=== PATIENT | male | born 1980 | race Caucasian/White ===

== ENCOUNTER 2020-01-07 16:23 | Outpatient (RCR) | payer OTHER, SELFPAY | END 2020-02-03 23:59 | disposition home or self-care (01) | LOC: SPT 16:23 | PROVIDERS: PCP Family Medicine; Referring Provider Family Medicine; Visit Provider Family Medicine | DX: S49.91XD Unspecified injury of right shoulder and upper arm, subsequent encounter (principal); X58.XXXD Exposure to other specified factors, subsequent encounter | CPT/HCPCS: 97110; 97161 ==

== ENCOUNTER 2020-03-03 15:21 | Outpatient (RCR) | payer SELFPAY | END 2020-03-04 23:59 | disposition home or self-care (01) | LOC: SPT 15:21 | PROVIDERS: Absent Provider Orthopaedic Surgery; PCP Family Medicine; Referring Provider Orthopaedic Surgery; Visit Provider Orthopaedic Surgery | DX: M25.511 Pain in right shoulder (principal) | CPT/HCPCS: 97110; 97161 ==

== ENCOUNTER 2020-03-08 | Outpatient (RCR) | payer OTHER, SELFPAY | END 2020-03-25 | disposition home or self-care (01) | LOC: SPT | PROVIDERS: Absent Provider Orthopaedic Surgery; PCP Family Medicine; Referring Provider Orthopaedic Surgery; Visit Provider Orthopaedic Surgery | DX: M25.511 Pain in right shoulder (principal) | CPT/HCPCS: 97110 ==

== ENCOUNTER 2020-08-10 09:51 | Emergency (ER) | payer OTHER, SELFPAY ==
[2020-08-10 09:55] VITALS: BP 132/88; PULSE 100; RESP 18; TEMP 36.6; O2SAT 98
[2020-08-10 09:59] VITALS: BMI 22.1
[2020-08-10 10:04] LABS: Glucose Point of Care 211 mg/dL (70-110)
[2020-08-10 10:05] VITALS: BP 132/88; PULSE 102; RESP 18; O2SAT 99
[2020-08-10 10:11] VITALS: BP 100/79; BP 112/83; BP 120/87; PULSE 103; PULSE 105; PULSE 97
--- NOTE | 2020-08-10 10:11 | CT_ITS ---
WS: [id number] CT HEAD TECHNIQUE: Noncontrast CT of the head obtained from the skullbase to the vertex. CLINICAL INFORMATION: vision changes COMPARISON: None. DLP: 732.[address] scans at [facility] use at least one of these dose optimization techniques: automat ed exposure control; mA and/or kV adjustment per patient size (includes targeted exams where dose is matched to clinical indication); or iterative reconstruction. FINDINGS: No evidence of intracranial hemorrhage or mass effect. Ventricular system and basal cisterns are jewell nt.No extra-axial fluid collections. No evidence of mass or mass effect. Normal saldana-white differenti ation. Paranasal sinuses and mastoid air cells are well aerated. .Normal visualized soft tissues. CT/CT head wo con* [id number] IMPRESSION: 1. No evidence of intracranial hemorrhage or mass effect. 2. Normal saldana-white differentiation. 3. No acute intracranial findings. Notified Jorge Tariq DO at 08/10/2020 10:43 AM.
--- NOTE | 2020-08-10 10:11 | ECG_ITS ---
[facility] Test Date: 2020-08-10 Pat Name: Kristian Balbuena Department: Room: Gender: Male Health Care Attorney: : 1980 Requested By: Jorge Nunez Order Number: [id number] Angel MD: Jessi Ryder M.D. Measurements Intervals [place] Rate: 102 P: 77 LA: 126 QRS: 79 QRSD: 85 T: 76 QT: 328 QTc: 428 Interpretive Statements SINUS TACHYCARDIA POSSIBLE LEFT ATRIAL ENLARGEMENT [-0.1mV P WAVE IN V1/V2] ABNORMAL RHYTHM ECG No previous ECG available for comparison Electronically Signed On 08-10-2020 20:53:44 CDT by Jessi Ryder M.D. [email or web address] county memorial [email or web address] Systemsadena [email or web address] systemSwagapalooza/store/[id number] f
--- NOTE | 2020-08-10 10:11 | PC.NURSE ---
marked redness Nurse marked patients right arm to track redness coming up the arm. slight drainage coming from wound. wound left open to air. patient rating pain 5/10 after pain medication. informed patient of no drinks of water or food at this time. will continue to monitor.
[2020-08-10] MEDS: sodium chloride 0.9% 1,000 ML 999 ML IV (10:28)
[2020-08-10 10:32] LABS: Basophils % 0.5 %; Eosinophils # 0.2 10^3/uL (0.0-0.8); Eosinophils % 2.2 %; Hematocrit 46.1 % (42.0-52.0); Hemoglobin 15.3 g/dL (11.7-16.6); Lymphocytes # 2.6 10^3/uL (0.8-4.8); Lymphocytes % 30.9 %; Mean Corpuscular HGB Conc 33.2 g/dL (30.0-36.0); Mean Corpuscular Hemoglobin 30.5 pg (28.0-34.0); Monocytes # 0.6 10^3/uL (0.2-0.9); Monocytes % 7.3 %; Neutrophils % 58.9 %; Nucleated Red Blood Cells % 0 %; Platelet Count 267 10^3/cmm (130-400); Red Blood Count 5.01 10^6/uL (4.1-5.3); Red Cell Distribution Width 12.3 % (12.1-15.1); White Blood Count 8.3 10^3/uL (4.0-10.0)
[2020-08-10 10:50] LABS: Alanine Aminotransferase 12 U/L (0-41); Albumin Level 4.4 g/dL (3.5-5.2); Alkaline Phosphatase 76 IU/L (40-130); Anion Gap 17.4 (5-19); Aspartate Amino Transferase 12 U/L (0-40); Blood Urea Nitrogen 21 mg/dL (6-20); Carbon Dioxide 25 mmol/L (22-29); Chloride 99 mmol/L (98-107); Globulin 2.9 g/dL (1.3-4.6); Glomerular Filtration Rate 83.2 mL/min (90-130); Glucose 209 mg/dL (65-115); Lipase 16 U/L (13-60); Osmolality Calculated 293 mOsm/kg (285-295); Potassium 4.4 mmol/L (3.5-5.1); Sodium 137 mmol/L (136-145); Total Bilirubin 0.7 mg/dL (0.15-1.2); Total Protein 7.3 g/dL (6.6-8.7)
[2020-08-10 10:58] LABS: ABG PCO2 43.2 mmHg (35-45); ABG PH Result 7.41 (7.35-7.45); Alveolar-Arterial Oxygen Gradi 1.9 mmHg (5-10); Arterial Blood Gas Hematocrit 46.5 % (42-52); Base Excess ABG 1.9 mmol/L (-2.0-2.0); Blood Gas Allen Test Pos; Blood Gas Sample Site Brachial, right; Blood Gas Sample Type Arterial; Carboxyhemoglobin 3.1 %THgb (0.4-20.1); HGB O2 Sat 93.6 % (95-100); Ionized Calcium Level - ABG 1.2 mmol/L (1.1-1.4); Methemoglobin 0.8 % (0.4-1.5); Oxygen Device ROOM AIR; Oxygen Saturation ABG 97.4; PO2 ABG 82.3 mmHg (80.0-100.0); Potassium Level - ABG 4.1 mmol/L (3.5-5.0); Total Hemoglobin 15.2 g/dL (14-18)
[2020-08-10 11:00] VITALS: BP 131/92; PULSE 105; RESP 18; O2SAT 99
--- NOTE | 2020-08-10 11:37 | ED_ITS ---
HPI - General Adult General: Chief complaint: General Medical Stated complaint: DIABETIC/VISION CHANGES Time Seen by Provider: 08/10/20 09:57 History of Present Illness: HPI narrative: 39-year-old male presents emergency room with complaint of difficulty with vision in his right eye. He has a history of diabetic retinopathy and has had surgery on the right eye before as well as injections he has very blurry vision in his left eye as result of this. This morning while driving to work it suddenly began having wavy lines it was not associated exertion or trauma or injury to the eye. Onset (ago): minute(s) Location: eyes Severity: mild Relieving factors: none Exacerbating factors: none Associated symptoms: Deny chest pain, confusion, dyspnea, malaise, nausea, rash, vomiting or weakness Treatments prior to arrival: none Review of Systems Const: Denies: malaise ENMT: Denies: throat pain, ear or mastoid pain, nasal discharge or nasal congestion Card: Denies: chest pain, edema, dyspnea on exertion or orthopnea Resp: Denies: dyspnea, productive cough or non-productive cough GI: Denies: nausea or vomiting : Denies: flank pain, dysuria, urinary frequency or urinary urgency Skin/Breast: Denies: rash or pruritus Neuro: Denies: confusion Physical Exam Const: COMMON NORMALS: no acute distress GENERAL APPEARANCE: cooperative and comfortable ORIENTATION/CONSCIOUSNESS: Yes awake, Yes oriented to person, Yes oriented to place and Yes oriented to time HENMT: COMMON NORMALS: normocephalic, atraumatic, hearing grossly normal bilaterally, external ears normal, EAC's normal, TM's normal bilaterally, Normal nasal mucous membranes and turbinates present, moist oral mucous membranes and oropharynx normal HEAD & SCALP: normocephalic and atraumatic NOSE: Normal nasal mucous membranes and turbinates present EXTERNAL EAR: Yes external ears normal EXTERNAL AUDITORY CANAL: EAC's normal TYMPANIC MEMBRANE: TM's normal bilaterally Eye: COMMON NORMALS: Equal, round and reactive pupils present, EOMs intact bilaterally, conjunctivae normal and no scleral icterus CONJUNCTIVA: Yes conjunctivae normal PUPIL: Yes Equal, round and reactive pupils present Neck/C-Spine: COMMON NORMALS: full ROM, no lymphadenopathy, supple and no JVD Lymph: LYMPHATIC: no lymphadenopathy noted and no lymphedema noted Resp: COMMON NORMALS: normal respiratory effort, No retractions, No use of a ccessory muscles and clear to auscultation bilaterally AUSCULTATION: clear to auscultation bilaterally Cardio: COMMON NORMALS: no JVD, regular rate, regular rhythm and No murmurs present (Cardio) RATE: regular rate RHYTHM: regular rhythm GI: COMMON NORMALS: Soft to palpation and No hepatosplenomegaly present AUSCULTATION: Yes normoactive bowel sounds PALPATION: Yes Soft to palpation, No Tenderness to palpation present (GI), No Guarding due to palpation present (GI) and Yes No hepatosplenomegaly present Extremity: COMMON NORMALS: normal to inspection, capillary refill normal, no clubbing, cyanosis or edema, no calf tenderness and no pedal edema Neuro: SENSORIUM/ORIENTATION: Yes oriented to person, Yes oriented to place and Yes oriented to time Skin: COMMON NORMALS: no rashes or lesions noted NARRATIVE SKIN EXAM: Superficial abrasion on the right flank no bruising GENERAL SKIN EXAM: no rashes or lesions noted Course Vital Signs: Vital signs: Vital Signs Temperature 97.8 F 08/10/20 09:55 Pulse Rate 96 08/10/20 11:55 Respiratory Rate 18 08/10/20 11:55 Blood Pressure 135/92 08/10/20 11:55 Pulse Oximetry 100 08/10/20 11:55 MDM - General Adult MDM Narrative: Medical decision making narrative: Patient still has good visual odom at this point. Working to go ahead and discharge him I think he does need a dilated eye exam with a slit lamp. We will make arrangements for him to be seen with Dr. Turpin. He was given the time and address. Follow-up with Dr. Turpin if she had he has any sudden worsening changes return to the emergency room Lab Data: Labs: Lab Results 08/10/20 08/10/20 08/10/20 Range/Units 10:01 10:26 10:26 WBC 8.3 (4.0-10.0) 10^3/ uL RBC 5.01 (4.1-5.3) 10^6/u L Hgb 15.3 (11.7-16.6) g/dL Hct 46.1 (42.0-52.0) % MCV 92.0 (80-94) fL MCH 30.5 (28.0-34.0) pg MCHC 33.2 (30.0-36.0) g/dL RDW 12.3 (12.1-15.1) % Plt Count 267 (130-400) 10^3/c mm MPV 10.0 (7.4-10.4) fL Neut % (Auto) 58.9 % Lymph % (Auto) 30.9 % [place] % (Auto) 7.3 % Eos % (Auto) 2.2 % Baso % (Auto) 0.5 % Neut # (Auto) 4.90 (1.8-7.7) 10^3/u L Lymph # (Auto) 2.6 (0.8-4.8) 10^3/u L [place] # (Auto) 0.6 (0.2-0.9) 10^3/u L Eos # (Auto) 0.2 (0.0-0.8) 10^3/u L Baso # (Auto) 0.0 (0.0-0.1) 10^3/u L Nucleated RBC % (a uto) 0 % Nucleated RBCs # 0.0 /100WBC Specimen Type Sample Site ABG pH (7.35-7.45) ABG pCO2 (35-45) mmHg ABG pO2 (80.0-100.0) mmH g ABG HCO3 (22-26) mmol/L ABG O2 Saturation ABG Base Excess (-2.0-2.0) mmol/ L Adriel Test A-a O2 Gradient (5-10) mmHg Hematocrit (42-52) % Hgb O2 Saturation (95-100) % Carboxyhemoglobin (0.4-20.1) %THgb Methemoglobin (0.4-1.5) % Total Hemoglobin (14-18) g/dL Ionized Calcium (1.1-1.4) mmol/L O2 Delivery Device FiO2 % Chief Of Internal Medicine ID Sodium 137 (136-145) mmol/L Potassium 4.4 (3.5-5.1) mmol/L Chloride 99 (98-107) mmol/L Carbon Dioxide 25 (22-29) mmol/L Anion Gap 17.4 (5-19) BUN 21 H (6-20) mg/dL Creatinine 1.0 (0.7-1.2) mg/dL GFR Calculation 83.2 L (90-130) mL/min Glucose 209 H (65-115) mg/dL POC Glucose 211 (70-110) mg/dL Calculated Osmolal ity 293 (285-295) mOsm/k g Calcium 10.0 (8.5-10.5) mg/dL Total Bilirubin 0.7 (0.15-1.2) mg/dL AST 12 (0-40) U/L ALT 12 (0-41) U/L Alkaline Phosphata se 76 (40-130) IU/L Total Protein 7.3 (6.6-8.7) g/dL Albumin 4.4 (3.5-5.2) g/dL Globulin 2.9 (1.3-4.6) g/dL Lipase 16 (13-60) U/L 08/10/20 Range/Units 10:49 WBC (4.0-10.0) 10^3/ uL RBC (4.1-5.3) 10^6/u L Hgb (11.7-16.6) g/dL Hct (42.0-52.0) % MCV (80-94) fL MCH (28.0-34.0) pg MCHC (30.0-36.0) g/dL RDW (12.1-15.1) % Plt Count (130-400) 10^3/c mm MPV (7.4-10.4) fL Neut % (Auto) % Lymph % (Auto) % [place] % (Auto) % Eos % (Auto) % Baso % (Auto) % Neut # (Auto) (1.8-7.7) 10^3/u L Lymph # (Auto) (0.8-4.8) 10^3/u L [place] # (Auto) (0.2-0.9) 10^3/u L Eos # (Auto) (0.0-0.8) 10^3/u L Baso # (Auto) (0.0-0.1) 10^3/u L Nucleated RBC % (a uto) % Nucleated RBCs # /100WBC Specimen Type Arterial Sample Site Brachial, right ABG pH 7.41 (7.35-7.45) ABG pCO2 43.2 (35-45) mmHg ABG pO2 82.3 (80.0-100.0) mmH g ABG HCO3 27.0 H (22-26) mmol/L ABG O2 Saturation 97.4 ABG Base Excess 1.9 (-2.0-2.0) mmol/ L Adriel Test Pos A-a O2 Gradient 1.9 L (5-10) mmHg Hematocrit 46.5 (42-52) % Hgb O2 Saturation 93.6 L (95-100) % Carboxyhemoglobin 3.1 (0.4-20.1) %THgb Methemoglobin 0.8 (0.4-1.5) % Total Hemoglobin 15.2 (14-18) g/dL Ionized Calcium 1.2 (1.1-1.4) mmol/L O2 Delivery Device Room air FiO2 21.0 % Chief Of Internal Medicine ID yorna Sodium 138.0 (136-145) mmol/L Potassium 4.1 (3.5-5.1) mmol/L Chloride (98-107) mmol/L Carbon Dioxide (22-29) mmol/L Anion Gap (5-19) BUN (6-20) mg/dL Creatinine (0.7-1.2) mg/dL GFR Calculation (90-130) mL/min Glucose 179.0 H (65-115) mg/dL POC Glucose (70-110) mg/dL Calculated Osmolal ity (285-295) mOsm/k g Calcium (8.5-10.5) mg/dL Total Bilirubin (0.15-1.2) mg/dL AST (0-40) U/L ALT (0-41) U/L Alkaline Phosphata se (40-130) IU/L Total Protein (6.6-8.7) g/dL Albumin (3.5-5.2) g/dL Globulin (1.3-4.6) g/dL Lipase (13-60) U/L Discharge Plan Discharge Patient Disposition: Home Clinical Impression: Diabetic retinopathy Condition: Stable Prescriptions: No Action tramadol 50 mg Tablet 50 mg PO PRN RF: 0 Synjardy XR 5-1,000 mg tablet, IR - ER, biphasic 24hr 1 tab PO BID RF: 0 Discharge Orders: Discharge Order (Routine); Ordered 08/10/20 Ordered By: Jorge Tariq Referrals: Carlos Gao MD [Primary Care Provider] - Activity Restrictions/Additional Instructions: You have an appointment to see Dr. Turpin today at 1:00. Discharge Date/Time: 08/10/20 11:56 Coding Level of Care Code ED Gas Plant Operator for Maurizio Laird
[2020-08-10 11:55] VITALS: BP 135/92; PULSE 96; RESP 18; O2SAT 100
== END 2020-08-10 11:56 | disposition home or self-care (01) ==
PROVIDERS: Emergency Provider Family Medicine; PCP Family Medicine
DX: E11.319 Type 2 diabetes mellitus with unspecified diabetic 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 (principal)
CPT/HCPCS: 12345; 36416; 36600; 70450; 80051; 80053; 82810; 82962; 83690; 83986; 85025; 93005; 96360; 99282; 99284; J7030

== ENCOUNTER 2021-03-26 17:06 | Emergency (ER) | payer OTHER, SELFPAY ==
[2021-03-26 17:11] VITALS: BP 127/86; PULSE 106; RESP 18; TEMP 36.8; O2SAT 98; BMI 22.5
--- NOTE | 2021-03-26 17:22 | W.ED.EXTPRO ---
HPI - Extremity Problem General: Chief complaint: Extremity Problem,Nontraumatic Stated complaint: TOE INFECTION (DIABETIC) Time Seen by Provider: 03/26/21 17:22 History of Present Illness: HPI Narrative: Patient is a 40-year-old male comes to the ED with right toenail problem. Patient has onychodystrophy and was scheduled to have his toenails removed at Dr. Montemayor's office a couple months ago when he had a scheduling issue and missed his appointment. Comes to the ED because today he is having some erythema around his right great toenail. Associated symptoms: Deny chest pain, fever(s) or rash Review of Systems Const: Denies: fever(s), chills or fatigue Eyes: Denies: change in vision or eye discomfort ENMT: Denies: throat pain, odynophagia, nasal discharge or nasal congestion Card: Denies: chest pain, palpitations, edema, swelling of feet/ankles, dyspnea on exertion or orthopnea Resp: Denies: dyspnea, productive cough or non-productive cough GI: Denies: abdominal pain, nausea, vomiting, diarrhea, constipation or hematochezia : Denies: flank pain, difficulty urinating, dysuria or hematuria Musc: Denies: neck pain, back pain or extremity swelling Skin/Breast: Reports: erythema (Erythema around right great toenail.) and nail changes (Right great toenail deformity); Denies: rash or new lesions Neuro: Denies: headache(s), numbness in extremities or weakness in extremities PFS ED PFSH: Social History Smoking and tobacco status: current every day smoker Physical Exam Const: COMMON NORMALS: no acute distress, patient oriented x3 and alert GENERAL APPEARANCE: cooperative and comfortable HENMT: COMMON NORMALS: normocephalic HEAD & SCALP: normocephalic MOUTH: Normal oral and palatal mucosa present THROAT: posterior oropharynx normal and uvula midline Neck/C-Spine: COMMON NORMALS: supple GENERAL: Yes normal visual inspection Resp: COMMON NORMALS: normal respiratory effort, No retractions, No use of accessory muscles and clear to auscultation bilaterally AUSCULTATION: clear to auscultation bilaterally Cardio: COMMON NORMALS: regular rate, regular rhythm, S1 normal heart sound present, S2 normal heart sound present, No gallops present (Cardio), No clicks present (Cardio), No murmurs present (Cardio) and Peripheral pulses 2+ throughout RATE: regular rate RHYTHM: regular rhythm HEART SOUNDS: S1 normal heart sound present and S2 normal heart sound present PERIPHERAL PULSES: Peripheral pulses 2+ throughout GI: COMMON NORMALS: Normal to inspection, nondistended, normoactive bowel sounds present, Soft to palpation, non-tender and no masses PALPATION: Yes Soft to palpation : COMMON NORMALS: Yes no CVA tenderness BLADDER/KIDNEY EXAM: Yes no CVA tenderness Back/Pelvis: COMMON NORMALS: no CVA tenderness Extremity: NARRATIVE EXTREMITY EXAM: Right foot?right great toenail deformity. There is some surrounding erythema and mild warmth surrounding right great toenail. No other significant exam findings. GENERAL: Yes normal exam except as noted Neuro: COMMON NORMALS: patient oriented x3 and moves all extremities SENSORIUM/ORIENTATION: Yes alert Skin: GENERAL SKIN EXAM: dry skin Course Vital Signs: Vital signs: Vital Signs Temperature 98.3 F 03/26/21 17:11 Pulse Rate 106 H 03/26/21 17:11 Respiratory Rate 18 03/26/21 17:11 Blood Pressure 127/86 03/26/21 17:11 Pulse Oximetry 98 03/26/21 17:11 MDM - Extremity (Nontraumatic) MDM Narrative: Medical decision making narrative: Patient is a 40-year-old male comes to the ED with right great toe nail deformity. Patient had an appointment with Dr. Montemayor the supervisor photoengraving to address toenail issues several months ago but was unable to get into see them due to scheduling conflict. He also has some surrounding erythema and warmth of right great toenail. Findings suggestive of some possible infection setting in. I placed an order with case management for patient to be referred to Dr. Montemayor the supervisor photoengraving. Patient was diagnosed with onychodystrophy of right great toe and he was sent home with the prescription of amoxicillin. Told patient that case packer will contact him in the next several days to set up an appoint with Dr. Montemayor the supervisor photoengraving. Return to ED precautions given. Patient understood and agreed with plan. Discharge Plan Discharge Patient Disposition: Home Clinical Impression: Onychodystrophy Condition: Stable Prescriptions: New amoxicillin 500 mg tablet 500 mg PO BID 7 Days Qty: 14 RF: 0 No Action oxycodone-acetaminophen 5-325 mg tablet 1 tab PO Q8H PRNRF: 0 naproxen 250 mg tablet 250 mg PO BID PRNRF: 0 tramadol 50 mg Tablet 50 mg PO PRN RF: 0 Synjardy XR 5-1,000 mg tablet, IR - ER, biphasic 24hr 1 tab PO BID RF: 0 Discharge Orders: Discharge ED (Routine); Ordered 03/26/21 Ordered By: Guillermo Villanueva Referrals: Carlos Gao MD [Primary Care Provider] - Discharge Diet: Regular Discharge Activity: Resume usual activity Activity Restrictions/Additional Instructions: Follow-up with medical provider as directed. Case management will be contacting you in the next several days to set up an appointment with Dr. Montemayor the supervisor photoengraving. Take medications as prescribed. Return to the ER or your medical provider if condition worsens. Please read and understand discharge instructions. Thank you for choosing [facility] for your healthcare needs today. Please realize this is an emergency room and that we are providing you with a medical screening exam and this may not be complete and all inclusive of all the testing and or work up that you may need to determine your ailment or severity of your illness. It is very important that you follow up as instructed or that you return to the Emergency Department should you have concerns or if your condition changes or worsens in any way. Coding Level of Care Code ED Metal Milling Machine Operator for Maurizio Laird Exam Comprehensive
--- NOTE | 2021-03-28 09:14 | DCPLANNER ---
is project manager had message to schedule a follow up appointment for patient with ortho. is project manager called the ortho clinic, spoke with Heidi, gave clinic patients information. is project manager was told that patients information would be printed and reviewed. Clinic will call patient with appointment information.
--- NOTE | 2021-03-31 08:04 | DCPLANNER ---
Patient had a follow up appointment scheduled for 03.28.[address] Montemayor at [facility] - patient did attend appointment.
== END 2021-03-26 17:34 | disposition home or self-care (01) ==
PROVIDERS: Emergency Provider Physician Assistant; PCP Family Medicine
DX: L60.3 Nail dystrophy (principal); F17.210 Nicotine dependence, cigarettes, uncomplicated
CPT/HCPCS: 99281

== ENCOUNTER 2021-05-27 17:22 | Emergency (ER) | payer OTHER, SELFPAY ==
[2021-05-27 18:32] VITALS: BP 141/90; PULSE 88; RESP 16; TEMP 36.5; O2SAT 100; BMI 23.1
--- NOTE | 2021-05-27 18:38 | W.ED.WOUNDLC ---
HPI - Wound/Laceration General: Chief Complaint: Wound/Laceration Stated Complaint: bilateral feet wounds Time Seen by Provider: 05/27/21 18:38 History of Present Illness: HPI narrative: Patient is a 40-year-old male comes to the ED wound on bottom of right foot. Patient says he has diabetic neuropathy and the wound occurred from his poor fitting steel toed boots he wears for work. He has had the wound now for approximately 2 weeks. That has not gotten any better. Denies any other symptoms. Associated symptoms: Denies chills, fever(s), nausea or vomiting Review of Systems Const: Denies: fever(s), chills or fatigue Eyes: Denies: change in vision or eye discomfort ENMT: Denies: throat pain, odynophagia, nasal discharge or nasal congestion Card: Denies: chest pain, palpitations, edema, swelling of feet/ankles, dyspnea on exertion or orthopnea Resp: Denies: dyspnea, productive cough or non-productive cough GI: Denies: abdominal pain, nausea, vomiting, diarrhea, constipation or hematochezia : Denies: flank pain, difficulty urinating, dysuria or hematuria Musc: Denies: neck pain, back pain or extremity swelling Skin/Breast: Reports: new lesions (right diabetic foot ulcer); Denies: rash Neuro: Denies: headache(s), numbness in extremities or weakness in extremities PFSH ED PFSH: Medical History Type 2 diabetes mellitus with diabetic polyneuropathy Social History Smoking and tobacco status: current every day smoker Physical Exam Const: COMMON NORMALS: no acute distress, patient oriented x3 and alert GENERAL APPEARANCE: cooperative and comfortable HENMT: COMMON NORMALS: normocephalic HEAD & SCALP: normocephalic MOUTH: Normal oral and palatal mucosa present THROAT: posterior oropharynx normal and uvula midline Neck/C-Spine: COMMON NORMALS: supple GENERAL: Yes normal visual inspection Resp: COMMON NORMALS: normal respiratory effort, No retractions, No use of accessory muscles and clear to auscultation bilaterally AUSCULTATION: clear to auscultation bilaterally Cardio: COMMON NORMALS: regular rate, regular rhythm, S1 normal heart sound present, S2 normal heart sound present, No gallops present (Cardio), No clicks present (Cardio), No murmurs present (Cardio) and Peripheral pulses 2+ throughout RATE: regular rate RHYTHM: regular rhythm HEART SOUNDS: S1 normal heart sound present and S2 normal heart sound present PERIPHERAL PULSES: Peripheral pulses 2+ throughout GI: COMMON NORMALS: Normal to inspection, nondistended, normoactive bowel sounds present, Soft to palpation, non-tender and no masses PALPATION: Yes Soft to palpation : COMMON NORMALS: Yes no CVA tenderness BLADDER/KIDNEY EXAM: Yes no CVA tenderness Back/Pelvis: COMMON NORMALS: no CVA tenderness Neuro: COMMON NORMALS: patient oriented x3 and moves all extremities SENSORIUM/ORIENTATION: Yes alert Skin: NARRATIVE SKIN EXAM: Right foot?plantar side of foot near the ball of foot at base of big toe. Patient has an ulcer present with minimal skin tissue breakdown. There are some surrounding erythema and warmth which is suggestive for some possible cellulitis setting in. No visible purulent drainage noted. GENERAL SKIN EXAM: dry skin Course Vital Signs: Vital signs: Vital Signs Temperature 97.7 F 05/27/21 18:32 Pulse Rate 88 05/27/21 19:44 Respiratory Rate 18 05/27/21 19:44 Blood Pressure 141/90 05/27/21 18:32 Pulse Oximetry 98 05/27/21 19:44 MDM - Wound/Laceration MDM Narrative: Medical decision making narrative: Patient is a 40-year-old male comes to the ED with right foot wound. That has type 2 diabetes and diabetic neuropathy. Exam shows a diabetic foot ulcer with minimal skin tissue breakdown. There was some surrounding erythema and warmth present. Patient was put on a prescription of Bactrim. I placed order with case management for patient be referred to wound care clinic. Discharge Plan Discharge Patient Disposition: Home Clinical Impression: Diabetic foot ulcer Qualifiers: Diabetic foot ulcer location: unspecified part of foot Diabetes mellitus type: type 2 Laterality: right Non-pressure ulcer stage: limited to breakdown of skin Qualified Code(s): E11.621 - Type 2 diabetes mellitus with foot ulcer Condition: Stable Prescriptions: New Bactrim DS 800-160 mg tablet 1 tab PO BID 7 Days Qty: 14 RF: 0 No Action mupirocin 2 % ointment 1 applic topical BID Qty: 15 RF: 0 Discharge Orders: Discharge ED (Routine); Ordered 05/27/21 Ordered By: Guillermo Villanueva Referrals: David Macario NP [Primary Care Provider] - Discharge Diet: Regular Discharge Activity: Increase activity as tolerated Patient Instructions: Diabetic Foot Ulcers (ED) Activity Restrictions/Additional Instructions: Follow-up with medical provider as directed. Case management will contact you in the next several days to set up an appointment with wound care clinic. Take medications as prescribed. Elevate right foot and you can wear compression stockings as well to help with swelling. Return to the ER or your medical provider if condition worsens. Please read and understand discharge instructions. Thank you for choosing [facility] for your healthcare needs today. Please realize this is an emergency room and that we are providing you with a medical screening exam and this may not be complete and all inclusive of all the testing and or work up that you may need to determine your ailment or severity of your illness. It is very important that you follow up as instructed or that you return to the Emergency Department should you have concerns or if your condition changes or worsens in any way. Coding Level of Care Code ED Hemming And Tacking Machine Operator for Maurizio Fwd Exam Comprehensive
[2021-05-27] MEDS: sulfamethoxazole-trimeth DS 160-800 mg Tablet 1 TAB PO (19:41)
[2021-05-27 19:42] VITALS: PULSE 88; O2SAT 97
[2021-05-27 19:44] VITALS: PULSE 88; RESP 18; O2SAT 98
--- NOTE | 2021-05-30 14:48 | DCPLANNER ---
residential property manager had message to schedule a follow up appointment for patient with Wound Care for diabetic foot ulcer. residential property manager called Wound Care, spoke with Kylah, gave clinic patients information. A follow up appointment was scheduled for Monday, May 31, 2021 at 10:00 with Rupa. residential property manager called and spoke with patients , gave her the appointment information, she stated that she would give patient the appointment information.
--- NOTE | 2021-06-09 11:49 | DCPLANNER ---
Patient had a follow up appointment scheduled with Wound Care - patient did attend appointment.
== END 2021-05-27 19:44 | disposition home or self-care (01) ==
PROVIDERS: Emergency Provider Physician Assistant; PCP Nurse Practitioner Family
DX: E11.621 Type 2 diabetes mellitus with foot ulcer (principal); E11.42 Type 2 diabetes mellitus with diabetic polyneuropathy; F17.200 Nicotine dependence, unspecified, uncomplicated
CPT/HCPCS: 99282

== ENCOUNTER 2021-06-03 13:58 | Outpatient (CLI) | payer OTHER, SELFPAY ==
--- NOTE | 2021-06-03 15:59 | XR_ITS ---
WS: [id number] XR foot RT min 3V* [id number] REASON FOR EXAM: ULCERS ON RIGHT FOOT FINDINGS: In the right forefoot there are mild changes of osteoarthritis in the DIP and PIP joints of the toes characterized by mild narrowing of the joint spaces with subchondral sclerosis and marginal osteophyt es. There are no bony abnormalities suggesting osteomyelitis. No periosteal reaction or bony destruct ion. The joint spaces in the mid foot in the hindfoot are intact and well maintained. No bony or soft tiss ue abnormality is identified. XR/XR foot RT min 3V* [id number] IMPRESSION: There are no findings is just the presence of osteomyelitis.
== END 2021-06-03 13:59 | disposition home or self-care (01) ==
PROVIDERS: PCP Nurse Practitioner Family; Visit Provider Surgery
DX: E11.621 Type 2 diabetes mellitus with foot ulcer (principal); L97.511 Non-pressure chronic ulcer of other part of right foot limited to breakdown of skin; F17.210 Nicotine dependence, cigarettes, uncomplicated
CPT/HCPCS: 73630; 87070; 87077; 87186; 97597; G0463

== ENCOUNTER 2021-06-06 12:49 | Outpatient (CLI) | payer OTHER, SELFPAY ==
--- NOTE | 2021-06-06 12:55 | USCV_ITS ---
Kristian Balbuena Age: 40 Gender: M : 1980 Exam Date: 06/06/2021 13:26 Ordering Phys: Arcadio Mejia MD Technologist: Exam Location: [facility] – [place] Indication: RT LEG PAIN AND SWELLING HISTORY: Lower extremity swelling. Lower extremity pain. PROCEDURES: Venous duplex imaging was performed in only the right lower extremity. The following venous structures were evaluated: common femoral vein, profunda vein, proximal portion of the greater saphenous vein, superficial femoral vein, and the popliteal vein. In addition, the posterior tibial and peroneal trunk were evaluated. On the right side, the common femoral, superficial femoral, profunda femoral, popliteal, posterior tibial, greater saphenous veins and the peroneal trunk were identified and interrogated in the standard fashion. These veins were found to be easily compressible with spontaneous blood flow. No evidence of insufficiency or thrombus noted. FINDINGS: Normal 2-D Doppler and augmentation and compressibility throughout the lower extremity venous structures. Additional imaging through the proximal calf veins also reveals no thrombus. Limited evaluation of the greater saphenous vein is patent with no thrombus.. CONCLUSIONS No evidence of right lower extremity DVT. Darius Lawrence MD (Electronically Signed) Final Date: 06 June 2021 17:30 S
[2021-06-06 13:46] LABS: Basophils # 0.1 10^3/uL (0.0-0.1); Basophils % 0.9 %; Eosinophils # 0.2 10^3/uL (0.0-0.8); Eosinophils % 3.4 %; Hematocrit 46.2 % (42.0-52.0); Lymphocytes # 2.2 10^3/uL (0.8-4.8); Mean Corpuscular HGB Conc 32.5 g/dL (30.0-36.0); Mean Corpuscular Hemoglobin 30.2 pg (28.0-34.0); Mean Corpuscular Volume 93.1 fL (80-94); Mean Platelet Volume 10.1 fL (7.4-10.4); Monocytes # 0.3 10^3/uL (0.2-0.9); Monocytes % 5.3 %; Neutrophils # 3.07 10^3/uL (1.8-7.7); Neutrophils % 52.9 %; Nucleated Red Blood Cells % 0 %; Platelet Count 291 10^3/cmm (130-400); Red Blood Count 4.96 10^6/uL (4.1-5.3); Red Cell Distribution Width 12.3 % (12.1-15.1); White Blood Count 5.8 10^3/uL (4.0-10.0)
[2021-06-06 14:06] LABS: Alanine Aminotransferase 28 U/L (0-41); Alkaline Phosphatase 296 IU/L (40-130); Anion Gap 14.4 (5-19); Aspartate Amino Transferase 17 U/L (0-40); Blood Urea Nitrogen 20 mg/dL (6-20); Calcium 8.9 mg/dL (8.5-10.5); Carbon Dioxide 26 mmol/L (22-29); Chloride 99 mmol/L (98-107); Chol HDL Ratio 3.17 mg/dL (1.0-5.00); Cholesterol 165 mg/dL (0-200); Globulin 3.2 g/dL (1.3-4.6); Glomerular Filtration Rate 74.1 mL/min (90-130); Glucose 370 mg/dL (65-115); HDL Cholesterol 52 mg/dL (60-100); LDL Cholesterol Calculated 85 mg/dL (50-129); LDL HDL Ratio 1.63 RATIO (0.00-3.22); Osmolality Calculated 298 mOsm/kg (285-295); Potassium 4.4 mmol/L (3.5-5.1); Sodium 135 mmol/L (136-145); Total Bilirubin 0.4 mg/dL (0.15-1.2); Total Protein 7.2 g/dL (6.6-8.7); Triglycerides 142 mg/dL (0-150)
[2021-06-06 14:29] LABS: Prealbumin 25.5 mg/dL (20-40)
[2021-06-06 14:55] LABS: Estmated Average Glucose 295; Hemoglobin A1C 11.9 % (4.0-6.0)
== END 2021-06-06 12:50 | disposition home or self-care (01) ==
LOC: RAD 12:53
PROVIDERS: PCP Nurse Practitioner Family; Visit Provider Surgery
DX: M79.89 Other specified soft tissue disorders (principal); E11.621 Type 2 diabetes mellitus with foot ulcer; M79.604 Pain in right leg
CPT/HCPCS: 36415; 80053; 80061; 83036; 84134; 85025; 93971

== ENCOUNTER 2021-06-10 14:31 | Outpatient (CLI) | payer OTHER, SELFPAY | END 2021-06-10 14:32 | disposition home or self-care (01) | LOC: WOUND 14:31 | PROVIDERS: PCP Nurse Practitioner Family; Visit Provider Surgery | DX: E11.621 Type 2 diabetes mellitus with foot ulcer (principal); L97.511 Non-pressure chronic ulcer of other part of right foot limited to breakdown of skin; F17.210 Nicotine dependence, cigarettes, uncomplicated | CPT/HCPCS: 97597 ==

== ENCOUNTER 2021-06-17 14:45 | Outpatient (CLI) | payer OTHER, SELFPAY | END 2021-06-17 14:46 | disposition home or self-care (01) | LOC: WOUND 14:45 | PROVIDERS: PCP Nurse Practitioner Family; Visit Provider Surgery | DX: E11.621 Type 2 diabetes mellitus with foot ulcer (principal); L97.511 Non-pressure chronic ulcer of other part of right foot limited to breakdown of skin; F17.210 Nicotine dependence, cigarettes, uncomplicated | CPT/HCPCS: 97597 ==

== ENCOUNTER 2021-06-24 12:58 | Outpatient (CLI) | payer OTHER, SELFPAY | END 2021-06-24 12:59 | disposition home or self-care (01) | LOC: WOUND 12:59 | PROVIDERS: PCP Nurse Practitioner Family; Visit Provider Surgery | DX: I96 Gangrene, not elsewhere classified (principal); E11.621 Type 2 diabetes mellitus with foot ulcer; L97.512 Non-pressure chronic ulcer of other part of right foot with fat layer exposed; F17.210 Nicotine dependence, cigarettes, uncomplicated | CPT/HCPCS: 11042 ==

== ENCOUNTER 2021-07-01 13:05 | Outpatient (CLI) | payer OTHER, SELFPAY | END 2021-07-01 13:06 | disposition home or self-care (01) | LOC: WOUND 13:06 | PROVIDERS: PCP Nurse Practitioner Family; Visit Provider Surgery | DX: I96 Gangrene, not elsewhere classified (principal); E11.621 Type 2 diabetes mellitus with foot ulcer; L97.512 Non-pressure chronic ulcer of other part of right foot with fat layer exposed; F17.210 Nicotine dependence, cigarettes, uncomplicated | CPT/HCPCS: 11042 ==

== ENCOUNTER 2021-07-08 13:01 | Outpatient (CLI) | payer OTHER, SELFPAY | END 2021-07-08 13:02 | disposition home or self-care (01) | LOC: WOUND 13:02 | PROVIDERS: PCP Nurse Practitioner Family; Visit Provider Surgery | DX: E11.621 Type 2 diabetes mellitus with foot ulcer (principal); L97.512 Non-pressure chronic ulcer of other part of right foot with fat layer exposed; F17.210 Nicotine dependence, cigarettes, uncomplicated | CPT/HCPCS: 11042 ==

== ENCOUNTER 2021-07-15 13:41 | Outpatient (CLI) | payer OTHER, SELFPAY | END 2021-07-15 13:42 | disposition home or self-care (01) | LOC: WOUND 13:42 | PROVIDERS: PCP Nurse Practitioner Family; Visit Provider Surgery | DX: E11.621 Type 2 diabetes mellitus with foot ulcer (principal); L97.512 Non-pressure chronic ulcer of other part of right foot with fat layer exposed; F17.210 Nicotine dependence, cigarettes, uncomplicated | CPT/HCPCS: 11042 ==

== ENCOUNTER 2021-07-22 13:11 | Outpatient (CLI) | payer OTHER, SELFPAY | END 2021-07-22 13:12 | disposition home or self-care (01) | LOC: WOUND 13:11 | PROVIDERS: PCP Nurse Practitioner Family; Visit Provider Surgery | DX: E11.621 Type 2 diabetes mellitus with foot ulcer (principal); L97.512 Non-pressure chronic ulcer of other part of right foot with fat layer exposed; F17.210 Nicotine dependence, cigarettes, uncomplicated | CPT/HCPCS: 11042 ==

== ENCOUNTER 2021-07-29 10:49 | Outpatient (CLI) | payer OTHER, SELFPAY | END 2021-07-29 10:50 | disposition home or self-care (01) | LOC: WOUND 10:49 | PROVIDERS: PCP Nurse Practitioner Family; Visit Provider Surgery | DX: E11.621 Type 2 diabetes mellitus with foot ulcer (principal); L97.512 Non-pressure chronic ulcer of other part of right foot with fat layer exposed; F17.210 Nicotine dependence, cigarettes, uncomplicated | CPT/HCPCS: 11042; A6021 ==

== ENCOUNTER 2021-08-05 08:18 | Outpatient (CLI) | payer OTHER, SELFPAY | END 2021-08-05 08:19 | disposition home or self-care (01) | LOC: WOUND 08:19 | PROVIDERS: PCP Nurse Practitioner Family; Visit Provider Nurse Practitioner Family | DX: E11.621 Type 2 diabetes mellitus with foot ulcer (principal); L97.512 Non-pressure chronic ulcer of other part of right foot with fat layer exposed; F17.210 Nicotine dependence, cigarettes, uncomplicated | CPT/HCPCS: 11042 ==

== ENCOUNTER 2021-08-12 08:22 | Outpatient (CLI) | payer OTHER, SELFPAY | END 2021-08-12 08:23 | disposition home or self-care (01) | LOC: WOUND 08:27 | PROVIDERS: PCP Nurse Practitioner Family; Visit Provider Surgery | DX: E11.621 Type 2 diabetes mellitus with foot ulcer (principal); L97.512 Non-pressure chronic ulcer of other part of right foot with fat layer exposed; F17.210 Nicotine dependence, cigarettes, uncomplicated | CPT/HCPCS: 11042 ==

== ENCOUNTER 2021-08-19 08:27 | Outpatient (CLI) | payer OTHER, SELFPAY | END 2021-08-19 08:28 | disposition home or self-care (01) | LOC: WOUND 08:27 | PROVIDERS: PCP Nurse Practitioner Family; Visit Provider Nurse Practitioner Family | DX: Z09 Encounter for follow-up examination after completed treatment for conditions other than malignant neoplasm (principal); F17.210 Nicotine dependence, cigarettes, uncomplicated | CPT/HCPCS: 99212 ==

== ENCOUNTER 2024-07-08 07:47 | Emergency (ER) | payer OTHER, SELFPAY ==
[2024-07-08] VITALS (7 sets, daily range): BP systolic 126–147; BP diastolic 79–98; PULSE 97–125; RESP 17; TEMP 36.7; O2SAT 95–99; BMI 22.3
[2024-07-08 08:13] LABS: Basophils # 0.1 10^3/uL (0.0-0.1); Basophils % 0.4 %; Hematocrit 39.6 % (37-53); Lymphocytes # 0.7 10^3/uL (0.8-4.8); Lymphocytes % 5.9 %; Mean Corpuscular HGB Conc 34.8 g/dL (30-55); Mean Platelet Volume 10.4 fL (7.4-10.4); Monocytes # 1.3 10^3/uL (0.2-0.9); Monocytes % 10.5 %; Neutrophils # 9.79 10^3/uL (1.8-7.7); Neutrophils % 82.4 %; Nucleated Red Blood Cells % 0 %; Platelet Count 164 10^3/cmm (157-399); Red Blood Count 4.45 10^6/uL (3.85-5.65); Red Cell Distribution Width 12.5 % (12.1-15.1); White Blood Count 11.89 10^3/uL (3.29-11.43)
--- NOTE | 2024-07-08 08:21 | W.ED.BACK ---
HPI - Back Pain/Injury General: Chief Complaint: Back Pain/Injury Stated Complaint: back pain Time Seen by Provider: 07/08/24 07:50 History of Present Illness: 43-year-old male presents emergency including a back pain fever generalized body ache. Complaining of some mid back pain and some low-grade fever. Does have pain radiating to her hips. No dysuria urgency or frequency no chest pain or shortness of breath Associated symptoms: Reports fever(s) (Subjective); Deny abdominal pain, chills, dysuria or urinary urgency Related Data Previous Rx's Medication Instructions Recorded mupirocin 2 % topical ointment 1 applic topical BID #15 grams 03/28/21 amoxicillin 875 mg-potassium 1 tab PO BID 7 days #14 tabs 06/15/23 clavulanate 125 mg tablet amoxicillin 875 mg-potassium 1 tab PO BID #20 tabs 07/08/24 clavulanate 125 mg tablet tizanidine 4 mg tablet 4 mg PO Q6H PRN muscle spasticity 07/08/24 #20 tabs tramadol 50 mg tablet 50 mg PO Q6H PRN pain #15 tabs 07/08/24 Allergies Allergy/AdvReac Type Severity Reaction Status Date / Time No Known Allergies Allergy Verified 06/15/23 11:40 Review of Systems Const: Reports: fever(s) (Subjective); Denies: chills Card: Denies: chest pain Resp: Denies: dyspnea GI: Denies: abdominal pain : Denies: dysuria, urinary frequency or urinary urgency Musc: Denies: neck pain or back pain Skin/Breast: Denies: rash PFSH ED PFSH: Medical History Type 2 diabetes mellitus with diabetic polyneuropathy Social History Smoking and tobacco/nicotine status: current every day tobacco/nicotine user Physical Exam Const: COMMON NORMALS: no acute distress GENERAL APPEARANCE: cooperative and comfortable ORIENTATION/CONSCIOUSNESS: Yes awake, Yes oriented to person, Yes oriented to place and Yes oriented to time HENMT: COMMON NORMALS: normocephalic, atraumatic and hearing grossly normal bilaterally HEAD & SCALP: normocephalic and atraumatic Resp: COMMON NORMALS: normal respiratory effort, No retractions, No use of accessory muscles and clear to auscultation bilaterally AUSCULTATION: clear to auscultation bilaterally Cardio: COMMON NORMALS: regular rate, regular rhythm and No murmurs present (Cardio) RATE: regular rate RHYTHM: regular rhythm GI: COMMON NORMALS: Soft to palpation and No hepatosplenomegaly present AUSCULTATION: Yes normoactive bowel sounds PALPATION: Yes Soft to palpation, No Tenderness to palpation present (GI), No Guarding due to palpation present (GI) and Yes No hepatosplenomegaly present Extremity: COMMON NORMALS: normal to inspection, capillary refill normal, no clubbing, cyanosis or edema, no calf tenderness and no pedal edema Neuro: SENSORIUM/ORIENTATION: Yes oriented to person, Yes oriented to place and Yes oriented to time Skin: COMMON NORMALS: no rashes or lesions noted GENERAL SKIN EXAM: no rashes or lesions noted Course Vital Signs: Vital signs: Vital Signs Temperature 98.0 F 07/08/24 08:14 Pulse Rate 97 07/08/24 13:46 Respiratory Rate 17 07/08/24 08:14 Blood Pressure 136/81 07/08/24 13:46 Pulse Oximetry 97 07/08/24 13:46 Oxygen Delivery Me thod Room Air 07/08/24 13:00 MDM - Back Pain/Injury Medical Decision Making Extensive evaluation white count is very slightly elevated noting a fever at this time. Labs and imaging all reviewed. Did not he was given IV fluids glucose well-controlled. His T. bili and his AST and ALT are elevated. He does not appear to have acute cholecystitis at this time. Gallbladder sludge filled with there is no thickening of the wall there is no hydrops. He should have follow-up on this. There are some intrahepatic biliary ductal dilatation. Tabular the patient he has not previously been diagnosed with hepatitis he should have this evaluated I hepatitis profile was ordered. He should have his liver functions and T. bili rechecked with his primary care doctor within the next couple of weeks. If there is any worsening or change symptoms or develops any abdominal pain return to emergency room. Medical Records Extensive workup. White count is slightly elevated does not appear to be a acute infection at this time. I suspect his symptoms are due to musculoskeletal he may have a viral viral syndrome. He does not appear to be septic. Will discharge home with medications. Return to the emergency room. No fever at this time. Return to the emergency room if patient has worsening symptoms or fever develops. Labs 07/08/24 08:05 07/08/24 08:05 Radiology Impressions Abdomen/Pelvis CT 07/08/24 10:00 Impression: There is cholelithiasis. A right upper quadrant ultrasound is recommended for further evaluation. The liver is mildly inhomogenous. The urinary bladder is thick walled. The prostate appears mildly prominent. Vas deferens calcification is identified. Scattered lymph nodes are identified particularly in the pelvic and inguinal region. In light of the patient's symptoms genital urinary tract and infectious/inflammatory process could have this appearance. Neoplasm is thought to be less likely. Gallbladder Ultrasound 07/08/24 11:11 IMPRESSION: Sludge and small stones are seen within the thin-walled gallbladder. There is intrahepatic biliary duct dilatation. The liver is heterogeneous in appearance. When the patient can tolerate I recommend MR of the liver for further evaluation. Laboratory Results WBC 11.89 10^3/uL (3.29-11.43) H 07/08/24 08:05 RBC 4.45 10^6/uL (3.85-5.65) 07/08/24 08:05 Hgb 13.80 g/dL (11.27-16.99) 07/08/24 08:05 Hct 39.6 % (37-53) 07/08/24 08:05 MCV 89.0 fl (82-101) 07/08/24 08:05 MCH 31.0 pg (27-33) 07/08/24 08:05 MCHC 34.8 g/dL (30-55) 07/08/24 08:05 RDW 12.5 % (12.1-15.1) 07/08/24 08:05 Plt Count 164 10^3/cmm (157-399) 07/08/24 08:05 MPV 10.4 fL (7.4-10.4) 07/08/24 08:05 Neut % (Auto) 82.4 % 07/08/24 08:05 Lymph % (Auto) 5.9 % 07/08/24 08:05 [place] % (Auto) 10.5 % 07/08/24 08:05 Eos % (Auto) 0.0 % 07/08/24 08:05 Baso % (Auto) 0.4 % 07/08/24 08:05 Neut # (Auto) 9.79 10^3/uL (1.8-7.7) H 07/08/24 08:05 Lymph # (Auto) 0.7 10^3/uL (0.8-4.8) L 07/08/24 08:05 [place] # (Auto) 1.3 10^3/uL (0.2-0.9) H 07/08/24 08:05 Eos # (Auto) 0.0 10^3/uL (0.0-0.8) 07/08/24 08:05 Baso # (Auto) 0.1 10^3/uL (0.0-0.1) 07/08/24 08:05 Nucleated RBC % (auto) 0 % 07/08/24 08:05 Nucleated RBCs # 0.0 /100WBC 07/08/24 08:05 Sodium 138 mmol/L (136-145) 07/08/24 08:05 Potassium 3.6 mmol/L (3.5-5.1) 07/08/24 08:05 Chloride 98 mmol/L (98-107) 07/08/24 08:05 Carbon Dioxide 23 mmol/L (22-29) 07/08/24 08:05 Anion Gap 20.6 (5-19) H 07/08/24 08:05 BUN 23 mg/dL (6-20) H 07/08/24 08:05 Creatinine 1.2 mg/dL (0.7-1.2) 07/08/24 08:05 GFR Calculation 66.1 mL/min (90-130) L 07/08/24 08:05 Glucose 150 mg/dL (65-115) H 07/08/24 08:05 Calculated Osmolality 293 mOsm/kg (285-295) 07/08/24 08:05 Lactic Acid 2.1 mmol/L (0.5-2.2) 07/08/24 08:22 Lactic Acid (Sepsis) 1.3 mmol/L (0.5-2.2) 07/08/24 11:16 Calcium 8.7 mg/dL (8.5-10.5) 07/08/24 08:05 Total Bilirubin 3.9 mg/dL (0.15-1.2) H 07/08/24 08:05 AST 80 U/L (0-40) H 07/08/24 08:05 ALT 66 U/L (0-41) H 07/08/24 08:05 Alkaline Phosphatase 515 U/L (40-130) H 07/08/24 08:05 Total Protein 6.7 g/dL (6.6-8.7) 07/08/24 08:05 Albumin 3.3 g/dL (3.5-5.2) L 07/08/24 08:05 Globulin 3.4 g/dL (1.3-4.6) 07/08/24 08:05 Urine Color Dark yellow (Yellow) A 07/08/24 12:13 Urine Appearance Cloudy (CLEAR) A 07/08/24 12:13 Urine pH 5.0 (5-7) 07/08/24 12:13 Ur Specific [place] 1.037 (1.005-1.030) H 07/08/24 12:13 Urine Protein 2+ (Negative) A 07/08/24 12:13 Urine Glucose (UA) 1+ (Normal) H 07/08/24 12:13 Urine Ketones Negative (Negative) 07/08/24 12:13 Urine Blood 2+ (Negative) A 07/08/24 12:13 Urine Nitrate Negative (Negative) 07/08/24 12:13 Urine Bilirubin 3+ (Negative) H 07/08/24 12:13 Urine Urobilinogen 1.0 mg/dL (Negative) 07/08/24 12:13 Ur Leukocyte Esterase Negative (Negative) 07/08/24 12:13 Urine RBC 5-10 /hpf (0-2) H 07/08/24 12:13 Urine WBC 0-4 /hpf (0-5) H 07/08/24 12:13 Ur Squamous Epith Cells None /hpf (0-5) 07/08/24 12:13 Amorphous Sediment Trace /hpf 07/08/24 12:13 Urine Bacteria Trace /hpf (NONE) 07/08/24 12:13 Other Casts Broad granular 0-4 /lpf 07/08/24 12:13 Urine Mucus Trace /hpf 07/08/24 12:13 Coronavirus 229E (PCR) Not detected (NOT DETECT) 07/08/24 08:33 Hepatitis A IgM Ab Non-reactive (Nonreactive) 07/08/24 08:05 Hep Bs Antigen Non-reactive (Nonreactive) 07/08/24 08:05 Hep B Core IgM Ab Non-reactive (Nonreactive) 07/08/24 08:05 Hepatitis C Antibody Non-reactive (Nonreactive) 07/08/24 08:05 SARS-CoV-2 (PCR) Not detected (NOT DETECT) 07/08/24 08:33 All radiology interpretation(s) finalized by discharge Discharge Plan Discharge Patient Disposition: Home Clinical Impression: Strain of lumbar region Type 2 diabetes mellitus with diabetic polyneuropathy Qualifiers: 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 Qualified Code(s): E11.42 - Type 2 diabetes mellitus with diabetic polyneuropathy Condition: Stable Prescriptions: New tramadol 50 mg tablet 50 mg PO Q6H PRN (Reason: pain) Qty: 15 0RF tizanidine 4 mg tablet 4 mg PO Q6H PRN (Reason: muscle spasticity) Qty: 20 0RF Rx Instructions: do not exceed 3 doses per 24 hrs amoxicillin-pot clavulanate 875-125 mg tablet 1 tab PO BID Qty: 20 0RF No Action mupirocin 2 % ointment 1 applic topical BID Qty: 15 0RF amoxicillin-pot clavulanate 875-125 mg tablet 1 tab PO BID 7 Days Qty: 14 0RF Discharge Orders: Discharge ED (Routine); Ordered 07/08/24 Ordered By: Jorge Tariq Referrals: David Macario NP [Primary Care Provider] - Discharge Diet: Usual diet Discharge Activity: Resume usual activity Patient Instructions: Opioid Safety, Pain Management Activity Restrictions/Additional Instructions: Thank you for choosing [facility] for your healthcare needs today. It is very important that you follow up as instructed or that you return to the Emergency Department should you have concerns or if your condition changes or worsens in any way. You were seen in the emergency room with complaints of back pain. Reports your workup there is a slight elevation of your white count you are also noted to be mildly dehydrated you are given IV fluids. Your liver functions are also elevated this was evaluated further by a gallbladder ultrasound the CT. There is some sludge in the gallbladder and some dilation of the ducts within the liver but no external duct dilation. Will discharge you home on oral antibiotics Augmentin 1 twice a day for 10 days will have you see the general surgeon for follow-up regarding your gallbladder. We have also done a hepatitis panel if your symptoms worsen or change return. Recommend that you stop taking metformin. Coding Level of Care Code ED Prestressed Concrete Laborer for Maurizio Laird
[2024-07-08] MEDS: orphenadrine 30 mg/mL Inj 2 mL 60 MG IM (08:26)
[2024-07-08] MEDS: dexamethasone 10 mg/mL INJ IM (08:27)
[2024-07-08] MEDS: ondansetron 2 mg/ML SDV 2 mL 4 MG IVP (08:27)
[2024-07-08] MEDS: ketorolac 30 mg/mL INJ IVP ×2 (08:27→09:48)
[2024-07-08 08:28] LABS: Alanine Aminotransferase 66 U/L (0-41); Albumin Level 3.3 g/dL (3.5-5.2); Alkaline Phosphatase 515 U/L (40-130); Anion Gap 20.6 (5-19); Aspartate Amino Transferase 80 U/L (0-40); Blood Urea Nitrogen 23 mg/dL (6-20); Calcium 8.7 mg/dL (8.5-10.5); Carbon Dioxide 23 mmol/L (22-29); Chloride 98 mmol/L (98-107); Globulin 3.4 g/dL (1.3-4.6); Glomerular Filtration Rate 66.1 mL/min (90-130); Glucose 150 mg/dL (65-115); Osmolality Calculated 293 mOsm/kg (285-295); Potassium 3.6 mmol/L (3.5-5.1); Sodium 138 mmol/L (136-145); Total Bilirubin 3.9 mg/dL (0.15-1.2); Total Protein 6.7 g/dL (6.6-8.7)
[2024-07-08 08:48] LABS: Lactic Sepsis W/Reflex 2.1 mmol/L (0.5-2.2)
[2024-07-08] MEDS: sodium chloride 0.9% 1,000 ML 999 ML IV ×2 (09:14→10:10)
--- NOTE | 2024-07-08 10:00 | CT_ITS ---
WS: [id number] Examination: CT abdomen pelvis w con* [id number] Reason for Exam: abd pain Date: 07/08/2024 Comparison: None. DLP: 467.[address] scans at [facility] use at least one of these dose optimization techniques: automated e xposure control; mA and/or kV adjustment per patient size (includes targeted exams where dose is matc hed to clinical indication); or iterative reconstruction. Findings: The heart is normal in size. There is no pleural effusion. There is mild thickening of the lower esop hagus. The liver is normal in size and mildly inhomogenous. The portal vein is patent mild periportal edema is present. I see no biliary duct dilatation. There is cholelithiasis. The spleen mildly prominent in size. The right adrenal gland is unremarkable. There is left adrenal calcification. The kidneys are well-perfused. There is no kidney stone or hydronephrosis. No renal mass is identifie d. The pancreas is unremarkable. The aorta is normal in size. Scattered mesenteric and retroperitoneal lymph nodes are present. Prominent pelvic and inguinal lymph nodes are identified particularly on the right. There is no small bowel obstructive change.. The appendix is unremarkable. There is no free air. I see no free fluid. Urinary bladder appears thick walled. The prostate is prominent. There is vas deferens calcification. Multilevel mid and lower lumbar degenerative changes are present. CT/CT abdomen pelvis w con* [id number] Impression: There is cholelithiasis. A right upper quadrant ultrasound is recommended for f urther evaluation. The liver is mildly inhomogenous. The urinary bladder is thick walled. The prostate appears mildly prominent. Vas deferens calcification is identified. Scattered lymph nodes are identified par ticularly in the pelvic and inguinal region. In light of the patient's symptoms genital urinary tract and infectious/inflammatory process could have this appe arance. Neoplasm is thought to be less likely.
[2024-07-08 10:15] LABS: Reflex Lactate Order REFLEX LACTIC ORDERD
[2024-07-08] MEDS: iohexol 350 mg/mL 500 mL Btl (per mL) IV (10:25)
[2024-07-08 10:40] LABS: Adenovirus Not Detected (NOT DETECT); Chlamydia Pneumoniae Not Detected (NOT DETECT); Coronavirus 229E,HKU1,NL63,OC4 Not Detected (NOT DETECT); Human Metapneumovirus Not Detected (NOT DETECT); Human Rhinovirus/Enterovirus Not Detected (NOT DETECT); Influenza A Not Detected (NOT DETECT); Influenza A H1 Not Detected (NOT DETECT); Influenza A H1-2009 Not Detected (NOT DETECT); Influenza A H3 Not Detected (NOT DETECT); Influenza B Not Detected (NOT DETECT); Mycoplasma Pneumoniae Not Detected (NOT DETECT); Parainfluenza Virus Type 1 Not Detected (NOT DETECT); Parainfluenza Virus Type 2 Not Detected (NOT DETECT); Parainfluenza Virus Type 3 Not Detected (NOT DETECT); Parainfluenza Virus Type 4 Not Detected (NOT DETECT); Respiratory Syncytial Virus A Not Detected (NOT DETECT); Respiratory Syncytial Virus B Not Detected (NOT DETECT); SARS-COV-2 Not Detected (NOT DETECT)
--- NOTE | 2024-07-08 11:11 | US_ITS ---
WS: [id number] EXAM: US gall bladder [id number] REASON FOR EXAM: Elevated liver enzymes DATE: 07/08/2024 COMPARISON: None. FINDINGS: The maximum liver measurement is 18.6 cm. The liver is heterogeneous. There our dilated intrahepatic biliary ducts. There is sludge within the gallbladder. There is cholelithiasis the gallbladder wall measures 3 mm. The common bile duct measures 3 mm. The IVC is patent in the liver. The aorta is not enlarged Right kidney measures 11.1 cm in length without hydronephrosis. US/US gall bladder [id number] IMPRESSION: Sludge and small stones are seen within the thin-walled gallbladder. There is i ntrahepatic biliary duct dilatation. The liver is heterogeneous in appearance. When the patient can tolerate I recommend MR of the liver for further evaluatio n.
[2024-07-08 11:36] LABS: Lactic Acid level (Lactate) 1.3 mmol/L (0.5-2.2)
[2024-07-08 12:55] LABS: Charge for UA Resulting for Rev
[2024-07-08 12:58] LABS: Bilirubin Urine 3+ (Negative); Blood Urine 2+ (Negative); Glucose Urine UA 1+ (Normal); Ketones Urine Negative (Negative); Leukocyte Esterase Urine Negative (Negative); Nitrate Urine Negative (Negative); Protein Urine 2+ (Negative); Urine Appearance Cloudy (CLEAR); Urine Color Dark Yellow (Yellow)
[2024-07-08 13:10] LABS: Specific Gravity, Urine 1.037 (1.005-1.030); UA Manual Slide Review YES; UA Slide Review UA Slide Review Perf
[2024-07-08 13:12] LABS: Bacteria Urine TRACE /hpf; Mucus Urine TRACE /hpf; WBC Urine 0-4 /hpf (0-5)
[2024-07-08 13:13] LABS: Amorphous Sediment Urine TRACE /hpf; Other Casts Urine BROAD GRANULAR 0-4 /lpf
[2024-07-08 13:14] LABS: Add Urine Culture? No
[2024-07-08 14:42] LABS: Hepatitis A Antibody IgM Non-Reactive (Nonreactive); Hepatitis B Core IgM Non-Reactive (Nonreactive); Hepatitis B Surface Antigen Non-Reactive (Nonreactive); Hepatitis C Virus Antibody Non-Reactive (Nonreactive)
== END 2024-07-08 13:48 | disposition home or self-care (01) ==
PROVIDERS: Emergency Provider Family Medicine; PCP Nurse Practitioner Family
DX: S39.012A Strain of muscle, fascia and tendon of lower back, initial encounter (principal); E11.42 Type 2 diabetes mellitus with diabetic polyneuropathy; Z11.52 Encounter for screening for COVID-19; Z72.0 Tobacco use; X58.XXXA Exposure to other specified factors, initial encounter
CPT/HCPCS: 36415; 74177; 76705; 80053; 80074; 81003; 81015; 83605; 85025; 87040; 87635; 96361; 96372; 96374; 96375; 96376; 99285; J1100; J1885; J2360; J2405; J7030

== ENCOUNTER 2024-07-09 15:49 | Emergency (ER) | payer OTHER, SELFPAY ==
[2024-07-09 16:17] VITALS: BP 154/93; PULSE 120; RESP 15; TEMP 37.8; O2SAT 97; BMI 22.3
--- NOTE | 2024-07-09 17:37 | USR_ITS ---
PROCEDURE INFORMATION: Exam: US Abdomen, Limited; Right Upper Quadrant Exam date and time: 07/09/2024 6:09 PM Age: 43 years old Clinical indication: Abdominal pain; Generalized; Additional info: Ruq pain TECHNIQUE: Imaging protocol: Real time ultrasound of the abdomen with image documentation. Limited exam focused on the right upper quadrant. COMPARISON: US gall bladder [id number] 07/08/2024 11:32 AM FINDINGS: Liver: Heterogeneous hepatic parenchyma likely representing steatosis. Gallbladder: There are few mobile stones within the gallbladder, largest measuring up to 7 mm. There is sludge layering within the gallbladder. Gallbladder wall measures up to 2 mm. Biliary ducts: The common bile duct measures up to 4 mm. Pancreas: The pancreas is unremarkable. Right kidney: No mass. No hydronephrosis. Intraperitoneal space: Small amount of ascites superior to the left hepatic lobe. US/US gall bladder [id number] IMPRESSION: Cholelithiasis with sludge without wall thickening or pericholecystic fluid. Negative Rojas sign per energy technician. Findings concerning for cholecystitis in the appropriate clinical setting.
[2024-07-09 17:45] LABS: Basophils % 0.2 %; Hematocrit 40.6 % (37-53); Lymphocytes # 0.8 10^3/uL (0.8-4.8); Lymphocytes % 7.5 %; Mean Corpuscular HGB Conc 35.5 g/dL (30-55); Mean Corpuscular Hemoglobin 30.9 pg (27-33); Mean Corpuscular Volume 87.1 fl (82-101); Monocytes # 0.5 10^3/uL (0.2-0.9); Monocytes % 4.8 %; Neutrophils # 8.42 10^3/uL (1.8-7.7); Neutrophils % 81.6 %; Nucleated Red Blood Cells % 0 %; Platelet Count 198 10^3/cmm (157-399); Red Blood Count 4.66 10^6/uL (3.85-5.65); Red Cell Distribution Width 13.1 % (12.1-15.1); White Blood Count 10.31 10^3/uL (3.29-11.43)
[2024-07-09] MEDS: sodium chloride 0.9% 1,000 ML 999 ML IV ×2 (17:49→18:41)
[2024-07-09] MEDS: ondansetron 2 mg/ML SDV 2 mL 4 MG IVP (17:49)
[2024-07-09] MEDS: acetaminophen 325 mg Tablet 650 MG PO (17:49)
[2024-07-09 17:52] VITALS: RESP 18
[2024-07-09] MEDS: morphine 4 mg/mL SDV 1 mL IVP (17:52)
[2024-07-09 17:59] LABS: Slide Review Slide Review Perform
[2024-07-09 18:04] LABS: Lactic Sepsis W/Reflex 1.3 mmol/L (0.5-2.2)
[2024-07-09 18:12] LABS: Alanine Aminotransferase 121 U/L (0-41); Albumin Level 3.6 g/dL (3.5-5.2); Alkaline Phosphatase 719 U/L (40-130); Anion Gap 20.1 (5-19); Aspartate Amino Transferase 183 U/L (0-40); Blood Urea Nitrogen 29 mg/dL (6-20); Calcium 9.1 mg/dL (8.5-10.5); Carbon Dioxide 23 mmol/L (22-29); Chloride 90 mmol/L (98-107); Globulin 3.6 g/dL (1.3-4.6); Glomerular Filtration Rate 66.1 mL/min (90-130); Glucose 107 mg/dL (65-115); Lipase 36 U/L (13-60); Osmolality Calculated 274 mOsm/kg (285-295); Potassium 4.1 mmol/L (3.5-5.1); Sodium 129 mmol/L (136-145); Total Protein 7.2 g/dL (6.6-8.7)
[2024-07-09 18:23] VITALS: BP 153/100; PULSE 123; RESP 16; TEMP 37.3; O2SAT 96
--- NOTE | 2024-07-09 18:36 | W.ED.BACK ---
HPI - Back Pain/Injury General: Chief Complaint: Back Pain/Injury Stated Complaint: Back Pain Time Seen by Provider: 07/09/24 17:33 Source: patient Mode of arrival: ambulatory Limitations: no limitations History of Present Illness: 43-year-old male but seen in the ER yesterday has been running fever since Sunday having some upper back pain along with some abdominal pain patient is discharged she states that since being discharged he has been running fevers and having increasing pain. He had some nausea denies any vomiting or diarrhea. Denies any worse improved factors Associated symptoms: Reports abdominal pain, chills, fever(s) and nausea; Deny vomiting Related Data Previous Rx's Medication Instructions Recorded mupirocin 2 % topical ointment 1 applic topical BID #15 grams 03/28/21 amoxicillin 875 mg-potassium 1 tab PO BID 7 days #14 tabs 06/15/23 clavulanate 125 mg tablet amoxicillin 875 mg-potassium 1 tab PO BID #20 tabs 07/08/24 clavulanate 125 mg tablet tizanidine 4 mg tablet 4 mg PO Q6H PRN muscle spasticity 07/08/24 #20 tabs tramadol 50 mg tablet 50 mg PO Q6H PRN pain #15 tabs 07/08/24 Allergies Allergy/AdvReac Type Severity Reaction Status Date / Time No Known Allergies Allergy Verified 06/15/23 11:40 Review of Systems Const: Reports: fever(s) and chills; Denies: body aches or change in appetite ENMT: Denies: throat pain or dental pain Card: Denies: chest pain Resp: Denies: dyspnea GI: Reports: abdominal pain and nausea; Denies: vomiting or diarrhea Musc: Reports: back pain; Denies: neck pain Skin/Breast: Denies: rash Neuro: Denies: headache(s) PFSH ED PFSH: Medical History Type 2 diabetes mellitus with diabetic polyneuropathy Social History Smoking and tobacco/nicotine status: current every day tobacco/nicotine user Physical Exam Const: COMMON NORMALS: patient oriented x3 HENMT: COMMON NORMALS: normocephalic and atraumatic HEAD & SCALP: normocephalic and atraumatic Eye: COMMON NORMALS: Equal, round and reactive pupils present and EOMs intact bilaterally PUPIL: Yes Equal, round and reactive pupils present Neck/C-Spine: COMMON NORMALS: full ROM and supple Chest: COMMONS NORMALS: normal inspection of the chest Resp: COMMON NORMALS: normal respiratory effort, No retractions, No use of accessory muscles and clear to auscultation bilaterally AUSCULTATION: clear to auscultation bilaterally Cardio: COMMON NORMALS: regular rhythm and No murmurs present (Cardio) RATE: tachycardic RHYTHM: regular rhythm GI: COMMON NORMALS: Normal to inspection, nondistended, normoactive bowel sounds present, Soft to palpation and no masses PALPATION: Yes Soft to palpation and Yes Tenderness to palpation present (GI) Details: RUQ Extremity: COMMON NORMALS: normal to inspection and full ROM Neuro: COMMON NORMALS: patient oriented x3, moves all extremities and no focal motor deficits Psych: COMMON NORMALS: mental status grossly normal, Normal thought process present and cooperative THOUGHT PROCESS: Normal thought process present Skin: COMMON NORMALS: no rashes or lesions noted and no wounds GENERAL SKIN EXAM: no rashes or lesions noted Course Vital Signs: Vital signs: Vital Signs Temperature 99.2 F 07/09/24 18:23 Pulse Rate 122 H 07/09/24 19:50 Respiratory Rate 19 H 07/09/24 19:50 Blood Pressure 123/68 07/09/24 19:50 Pulse Oximetry 95 07/09/24 19:50 Oxygen Delivery Me thod Room Air 07/09/24 19:50 MDM - Back Pain/Injury Medical Decision Making Patient presents with abdominal pain along with back pain he also has a fever he has bilirubin along with alk phos and liver enzymes that are trending up I spoke to surgeon on-call Dr. Enciso along with hospitalist Dr. Manzanares who recommended patient to be transferred to likely have an ERCP and GI capabilities for concern of a ascending cholangitis patient was given IV antibiotics here I did speak to [facility] spoke to GI along with hospitalist and will transfer there for higher level of care Medical Records I reviewed the patient's medical records. Labs I reviewed the patient's lab results. 07/09/24 17:36 07/09/24 17:36 Radiology Impressions Gallbladder Ultrasound 07/09/24 17:37 IMPRESSION: Cholelithiasis with sludge without wall thickening or pericholecystic fluid. Negative Rojas sign per splicing technician. Findings concerning for cholecystitis in the appropriate clinical setting. ADDENDUM: 07/09/241947 No intrahepatic biliary ductal dilation. Laboratory Results WBC 10.31 10^3/uL (3.29-11.43) 07/09/24 17:36 RBC 4.66 10^6/uL (3.85-5.65) 07/09/24 17:36 Hgb 14.40 g/dL (11.27-16.99) 07/09/24 17:36 Hct 40.6 % (37-53) 07/09/24 17:36 MCV 87.1 fl (82-101) 07/09/24 17:36 MCH 30.9 pg (27-33) 07/09/24 17:36 MCHC 35.5 g/dL (30-55) 07/09/24 17:36 RDW 13.1 % (12.1-15.1) 07/09/24 17:36 Plt Count 198 10^3/cmm (157-399) 07/09/24 17:36 MPV 10.0 fL (7.4-10.4) 07/09/24 17:36 Neut % (Auto) 81.6 % 07/09/24 17:36 Lymph % (Auto) 7.5 % 07/09/24 17:36 Fleming % (Auto) 4.8 % 07/09/24 17:36 Eos % (Auto) 0.0 % 07/09/24 17:36 Baso % (Auto) 0.2 % 07/09/24 17:36 Neut # (Auto) 8.42 10^3/uL (1.8-7.7) H 07/09/24 17:36 Lymph # (Auto) 0.8 10^3/uL (0.8-4.8) 07/09/24 17:36 Fleming # (Auto) 0.5 10^3/uL (0.2-0.9) 07/09/24 17:36 Eos # (Auto) 0.0 10^3/uL (0.0-0.8) 07/09/24 17:36 Baso # (Auto) 0.0 10^3/uL (0.0-0.1) 07/09/24 17:36 Nucleated RBC % (auto) 0 % 07/09/24 17:36 Nucleated RBCs # 0.0 /100WBC 07/09/24 17:36 ESR 69 mm/hr (0-10) H 07/09/24 17:36 Sodium 129 mmol/L (136-145) L 07/09/24 17:36 Potassium 4.1 mmol/L (3.5-5.1) 07/09/24 17:36 Chloride 90 mmol/L (98-107) L 07/09/24 17:36 Carbon Dioxide 23 mmol/L (22-29) 07/09/24 17:36 Anion Gap 20.1 (5-19) H 07/09/24 17:36 BUN 29 mg/dL (6-20) H 07/09/24 17:36 Creatinine 1.2 mg/dL (0.7-1.2) 07/09/24 17:36 GFR Calculation 66.1 mL/min (90-130) L 07/09/24 17:36 Glucose 107 mg/dL (65-115) 07/09/24 17:36 Calculated Osmolality 274 mOsm/kg (285-295) L 07/09/24 17:36 Lactic Acid 1.3 mmol/L (0.5-2.2) 07/09/24 17:36 Calcium 9.1 mg/dL (8.5-10.5) 07/09/24 17:36 Total Bilirubin 4.0 mg/dL (0.15-1.2) H 07/09/24 17:36 Total Bilirubin 4.0 mg/dL (0.15-1.2) H 07/09/24 17:36 Direct Bilirubin 3.40 mg/dL (0.00-0.30) H 07/09/24 17:36 Indirect Bilirubin 0.60 07/09/24 17:36 GGT 189 U/L (8-61) H 07/09/24 17:36 AST 183 U/L (0-40) H 07/09/24 17:36 ALT 121 U/L (0-41) H 07/09/24 17:36 Alkaline Phosphatase 719 U/L (40-130) H 07/09/24 17:36 C-Reactive Protein 144.8 mg/L (0.0-4.9) H 07/09/24 17:36 Total Protein 7.2 g/dL (6.6-8.7) 07/09/24 17:36 Albumin 3.6 g/dL (3.5-5.2) 07/09/24 17:36 Globulin 3.6 g/dL (1.3-4.6) 07/09/24 17:36 Lipase 36 U/L (13-60) 07/09/24 17:36 Procalcitonin 0.81 ng/mL (0-0.5) H 07/09/24 17:36 Urine Color Dark yellow (Yellow) A 07/09/24 18:05 Urine Appearance Cloudy (CLEAR) A 07/09/24 18:05 Urine pH 5.0 (5-7) 07/09/24 18:05 Ur Specific [place] 1.026 (1.005-1.030) 07/09/24 18:05 Urine Protein 3+ (Negative) A 07/09/24 18:05 Urine Glucose (UA) 2+ (Normal) H 07/09/24 18:05 Urine Ketones Negative (Negative) 07/09/24 18:05 Urine Blood 2+ (Negative) A 07/09/24 18:05 Urine Nitrate Negative (Negative) 07/09/24 18:05 Urine Bilirubin 3+ (Negative) H 07/09/24 18:05 Urine Urobilinogen 1.0 mg/dL (Negative) 07/09/24 18:05 Ur Leukocyte Esterase Trace (Negative) A 07/09/24 18:05 Urine RBC 0-4 /hpf (0-2) H 07/09/24 18:05 Urine WBC 0-4 /hpf (0-5) H 07/09/24 18:05 Ur Squamous Epith Cells None /hpf (0-5) 07/09/24 18:05 Amorphous Sediment 1+ /hpf 07/09/24 18:05 Urine Bacteria 1+ /hpf (NONE) H 07/09/24 18:05 Urine Mucus Trace /hpf 07/09/24 18:05 Urine Opiates Screen Negative ng/mL (Negative) 07/09/24 18:05 Ur Barbiturates Screen Negative ng/mL (Negative) 07/09/24 18:05 Ur Phencyclidine Scrn Negative ng/mL (Negative) 07/09/24 18:05 Ur Amphetamines Screen Negative ng/mL (Negative) 07/09/24 18:05 U Benzodiazepines Scrn Negative ng/mL (Negative) 07/09/24 18:05 Urine Cocaine Screen Negative ng/mL (Negative) 07/09/24 18:05 U Marijuana (THC) Screen Negative ng/mL (Negative) 07/09/24 18:05 Ethyl Alcohol < 10 mg/dL (0-10) 07/09/24 17:36 HIV 1&2 Ab & HIV 1 Ag Non-reactive (Non-Reactiv) 07/09/24 17:36 HIV 1&2 Antibody Non-reactive (Non-Reactiv) 07/09/24 17:36 All radiology interpretation(s) finalized by discharge Discharge Plan Discharge Patient Disposition: Xfer Short-Term Hosp Clinical Impression: Elevated bilirubin, Fever, Abdominal pain Condition: Stable Prescriptions: No Action mupirocin 2 % ointment 1 applic topical BID Qty: 15 0RF amoxicillin-pot clavulanate 875-125 mg tablet 1 tab PO BID 7 Days Qty: 14 0RF tramadol 50 mg tablet 50 mg PO Q6H PRN (Reason: pain) Qty: 15 0RF tizanidine 4 mg tablet 4 mg PO Q6H PRN (Reason: muscle spasticity) Qty: 20 0RF Rx Instructions: do not exceed 3 doses per 24 hrs amoxicillin-pot clavulanate 875-125 mg tablet 1 tab PO BID Qty: 20 0RF Referrals: David Macario NP [Primary Care Provider] - Patient Instructions: Abdominal Pain (ED) Coding Level of Care Code ED Chemical Engineering Professor for Maurizio Laird
[2024-07-09 18:42] LABS: Charge for UA Resulting for Rev
[2024-07-09 18:46] LABS: Bilirubin Urine 3+ (Negative); Blood Urine 2+ (Negative); Glucose Urine UA 2+ (Normal); Ketones Urine Negative (Negative); Leukocyte Esterase Urine Trace (Negative); Nitrate Urine Negative (Negative); Protein Urine 3+ (Negative); Specific Gravity, Urine 1.026 (1.005-1.030); Urine Appearance Cloudy (CLEAR); Urine Color Dark Yellow (Yellow)
[2024-07-09 18:55] LABS: UA Manual Slide Review YES; UA Slide Review UA Slide Review Perf
[2024-07-09 18:58] LABS: Add Urine Culture? No; Amorphous Sediment Urine 1+ /hpf; Bacteria Urine 1+ /hpf; Mucus Urine TRACE /hpf; RBC Urine 0-4 /hpf (0-2); WBC Urine 0-4 /hpf (0-5)
[2024-07-09] MEDS: piperacillin-tazobactam 3.375 GM in sodium chloride 0.9% (plus) 50 ML IV (19:33)
[2024-07-09 19:50] VITALS: BP 123/68; PULSE 122; RESP 19; O2SAT 95
[2024-07-09 20:10] LABS: Amphetamines Screen Urine Negative (Negative); Barbiturates Screen Urine Negative (Negative); Benzodiazepines Screen Urine Negative (Negative); Cocaine Screen Urine Negative (Negative); Opiate Screen Urine Negative (Negative); PCP Screen Urine Negative (Negative); THC Screen Urine Negative (Negative)
--- NOTE | 2024-07-09 20:17 | PM.CONSULT ---
Providers/Reason For Consult Consulting Physician/Specialty*: Emergency room Reason for Consult*: Fever, altered mental status, transaminitis, hyperbilirubinemia Primary Care Provider: David Macario NP History of Present Illness History of Present Illness Kristian Balbuena is a 43 year old male with a past medical history of type 2 diabetes mellitus, who presents to [facility] due to fevers since Sunday, fatigue, malaise, episodes of hallucination, right flank pain, right upper abdominal pain, right sided back pain. Patient tells me that on Sunday, he had high-grade fevers, with fatigue, malaise, chills, with episodes of hallucination, the last of the whole day he tells me that he had a poor appetite on Sunday no diarrhea no nausea no vomiting no abdominal pain no back pain, but he slept the whole day. He tells me that on Sunday he could not apple picker his children from his ex-, so she dropped the kids off at his home, he continued to feel unwell have having fevers and chills but he did take them into town for breakfast and did not feel well the whole day. On Sunday, he felt sick in the morning with fevers and chills feeling unwell but by the afternoon he started to feel well. He tells me on Sunday he continued to feel unwell, intermittent fever symptoms, he watched his brother build hot rods, but was just too tired to participate, on Sunday he went to work at [employer], he tells me work till noon or so but he felt sick by the noon time so much so that he was unable to get up, and walk, he felt weak all over having fevers, chills, fatigue, malaise and then he started developing right flank pain right upper quadrant abdominal pain, right-sided back pain. He left work and went to the emergency room, diagnosed with a viral syndrome, and sent home but was noted to have elevated white count, transaminitis with elevated bili, cholelithiasis. Denies any dysuria, hematuria, no penile discharge. Sunday again he went to work in the morning, but by the afternoon time, he felt sick, fatigue, malaise, fevers, chills, body aches, with continued pain so he came to the emergency room for evaluation. Currently is tachycardic heart rates in the 120s, sinus, currently febrile, having diffuse diaphoresis, normotensive on room air. He tells me that received morphine, but his pain is primarily in the right flank, right side of his back, some in the right upper quadrant. No nausea, no vomiting, no lightheadedness, dizziness. No more hallucinations. Patient adamantly denies any history of alcoholism, adamantly denies a history of HIV, or STD, denies a history of acute hepatitis, denies any IV drug use, denies any recent travel does report tick bites a few weeks ago Review of Systems Const: Reports: fever(s), chills, fatigue and malaise Card: Denies: chest pain Resp: Denies: dyspnea GI: Reports: abdominal pain Medications/Allergies Home Medications Medication Instructions Recorded Confirmed Last Taken Type mupirocin 2 % topical ointment 1 applic topical BID #15 grams 03/28/21 06/15/23 Unknown Rx amoxicillin 875 mg-potassium 1 tab PO BID 7 days #14 tabs 06/15/23 06/15/23 Unknown Rx clavulanate 125 mg tablet amoxicillin 875 mg-potassium 1 tab PO BID #20 tabs 07/08/24 Unknown Rx clavulanate 125 mg tablet tizanidine 4 mg tablet 4 mg PO Q6H PRN muscle spasticity 07/08/24 Unknown Rx #20 tabs tramadol 50 mg tablet 50 mg PO Q6H PRN pain #15 tabs 07/08/24 Unknown Rx Allergies Allergy/AdvReac Type Severity Reaction Status Date / Time No Known Allergies Allergy Verified 06/15/23 11:40 PFSH Acute PFSH: Medical History Type 2 diabetes mellitus with diabetic polyneuropathy Social History Smoking and tobacco/nicotine status: current every day tobacco/nicotine user Vitals/I&O/Wt Last Vital Signs Temp 99.2 F 07/09/24 18:23 Pulse 122 H 07/09/24 19:50 Resp 19 H 07/09/24 19:50 BP 123/68 07/09/24 19:50 Pulse Ox 95 07/09/24 19:50 O2 Del Method Room Air 07/09/24 19:50 07/09/24 07/09/24 07/09/24 06:59 14:59 22:59 Intake Total 1999 Balance 1999 Weight last 48 hrs Weight 78.925 kg Physical Exam Const: COMMON NORMALS: no acute distress and patient oriented x3 OTHER: Appears ill, diaphoretic, tachycardic HENMT: COMMON NORMALS: normocephalic HEAD & SCALP: normocephalic Resp: COMMON NORMALS: normal respiratory effort, No retractions, No use of accessory muscles and clear to auscultation bilaterally AUSCULTATION: clear to auscultation bilaterally Cardio: COMMON NORMALS: regular rhythm, S1 normal heart sound present and S2 normal heart sound present RATE: tachycardic RHYTHM: regular rhythm HEART SOUNDS: S1 normal heart sound present and S2 normal heart sound present GI: COMMON NORMALS: Normal to inspection, nondistended, normoactive bowel sounds present and non-tender : OTHER: Right flank pain, right paraspinal point tenderness, around T10, does have right upper quadrant pain to palpation Extremity: COMMON NORMALS: no calf tenderness and no pedal edema Neuro: COMMON NORMALS: patient oriented x3 Psych: COMMON NORMALS: mental status grossly normal Data 07/09/24 17:36 07/09/24 17:36 A&P Assessment and plan (1) Ascending cholangitis: Plan CT scan abdomen pelvis Impression: There is cholelithiasis. A right upper quadrant ultrasound is recommended for further evaluation. The liver is mildly inhomogenous. The urinary bladder is thick walled. The prostate appears mildly prominent. Vas deferens calcification is identified. Scattered lymph nodes are identified particularly in the pelvic and inguinal region. In light of the patient's symptoms genital urinary tract and infectious/inflammatory process could have this appearance. Neoplasm is thought to be less likely. -Gallbladder ultrasound CCESSION #: [id number] US/US gall bladder [id number] IMPRESSION: Sludge and small stones are seen within the thin-walled gallbladder. There is intrahepatic biliary duct dilatation. The liver is heterogeneous in appearance. When the patient can tolerate I recommend MR of the liver for further evaluation. -GGT 189, AST 183, ALT 121, alk phos 719, CRP 144.8, Pro-Herman 0.81, total bili 3.4, indirect bili 0.6, direct bili 3.4, lipase 36 # Acute hepatitis panel negative yesterday # EBV panel ordered, HIV ordered, negative ? Patient did have leukocytosis yesterday, 11.89, but did use Augmentin ? I spoke to virtual radiology, spoke to the radiologist, Elimite concerns for acute ascending cholangitis, he reviewed CAT scans with me, and ultrasounds, did tell me that patient has cholelithiasis no radiographic evidence of cholecystitis, the CBD is mildly prominent, also there is periportal edema, does have intrahepatic biliary dilatation, recommended MRCP -Spoke to Dr. Enciso general surgery, there is concern for viral hepatitis, acute hep panel negative, there is no known exposures to viral syndromes, patient did see his children over the weekend, but his symptoms started before that, none of his children are sick, certainly Yasmin-Wing virus could be an etiology, however given patient's fevers, episodes of altered mental status, right flank and right upper abdominal pain, right-sided back pain with his LFT abnormalities elevated alk phos, elevated bili, CT scan findings, we discussed transferring to tertiary level center for ERCP, and MRCP cannot be done acutely here at [facility], ? Spoke to ER provider, concerns for acute ascending colon jaundice, patient's need for GI, need for ERCP and/or MRCP evaluation, recommend transfer ? Patient is receiving IV fluids in the emergency room has received Zosyn Is also his a does have mild evidence of UTI, Zosyn as above should suffice ? Spoke to patient, about my concerns for acute ascending colon drugs, the need for tertiary level care, GI evaluation, need for ERCP, and/or MRCP, here at [facility] we can do an MRCP acutely, and we do not have a capability to do ERCP and we do not have GI, discussed transfer to tertiary level center, discussed risk and benefits, shared decision making, he voiced understanding, all questions answered, agreed to proceed Consult Attestations Medical Necessity Statement: Patient requires transfer to tertiary level hospital as there is concerns for acute descending colon gyrus Diagnoses Ascending cholangitis K83.09
[2024-07-09 20:20] LABS: C Reactive Protein 144.8 mg/L (0.0-4.9); Gamma Glutamyl Transferase 189 U/L (8-61)
[2024-07-09 20:21] LABS: Alcohol Level < 10 mg/dL (0-10)
[2024-07-09 20:27] LABS: Procalcitonin 0.81 ng/mL (0-0.5)
[2024-07-09 20:28] LABS: HIV 1 & 2 Antibody Non-Reactive (Non-Reactiv); HIV 1 & 2 Antigen Non-Reactive (Non-Reactiv)
[2024-07-09 20:30] VITALS: BP 139/86; PULSE 106; RESP 18; O2SAT 99
[2024-07-09 20:40] LABS: Erythrocyte Sedimentation Rate 69 mm/hr (0-10)
--- NOTE | 2024-07-09 21:02 | PC.NURSE ---
pt states that his pain is great right now. He is just ready to take a nap. Lights turned off per pt request.
[2024-07-09 22:07] LABS: Estmated Average Glucose 232; Hemoglobin A1C 9.7 % (4.0-6.0)
[2024-07-09 22:19] VITALS: BP 142/96; PULSE 107; RESP 16; TEMP 36.8; O2SAT 93
--- NOTE | 2024-07-09 22:25 | PC.NURSE ---
Pt requesting up date on delay for transfer. Educated patient on the process of transfer to another facility. Pt verbalized understanding and was fine with answer. Provided another blanket at his request. Pt denies any other needs at this time.
[2024-07-10 00:06] VITALS: BP 149/88; PULSE 118; RESP 16; TEMP 37.4; O2SAT 95
[2024-07-11 12:49] LABS: EBV IGM TEST <36.00 U/mL
== END 2024-07-10 00:09 | disposition short-term general hospital (02) ==
PROVIDERS: Family Medicine; Emergency Provider Emergency Medicine; PCP Nurse Practitioner Family
DX: R50.9 Fever, unspecified (principal); R17 Unspecified jaundice; R10.9 Unspecified abdominal pain; E11.42 Type 2 diabetes mellitus with diabetic polyneuropathy; Z72.0 Tobacco use
CPT/HCPCS: 76705; 80053; 80306; 80307; 81003; 81015; 82247; 82248; 82977; 83036; 83605; 83690; 84145; 85025; 85651; 86140; 86664; 86665; 87806; 96365; 96366; 96375; 99285; J2270; J2405; J2543; J7030

== ENCOUNTER 2024-07-23 13:31 | Emergency (ER) | payer OTHER, SELFPAY ==
[2024-07-23 13:35] VITALS: BP 125/80; PULSE 99; RESP 16; TEMP 36.5; O2SAT 97; BMI 21.7
--- NOTE | 2024-07-23 14:01 | ED_ITS ---
HPI - Back Pain/Injury General: Chief Complaint: Back Pain/Injury Stated Complaint: Back pain/spasm Time Seen by Provider: 07/23/24 13:51 History of Present Illness: 43-year-old male with recent history of gallbladder issues and saddle drain placed and has jaundice and some swelling related to this. He says I am plugged up . He was just released from hospital for this. He is not here with concerns of this today. He says his jaundice is baseline. No abdominal pain his baseline. He says the main issue is having his low back pain he says the muscles down his low back have been spasming. He has been taking oxycodone and a muscle relaxer which have not been helping. We discussed trying some prednisone and I will give him some acute pain relief here with some shots. No saddle numbness, no urinary retention or incontinence, no focal motor deficit, no sensory deficit. no recent fever. no cough. no shortness of breath. no chest pain. no abdominal pain. no nausea or vomiting. no dysuria. no altered mental status. no edema. Related Data Previous Rx's Medication Instructions Recorded mupirocin 2 % topical ointment 1 applic topical BID #15 grams 03/28/21 amoxicillin 875 mg-potassium 1 tab PO BID 7 days #14 tabs 06/15/23 clavulanate 125 mg tablet amoxicillin 875 mg-potassium 1 tab PO BID #20 tabs 07/08/24 clavulanate 125 mg tablet tizanidine 4 mg tablet 4 mg PO Q6H PRN muscle spasticity 07/08/24 #20 tabs tramadol 50 mg tablet 50 mg PO Q6H PRN pain #15 tabs 07/08/24 prednisone 20 mg tablet 60 mg (3 x 20 mg) PO DAILY #20 tabs 07/23/24 Allergies Allergy/AdvReac Type Severity Reaction Status Date / Time No Known Allergies Allergy Verified 06/15/23 11:40 Review of Systems Narrative: Constitutional symptoms: Negative except as documented in HPI. Skin symptoms: Negative except as documented in HPI. Eye symptoms: Negative except as documented in HPI. ENMT symptoms: Negative except as documented in HPI. Respiratory symptoms: Negative except as documented in HPI. Cardiovascular symptoms: Negative except as documented in HPI. Gastrointestinal symptoms: Negative except as documented in HPI. Genitourinary symptoms: Negative except as documented in HPI. Musculoskeletal symptoms: Negative except as documented in HPI. Neurologic symptoms: Negative except as documented in HPI. Psychiatric symptoms: Negative except as documented in HPI. Endocrine symptoms: Negative except as documented in HPI. PFSH ED PFSH: Medical History Type 2 diabetes mellitus with diabetic polyneuropathy Social History Smoking and tobacco/nicotine status: current every day tobacco/nicotine user Physical Exam Narrative: EXAM NARRATIVE: General: Alert, no acute distress. Head: Normocephalic Neck: Trachea midline Eye: Extraocular movements are intact. Ears, nose, mouth and throat: Oral mucosa moist Respiratory: Respirations are non-labored Musculoskeletal: Normal ROM Back: no step off, no focal tenderness, some paraspinal muscle tenderness Neurological: Alert and oriented to person, place, time, and situation, No focal neurological deficit observed. Psychiatric: Cooperative, appropriate mood & affect. Course Vital Signs: Vital signs: Vital Signs Temperature 97.7 F 07/23/24 13:35 Pulse Rate 99 07/23/24 13:35 Respiratory Rate 16 07/23/24 13:35 Blood Pressure 125/80 07/23/24 13:35 Pulse Oximetry 97 07/23/24 13:35 Oxygen Delivery Me thod Room Air 07/23/24 13:35 MDM - Back Pain/Injury Medical Decision Making Assessment and plan: Low back pain ?IM Dilaudid, Norflex and Decadron. - Discharged home - Discussed plan with patient. Answered any questions. - Evaluation and treatment of this problem were appropriate in the emergency setting. No radiology studies performed this visit Discharge Plan Discharge Patient Disposition: Home Clinical Impression: Strain of lumbar region Condition: Stable Prescriptions: New prednisone 20 mg tablet 60 mg PO DAILY Qty: 20 0RF Rx Instructions: 3 tabs (60 mg) x 3 days. 2 tabs (40 mg) x 3 days. 1 tab (20 mg) x 3 days. 1/2 tab (10 mg) x 4 days No Action mupirocin 2 % ointment 1 applic topical BID Qty: 15 0RF amoxicillin-pot clavulanate 875-125 mg tablet 1 tab PO BID 7 Days Qty: 14 0RF tramadol 50 mg tablet 50 mg PO Q6H PRN (Reason: pain) Qty: 15 0RF tizanidine 4 mg tablet 4 mg PO Q6H PRN (Reason: muscle spasticity) Qty: 20 0RF Rx Instructions: do not exceed 3 doses per 24 hrs amoxicillin-pot clavulanate 875-125 mg tablet 1 tab PO BID Qty: 20 0RF Discharge Orders: Discharge ED (Routine); Ordered 07/23/24 Ordered By: Adrianne French Referrals: David Macario NP [Primary Care Provider] - Discharge Diet: Usual diet Discharge Activity: Increase activity as tolerated Patient Instructions: Opioid Safety, Pain Management Activity Restrictions/Additional Instructions: Thank you for choosing [facility] for your healthcare needs today. Please realize this is an emergency room and that we are providing you with a medical screening exam and this may not be complete and all inclusive of all the testing and or work up that you may need to determine your ailment or severity of your illness. You have been screened and evaluated and felt safe for discharge. Health conditions do change or evolve sometimes and as such it is important that you follow up with your Primary Doctor to be re checked, 3-5 days is a general good time frame for follow up. You are always welcome to return to the ED for re assessment if your symptoms are worsening or you have new concerns Coding Level of Care Code ED Enrobing Machine Feeder for Maurizio Laird
[2024-07-23] MEDS: dexamethasone 10 mg/mL INJ IM (14:11)
[2024-07-23 14:12] VITALS: RESP 18
[2024-07-23] MEDS: HYDROmorphone 1 mg/mL INJ 1 mL IM (14:12)
[2024-07-23] MEDS: orphenadrine 30 mg/mL Inj 2 mL 60 MG IM (14:12)
[2024-07-23 14:38] VITALS: BP 104/61; PULSE 90; O2SAT 97
== END 2024-07-23 14:39 | disposition home or self-care (01) ==
PROVIDERS: Emergency Provider Emergency Medicine; PCP Nurse Practitioner Family
DX: S39.012A Strain of muscle, fascia and tendon of lower back, initial encounter (principal); E11.42 Type 2 diabetes mellitus with diabetic polyneuropathy; Z72.0 Tobacco use; X58.XXXA Exposure to other specified factors, initial encounter
CPT/HCPCS: 96372; 99284; J1100; J1170; J2360

== ENCOUNTER 2024-08-27 14:03 | Emergency (ER) | payer OTHER, SELFPAY ==
[2024-08-27 14:12] VITALS: BP 119/70; PULSE 88; RESP 14; TEMP 36.4; O2SAT 100
--- NOTE | 2024-08-27 14:13 | XR_ITS ---
WS: [id number] Exam: XR chest 1V portable [id number] Date/Time of Exam: 08/27/2024 2:16 PM Reason For Exam: dyspnea/cough Comparison 03/20/2006. The lungs are clear and fully inflated. Normal cardiomediastinal silhouette and regional bony element s. XR/XR chest 1V portable [id number] IMPRESSION: 1. Negative chest.
--- NOTE | 2024-08-27 14:14 | ECG_ITS ---
[facility] Test Date: 2024-08-27 Pat Name: Kristian Balbuena Department: Room: Gender: Male Chamber Walker: : 1980 Requested By: Jorge Nunez Order Number: [id number] Angel MD: Jessi Ryder M.D. Measurements Intervals [place] Rate: 87 P: 70 [place]: 137 QRS: 55 QRSD: 98 T: 88 QT: 361 QTc: 436 Interpretive Statements SINUS RHYTHM POSSIBLE LEFT ATRIAL ENLARGEMENT [-0.1mV P-WAVE IN V1/V2] LOW QRS VOLTAGE IN EXTREMITY LEADS [QRS DEFLECTION < 0.5 mV IN LIMB LEADS] SEPTAL MYOCARDIAL INFARCTION , OF INDETERMINATE AGE [40+ ms Q WAVE IN V1/V2] Compared to ECG 08/10/2020 10:17:38 Low QRS voltage now present Myocardial infarct finding now present Sinus tachycardia no longer present Electronically Signed On 08-27-2024 22:39:55 CDT by Jessi Ryder M.D. [email or web address]
--- NOTE | 2024-08-27 14:27 | W.ED.WEAKNES ---
HPI - Weakness General: Chief complaint: Weakness Stated complaint: HTN, Abn labs, Weakness Time Seen by Provider: 08/27/24 14:12 History of Present Illness: 43-year-old male presents to the emergency room from a local group home after a near syncopal episode. Patient has a history of a difficulty with the common bile duct stent that resulted in worsening liver injury and a cholecystectomy. This is done in [place]. Was a question of a send cholangitis he is now recovering from this at a group home. He had an episode of hypotension today he has recovered and is feeling much better he states he otherwise feels fine he has been moderately anemic at times. Associated symptoms: Denies chest pain, chills, dysuria or fever(s) Review of Systems Const: Denies: fever(s) or chills Card: Denies: chest pain Resp: Denies: dyspnea GI: Denies: abdominal pain : Denies: dysuria, urinary frequency or urinary urgency Musc: Denies: neck pain or back pain Skin/Breast: Denies: rash PFSH ED PFSH: Medical History Type 2 diabetes mellitus with diabetic polyneuropathy Social History Smoking and tobacco/nicotine status: current every day tobacco/nicotine user Physical Exam Const: GENERAL APPEARANCE: cooperative ORIENTATION/CONSCIOUSNESS: Yes awake, Yes oriented to person, Yes oriented to place and Yes oriented to time HENMT: COMMON NORMALS: normocephalic, atraumatic and hearing grossly normal bilaterally HEAD & SCALP: normocephalic and atraumatic Resp: COMMON NORMALS: normal respiratory effort, No retractions, No use of accessory muscles and clear to auscultation bilaterally AUSCULTATION: clear to auscultation bilaterally Cardio: COMMON NORMALS: regular rate, regular rhythm and No murmurs present (Cardio) RATE: regular rate RHYTHM: regular rhythm GI: COMMON NORMALS: Soft to palpation and No hepatosplenomegaly present AUSCULTATION: Yes normoactive bowel sounds PALPATION: Yes Soft to palpation, No Tenderness to palpation present (GI), No Guarding due to palpation present (GI) and Yes No hepatosplenomegaly present Extremity: COMMON NORMALS: normal to inspection, capillary refill normal, no clubbing, cyanosis or edema, no calf tenderness and no pedal edema Neuro: SENSORIUM/ORIENTATION: Yes oriented to person, Yes oriented to place and Yes oriented to time Skin: NARRATIVE SKIN EXAM: Severe jaundice Course Vital Signs: Vital signs: Vital Signs Temperature 97.6 F 08/27/24 14:12 Pulse Rate 91 08/27/24 17:28 Respiratory Rate 18 08/27/24 16:09 Blood Pressure 155/96 08/27/24 17:28 Pulse Oximetry 100 08/27/24 17:28 Oxygen Delivery Me thod Room Air 08/27/24 16:30 MDM - Weakness Medical Decision Making To track down his laboratory tests from the group home. He has some hyponatremia but that is stable. The rest of his labs were reviewed while they are abnormal they are actually trending better even his total bilirubin. Patient does inferior markedly icteric. He otherwise states he feels fine I think he had a transient hypotensive episode which causes a near syncopal episode. Patient is anxious to go back to the group home will discharge home and have him follow-up with GI that and primary care that are currently following him. Lab Data 08/27/24 14:40 08/27/24 14:40 Radiology Impressions Chest X-Ray 08/27/24 14:13 IMPRESSION: 1. Negative chest. Laboratory Results WBC 7.53 10^3/uL (3.29-11.43) 08/27/24 14:40 RBC 2.75 10^6/uL (3.85-5.65) L 08/27/24 14:40 Hgb 9.10 g/dL (11.27-16.99) L 08/27/24 14:40 Hct 27.5 % (37-53) L 08/27/24 14:40 MCV 100.0 fl (82-101) 08/27/24 14:40 MCH 33.1 pg (27-33) H 08/27/24 14:40 MCHC 33.1 g/dL (30-55) 08/27/24 14:40 RDW 13.4 % (12.1-15.1) 08/27/24 14:40 Plt Count 333 10^3/cmm (157-399) 08/27/24 14:40 MPV 10.1 fL (7.4-10.4) 08/27/24 14:40 Neut % (Auto) 57.3 % 08/27/24 14:40 Lymph % (Auto) 32.7 % 08/27/24 14:40 [place] % (Auto) 7.3 % 08/27/24 14:40 Eos % (Auto) 1.3 % 08/27/24 14:40 Baso % (Auto) 1.1 % 08/27/24 14:40 Neut # (Auto) 4.32 10^3/uL (1.8-7.7) 08/27/24 14:40 Lymph # (Auto) 2.5 10^3/uL (0.8-4.8) 08/27/24 14:40 [place] # (Auto) 0.6 10^3/uL (0.2-0.9) 08/27/24 14:40 Eos # (Auto) 0.1 10^3/uL (0.0-0.8) 08/27/24 14:40 Baso # (Auto) 0.1 10^3/uL (0.0-0.1) 08/27/24 14:40 Nucleated RBC % (auto) 0 % 08/27/24 14:40 Nucleated RBCs # 0.0 /100WBC 08/27/24 14:40 Sodium 123 mmol/L (136-145) L 08/27/24 14:40 Potassium 3.8 mmol/L (3.5-5.1) 08/27/24 14:40 Chloride 91 mmol/L (98-107) L 08/27/24 14:40 Carbon Dioxide 22 mmol/L (22-29) 08/27/24 14:40 Anion Gap 13.8 (5-19) 08/27/24 14:40 BUN 23 mg/dL (6-20) H 08/27/24 14:40 Creatinine 0.6 mg/dL (0.7-1.2) L 08/27/24 14:40 GFR Calculation 147.0 mL/min (90-130) H 08/27/24 14:40 Glucose 225 mg/dL (65-115) H 08/27/24 14:40 Calculated Osmolality 267 mOsm/kg (285-295) L 08/27/24 14:40 Calcium 8.4 mg/dL (8.5-10.5) L 08/27/24 14:40 Total Bilirubin 16.9 mg/dL (0.15-1.2) H* 08/27/24 14:40 AST 146 U/L (0-40) H 08/27/24 14:40 ALT 151 U/L (0-41) H 08/27/24 14:40 Alkaline Phosphatase 3085 U/L (40-130) H* 08/27/24 14:40 Total Protein 5.3 g/dL (6.6-8.7) L 08/27/24 14:40 Albumin 2.5 g/dL (3.5-5.2) L 08/27/24 14:40 Globulin 2.8 g/dL (1.3-4.6) 08/27/24 14:40 Lipase 9 U/L (13-60) L 08/27/24 14:40 All radiology interpretation(s) finalized by discharge Discharge Plan Discharge Patient Disposition: Home Clinical Impression: Injury of common bile duct during operative procedure, Near syncope, Jaundice Condition: Stable Prescriptions: No Action gabapentin 100 mg Capsule 100 mg PO DAILY hydrocodone-acetaminophen 10-325 mg Tablet 1 tab PO Q4H PRN (Reason: Pain) tamsulosin 0.4 mg Capsule 0.4 mg PO DAILY metformin 1,000 mg tablet 1,000 mg PO DAILY magnesium L-lactate 84 mg Tablet Extended Release 84 mg PO TID insulin glargine [Lantus Solostar U-100 Insulin] 100 unit/mL (3 mL) insulin pen 20 unit SUBCUT QPM Tradjenta 5 mg tablet 5 mg PO DAILY insulin glargine-yfgn [Semglee(insulin glarg-yfgn)Pen] 100 unit/mL (3 mL) insulin pen 20 unit SUBCUT QPM methocarbamol 1,000 mg Tablet 1,000 mg PO TID Discharge Orders: Discharge ED (Routine); Ordered 08/27/24 Ordered By: Jorge Tariq Referrals: David Macario NP [Primary Care Provider] - Patient Instructions: Opioid Safety, Pain Management Coding Level of Care Code ED [employer]er for Chg Fwd Related Data Home Medications Medication Instructions Recorded Confirmed gabapentin 100 mg capsule 100 mg PO DAILY 08/27/24 08/27/24 hydrocodone 10 mg-acetaminophen 1 tab PO Q4H PRN Pain 08/27/24 08/27/24 325 mg tablet insulin glargine 100 unit/mL (3 20 unit SUBCUT QPM 08/27/24 08/27/24 mL) subcutaneous pen (Lantus Solostar U-100 Insulin) insulin glargine-yfgn 100 unit/mL 20 unit SUBCUT QPM 08/27/24 08/27/24 (3 mL) subcutaneous pen (Semglee (insulin glargine-yfgn) Pen) linagliptin 5 mg tablet (Tradjenta) 5 mg PO DAILY 08/27/24 08/27/24 magnesium L-lactate 84 mg 84 mg PO TID 08/27/24 08/27/24 tablet,extended release metformin 1,000 mg tablet 1,000 mg PO DAILY 08/27/24 08/27/24 methocarbamol 1,000 mg tablet 1,000 mg PO TID 08/27/24 08/27/24 tamsulosin 0.4 mg capsule 0.4 mg PO DAILY 08/27/24 08/27/24 Allergies Allergy/AdvReac Type Severity Reaction Status Date / Time No Known Allergies Allergy Verified 06/15/23 11:40
[2024-08-27 14:49] LABS: Basophils # 0.1 10^3/uL (0.0-0.1); Basophils % 1.1 %; Eosinophils # 0.1 10^3/uL (0.0-0.8); Eosinophils % 1.3 %; Hematocrit 27.5 % (37-53); Lymphocytes # 2.5 10^3/uL (0.8-4.8); Lymphocytes % 32.7 %; Mean Corpuscular HGB Conc 33.1 g/dL (30-55); Mean Corpuscular Hemoglobin 33.1 pg (27-33); Mean Platelet Volume 10.1 fL (7.4-10.4); Monocytes # 0.6 10^3/uL (0.2-0.9); Monocytes % 7.3 %; Neutrophils # 4.32 10^3/uL (1.8-7.7); Neutrophils % 57.3 %; Nucleated Red Blood Cells % 0 %; Platelet Count 333 10^3/cmm (157-399); Red Blood Count 2.75 10^6/uL (3.85-5.65); Red Cell Distribution Width 13.4 % (12.1-15.1); White Blood Count 7.53 10^3/uL (3.29-11.43)
[2024-08-27 15:06] LABS: Alanine Aminotransferase 151 U/L (0-41); Albumin Level 2.5 g/dL (3.5-5.2); Anion Gap 13.8 (5-19); Aspartate Amino Transferase 146 U/L (0-40); Blood Urea Nitrogen 23 mg/dL (6-20); Calcium 8.4 mg/dL (8.5-10.5); Carbon Dioxide 22 mmol/L (22-29); Chloride 91 mmol/L (98-107); Creatinine Clr Calc Pharmacy 173.0731; Globulin 2.8 g/dL (1.3-4.6); Glucose 225 mg/dL (65-115); Lipase 9 U/L (13-60); Osmolality Calculated 267 mOsm/kg (285-295); Potassium 3.8 mmol/L (3.5-5.1); Sodium 123 mmol/L (136-145); Total Protein 5.3 g/dL (6.6-8.7)
[2024-08-27 15:07] VITALS: BP 141/86; PULSE 88; O2SAT 100
[2024-08-27 15:07] LABS: Total Bilirubin 16.9 mg/dL (0.15-1.2)
[2024-08-27 15:23] LABS: Alkaline Phosphatase 3085 U/L (40-130)
--- NOTE | 2024-08-27 15:45 | PC.PHAR ---
patient is from [facility], med list brought with him via ems
[2024-08-27 16:09] VITALS: RESP 18; O2SAT 100
[2024-08-27] MEDS: morphine 4 mg/mL SDV 1 mL IVP (16:09)
[2024-08-27 16:30] VITALS: BP 154/92; PULSE 88; O2SAT 100
[2024-08-27 17:28] VITALS: BP 155/96; PULSE 91; O2SAT 100
== END 2024-08-27 17:45 | disposition home or self-care (01) ==
PROVIDERS: Emergency Provider Family Medicine; PCP Nurse Practitioner Family
DX: R55 Syncope and collapse (principal); I95.9 Hypotension, unspecified; R17 Unspecified jaundice; S36.13XD Injury of bile duct, subsequent encounter
CPT/HCPCS: 36415; 71045; 80053; 83690; 85025; 93005; 96374; 99285; J2270

== ENCOUNTER 2024-09-16 19:28 | Inpatient (IN) | payer OTHER, SELFPAY ==
[2024-09-16 19:30] VITALS: BP 98/64; PULSE 101; RESP 18; TEMP 36.7; O2SAT 98; BMI 19.9
[2024-09-16 20:04] VITALS: BP 155/101; PULSE 107; RESP 16; O2SAT 100
[2024-09-16 20:04] LABS: INR 0.84 (0.8-1.2)
--- NOTE | 2024-09-16 20:04 | W.ED.WEAKNES ---
HPI - Weakness General: Chief complaint: Weakness Stated complaint: WEAKNESS Time Seen by Provider: 09/16/24 19:29 History of Present Illness: 43-year-old man with history of diabetes and bile duct injury during a cholecystectomy with resultant stent placement and now with cirrhosis/hepatic injury who presents to the emergency room from intermediate with worsening confusion and weakness. He also has had worsening swelling in his legs. He says he does not have any pain in his abdomen currently. He does complain of back pain which is chronic. He does seem slightly confused and EMS reports he asks the same questions repeatedly. EMS also reports that the intermediate was concerned that he is becoming increasingly jaundiced Further discussion with the patient, he says that his liver injury was secondary to a medication they thought and they had him in the intermediate recovering and that they expect his liver to recover now that he is not on those medications. He no longer has a stent in his liver. He did have his gallbladder removed. Still an unclear etiology for his liver disease. Review of Systems Narrative: Constitutional symptoms: Negative except as documented in HPI. Skin symptoms: Negative except as documented in HPI. Eye symptoms: Negative except as documented in HPI. ENMT symptoms: Negative except as documented in HPI. Respiratory symptoms: Negative except as documented in HPI. Cardiovascular symptoms: Negative except as documented in HPI. Gastrointestinal symptoms: Negative except as documented in HPI. Genitourinary symptoms: Negative except as documented in HPI. Musculoskeletal symptoms: Negative except as documented in HPI. Neurologic symptoms: Negative except as documented in HPI. Psychiatric symptoms: Negative except as documented in HPI. Endocrine symptoms: Negative except as documented in HPI. FOR[facility]LY [facility], [facility] ED PFSH: Medical History (Updated 09/16/24 @ 23:17 by Adrianne French MD) Back pain Ascending cholangitis Biliary stent removal in July at [facility] Onychodystrophy Onychodystrophy Type 2 diabetes mellitus with diabetic polyneuropathy Surgical History (Updated 09/16/24 @ 22:28 by Keshawn Tamez MD) S/P cholecystectomy July in [facility] Social History Smoking and tobacco/nicotine status: current every day tobacco/nicotine user Physical Exam Narrative: EXAM NARRATIVE: General: Alert, no acute distress. Skin: Warm, dry. Jaundice Head: Normocephalic, atraumatic. Neck: Supple, trachea midline. Eye: Extraocular movements are intact. Ears, nose, mouth and throat: mucosa moist. Cardiovascular: Regular, Normal peripheral perfusion. 2-3+ tibial edema Respiratory: Lungs are clear to auscultation, respirations are non-labored, breath sounds are equal, Symmetrical chest wall expansion. Gastrointestinal: Soft, Nontender, Non distended Musculoskeletal: Normal ROM, no deformity. Neurological: Alert and oriented, No focal neurological deficit observed. Psychiatric: Cooperative, appropriate mood & affect. Course Vital Signs: Vital signs: Vital Signs Temperature 98.0 F 09/16/24 19:30 Pulse Rate 101 H 09/16/24 19:30 Respiratory Rate 18 09/16/24 19:30 Blood Pressure 98/64 09/16/24 19:30 Pulse Oximetry 98 09/16/24 19:30 Oxygen Delivery Me thod Room Air 09/16/24 19:30 MDM - Weakness Medical Decision Making Medical decision making: Differential diagnosis for patient presenting with generalized weakness including but not limited to and based on the above HPI, review of systems and physical exam: Sepsis. Dehydration. Renal failure. Electrolyte abnormalities. Anemia. Congestive heart failure. Hypotension. Coronary syndrome. Hepatitis. Cirrhosis. Infections such as pneumonia, urinary tract infection, [place]ne illness, Cellulitis, Viral infections including influenza and Covid-19. Workup: labwork and lab/exam driven imaging ordered to evaluate, rule in and rule out above pathologies. Lab Review: Laboratory results were reviewed and interpreted by myself the emergency room physician. No leukocytosis. Hemoglobin stable 11. Platelets are normal at 359. Liver enzymes are slightly elevated in the 150/120 range. Coags are normal. He really does not have the lab stigmata of cirrhosis. Other than his bilirubin is very elevated at 14.5 and his ammonia is 100. Bilirubin is down from a few days back from 16. Also his alk phos is quite elevated. Ultrasound of the abdomen shows hepatic steatosis. A right hepatic lobe 3.7 cm somewhat complex cyst. Gallbladder is absent. Bile duct is normal. This was reviewed and interpreted by myself the emergency room physician. I also reviewed the radiology report. CT of the abdomen pelvis: The shows a 21 mm cystic lesion in the right hepatic lobe. See full read below. This was reviewed and interpreted by myself the emergency room physician. I also reviewed the radiology report. I reviewed the patient's medical record. Reexamination: Patient remained stable. No increased work of breathing. Still with some slight confusion but he is able to discuss some of his history with me. No focal motor deficits. Further discussion with the patient, he says that his liver injury was secondary to a medication they thought and they had him in the intermediate recovering and that they expect his liver to recover now that he is not on those medications. He no longer has a stent in his liver. He did have his gallbladder removed. Still an unclear etiology for his liver disease. Consultation: I spoke with Dr. Tamez who is on-call for the hospitalist service who agrees to admission. I have requested records from [facility] in [place] but have not yet received them Assessment and plan: Jaundice Hepatic encephalopathy -I discussed the patient with the hospitalist on-call who is admitting the patient. - Discussed findings and plan with patient. Answered any questions. - All laboratory values were reviewed and interpreted personally by myself, the ER physician - All imaging was reviewed and interpreted personally by myself, the ER physician. - Evaluation and treatment of this problem were appropriate in the emergency setting Lab Data 09/16/24 19:42 09/16/24 19:42 Radiology Impressions Abdomen Ultrasound 09/16/24 20:33 IMPRESSION: 1. Hepatic steatosis. 2. Right hepatic lobe 3.7 cm somewhat complex cyst, consider correlation with nonemergent ultrasound. 3. Gallbladder is absent. 4. Common bile duct is normal in caliber measuring 3 mm. 5. Right kidney appears within normal limits. Abdomen/Pelvis CT 09/16/24 22:16 IMPRESSION: 1. 21 mm cystic lesion along the medial aspect of the right hepatic lobe and appears to correspond to the cystic area seen on same-day ultrasound. Finding is new compared to prior exam. Finding may potentially reflect an abscess. Additional considerations may also include a bile collection if there is concern for a biliary leak. Nuclear medicine HIDA scan could further evaluate this. Finding is best seen series 3, image 35. Please correlate clinically. 2. Left lower lobe atelectasis. 3. Cholecystectomy. 4. Fluid in the stomach and small bowel with wall thickening, please correlate for gastroenteritis. Laboratory Results WBC 7.93 10^3/uL (3.29-11.43) 09/16/24 19:42 RBC 3.48 10^6/uL (3.85-5.65) L 11/12/24 19:42 Hgb 11.00 g/dL (11.27-16.99) L 09/16/24 19:42 Hct 33.6 % (37-53) L 09/16/24 19:42 MCV 96.6 fl (82-101) 09/16/24 19:42 MCH 31.6 pg (27-33) 09/16/24 19:42 MCHC 32.7 g/dL (30-55) 09/16/24 19:42 RDW 14.9 % (12.1-15.1) 09/16/24 19:42 Plt Count 359 10^3/cmm (157-399) 09/16/24 19:42 MPV 10.1 fL (7.4-10.4) 09/16/24 19:42 Neut % (Auto) 62.6 % 09/16/24 19:42 Lymph % (Auto) 25.1 % 09/16/24 19:42 [place] % (Auto) 9.8 % 09/16/24 19:42 Eos % (Auto) 1.3 % 09/16/24 19:42 Baso % (Auto) 0.9 % 09/16/24 19:42 Neut # (Auto) 4.97 10^3/uL (1.8-7.7) 09/16/24 19:42 Lymph # (Auto) 2.0 10^3/uL (0.8-4.8) 09/16/24 19:42 [place] # (Auto) 0.8 10^3/uL (0.2-0.9) 09/16/24 19:42 Eos # (Auto) 0.1 10^3/uL (0.0-0.8) 09/16/24 19:42 Baso # (Auto) 0.1 10^3/uL (0.0-0.1) 09/16/24 19:42 Nucleated RBC % (auto) 0 % 09/16/24 19:42 Nucleated RBCs # 0.0 /100WBC 09/16/24 19:42 PT 11.80 SECONDS (12.1-14.9) L 09/16/24 19:42 INR 0.84 (0.8-1.2) 09/16/24 19:42 APTT 31.9 SECONDS (23.9-36.7) 09/16/24 19:42 Sodium 124 mmol/L (136-145) L 09/16/24 19:42 Potassium 4.4 mmol/L (3.5-5.1) 09/16/24 19:42 Chloride 88 mmol/L (98-107) L 09/16/24 19:42 Carbon Dioxide 26 mmol/L (22-29) 09/16/24 19:42 Anion Gap 14.4 (5-19) 09/16/24 19:42 BUN 27 mg/dL (6-20) H 09/16/24 19:42 Creatinine 0.8 mg/dL (0.7-1.2) 09/16/24 19:42 GFR Calculation 105.5 mL/min (90-130) 09/16/24 19:42 Glucose 142 mg/dL (65-115) H 09/16/24 19:42 Calculated Osmolality 266 mOsm/kg (285-295) L 09/16/24 19:42 Lactic Acid 1.0 mmol/L (0.5-2.2) 09/16/24 19:55 Calcium 8.4 mg/dL (8.5-10.5) L 09/16/24 19:42 Total Bilirubin 14.9 mg/dL (0.15-1.2) H* 09/16/24 19:42 AST 152 U/L (0-40) H 09/16/24 19:42 ALT 120 U/L (0-41) H 09/16/24 19:42 Alkaline Phosphatase 4227 U/L (40-130) H* 09/16/24 19:42 Ammonia 110 umol/L (16-60) H 09/16/24 19:42 Total Protein 5.1 g/dL (6.6-8.7) L 09/16/24 19:42 Albumin 2.4 g/dL (3.5-5.2) L 09/16/24 19:42 Globulin 2.7 g/dL (1.3-4.6) 09/16/24 19:42 Tumor Marker AFP 1.8 ng/mL (0-8.3) 09/16/24 19:42 All radiology interpretation(s) finalized by discharge Discharge Plan Discharge Patient Disposition: Admitted As Inpatient Clinical Impression: Hepatic encephalopathy Condition: Stable Coding Level of Care Code ED Estimator Binding for Chg Fwd Related Data Home Medications Medication Instructions Recorded Confirmed gabapentin 100 mg capsule 100 mg PO DAILY 08/27/24 08/27/24 hydrocodone 10 mg-acetaminophen 1 tab PO Q4H PRN Pain 08/27/24 08/27/24 325 mg tablet insulin glargine 100 unit/mL (3 20 unit SUBCUT QPM 08/27/24 08/27/24 mL) subcutaneous pen (Lantus Solostar U-100 Insulin) insulin glargine-yfgn 100 unit/mL 20 unit SUBCUT QPM 08/27/24 08/27/24 (3 mL) subcutaneous pen (Semglee (insulin glargine-yfgn) Pen) linagliptin 5 mg tablet (Tradjenta) 5 mg PO DAILY 08/27/24 08/27/24 magnesium L-lactate 84 mg 84 mg PO TID 08/27/24 08/27/24 tablet,extended release metformin 1,000 mg tablet 1,000 mg PO DAILY 08/27/24 08/27/24 methocarbamol 1,000 mg tablet 1,000 mg PO TID 08/27/24 08/27/24 tamsulosin 0.4 mg capsule 0.4 mg PO DAILY 08/27/24 08/27/24 Allergies Allergy/AdvReac Type Severity Reaction Status Date / Time No Known Allergies Allergy Verified 09/16/24 19:35
[2024-09-16 20:05] LABS: Partial Thromboplastin Time 31.9 SECONDS (23.9-36.7)
[2024-09-16 20:14] LABS: Alanine Aminotransferase 120 U/L (0-41); Albumin Level 2.4 g/dL (3.5-5.2); Anion Gap 14.4 (5-19); Aspartate Amino Transferase 152 U/L (0-40); Blood Urea Nitrogen 27 mg/dL (6-20); Calcium 8.4 mg/dL (8.5-10.5); Carbon Dioxide 26 mmol/L (22-29); Chloride 88 mmol/L (98-107); Creatinine Clr Calc Pharmacy 130.4158; Globulin 2.7 g/dL (1.3-4.6); Glomerular Filtration Rate 105.5 mL/min (90-130); Glucose 142 mg/dL (65-115); Osmolality Calculated 266 mOsm/kg (285-295); Potassium 4.4 mmol/L (3.5-5.1); Sodium 124 mmol/L (136-145); Total Protein 5.1 g/dL (6.6-8.7)
[2024-09-16 20:16] LABS: Total Bilirubin 14.9 mg/dL (0.15-1.2)
[2024-09-16 20:19] LABS: Basophils # 0.1 10^3/uL (0.0-0.1); Basophils % 0.9 %; Eosinophils # 0.1 10^3/uL (0.0-0.8); Eosinophils % 1.3 %; Hematocrit 33.6 % (37-53); Lymphocytes % 25.1 %; Mean Corpuscular HGB Conc 32.7 g/dL (30-55); Mean Corpuscular Hemoglobin 31.6 pg (27-33); Mean Corpuscular Volume 96.6 fl (82-101); Mean Platelet Volume 10.1 fL (7.4-10.4); Monocytes # 0.8 10^3/uL (0.2-0.9); Monocytes % 9.8 %; Neutrophils # 4.97 10^3/uL (1.8-7.7); Neutrophils % 62.6 %; Nucleated Red Blood Cells % 0 %; Platelet Count 359 10^3/cmm (157-399); Red Blood Count 3.48 10^6/uL (3.85-5.65); Red Cell Distribution Width 14.9 % (12.1-15.1); White Blood Count 7.93 10^3/uL (3.29-11.43)
--- NOTE | 2024-09-16 20:33 | USR_ITS ---
PROCEDURE INFORMATION: Exam: US Abdomen; Limited Exam date and time: 09/16/2024 8:27 PM Age: 43 years old Clinical indication: Other: Elevated lfts; Prior surgery; Surgery date: 1-6 months; Surgery type: Laparoscopic cholecystectomy was performed at [facility] in [place] on approximately 07/10/2024. There was a bile duct injury with resultant stent placement for healing. Stent was removed at end of July. ; Additional info: Liver. Increased bilirubin. History of bile duct stent TECHNIQUE: Imaging protocol: Real time ultrasound of the abdomen with image documentation. Limited exam focused on the region of clinical interest. COMPARISON: US gall bladder [id number] 07/09/2024 6:09 PM FINDINGS: Liver: Hepatic steatosis. Right hepatic lobe 3.7 cm somewhat complex cyst, consider correlation with nonemergent ultrasound. Gallbladder: Gallbladder is absent. Biliary ducts: Common bile duct is normal in caliber measuring 3 mm. Right kidney: Right kidney appears within normal limits. US/US abdomen limited [id number] IMPRESSION: 1. Hepatic steatosis. 2. Right hepatic lobe 3.7 cm somewhat complex cyst, consider correlation with nonemergent ultrasound. 3. Gallbladder is absent. 4. Common bile duct is normal in caliber measuring 3 mm. 5. Right kidney appears within normal limits.
[2024-09-16 20:34] LABS: Alkaline Phosphatase 4227 U/L (40-130)
[2024-09-16 20:48] LABS: Ammonia 110 umol/L (16-60)
[2024-09-16 21:04] VITALS: BP 153/98; PULSE 108; RESP 18; O2SAT 99
[2024-09-16 21:53] LABS: Tumor Marker Alpha Fetoprotein 1.8 ng/mL (0-8.3)
--- NOTE | 2024-09-16 22:12 | PM.HP ---
Providers/Chief Complaint Primary Care Provider: David Macario NP Chief Complaint: WEAKNESS History of Present Illness Kristian Balbuena is a 43 year old male who presented from [facility] with chief complaint of altered mental status. Patient was diagnosed with high ammonia level with abnormal transaminases with hyponatremia. Patient was awake and alert patient is stating that next week he was about to be discharged from the [place] [facility]. He was sent [place] the [place] [facility] secondary to his back pain from [facility]. Patient is stating that at [facility] biliary stent was removed at the time of gallbladder surgery. He was told that he has drug-induced liver injury. Patient is denying recent alcohol use, patient does not want to go to [facility] Ultrasound in the ER did not show any biliary dilation, he has high bilirubin clinically looks jaundiced, no active confusion at the time of my evaluation, patient is stating that he has been experiencing constipation for quite some days, patient is not endorsing use of any diuretics or lactulose CT abdomen/pelvis scan did pick up man lymphadenopathy in the past, patient is stating that he was told that it is likely not related to cancer He has given consent to get records from [facility], patient is stating that he has 7 kids and he is looking forward to live a normal healthy life, stating that in case he is not able to make decision and his father should be contacted, And his family he has stepmother, father, older sibling/brother Patient is stating that he is not sure why he was sent to the hospital today, he is not able to recall events from the morning Review of Systems Const: Denies: fever(s) Eyes: Denies: change in vision ENMT: Denies: throat pain Card: Denies: chest pain Resp: Denies: dyspnea GI: Reports: nausea : Denies: flank pain Musc: Reports: back pain and extremity pain Medications/Allergies Home Medications Medication Instructions Recorded Confirmed Last Taken Type gabapentin 100 mg capsule 100 mg PO DAILY 08/27/24 08/27/24 08/26/24 History hydrocodone 10 mg-acetaminophen 1 tab PO Q4H PRN Pain 08/27/24 08/27/24 08/27/24 History 325 mg tablet insulin glargine 100 unit/mL (3 20 unit SUBCUT QPM 08/27/24 08/27/24 Unknown History mL) subcutaneous pen (Lantus Solostar U-100 Insulin) insulin glargine-yfgn 100 unit/mL 20 unit SUBCUT QPM 08/27/24 08/27/24 Unknown History (3 mL) subcutaneous pen (Semglee (insulin glargine-yfgn) Pen) linagliptin 5 mg tablet (Tradjenta) 5 mg PO DAILY 08/27/24 08/27/24 Unknown History magnesium L-lactate 84 mg 84 mg PO TID 08/27/24 08/27/24 Unknown History tablet,extended release metformin 1,000 mg tablet 1,000 mg PO DAILY 08/27/24 08/27/24 Unknown History methocarbamol 1,000 mg tablet 1,000 mg PO TID 08/27/24 08/27/24 08/27/24 History tamsulosin 0.4 mg capsule 0.4 mg PO DAILY 08/27/24 08/27/24 08/27/24 History Allergies Allergy/AdvReac Type Severity Reaction Status Date / Time No Known Allergies Allergy Verified 09/16/24 19:35 PFSH Acute PFSH: Medical History (Updated 09/16/24 @ 22:28 by Keshawn Tamez MD) Back pain Ascending cholangitis Biliary stent removal in July at [facility] Onychodystrophy Onychodystrophy Type 2 diabetes mellitus with diabetic polyneuropathy Surgical History (Updated 09/16/24 @ 22:28 by Keshawn Tamez MD) S/P cholecystectomy July in [facility] Social History Smoking and tobacco/nicotine status: current every day tobacco/nicotine user Vitals/I&O/Wt Last Vital Signs Temp 98.0 F 09/16/24 19:30 Pulse 101 H 09/16/24 19:30 Resp 18 09/16/24 19:30 BP 98/64 09/16/24 19:30 Pulse Ox 98 09/16/24 19:30 O2 Del Method Room Air 09/16/24 19:30 Weight last 48 hrs Weight 70.307 kg Physical Exam Narrative: Patient is awake and alert No abdominal tenderness GCS 15 Scleral icterus Skin with yellow complexion Awake and alert nonfocal neuroexam S1, S2 Hemodynamic stable Lower extremity edema Pitting edema 3+ Lethargic and fatigued Unkept appearance No audible stridor or wheezing Data 09/16/24 19:42 09/16/24 19:42 Micro: Microbiology 09/16/24 19:55 Blood Culture - Preliminary Blood SPECIMEN COLLECTED 09/16/24 19:42 Blood Culture - Preliminary Blood SPECIMEN COLLECTED A&P Assessment and plan (1) Type 2 diabetes mellitus with diabetic polyneuropathy: Qualifiers: 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: unspecified 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 status Qualified Code(s): E11.42 - Type 2 diabetes mellitus with diabetic polyneuropathy (2) Hepatomegaly: (3) Liver injury: (4) Hyponatremia: (5) Hepatic encephalopathy: (6) Back pain: (7) Constipation: Plan Hepatic encephalopathy related to constipation Will add lactulose 30 mg 3 times daily Patient endorsing constipation Add rifaximin No sign of ascites at this point Hepatomegaly, patient is denying history of GI cancer AFP marker requested, records from [facility] requested as well patient is stating that he was told that he had drug-induced liver injury(he thinks his metformin and ibuprofen) Patient had a ascending cholangitis biliary stent was removed with gallbladder surgery in July Liver ultrasound requested which did not show biliary dilation MELD score is 26 19.6% estimated 3-month mortality Hyponatremia secondary to high bilirubin Abnormal transaminases: Trend CMP Patient has type 2 diabetes: Sliding scale with consistent carb diet Patient not endorsing any history of esophageal varices or upper GI bleed AFP marker 1.8 not extremely high Patient is from [facility] patient was discharged from [facility] [place] [facility] because of [facility] pain, Stating he was being considered for discharge in next few days In case of confusion he wants his father to make decision for him Full code Cardiac diet DVT prophylaxis added hemoglobin is stable Attestations Medical Necessity Statement*: Anticipating discharge within 48 hours Diagnoses Type 2 diabetes mellitus with diabetic polyneuropathy, unspecified whether 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
--- NOTE | 2024-09-16 22:16 | CTR_ITS ---
PROCEDURE INFORMATION: Exam: CT Abdomen And Pelvis With Contrast Exam date and time: 09/16/2024 10:37 PM Age: 43 years old Clinical indication: Abdominal pain; Generalized; Prior surgery; Surgery date: 1-6 months; Surgery type: Choley; Additional info: Possible liver mass TECHNIQUE: Imaging protocol: Computed tomography of the abdomen and pelvis with contrast. Radiation optimization: All CT scans at this facility use at least one of these dose optimization techniques: automated exposure control; mA and/or kV adjustment per patient size (includes targeted exams where dose is matched to clinical indication); or iterative reconstruction. Contrast material: OMNI 350; Contrast volume: 100 ml; Contrast route: INTRAVENOUS (IV); COMPARISON: CT abdomen pelvis w con* [id number] 07/08/2024 10:12 AM RADIATION DOSE METRICS: Total DLP (mGy-cm): 441.42 FINDINGS: Lungs: Left lower lobe atelectasis. Liver: 21 mm cystic lesion along the medial aspect of the right hepatic lobe and appears to correspond to the cystic area seen on same-day ultrasound. Finding is new compared to prior exam. Finding may potentially reflect an abscess. Additional considerations may also include a bile collection if there is concern for a biliary leak. Nuclear medicine HIDA scan could further evaluate this. Finding is best seen series 3, image 35. Please correlate clinically. Gallbladder and biliary ducts: Cholecystectomy. Pancreas: Normal. No ductal dilation. Spleen: Normal. No splenomegaly. Adrenal glands: Normal. No mass. Kidneys and ureters: Normal. No hydronephrosis. Stomach and bowel: Fluid in the stomach and small bowel with wall thickening, please correlate for gastroenteritis. Appendix: No evidence of appendicitis. Intraperitoneal space: Unremarkable. No free air. No significant fluid collection. Vasculature: Unremarkable. No abdominal aortic aneurysm. Lymph nodes: Unremarkable. No enlarged lymph nodes. Urinary bladder: Unremarkable as visualized. Reproductive: Unremarkable as visualized. Bones/joints: Unremarkable. No acute fracture. Soft tissues: Unremarkable. CT/CT abdomen pelvis w con* [id number] IMPRESSION: 1. 21 mm cystic lesion along the medial aspect of the right hepatic lobe and appears to correspond to the cystic area seen on same-day ultrasound. Finding is new compared to prior exam. Finding may potentially reflect an abscess. Additional considerations may also include a bile collection if there is concern for a biliary leak. Nuclear medicine HIDA scan could further evaluate this. Finding is best seen series 3, image 35. Please correlate clinically. 2. Left lower lobe atelectasis. 3. Cholecystectomy. 4. Fluid in the stomach and small bowel with wall thickening, please correlate for gastroenteritis.
[2024-09-16 22:34] VITALS: BP 161/97; PULSE 105; RESP 15; O2SAT 99
[2024-09-16] MEDS: iohexol 350 mg/mL 500 mL Btl (per mL) IV (22:39)
[2024-09-16] MEDS: lactulose oral liq 20 gm/30 mL UDC 30 GM PO (22:41)
[2024-09-16 23:22] LABS: Hepatitis A Antibody IgM Non-Reactive (Nonreactive); Hepatitis B Core AB, Total Non-Reactive (Nonreactive); Hepatitis B Surface AB 3.6 (11.5-1000); Hepatitis B Surface Antigen Non-Reactive (Nonreactive); Hepatitis C Virus Antibody Non-Reactive (Nonreactive)
[2024-09-17] VITALS (11 sets, daily range): BP systolic 136–158; BP diastolic 59–97; PULSE 96–107; RESP 14–18; TEMP 36.4–36.9; O2SAT 95–100
[2024-09-17 01:42] LABS: Bilirubin Urine 3+ (Negative); Blood Urine 2+ (Negative); Glucose Urine UA Negative (Normal); Ketones Urine Negative (Negative); Leukocyte Esterase Urine 1+ (Negative); Protein Urine 3+ (Negative); Urine Appearance Cloudy (CLEAR); Urine Color Dark Yellow (Yellow); pH Urine 5.5 (5-7)
[2024-09-17 01:46] LABS: Bacteria Urine None Seen /hpf; Hyaline Casts Urine 16.53 /lpf; RBC Urine 21-50 /hpf (0-2); Squamous Epithelial Cell Urine 0-5 /hpf (0-5); WBC Urine 51-100 /hpf (0-5)
[2024-09-17 02:13] LABS: Nitrate Urine Negative (Negative); Specific Gravity, Urine 1.049 (1.005-1.030)
[2024-09-17 02:14] LABS: Add Urine Culture? Yes; Coarse Granular Casts Urine 0-4 /lpf; Mucus Urine 3+ /hpf; Sperm Urine 1+ /hpf
[2024-09-17] MEDS: morphine IR 15 mg Tablet PO ×2 (02:37→09:05)
[2024-09-17] MEDS: enoxaparin 40 mg/0.4 mL Syringe SUBCUT (02:40)
[2024-09-17] MEDS: albumin 12.5 GM/250 ML VIAL IV (02:56)
[2024-09-17] MEDS: cefTRIAXone 2,000 MG in sodium chloride 0.9% (plus) 50 ML 100 MG IV (03:00)
[2024-09-17 05:45] LABS: Basophils # 0.1 10^3/uL (0.0-0.1); Basophils % 0.7 %; Eosinophils # 0.1 10^3/uL (0.0-0.8); Eosinophils % 0.7 %; Hematocrit 29.5 % (37-53); Lymphocytes # 2.3 10^3/uL (0.8-4.8); Mean Corpuscular HGB Conc 32.9 g/dL (30-55); Mean Corpuscular Hemoglobin 31.4 pg (27-33); Mean Corpuscular Volume 95.5 fl (82-101); Mean Platelet Volume 10.1 fL (7.4-10.4); Monocytes # 0.6 10^3/uL (0.2-0.9); Monocytes % 8.4 %; Neutrophils # 3.91 10^3/uL (1.8-7.7); Neutrophils % 56.9 %; Nucleated Red Blood Cells % 0 %; Platelet Count 317 10^3/cmm (157-399); Red Blood Count 3.09 10^6/uL (3.85-5.65); Red Cell Distribution Width 14.6 % (12.1-15.1); White Blood Count 6.88 10^3/uL (3.29-11.43)
[2024-09-17 06:06] LABS: Albumin Level 2.2 g/dL (3.5-5.2); Anion Gap 14.2 (5-19); Aspartate Amino Transferase 117 U/L (0-40); Blood Urea Nitrogen 23 mg/dL (6-20); Calcium 7.9 mg/dL (8.5-10.5); Carbon Dioxide 23 mmol/L (22-29); Chloride 93 mmol/L (98-107); Globulin 2.3 g/dL (1.3-4.6); Glucose 168 mg/dL (65-115); Magnesium 1.9 mg/dL (1.7-2.3); Osmolality Calculated 270 mOsm/kg (285-295); Potassium 4.2 mmol/L (3.5-5.1); Sodium 126 mmol/L (136-145); Total Protein 4.5 g/dL (6.6-8.7)
[2024-09-17 06:19] LABS: Alanine Aminotransferase 95 U/L (0-41)
[2024-09-17 06:20] LABS: Vitamin B12 988 pg/mL (232-1245)
[2024-09-17 06:29] LABS: Glucose Point of Care 165 mg/dL (70-110)
[2024-09-17 06:34] LABS: Alkaline Phosphatase 3544 U/L (40-130); Total Bilirubin 12.9 mg/dL (0.15-1.2)
[2024-09-17 08:47] LABS: C Reactive Protein 13.2 mg/L (0.0-4.9)
[2024-09-17 08:53] LABS: Procalcitonin 0.48 ng/mL (0-0.5)
[2024-09-17] MEDS: lactulose oral liq 20 gm/30 mL UDC 30 GM PO ×2 (09:05→14:10)
[2024-09-17] MEDS: rifaximin 200 mg Tablet 600 MG PO ×2 (09:07→18:22)
[2024-09-17 09:36] LABS: Total Bilirubin 12.3 mg/dL (0.15-1.2)
--- NOTE | 2024-09-17 10:33 | PC.CHAP ---
Pastoral Care Encounter/Spiritual Assessment Type of Contact [] Declined welder/fabricator visit [] Patient/Family/Request visit [] Outpatient visit [] Follow-up visit [] Physician referral [] Code/Alert [] Routine visit [] Staff referral [] Actively dying [x] Patient sleeping [] Family support [] [] Out of room [] Palliative care [] [] Receiving care in room [] Pre-surgical visit [] Trauma [] Long length of stay [] ICU visit [] Other: Relational/Emotional Strength [] Patient feels connected with others/family/visitors/staff [] Distress [] Loneliness/isolation [] Abandonment Spirituality of Patient [] Person of Lori [] Attends Sikhism of their Lori [] Believes in Prayer [] Reads Bible or Tenriism materials [] There are Spiritual issues to be addressed Sales Representative [employer] Interventions [] Prayer [] Active listening [] Non-anxious presence [] Spiritual/emotional support [] Crisis/trauma care [] Spiritual counseling [] Bereavement support [] Provided bereavement packet [] Provided Bible/devotional materials [] Provided toy/stuffed animal, coloring book to patient or family member [] Provided Communion [] Anointing/Tyrone [] Salvation [] Completed spiritual assessment [] Other: Impact on Illness or Injury [] Angry [] Fearful [] Anxious [] Often cries [] Exhaustion [] Unable to work [] Unable to attend buddhist [] Unable to walk/stand [] Unable to read [] Unable to drive [] Unable to eat/drink [] Unable to sleep [] Unable to be with family [] Patient intubated [] Other: Summary Time spent with patient
[2024-09-17 10:41] LABS: Glucose Point of Care 206 mg/dL (70-110)
[2024-09-17] MEDS: insulin lispro 100 unit/1 mL SUBCUT ×2 (14:09→18:22)
--- NOTE | 2024-09-17 16:30 | PM.PN ---
Subjective Subjective: Patient tells me that when he was up at [facility], he had a biliary stent, and then cholecystectomy,, he had a cholecystectomy, then persistent hypoalbuminemia thought to be secondary to tizanidine, metformin, NSAID had a liver biopsy, I had a detailed discussion with him about his persistent hyperbilirubinemia, CT scan findings, discussed about pursuing a HIDA scan to ensure that there is no biliary leak, patient is adamant that he is not can to go to [facility], and he does not want to be transferred to tertiary level center, he tells me that his goal is to eventually go back to work at [employer], that is what he wants to do, discussed his UTI, high persistent hyperbilirubinemia, his hyperammonemia Vitals/I&O/Wt Last Vital Signs Temp 98.4 F 09/17/24 15:16 Pulse 96 09/17/24 15:16 Resp 15 09/17/24 15:16 BP 140/75 09/17/24 15:16 Pulse Ox 97 09/17/24 15:16 O2 Del Method Room Air 09/17/24 15:16 09/17/24 09/17/24 09/17/24 06:59 14:59 22:59 Intake Total 300 / 300 240 / 240 Output Total 1600 / 1600 Balance -1300 / -1300 240 / 240 Weight last 48 hrs Weight 71.866 kg Weight 73 kg Weight 70.307 kg Physical Exam Const: COMMON NORMALS: no acute distress and patient oriented x3 OTHER: Patient appears jaundiced Resp: COMMON NORMALS: normal respiratory effort, No retractions, No use of accessory muscles and clear to auscultation bilaterally AUSCULTATION: clear to auscultation bilaterally Cardio: COMMON NORMALS: regular rate, regular rhythm, S1 normal heart sound present and S2 normal heart sound present RATE: regular rate RHYTHM: regular rhythm HEART SOUNDS: S1 normal heart sound present and S2 normal heart sound present GI: OTHER: Abdomen is soft, slightly distended, good bowel sounds, no guarding, no rebound, no rigidity, does have mild diffuse tenderness Extremity: COMMON NORMALS: no pedal edema Neuro: COMMON NORMALS: patient oriented x3, CN's II-XII intact bilaterally, moves all extremities and no focal motor deficits Psych: COMMON NORMALS: mental status grossly normal Urinary Catheter Management: Sethi: Cath Placed During This Visit: yes Reason for Continuing Indwelling Catheter: Acute Urinary Retention or Obstruction Urinary Catheter Date of Insertion: 09/17/24 Urinary Catheter Time of Insertion: 03:15 Data 09/17/24 05:38 09/17/24 05:38 Micro: Microbiology 09/16/24 19:55 Blood Culture - Preliminary Blood SPECIMEN COLLECTED 09/16/24 19:42 Blood Culture - Preliminary Blood SPECIMEN COLLECTED A&P Assessment and plan (1) Type 2 diabetes mellitus with diabetic polyneuropathy: Qualifiers: Diabetes mellitus halfway insulin use: unspecified supervisor intermediates insulin use status Qualified Code(s): E11.42 - Type 2 diabetes mellitus with diabetic polyneuropathy (2) Hyponatremia: (3) Hepatomegaly: (4) Hepatic encephalopathy: (5) Direct hyperbilirubinemia: (6) Liver injury: (7) Back pain: (8) Constipation: (9) Transaminitis: (10) Elevated alkaline phosphatase level: (11) Urinary tract infection: Plan Direct hyperbilirubinemia, elevated alk phos, transaminitis -Reviewed the records from [facility] -Recently in July he was transferred to [facility] underwent ERCP and removal of impacted CBD stone and placement of the CBD stent 07/08/2024 -Repeat ERCP and stent removal completed on 07/15 -He had a cholecystectomy 07/18 -He was discharged home -08/04 was readmitted due to hyperbilirubinemia, worsening hepatitis ? MRCP showed some periportal fluid, no obstruction ? For biopsy 08/07, biopsy pending -Etiology hepatitis was thought to be acute drug-induced hepatitis from metformin, tizanidine and/or NSAID -He subsequently had a ERCP 1015 which was negative for any biliary obstruction -CT scan 1016 showed ongoing fluid collection near the liver was reviewed by surgery thought to be consistent with postop changes -On discharge from [facility] 08/19 his direct bilirubin 16.4, total bili 21.5, alk phos over 2300, albumin 1.8, AST 171, ALT 173, INR 0.99 -CT scan abdomen pelvis here shows CT/CT abdomen pelvis w con* [id number] IMPRESSION: 1. 21 mm cystic lesion along the medial aspect of the right hepatic lobe and appears to correspond to the cystic area seen on same-day ultrasound. Finding is new compared to prior exam. Finding may potentially reflect an abscess. Additional considerations may also include a bile collection if there is concern for a biliary leak. Nuclear medicine HIDA scan could further evaluate this. Finding is best seen series 3, image 35. Please correlate clinically. 2. Left lower lobe atelectasis. 3. Cholecystectomy. 4. Fluid in the stomach and small bowel with wall thickening, please correlate for gastroenteritis. -Plan -Monitor LFTs, bilirubin -Will perform HIDA scan Urinary tract infection, continue meropenem Hepatic encephalopathy related to constipation Will add lactulose 30 mg 3 times daily Patient endorsing constipation Add rifaximin No sign of ascites at this point Liver ultrasound requested which did not show biliary dilation MELD score is 26 19.6% estimated 3-month mortality Hyponatremia secondary to high bilirubin, monitor Abnormal transaminases: Trend CMP Patient has type 2 diabetes: Sliding scale with consistent carb diet Patient not endorsing any history of esophageal varices or upper GI bleed AFP marker 1.8 not extremely high Patient is from [facility] patient was [facility] from [facility] because of [facility], Stating he was being considered for discharge in next few days In case of confusion he wants his father to make decision for him Full code Cardiac diet DVT prophylaxis Lovenox, added hemoglobin is stable Attestations Medical Necessity Statement*: Patient requires hospitalization for hyperbilirubinemia, hepatic encephalopathy, hyponatremia, UTI Diagnoses Type 2 diabetes mellitus with diabetic polyneuropathy, unspecified whether halfway insulin use E11.42 Diabetes mellitus halfway insulin use: unspecified supervisor intermediates insulin use status Hyponatremia E87.1 Hepatomegaly R16.0 Hepatic encephalopathy K76.82 Direct hyperbilirubinemia E80.6 Liver injury S36.119A Back pain M54.9 Constipation K59.00 Transaminitis R74.01 Elevated alkaline phosphatase level R74.8 Urinary tract infection N39.0
[2024-09-17 17:00] LABS: Glucose Point of Care 175 mg/dL (70-110)
[2024-09-17] MEDS: insulin glargine 100 units/1 mL 10 UNIT SUBCUT (18:22)
[2024-09-17] MEDS: morphine 4 mg/mL SDV 1 mL 2 MG IVP (19:53)
[2024-09-17 20:43] LABS: Glucose Point of Care 127 mg/dL (70-110)
[2024-09-17] MEDS: gabapentin 100 mg Capsule PO (21:24)
[2024-09-17] MEDS: meropenem 1,000 mg SDV 1000 MG IVP (21:24)
[2024-09-18] VITALS (14 sets, daily range): BP systolic 148–169; BP diastolic 82–94; PULSE 90–99; RESP 15–18; TEMP 36.6–37.2; O2SAT 95–100
[2024-09-18] MEDS: morphine 4 mg/mL SDV 1 mL 2 MG IVP ×8 (00:11→23:12)
[2024-09-18] MEDS: enoxaparin 40 mg/0.4 mL Syringe SUBCUT (00:11)
[2024-09-18] MEDS: meropenem 1,000 mg SDV 1000 MG IVP ×3 (04:49→20:50)
[2024-09-18 06:43] LABS: Glucose Point of Care 174 mg/dL (70-110)
[2024-09-18 06:52] LABS: Basophils # 0.1 10^3/uL (0.0-0.1); Eosinophils # 0.1 10^3/uL (0.0-0.8); Eosinophils % 1.3 %; Hematocrit 31.8 % (37-53); Lymphocytes # 1.7 10^3/uL (0.8-4.8); Lymphocytes % 24.7 %; Mean Corpuscular Hemoglobin 31.4 pg (27-33); Mean Corpuscular Volume 95.2 fl (82-101); Mean Platelet Volume 10.4 fL (7.4-10.4); Monocytes # 0.4 10^3/uL (0.2-0.9); Monocytes % 6.6 %; Neutrophils # 4.41 10^3/uL (1.8-7.7); Neutrophils % 66.1 %; Nucleated Red Blood Cells % 0 %; Platelet Count 309 10^3/cmm (157-399); Red Blood Count 3.34 10^6/uL (3.85-5.65); Red Cell Distribution Width 14.6 % (12.1-15.1); White Blood Count 6.68 10^3/uL (3.29-11.43)
[2024-09-18 07:04] LABS: Erythrocyte Sedimentation Rate 75 mm/hr (0-10)
[2024-09-18 07:07] LABS: Alanine Aminotransferase 102 U/L (0-41); Albumin Level 2.1 g/dL (3.5-5.2); Anion Gap 12.7 (5-19); Aspartate Amino Transferase 137 U/L (0-40); Blood Urea Nitrogen 15 mg/dL (6-20); Calcium 7.7 mg/dL (8.5-10.5); Carbon Dioxide 23 mmol/L (22-29); Chloride 90 mmol/L (98-107); Creatinine Clr Calc Pharmacy 263.4291; Globulin 2.8 g/dL (1.3-4.6); Glomerular Filtration Rate 234.8 mL/min (90-130); Glucose 162 mg/dL (65-115); Osmolality Calculated 258 mOsm/kg (285-295); Potassium 3.7 mmol/L (3.5-5.1); Sodium 122 mmol/L (136-145); Total Protein 4.9 g/dL (6.6-8.7)
[2024-09-18 07:11] LABS: C Reactive Protein 13.1 mg/L (0.0-4.9); Iron 32 ug/dL (59-158)
[2024-09-18 07:17] LABS: Procalcitonin 0.44 ng/mL (0-0.5)
[2024-09-18 07:26] LABS: Ferritin 1228 ng/mL (30-400)
[2024-09-18 07:27] LABS: Total Bilirubin 13.1 mg/dL (0.15-1.2)
[2024-09-18 07:28] LABS: Alkaline Phosphatase 4000 U/L (40-130)
[2024-09-18 07:32] LABS: Ammonia 149 umol/L (16-60)
[2024-09-18] MEDS: insulin lispro 100 unit/1 mL SUBCUT (08:36)
[2024-09-18] MEDS: gabapentin 100 mg Capsule PO ×3 (08:37→20:50)
[2024-09-18] MEDS: rifaximin 200 mg Tablet 600 MG PO ×2 (08:37→18:22)
[2024-09-18] MEDS: tamsulosin 0.4 mg Capsule PO (08:37)
--- NOTE | 2024-09-18 10:11 | PC.NURSE ---
newswriter called [facility] and requested a copy of the liver biopsy pathology report per Dr Buck request.
[2024-09-18 11:22] LABS: Glucose Point of Care 119 mg/dL (70-110)
--- NOTE | 2024-09-18 11:50 | CT_ITS ---
WS: [id number] CT LUMBAR SPINE, noncontrast. HISTORY: low back pain TECHNIQUE: Contiguous 2.0 mm axial imaging are performed. Sagittal and coronal reformats are submitte d and reviewed. All CT scans at [facility] use at least one of these dose optimization techni ques: automated exposure control; mA and/or kV adjustment per patient size (includes targeted exams w here dose is matched to clinical indication); or iterative reconstruction. IV contrast: None DLP: 478.63 mGy.cm COMPARISON: 04/03/2013 Normal lumbar alignment with no loss of disc space height or vertebral body height. L1-2: Normal. L2-3: Mild disc bulging with a very shallow RIGHT subarticular disc protrusion. Mild narrowing of the central canal. L3-4: Mild annular disc bulging. Mild subarticular recess encroachment. L4-5: Diffuse annular disc bulging with a central disc protrusion. Ligamentum flavum and mild facet a rthritis. Moderate to severe central with bilateral subarticular recess stenosis and mild foraminal s tenosis. The central disc protrusion is contacting the traversing L5 nerve roots. L5-S1: Mild annular disc bulging. Asymmetric disc bulging to the RIGHT. RIGHT subarticular recess dis c protrusion. Severe central with bilateral subarticular recess and mild RIGHT foraminal stenosis. Mo st significant disc contact on the traversing S1 nerve roots, RIGHT greater than LEFT. Prior cholecystectomy. CT/CT lumbar spine wo con* [id number] IMPRESSION: 1. No acute lumbar spine fracture. 2. L4-5: Moderate to severe central with bilateral subarticular recess and mil d foraminal stenosis. Central disc protrusion contacts the traversing L5 nerve roots. 3. L5-S1: Severe central with bilateral subarticular recess and mild RIGHT for aminal stenosis. Most significant disc contact on the S1 nerve roots, RIGHT gre ater than LEFT. 4. L2-3: Shallow RIGHT subarticular recess disc protrusion. Mild central steno sis.
--- NOTE | 2024-09-18 13:30 | NM_ITS ---
WS: [id number] NUCLEAR MEDICINE HIDA SCAN HISTORY: hyperbilirubinemia, possible bile leak. COMPARISON: CT 09/16/2024 TECHNIQUE: The patient was intravenously injected with 8.1 mCi of TC99m Mebrofenin. Immediate imaging over the right upper quadrant was followed by 5 minute image and additional images for a total of 60 minutes. Liver uptake is noted at 5 minutes of the liver. The liver uptake does not change at 60 minutes. Ther e is no excretion. No biloma is identified. Gallbladder has been surgically removed. NM/NM hepatobiliary wo phar [id number] IMPRESSION: 1. Abnormal HIDA scan. There is persistent radionuclide retained within the li sunita. This is most consistent with acute hepatitis. 2. No excretion of radionuclide from the liver. No biloma identified.
--- NOTE | 2024-09-18 14:52 | PM.PN ---
Subjective Subjective: Patient was seen this morning, son is at bedside he does feel better this morning, continues to have severe low back pain, denies any fevers, no chills, still appears jaundiced, does report generalized weakness, he tells me that he has plans on going home he does not want to go back to [facility] he tells he that he has 7 kids to take care of he needs to work, Vitals/I&O/Wt Last Vital Signs Temp 99.0 F 09/18/24 12:17 Pulse 96 09/18/24 12:17 Resp 15 09/18/24 12:17 BP 151/88 09/18/24 12:17 Pulse Ox 98 09/18/24 12:17 O2 Del Method Room Air 09/18/24 12:17 09/17/24 09/18/24 09/18/24 22:59 06:59 14:59 Intake Total 118 / 118 Output Total 950 / 950 300 / 1250 Balance -950 / -710 -300 / -1010 118 / 118 Weight last 48 hrs Weight 72.235 kg Weight 71.866 kg Weight 73 kg Weight 70.307 kg Physical Exam Const: COMMON NORMALS: no acute distress and patient oriented x3 OTHER: Jaundiced appearing, scleral icterus Resp: COMMON NORMALS: normal respiratory effort, No retractions, No use of accessory muscles and clear to auscultation bilaterally AUSCULTATION: clear to auscultation bilaterally Cardio: COMMON NORMALS: regular rate, regular rhythm, S1 normal heart sound present and S2 normal heart sound present RATE: regular rate RHYTHM: regular rhythm HEART SOUNDS: S1 normal heart sound present and S2 normal heart sound present GI: COMMON NORMALS: Normal to inspection, nondistended, normoactive bowel sounds present and non-tender Extremity: COMMON NORMALS: no pedal edema Neuro: COMMON NORMALS: patient oriented x3, CN's II-XII intact bilaterally and moves all extremities Psych: COMMON NORMALS: mental status grossly normal Urinary Catheter Management: Sethi: Cath Placed During This Visit: yes Reason for Continuing Indwelling Catheter: Acute Urinary Retention or Obstruction Urinary Catheter Date of Insertion: 09/17/24 Urinary Catheter Time of Insertion: 03:15 Data 09/18/24 06:44 09/18/24 06:44 Micro: Microbiology 09/17/24 01:28 Urine Culture - Preliminary Urine,Clean Catch Coag negative Staphylococcus 09/16/24 19:55 Blood Culture - Preliminary Blood NEGATIVE TO DATE 09/16/24 19:42 Blood Culture - Preliminary Blood NEGATIVE TO DATE A&P Assessment and plan (1) Type 2 diabetes mellitus with diabetic polyneuropathy: Qualifiers: 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 status Qualified Code(s): E11.42 - Type 2 diabetes mellitus with diabetic polyneuropathy (2) Hyponatremia: (3) Hepatomegaly: (4) Hepatic encephalopathy: (5) Direct hyperbilirubinemia: (6) Liver injury: (7) Back pain: (8) Constipation: (9) Transaminitis: (10) Elevated alkaline phosphatase level: (11) Urinary tract infection: Plan Direct hyperbilirubinemia, elevated alk phos, transaminitis -Reviewed the records from [facility] -Recently in July he was transferred to [facility] underwent ERCP and removal of impacted CBD stone and placement of the CBD stent 07/08/2024 -Repeat ERCP and stent removal completed on 07/15 -He had a cholecystectomy 07/18 -He was discharged home -08/04 was readmitted due to hyperbilirubinemia, worsening hepatitis ? MRCP showed some periportal fluid, no obstruction ? For biopsy 08/07, shows cholestasis with ductular reaction and acute inflammation, periportal fibrosis, no significant steatosis, mild reticuloendothelial and minimal hepatocellular stainable, iron, no evidence to support alpha-1 antitrypsin disease, -Etiology hepatitis was thought to be acute drug-induced hepatitis from metformin, tizanidine and/or NSAID -He subsequently had a ERCP 1015 which was negative for any biliary obstruction -CT scan 1016 showed ongoing fluid collection near the liver was reviewed by surgery thought to be consistent with postop changes -On discharge from [facility] 08/19 his direct bilirubin 16.4, total bili 21.5, alk phos over 2300, albumin 1.8, AST 171, ALT 173, INR 0.99 -CT scan abdomen pelvis here shows CT/CT abdomen pelvis w con* [id number] IMPRESSION: 1. 21 mm cystic lesion along the medial aspect of the right hepatic lobe and appears to correspond to the cystic area seen on same-day ultrasound. Finding is new compared to prior exam. Finding may potentially reflect an abscess. Additional considerations may also include a bile collection if there is concern for a biliary leak. Nuclear medicine HIDA scan could further evaluate this. Finding is best seen series 3, image 35. Please correlate clinically. 2. Left lower lobe atelectasis. 3. Cholecystectomy. 4. Fluid in the stomach and small bowel with wall thickening, please correlate for gastroenteritis. hepatobiliary scan NM/NM hepatobiliary wo phar [id number] IMPRESSION: 1. Abnormal HIDA scan. There is persistent radionuclide retained within the liver. This is most consistent with acute hepatitis. 2. No excretion of radionuclide from the liver. No biloma identified. -Plan -Monitor LFTs, bilirubin -Will await callback from [place] Urinary tract infection, continue meropenem, Zyvox Hepatic encephalopathy related to constipation Will add lactulose 30 mg 3 times daily Patient endorsing constipation Add rifaximin No sign of ascites at this point Liver ultrasound requested which did not show biliary dilation MELD score is 26 19.6% estimated 3-month mortality Hyponatremia secondary to high bilirubin, monitor Abnormal transaminases: Trend CMP Patient has type 2 diabetes: Sliding scale with consistent carb diet Patient not endorsing any history of esophageal varices or upper GI bleed AFP marker 1.8 not extremely high Patient is from [facility] patient was discharged from [facility] to [facility] because of back pain, Stating he was being considered for discharge in next few days In case of confusion he wants his father to make decision for him Full code Cardiac diet DVT prophylaxis Lovenox, added hemoglobin is stable Plan for today speak to [facility], hepatology, about pathology results, patient has persistent hyperbilirubinemia, follow HIDA scan, reviewed records, continue IV antibiotics, monitor LFTs, continue back pain, CT's lumbar spine Attestations Medical Necessity Statement*: Patient requires hospitalization for hyperbilirubinemia, transaminitis, UTI, encephalopathy Diagnoses Type 2 diabetes mellitus with diabetic polyneuropathy, unspecified whether detention insulin use E11.42 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
[2024-09-18] MEDS: lactulose oral liq 20 gm/30 mL UDC 30 GM PO (15:49)
[2024-09-18] MEDS: linezolid 600 mg Tablet PO (15:52)
--- NOTE | 2024-09-18 16:51 | MRR_ITS ---
PROCEDURE INFORMATION: Exam: MR Abdomen Without Contrast, Biliary System Exam date and time: 09/18/2024 5:14 PM Age: 43 years old Clinical indication: Condition or disease; Bile duct condition; Other: Extrahepatic biliary blockage; Prior surgery; Surgery date: 1-6 months; Patient HX: Cholecystectomy in July; Additional info: Look for extrahepatic biliary blockage TECHNIQUE: Imaging protocol: MR of the abdomen without contrast. Exam focused on the biliary system and pancreatic ducts. Routine 3D-MRCP images were acquired and processed without radiologist supervision. COMPARISON: CT abdomen pelvis w con* [id number] 09/16/2024 10:37 PM FINDINGS: Liver: There is a well-circumscribed rounded lesion at the medial aspect of the right hepatic lobe measuring 1.4 x 1.6 x 1.5 cm in the craniocaudad/transverse/AP dimensions. This lesion is high in signal on the T2 and T1 images and is stable in size when compared to the prior CT scan without signal dropout on the out of phase images. There is no intrahepatic or extrahepatic ductal dilatation. No biliary ductal defects are seen. Gallbladder and biliary ducts: The gallbladder has been removed. Pancreas: Unremarkable. No ductal dilation. Intraperitoneal space: No fluid collection. MR/MR MRCP [id number] IMPRESSION: 1.6 cm rounded lesion along the medial aspect of the right hepatic lobe is high in signal on the T1 and T2 images indicating proteinaceous or hemorrhagic products. Differential includes abscess, postoperative seroma, biloma.
[2024-09-18 16:53] LABS: Glucose Point of Care 131 mg/dL (70-110)
[2024-09-18 20:32] LABS: Glucose Point of Care 139 mg/dL (70-110)
[2024-09-19] VITALS (15 sets, daily range): BP systolic 138–170; BP diastolic 80–90; PULSE 85–100; RESP 15–18; TEMP 36.3–37; O2SAT 97–100
[2024-09-19] MEDS: morphine 4 mg/mL SDV 1 mL 2 MG IVP ×8 (01:35→20:58)
[2024-09-19] MEDS: enoxaparin 40 mg/0.4 mL Syringe SUBCUT (01:36)
[2024-09-19] MEDS: linezolid 600 mg Tablet PO ×2 (02:02→14:43)
[2024-09-19 05:45] LABS: Basophils # 0.1 10^3/uL (0.0-0.1); Basophils % 1.1 %; Eosinophils # 0.1 10^3/uL (0.0-0.8); Hematocrit 31.7 % (37-53); Lymphocytes # 2.4 10^3/uL (0.8-4.8); Lymphocytes % 34.2 %; Mean Corpuscular HGB Conc 33.8 g/dL (30-55); Mean Corpuscular Hemoglobin 31.4 pg (27-33); Mean Platelet Volume 10.2 fL (7.4-10.4); Monocytes # 0.7 10^3/uL (0.2-0.9); Monocytes % 9.8 %; Neutrophils # 3.77 10^3/uL (1.8-7.7); Neutrophils % 53.6 %; Nucleated Red Blood Cells % 0 %; Platelet Count 309 10^3/cmm (157-399); Red Blood Count 3.41 10^6/uL (3.85-5.65); Red Cell Distribution Width 14.3 % (12.1-15.1); White Blood Count 7.04 10^3/uL (3.29-11.43)
[2024-09-19 06:03] LABS: C Reactive Protein 11.3 mg/L (0.0-4.9)
[2024-09-19 06:11] LABS: Procalcitonin 0.41 ng/mL (0-0.5)
[2024-09-19] MEDS: meropenem 1,000 mg SDV 1000 MG IVP (06:11)
[2024-09-19 06:14] LABS: Ammonia 120 umol/L (16-60)
[2024-09-19 06:27] LABS: Alanine Aminotransferase 96 U/L (0-41); Albumin Level 2.1 g/dL (3.5-5.2); Anion Gap 14.8 (5-19); Aspartate Amino Transferase 125 U/L (0-40); Blood Urea Nitrogen 12 mg/dL (6-20); Calcium 7.5 mg/dL (8.5-10.5); Carbon Dioxide 22 mmol/L (22-29); Chloride 87 mmol/L (98-107); Creatinine Clr Calc Pharmacy 292.3472; Globulin 2.2 g/dL (1.3-4.6); Glomerular Filtration Rate 327.2 mL/min (90-130); Glucose 156 mg/dL (65-115); Osmolality Calculated 253 mOsm/kg (285-295); Potassium 3.8 mmol/L (3.5-5.1); Sodium 120 mmol/L (136-145); Total Protein 4.3 g/dL (6.6-8.7)
[2024-09-19 06:31] LABS: Total Bilirubin 13.2 mg/dL (0.15-1.2)
[2024-09-19 06:36] LABS: Glucose Point of Care 157 mg/dL (70-110)
[2024-09-19] MEDS: rifaximin 200 mg Tablet 600 MG PO ×2 (07:54→17:23)
[2024-09-19] MEDS: gabapentin 100 mg Capsule PO ×3 (07:55→20:41)
[2024-09-19] MEDS: tamsulosin 0.4 mg Capsule 0.8 MG PO (07:55)
[2024-09-19] MEDS: insulin lispro 100 unit/1 mL SUBCUT ×4 (07:57→21:48)
[2024-09-19 08:12] LABS: Alkaline Phosphatase 4165 U/L (40-130)
[2024-09-19] MEDS: amlodipine 10 mg Tablet PO (09:17)
[2024-09-19] MEDS: sodium chloride 0.9% 1,000 ML 75 ML IV (09:17)
[2024-09-19 11:03] LABS: Sodium 119 mmol/L (136-145)
--- NOTE | 2024-09-19 11:04 | PM.DCS ---
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 Qualified Code(s): E11.42 - Type 2 diabetes mellitus with diabetic polyneuropathy (2) Hyponatremia: Status: Acute (3) Hepatomegaly: Status: Acute (4) Hepatic encephalopathy: Status: Acute (5) Direct hyperbilirubinemia: Status: Acute (6) Liver injury: Status: Acute (7) Back pain: Status: Acute (8) Constipation: Status: Acute (9) Transaminitis: Status: Acute (10) Elevated alkaline phosphatase level: Status: Acute (11) Urinary tract infection: Status: Acute Reason for Visit Reason for Visit: WEAKNESS Physical Exam Urinary Catheter Management: Sethi: Cath Placed During This Visit: yes Reason for Continuing Indwelling Catheter: Acute Urinary Retention or Obstruction Urinary Catheter Date of Insertion: 09/17/24 Urinary Catheter Time of Insertion: 03:15 Discharge Data Studies Completed and Pending Completed Studies During Hospitalization Category Date Time Status CT abdomen pelvis w con* [id number] Stat Cat Scan 09/16/24 22:[address] lumbar spine wo con* [id number] Stat Cat Scan 09/18/24 11:50 Completed MR MRCP [id number] Routine MRI 09/18/24 16:51 Completed NM hepatobiliary wo phar [id number] Routine Nuc Med 09/18/24 13:30 Completed US abdomen limited 12021 Stat Ultrasound 09/16/24 20:33 Completed Pending at discharge Category Date Time Status AMA [Mitochondrial AB Screen] Stat Lab 09/18/24 09:32 Received HENRI Profile Rheumatology Stat Lab 09/18/24 09:32 Received Ammonia AM LABS Lab 09/20/24 04:00 Ordered Blood Culture Stat Lab 09/16/24 19:55 Results C Reactive Protein AM LABS Lab 09/20/24 04:00 Ordered Ceruloplasmin Stat Lab 09/18/24 15:40 Received Complete Blood Count w/Auto AM LABS Lab 09/20/24 04:00 Ordered Heavy Metals Panel (Venous) Routine Lab 09/18/24 15:40 Received Osmolality Urine Routine Lab 09/19/24 09:09 Uncollected Procalcitonin AM LABS Lab 09/20/24 04:00 Ordered Sodium Q4H Lab 09/19/24 14:00 Ordered Sodium Q4H Lab 09/19/24 18:00 Ordered Sodium Q4H Lab 09/19/24 22:00 Ordered Sodium Q4H Lab 09/20/24 02:00 Ordered Sodium Q4H Lab 09/20/24 06:00 Ordered Sodium Q4H Lab 09/20/24 10:00 Ordered Urine Culture Stat Lab 09/17/24 01:28 Results Urine Random Sodium Routine Lab 09/19/24 09:09 Uncollected Radiology Impressions Abdomen Ultrasound 09/16/24 20:33 IMPRESSION: 1. Hepatic steatosis. 2. Right hepatic lobe 3.7 cm somewhat complex cyst, consider correlation with nonemergent ultrasound. 3. Gallbladder is absent. 4. Common bile duct is normal in caliber measuring 3 mm. 5. Right kidney appears within normal limits. Abdomen/Pelvis CT 09/16/24 22:16 IMPRESSION: 1. 21 mm cystic lesion along the medial aspect of the right hepatic lobe and appears to correspond to the cystic area seen on same-day ultrasound. Finding is new compared to prior exam. Finding may potentially reflect an abscess. Additional considerations may also include a bile collection if there is concern for a biliary leak. Nuclear medicine HIDA scan could further evaluate this. Finding is best seen series 3, image 35. Please correlate clinically. 2. Left lower lobe atelectasis. 3. Cholecystectomy. 4. Fluid in the stomach and small bowel with wall thickening, please correlate for gastroenteritis. Lumbar Spine CT 09/18/24 11:50 IMPRESSION: 1. No acute lumbar spine fracture. 2. L4-5: Moderate to severe central with bilateral subarticular recess and mild foraminal stenosis. Central disc protrusion contacts the traversing L5 nerve roots. 3. L5-S1: Severe central with bilateral subarticular recess and mild RIGHT foraminal stenosis. Most significant disc contact on the S1 nerve roots, RIGHT greater than LEFT. 4. L2-3: Shallow RIGHT subarticular recess disc protrusion. Mild central stenosis. Hepatobiliary Scan Nuclear Medicine 09/18/24 13:30 IMPRESSION: 1. Abnormal HIDA scan. There is persistent radionuclide retained within the liver. This is most consistent with acute hepatitis. 2. No excretion of radionuclide from the liver. No biloma identified. Cholangiopancreatography MRI 09/18/24 16:51 IMPRESSION: 1.6 cm rounded lesion along the medial aspect of the right hepatic lobe is high in signal on the T1 and T2 images indicating proteinaceous or hemorrhagic products. Differential includes abscess, postoperative seroma, biloma. Laboratory Results WBC 7.04 10^3/uL (3.29-11.43) 09/19/24 05:33 RBC 3.41 10^6/uL (3.85-5.65) L 09/19/24 05:33 Hgb 10.70 g/dL (11.27-16.99) L 09/19/24 05:33 Hct 31.7 % (37-53) L 09/19/24 05:33 MCV 93.0 fl (82-101) 09/19/24 05:33 MCH 31.4 pg (27-33) 09/19/24 05:33 MCHC 33.8 g/dL (30-55) 09/19/24 05:33 RDW 14.3 % (12.1-15.1) 09/19/24 05:33 Plt Count 309 10^3/cmm (157-399) 09/19/24 05:33 MPV 10.2 fL (7.4-10.4) 09/19/24 05:33 Neut % (Auto) 53.6 % 09/19/24 05:33 Lymph % (Auto) 34.2 % 09/19/24 05:33 [place] % (Auto) 9.8 % 09/19/24 05:33 Eos % (Auto) 1.0 % 09/19/24 05:33 Baso % (Auto) 1.1 % 09/19/24 05:33 Neut # (Auto) 3.77 10^3/uL (1.8-7.7) 09/19/24 05:33 Lymph # (Auto) 2.4 10^3/uL (0.8-4.8) 09/19/24 05:33 [place] # (Auto) 0.7 10^3/uL (0.2-0.9) 09/19/24 05:33 Eos # (Auto) 0.1 10^3/uL (0.0-0.8) 09/19/24 05:33 Baso # (Auto) 0.1 10^3/uL (0.0-0.1) 09/19/24 05:33 Nucleated RBC % (auto) 0 % 09/19/24 05:33 Nucleated RBCs # 0.0 /100WBC 09/19/24 05:33 ESR 75 mm/hr (0-10) H 09/18/24 06:44 PT 11.80 SECONDS (12.1-14.9) L 09/16/24 19:42 INR 0.84 (0.8-1.2) 09/16/24 19:42 APTT 31.9 SECONDS (23.9-36.7) 09/16/24 19:42 Sodium 119 mmol/L (136-145) L* 09/19/24 10:24 Potassium 3.8 mmol/L (3.5-5.1) 09/19/24 05:33 Chloride 87 mmol/L (98-107) L 09/19/24 05:33 Carbon Dioxide 22 mmol/L (22-29) 09/19/24 05:33 Anion Gap 14.8 (5-19) 09/19/24 05:33 BUN 12 mg/dL (6-20) 09/19/24 05:33 Creatinine 0.3 mg/dL (0.7-1.2) L 09/19/24 05:33 GFR Calculation 327.2 mL/min (90-130) H 09/19/24 05:33 Glucose 156 mg/dL (65-115) H 09/19/24 05:33 POC Glucose 157 mg/dL (70-110) H 09/19/24 06:28 Calculated Osmolality 253 mOsm/kg (285-295) L 09/19/24 05:33 Lactic Acid 1.0 mmol/L (0.5-2.2) 09/16/24 19:55 Calcium 7.5 mg/dL (8.5-10.5) L 09/19/24 05:33 Magnesium 1.9 mg/dL (1.7-2.3) 09/17/24 05:38 Iron 32 ug/dL (59-158) L 09/18/24 06:44 Ferritin 1228 ng/mL (30-400) H 09/18/24 06:44 Direct Bilirubin 10.00 mg/dL (0.00-0.30) H 09/17/24 08:55 Total Bilirubin 13.2 mg/dL (0.15-1.2) H* 09/19/24 05:33 Indirect Bilirubin 2.30 09/17/24 08:55 AST 125 U/L (0-40) H 09/19/24 05:33 ALT 96 U/L (0-41) H 09/19/24 05:33 Alkaline Phosphatase 4165 U/L (40-130) H* 09/19/24 05:33 Ammonia 120 umol/L (16-60) H 09/19/24 05:33 C-Reactive Protein 11.3 mg/L (0.0-4.9) H 09/19/24 05:33 Total Protein 4.3 g/dL (6.6-8.7) L 09/19/24 05:33 Albumin 2.1 g/dL (3.5-5.2) L 09/19/24 05:33 Globulin 2.2 g/dL (1.3-4.6) 09/19/24 05:33 Tumor Marker AFP 1.8 ng/mL (0-8.3) 09/16/24 19:42 Vitamin B12 988 pg/mL (232-1245) 09/17/24 05:38 Procalcitonin 0.41 ng/mL (0-0.5) 09/19/24 05:33 Urine Color Dark yellow (Yellow) A 09/17/24 01:28 Urine Appearance Cloudy (CLEAR) A 09/17/24 01:28 Urine pH 5.5 (5-7) 09/17/24 01:28 Ur Specific [place] 1.049 (1.005-1.030) H 09/17/24 01:28 Urine Protein 3+ (Negative) A 09/17/24 01:28 Urine Glucose (UA) Negative (Normal) 09/17/24 01:28 Urine Ketones Negative (Negative) 09/17/24 01:28 Urine Blood 2+ (Negative) A 09/17/24 01:28 Urine Nitrate Negative (Negative) 09/17/24 01:28 Urine Bilirubin 3+ (Negative) H 09/17/24 01:28 Urine Urobilinogen 1.0 mg/dL (Negative) 09/17/24 01:28 Ur Leukocyte Esterase 1+ (Negative) A 09/17/24 01:28 Urine RBC 21-50 /hpf (0-2) H 09/17/24 01:28 Urine WBC 51-100 /hpf (0-5) H 09/17/24 01:28 Ur Squamous Epith Cells 0-5 /hpf (0-5) 09/17/24 01:28 Amorphous Sediment Not Reportable 09/17/24 01:28 Urine Bacteria None seen /hpf (NONE) 09/17/24 01:28 Hyaline Casts 16.53 /lpf 09/17/24 01:28 Coarse Granular Casts 0-4 /lpf H 09/17/24 01:28 Urine Mucus 3+ /hpf 09/17/24 01:28 Urine Yeast 3+ /hpf H 09/17/24 01:28 Urine Sperm 1+ /hpf 09/17/24 01:28 Hepatitis A IgM Ab Non-reactive (Nonreactive) 09/16/24 19:42 Hep Bs Antigen Non-reactive (Nonreactive) 09/16/24 19:42 Hep Bs Antibody 3.6 (11.5-1000) L 09/16/24 19:42 Hep B Core Total Ab Non-reactive (Nonreactive) 09/16/24 19:42 Hepatitis C Antibody Non-reactive (Nonreactive) 09/16/24 19:42 Vitals Last Vital Signs Temp 97.7 F 09/19/24 07:50 Pulse 85 09/19/24 08:06 Resp 18 09/19/24 10:33 BP 170/90 09/19/24 07:50 Pulse Ox 98 09/19/24 10:33 O2 Del Method Room Air 09/19/24 08:06 Discharge Plan Discharge Patient Disposition: Home Condition: Stable Prescriptions: New linezolid 600 mg Tablet 600 mg PO Q12H 5 Days Qty: 10 0RF amlodipine 10 mg Tablet 10 mg PO DAILY 30 Days Qty: 30 0RF Xifaxan 200 mg Tablet 400 mg PO TID 30 Days Qty: 180 0RF lactulose 20 gram/30 mL Solution 20 g PO BID 30 Days Qty: 1800 0RF oxycodone 10 mg tablet 10 mg PO BID PRN (Reason: pain) 7 Days Qty: 14 0RF Rx Instructions: donot take while driving or drinking alcohol or operate heavy machinery or working insulin aspart U-100 [Novolog FlexPen U-100 Insulin] 100 unit/mL (3 mL) insulin pen See Rx Instructions .ROUTE .COMPLEX Qty: 15 0RF Rx Instructions: Inject, subcut, 3 times daily, after meals, based on sliding scale provided (DME) glucometer testing kit See Rx Instructions .Route .MEDSUPPLY Qty: 1 0RF Rx Instructions: Lancets#100 Strips# 100 Continued silver sulfadiazine [Silvadene] 1 % Cream 1 applic TOPICAL BID gabapentin 100 mg Capsule 100 mg PO TID 30 Days Qty: 90 0RF Changed tamsulosin 0.4 mg Capsule 0.8 mg PO DAILY 30 Days Qty: 30 0RF magnesium L-lactate 84 mg Tablet Extended Release 84 mg PO DAILY 30 Days Qty: 30 0RF insulin glargine [Lantus Solostar U-100 Insulin] 100 unit/mL (3 mL) insulin pen 10 unit SUBCUT QPM Qty: 15 0RF Discontinued methocarbamol 1,000 mg Tablet 1,000 mg PO TID PRN (Reason: Pain) insulin lispro 100 unit/mL Insulin Pen 4 unit SUBCUT TID oxycodone 10 mg Tablet, Oral Only 10 mg PO Q4H PRN (Reason: Pain, Severe) Discharge Orders: Discharge Order (Routine); Ordered 09/19/24 Ordered By: Macho Buck Referrals: Evens Raymond DO [Physician] - 1-3 days David Macario NP [Primary Care Provider] - 09/26/24 9:00 am (Appointment will be with Abbie Stafford due to David Macario has retired. 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 ) Discharge Diet: Cardiac Discharge Activity: Resume usual activity Patient Instructions: Acute Liver Failure (DC), Opioid Safety Activity Restrictions/Additional Instructions: -DONOT DRINK ALCOHOL -AVOID TYLENOL -SEE PRIMARY CARE NEXT WEEK TO RECHECK SERUM SODIUM LEVEL -Please monitor your blood sugars closely -Monitor your blood sugars 3 times daily as after meals -Please record your blood sugars, and a blood sugar log -For your NovoLog -Please inject blood sugar after meals based on sliding scale provided -Do not inject insulin if you do not eat as hypoglycemia kills -This is a NovoLog sliding scale -Insulin sliding ?fingerstick? Insulin ?141-180?0 units/sq 181-220?2 units/sq ?221-260?4 units/sq ?261-300 6 units/sq ?301-350?8 units/sq ?351-400 10 units/sq ?401-450?12 units/sq >450? 14units/sq -If your blood sugar is greater than 500 go to the emergency room -If your blood sugar is less than 60 or at anytime you feel lightheaded or dizzy or diaphoretic or have chest palpitations check your blood sugar, and eat a hard candy or drink orange juice and go immediately to the emergency room -Remember hypoglycemia kills, so if his blood sugar is less than 60 we have to increase it by taking in a sugary meal such as a hard candy or orange juice and go to the emergency room -If you have any questions please call us where here to help -Please hydrate well -Please have your primary care provider monitor your bilirubin, your liver function -For your oxycodone, please do not drive or operate heavy machinery or work or drink alcohol while taking medication -For your back pain please follow-up with Dr. 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
[2024-09-19 11:05] LABS: Glucose Point of Care 156 mg/dL (70-110)
[2024-09-19 11:06] LABS: Ceruloplasmin 23 mg/dL (14-30)
[2024-09-19 13:29] LABS: COMPLEMENT, TOTAL (CH50) 58 U/mL (31-60)
[2024-09-19 13:44] LABS: Urine Random Sodium 204 mmol/L
[2024-09-19 14:10] LABS: COMPLEMENT COMPONENT C3C 124 mg/dL (82-185); COMPLEMENT COMPONENT C4C 17 mg/dL (15-53)
[2024-09-19 14:45] LABS: Sodium 118 mmol/L (136-145)
--- NOTE | 2024-09-19 14:53 | P.PN_ITS ---
Subjective 2 Subjective: - Events of yesterday -Yesterday I had spoken to hepatobiliary team at [facility] about patient's clinical case, his persistent hyperbilirubinemia, elevated alk phos, compared to his hospitalization at [facility] his alk phos is almost doubled now, his hyperbilirubinemia persists, his hepatic encephalopathy persists, we discussed his case in detail, discussed his imaging from [facility], discussed his clinical case information that I received from [facility], his pathology results, reviewed HIDA scan, CT imaging ? Hepatobiliary team Faheem recommended MRCP to evaluate for biliary obstruction and extrahepatic biliary tree -MRCP done this morning, shows no signif icant biliary obstruction -Spoke to [facility] again t his morning, spoke to their transfer team who relayed imaging results to hepatobiliary team at [facility], after reviewing imaging, they recommended for me to speak to the building construction supervisor -Seen patient this morning, I discussed that I am waiting for callback from have a building construction supervisor at [facility] -He is denying any headache, blurry visi on, no nausea, no vomiting, no chest pain, palpitations -He does feel tired this morning he did not get much sleep at night -Discussed the concerns of his developin g hyponatremia, have consulted nephrology, but it is likely secondary to his poor oral intake, and his negative fluid status I have started on IV fluid, will check his serum sodiums every 4 hours, -Initially patient wanted to go home, he tells me that he has [facility], he has 4 kids to take care of at home, adamant initially about going home ? Discussed with him morbid mortality associate with hyponatremia, including but not limited to the risk of seizures, cerebral edema, loss of life, he voiced understanding, all consents are, agreed to remain as inpatient -Nephrology consulted, spoke to nephrolo gist, will consult continue IV fluids, 75 cc an hour recheck sodium every 4 hours -Spoke to Dr. Brannon about patient 's case in detail, discussed his transfer from our hospital to [facility] for concern for acute ascending cholangitis, discussed his impacted CBD stone, requiring placement of CBD stent, ERCP then removal and cholecystectomy and a subsequent hospitalization for hyperbilirubinemia, transaminitis, discussed his repeat ERCP, MRCP his liver biopsy discussed his liver biopsy results discussed [facility] suspicion that it was cholestatic jaundice indirect hyperbilirubinemia from medications such as metformin or Norflex, discussed his current hospitalization, my concerns with his persistent hyperbilirubinemia, now with hyperammonemia without any radiographic evidence of liver cirrhosis, with his alk phos now doubling to 4000 when he was discharged from [facility] it was almost 1999, his direct bilirubin has improved, however he has hyperbilirubinemia which persist, his hyperammonemia persists, ? Dr. Brannon is still concerned for the possibility of obstructive jaundice, she recommends patient to be transferred to [facility] for consideration ERCP and further evaluation -I spoke to patient in detail about my d iscussion with [facility], discussed concerns, recommended transfer to tertiary level center, morbidity and mortality discussed about his persistent hyperbilirubinemia, elevated alk phos, transaminitis, hyperammonemia he voiced understanding, all question answered, agreed to proceed with transfer to [facility] however this could take some time to transfer him -Serum sodium 118, he is relatively asym ptomatic no headache, blurry vision, no nausea, no vomiting, spoke to nephrology will see patient continue IV fluids for now seizure precautions, neurochecks -Patient continues to have severe low ba ck pain, we discussed CT scan findings, will start extended release morphine 15 mg p.o. twice daily, continue IV morphine for breakthrough pain, Vitals/I&O/Wt Last Vital Signs Temp 98.2 F 09/19/24 11:21 Pulse 96 09/19/24 11:21 Resp 18 09/19/24 14:43 BP 155/88 09/19/24 11:21 Pulse Ox 97 09/19/24 14:43 O2 Del Method Room Air 09/19/24 11:21 09/18/24 09/19/24 09/19/24 22:59 06:59 14:59 Intake Total 480 / 598 500 / 1098 360 / 360 Output Total 900 / 900 500 / 1400 250 / 250 Balance -420 / -302 0 / -302 110 / 110 Weight last 48 hrs Weight 65.1 kg Weight 72.235 kg Physical Exam 2 Const: COMMON NORMALS: no acute distress ORIENTATION/CONSCIOUSNESS: Yes awake, Yes oriented to person and Yes oriented to place; not oriented to time Resp: COMMON NORMALS: normal respiratory effort, No retractions, No use of accessory muscles and clear to auscultation bilaterally AUSCULTATION: clear to auscultation bilaterally Cardio: COMMON NORMALS: regular rate, regular rhythm, S1 normal heart sound present and S2 normal heart sound present RATE: regular rate RHYTHM: r egular rhythm HEART SOUNDS: S1 normal heart sound present and S2 normal heart sound present GI: COMMON NORMALS: Normal to inspection, nondistended, normoactive bowel sounds present and non-tender Extremity: COMMON NORMALS: no pedal edema Neuro: SENSORIUM/ORIENTATION: Yes oriented to person, Yes oriented to place and No oriented to time Psych: COMMON NORMALS: mental status grossly normal Urinary Catheter Management: Sethi: Cath Placed During This Visit: yes Reason for Continuing Indwelling Catheter: Acute Urinary Retention or Obstruction Urinary Catheter Date of Insertion: 09/17/24 Urinary Catheter Time of Insertion: 03:15 Data 09/19/24 05:33 09/19/24 14:01 A&P Assessment and plan (1) Type 2 diabetes mellitus with diabetic polyneuropathy: Qualifiers: Diabetes mellitus extermination inspector insulin use: unspecified halfway insulin use status Qualified Code(s): E11.42 - Type 2 diabetes mellitus with diabetic polyneuropathy (2) Hyponatremia: (3) Hepatomegaly: (4) Hepatic encephalopathy: (5) Direct hyperbilirubinemia: (6) Liver injury: (7) Back pain: (8) Constipation: (9) Transaminitis: (10) Elevated alkaline phosphatase level: (11) Urinary tract infection: (12) Acute hyponatremia: (13) Acute low back pain: Plan Direct hyperbilirubinemia, elevated alk phos, transaminitis -Reviewed the records from [facility] -Recently in July he was transferred to [facility] underwent ERCP and removal of impacted CBD stone and placement of the CBD stent 07/08/2024 -Repeat ERCP and stent removal completed on 07/15 -He had a cholecystectomy 07/18 -He was discharged home -08/04 was readmitted due to hyperbilirubinemia, worsening hepatitis ? MRCP showed some periportal fluid, no obstruction ? For biopsy 08/07, shows cholestasis with ductular reaction and acute inflammation, periportal fibrosis, no significant steatosis, mild reticuloendothelial and minimal hepatocellular stainable, iron, no evidence to support alpha-1 antitrypsin disease, -Etiology hepatitis was thought to be acute drug-induced hepatitis from metformin, tizanidine and/or NSAID -He subsequently had a ERCP 1015 which was negative for any biliary obstruction -CT scan 1016 showed ongoing fluid collection near the liver was reviewed by surgery thought to be consistent with postop changes -On discharge from [facility] 08/19 his direct bilirubin 16.4, total bili 21.5, alk phos over 2300, albumin 1.8, AST 171, ALT 173, INR 0.99 -CT scan abdomen pelvis here shows CT/CT abdomen pelvis w con* [id number] IMPRESSION: 1. 21 mm cystic lesion along the medial aspect of the right hepatic lobe and appears to correspond to the cystic area seen on same-day ultrasound. Finding is new compared to prior exam. Finding may potentially reflect an abscess. Additional considerations may also include a bile collection if there is concern for a biliary leak. Nuclear medicine HIDA scan could further evaluate this. Finding is best seen series 3, image 35. Please correlate clinically. 2. Left lower lobe atelectasis. 3. Cholecystectomy. 4. Fluid in the stomach and small bowel with wall thickening, please correlate for gastroenteritis. hepatobiliary scan NM/NM hepatobiliary wo phar [id number] IMPRESSION: 1. Abnormal HIDA scan. There is persistent radionuclide retained within the liver. This is most consistent with acute hepatitis. 2. No excretion of radionuclide from the liver. No biloma identified. MRCP -FINDINGS: Liver: There is a well-circumscribed rounded lesion at the medial aspect of the right hepatic lobe measuring 1.4 x 1.6 x 1.5 cm in the craniocaudad/transverse/AP dimensions. This lesion is high in signal on the T2 and T1 images and is stable in size when compared to the prior CT scan without signal dropout on the out of phase images. There is no intrahepatic or extrahepatic ductal dilatation. No biliary ductal defects are seen. Gallbladder and biliary ducts: The gallbladder has been removed. Pancreas: Unremarkable. No ductal dilation. Intraperitoneal space: No fluid collection. MR/MR MRCP [id number] IMPRESSION: 1.6 cm rounded lesion along the medial aspect of the right hepatic lobe is high in signal on the T1 and T2 images indicating proteinaceous or hemorrhagic products. Differential includes abscess, postoperative seroma, biloma. -Alk phos has doubled to over 4000, with persistent hyperammonemia despite medical therapy, -Spoke to [facility] Dr. Brannon, recommended transfer for hepatology evaluation, consideration of ERCP -Differential is cholestasis from medications versus biliary obstruction -Plan -Monitor LFTs, bilirubin, alk phos -Will await transfer to [facility] after discussion with Faheem, acute hyponatremia, 118 - -2 L -He is on lactulose for hyperammonemia -Suspicious for hypovolemic hyponatremia -However pseudohyponatremia can occur in jaundice patients with biliary obstruction or cholestasis in patients who have elevations total serum cholesterol high levels of protein lipoprotein X Plan -Continue to monitor closely -Neurochecks -Aspiration precautions -Seizure precautions -Monitor serum sodium every 4 hours -IV fluids at 75 cc -Check serum lipid, serum osmolality, urine osmolality, -Nephrology consulted Urinary tract infection, showing coagulase-negative staphylococci, Sethi catheter in place, continue Zyvox Hepatic encephalopathy related to constipation, 120 Will add lactulose 30 mg 3 times daily currently on hold Patient endorsing constipation rifaximin No sign of ascites at this point MELD score is 26 19.6% estimated 3-month mortality Hyponatremia secondary to high bilirubin, monitor Abnormal transaminases: Trend CMP Patient has type 2 diabetes: Sliding scale with consistent carb diet Patient not endorsing any history of esophageal varices or upper GI bleed AFP marker 1.8 not extremely high Acute low back pain CT/CT lumbar spine wo con* [id number] IMPRESSION: 1. No acute lumbar spine fracture. 2. L4-5: Moderate to severe central with bilateral subarticular recess and mild foraminal stenosis. Central disc protrusion contacts the traversing L5 nerve roots. 3. L5-S1: Severe central with bilateral subarticular recess and mild RIGHT foraminal stenosis. Most significant disc contact on the S1 nerve roots, RIGHT greater than LEFT. 4. L2-3: Shallow RIGHT subarticular recess disc protrusion. Mild central stenosis. Plan ? Add morphine 15 mg p.o. twice daily extended release -Morphine 2 mg IV push every 4 hours as needed Full code Cardiac diet DVT prophylaxis Lovenox, added hemoglobin is stable - Events of yesterday -Yesterday I had spoken to hepatobiliary team at [facility] about patient's clinical case, his persistent hyperbilirubinemia, elevated alk phos, compared to his hospitalization at [facility] his alk phos is almost doubled now, his hyperbilirubinemia persists, his hepatic encephalopathy persists, we discussed his case in detail, discussed his imaging from [facility], discussed his clinical case information that I received from [facility], his pathology results, reviewed HIDA scan, CT imaging ? Hepatobiliary team [facility] recommended MRCP to evaluate for biliary obstruction and extrahepatic biliary tree -MRCP done this morning, shows no significant biliary obstruction -Spoke to [facility] again this morning, spoke to their transfer team who relayed imaging results to hepatobiliary team at [facility], after reviewing imaging, they recommended for me to speak to the building construction supervisor -Seen patient this morning, I discussed that I am waiting for callback from have a building construction supervisor at [facility] -He is denying any headache, blurry vision, no nausea, no vomiting, no chest pain, palpitations -He does feel tired this morning he did not get much sleep at night -Discussed the concerns of his developing hyponatremia, have consulted nephrology, but it is likely secondary to his poor oral intake, and his negative fluid status I have started on IV fluid, will check his serum sodiums every 4 hours, -Initially patient wanted to go home, he tells me that [facility], he has 4 kids to take care of at home, adamant initially about going home ? Discussed with him morbid mortality associate with hyponatremia, including but not limited to the risk of seizures, cerebral edema, loss of life, he voiced understanding, all consents are, agreed to remain as inpatient -Nephrology consulted, spoke to geriatric psychiatrist, will consult continue IV fluids, 75 cc an hour recheck sodium every 4 hours -Spoke to Dr. Brannon about patient's case in detail, discussed his transfer from our hospital to [facility] for concern for acute ascending cholangitis, discussed his impacted CBD stone, requiring placement of CBD stent, ERCP then removal and cholecystectomy and a subsequent hospitalization for hyperbilirubinemia, transaminitis, discussed his repeat ERCP, MRCP his liver biopsy discussed his liver biopsy results discussed [facility] suspicion that it was cholestatic jaundice indirect hyperbilirubinemia from medications such as metformin or Norflex, discussed his current hospitalization, my concerns with his persistent hyperbilirubinemia, now with hyperammonemia without any radiographic evidence of liver cirrhosis, with his alk phos now doubling to 4000 when he was discharged from [facility] it was almost 1999, his direct bilirubin has improved, however he has hyperbilirubinemia which persist, his hyperammonemia persists, ? Dr. Branonn is still concerned for the possibility of obstructive jaundice, she recommends patient to be transferred to [facility] for consideration ERCP and further evaluation -I spoke to patient in detail about my discussion with [facility], discussed concerns, recommended transfer to tertiary level center, morbidity and mortality discussed about his persistent hyperbilirubinemia, elevated alk phos, transaminitis, hyperammonemia he voiced understanding, all question answered, agreed to proceed with transfer to [facility] however this could take some time to transfer him -Serum sodium 118, he is relatively asymptomatic no headache, blurry vision, no nausea, no vomiting, spoke to nephrology will see patient continue IV fluids for now seizure precautions, neurochecks -Patient continues to have severe low back pain, we discussed CT scan findings, will start extended release morphine 15 mg p.o. twice daily, continue IV morphine for breakthrough pain, Attestations 2 Medical Necessity Statement*: Patient requires hospitalization for hyponatremia, direct hyperbilirubinemia, cholestatic versus obstructive jaundice, UTI, acute low back pain Coding Level of Care Code 94571 High Time for a total of 80 minutes, includes reviewing past or interval history, examining/interviewing patient, placing orders, counseling patient/family/other support, updating patient/family/other support, discussing plan of care with staff, communicating with other healthcare providers, documenting encounter and coordinating care Diagnoses Type 2 diabetes mellitus with diabetic polyneuropathy, unspecified whether extermination inspector insulin use E11.42 Diabetes mellitus extermination inspector insulin use: unspecified extermination inspector insulin use status Hyponatremia E87.1 Hepatomegaly R16.0 Hepatic encephalopathy K76.82 Direct hyperbilirubinemia E80.6 Liver injury S36.119A Back pain M54.9 Constipation K59.00 Transaminitis R74.01 Elevated alkaline phosphatase level R74.8 Urinary tract infection N39.0 Acute hyponatremia E87.1 Acute low back pain M54.50
[2024-09-19 15:47] LABS: HDL Cholesterol 9 mg/dL (60-100)
[2024-09-19 16:03] LABS: Triglycerides 225 mg/dL (0-150)
[2024-09-19 16:05] LABS: Chol HDL Ratio 212.78 mg/dL (1.0-5.00); Cholesterol 1915 mg/dL (0-200); LDL Cholesterol Calculated 1861 mg/dL (50-129); LDL HDL Ratio 206.78 RATIO (0.00-3.22)
[2024-09-19 16:58] LABS: Glucose Point of Care 177 mg/dL (70-110)
[2024-09-19] MEDS: insulin glargine 100 units/1 mL 10 UNIT SUBCUT (17:22)
[2024-09-19] MEDS: sodium chloride 1 gm Tablet PO (17:23)
[2024-09-19] MEDS: morphine ER (12 HR) 15 mg Tablet PO (17:23)
--- NOTE | 2024-09-19 17:49 | PM.CONSULT ---
Providers/Reason For Consult Consulting Physician/Specialty*: kommana/Nephrology Reason for Consult*: hyponatremia Attending Physician: Macho Buck MD Primary Care Provider: David Macario NP History of Present Illness History of Present Illness Kristian Balbuena is a 43 year old male Patient is a 43-year-old male with past medical history of diabetes, chronic back pain ascending cholangitis history sent from the assisted due to altered mental status. He was recently admitted to the [facility] and was sent to the assisted. Lab data in the ER was significant for hyponatremia with a sodium of 124 and has high ammonia levels and high LFTs. Ultrasound in the emergency department showed biliary dilatation. Patient continued to have persistent hyperbilirubinemia and elevated alk phos levels. His sodium levels have dropped from 1 24-1 18 today. MRCP did not show any biliary obstruction. Patient reports poor oral intake and poor appetite. Review of Systems Narrative: negative Medications/Allergies Home Medications Medication Instructions Recorded Confirmed Last Taken Type silver sulfadiazine 1 % topical 1 applic topical BID 09/17/24 09/17/24 09/16/24 History cream (Silvadene) amlodipine 10 mg tablet 10 mg PO DAILY 30 days #30 tabs 09/19/24 Unknown Rx gabapentin 100 mg capsule 100 mg PO TID 30 days #90 caps 09/19/24 Unknown Rx glucometer testing kit #1 ea 09/19/24 Unknown Rx insulin aspart U-100 100 unit/mL See Rx Instructions .Route 09/19/24 Unknown Rx (3 mL) subcutaneous pen (Novolog .COMPLEX #15 mL FlexPen U-100 Insulin aspart) insulin glargine 100 unit/mL (3 10 unit (0.1 mL) SUBCUT QPM #15 mL 09/19/24 Unknown Rx mL) subcutaneous pen (Lantus Solostar U-100 Insulin) lactulose 20 gram/30 mL oral 20 g (30 mL) PO BID 30 days #1,800 09/19/24 Unknown Rx solution mL linezolid 600 mg tablet 600 mg PO Q12H 5 days #10 tabs 09/19/24 Unknown Rx magnesium L-lactate 84 mg 84 mg PO DAILY 30 days #30 tabs 09/19/24 Unknown Rx tablet,extended release oxycodone 10 mg tablet 10 mg PO BID PRN pain 7 days #14 09/19/24 Unknown Rx tabs rifaximin 200 mg tablet (Xifaxan) 400 mg (2 x 200 mg) PO TID 30 days 09/19/24 Unknown Rx #180 tabs tamsulosin 0.4 mg capsule 0.8 mg (2 x 0.4 mg) PO DAILY 30 09/19/24 Unknown Rx days #30 caps Allergies Allergy/AdvReac Type Severity Reaction Status Date / Time No Known Allergies Allergy Verified 09/16/24 19:35 Current Medications Generic Name Dose Route Start Last Admin Trade Name Errol PRN Reason Stop Dose Admin Amlodipine Besylate 10 mg 09/19/24 09:00 09/19/24 09:17 Amlodipine 10 Mg Tablet PO 10 mg DAILY CHANCE Administration Enoxaparin Sodium 40 mg 09/17/24 01:09 09/19/24 01:36 Enoxaparin 40 Mg/0.4 Ml Syringe SUBCUT 40 mg Q24H CHANCE Administration Gabapentin 100 mg 09/17/24 21:00 09/19/24 14:43 Gabapentin 100 Mg Capsule PO 100 mg TID CHANCE Administration Insulin Glargine 10 unit 09/17/24 18:00 09/19/24 17:22 Insulin Glargine 100 Units/1 Ml SUBCUT 10 unit QPM CHANCE Administration Insulin Human Lispro 0 unit 09/17/24 08:00 09/19/24 17:22 Insulin Lispro 100 Unit/1 Ml SUBCUT 4 unit WM&BEDTIME CHANCE Administration Protocol Lactulose 30 gm 09/16/24 22:25 09/19/24 14:16 Lactulose Oral Liq 20 Gm/30 Ml Udc PO Not Given TID CHANCE Linezolid 600 mg 09/18/24 15:00 09/19/24 14:43 Linezolid 600 Mg Tablet PO 600 mg Q12H CHANCE Administration Protocol Morphine Sulfate 15 mg 09/19/24 18:00 09/19/24 17:23 Morphine Er (12 Hr) 15 Mg Tablet PO 15 mg BID CHANCE Administration Rifaximin 600 mg 09/17/24 09:00 09/19/24 17:23 Rifaximin 200 Mg Tablet PO 600 mg BID CHANCE Administration Sodium Chloride 1 gm 09/19/24 16:30 09/19/24 17:23 Sodium Chloride 1 Gm Tablet PO 1 gm ONCE CHANCE Administration Tamsulosin HCl 0.8 mg 09/19/24 09:00 09/19/24 07:55 Tamsulosin 0.4 Mg Capsule PO 0.8 mg DAILY CHANCE Administration PFSH Acute PFSH: Medical History (Updated 09/19/24 @ 15:19 by Macho Buck MD) Back pain Ascending cholangitis Biliary stent removal in July at [facility] Onychodystrophy Onychodystrophy Type 2 diabetes mellitus with diabetic polyneuropathy Surgical History (Updated 09/16/24 @ 22:28 by Keshawn Tamez MD) S/P cholecystectomy July in [facility] Social History Smoking and tobacco/nicotine status: current every day tobacco/nicotine user Vitals/I&O/Wt Last Vital Signs Temp 97.4 F L 09/19/24 15:32 Pulse 94 09/19/24 15:32 Resp 18 09/19/24 15:32 BP 138/82 09/19/24 15:32 Pulse Ox 99 09/19/24 15:32 O2 Del Method Room Air 09/19/24 15:32 09/19/24 09/19/24 09/19/24 06:59 14:59 22:59 Intake Total 500 / 1098 360 / 360 503.75 / 863.75 Output Total 500 / 1400 250 / 250 Balance 0 / -302 110 / 110 503.75 / 613.75 Weight last 48 hrs Weight 65.1 kg Weight 72.235 kg Physical Exam Narrative: Awake alert, no distress, jaundiced, HEENT Lungs clear per report S1-S2 regular rate and rhythm per report No pedal edema Urinary Catheter Management: Sethi: Cath Placed During This Visit: yes Reason for Continuing Indwelling Catheter: Acute Urinary Retention or Obstruction Urinary Catheter Date of Insertion: 09/17/24 Urinary Catheter Time of Insertion: 03:15 Data 09/19/24 05:33 09/19/24 14:01 Micro: Microbiology 09/17/24 01:28 Urine Culture - Final Urine,Clean Catch Staphylococcus haemolyticus A&P Assessment and plan (1) Hyponatremia: 1. Hyponatremia: Sodium was 124 on presentation dropped to 118 today, patient asymptomatic. Urine sodium and urine osmolality pending. He appears hypovolemic but his sodium worsening while on normal saline. Will DC normal saline, placed on 3 water restriction, add salt tablets. I am also concerned that this could be pseudohyponatremia in the setting of cholestasis. Will request lab to check direct assay to check sodium level. Also check a lipid electrophoresis if available For now we will continue to monitor every 4 hours sodium. 2. Obstructive jaundice, he recently underwent CBD stent placement at [place], management per primary team, plan to transfer to [place] for further management, MRCP with no obstruction 3. Urinary tract infection Patient evaluated using audiovisual cart. Time spent 40 minutes. Consult Attestations Medical Necessity Statement: Per medicine team Coding Level of Care Code Acute Code for Chg Fwd Diagnoses Hyponatremia E87.1
[2024-09-19] MEDS: albumin 25 G/100 ML BAG 60 G IV (18:12)
[2024-09-19 18:32] LABS: Sodium 122 mmol/L (136-145)
[2024-09-19 21:18] LABS: Glucose Point of Care 189 mg/dL (70-110)
[2024-09-19 22:03] LABS: Sodium 125 mmol/L (136-145)
[2024-09-20] MEDS: enoxaparin 40 mg/0.4 mL Syringe SUBCUT (02:18)
[2024-09-20] MEDS: albumin 25 G/100 ML BAG 60 G IV (02:18)
[2024-09-20] MEDS: linezolid 600 mg Tablet PO (02:18)
[2024-09-20 02:59] LABS: Procalcitonin 0.39 ng/mL (0-0.5)
[2024-09-20 03:10] LABS: Sodium 123 mmol/L (136-145)
[2024-09-20 04:00] VITALS: BP 154/83; PULSE 94; RESP 17; TEMP 37.1; O2SAT 97
[2024-09-20 04:20] LABS: CENTROMERE B ANTIBODY <1.0 NEG AI (<1.0 NEG); JO-1 ANTIBODY <1.0 NEG AI (<1.0 NEG); RNP ANTIBODY <1.0 NEG AI (<1.0 NEG); SCL-70 ANTIBODY <1.0 NEG AI (<1.0 NEG); SJOGREN'S ANTIBODY (SS-A) <1.0 NEG AI (<1.0 NEG); SM ANTIBODY <1.0 NEG AI (<1.0 NEG); SS-B <1.0 NEG AI (<1.0 NEG)
[2024-09-20] MEDS: morphine 4 mg/mL SDV 1 mL 2 MG IVP (05:24)
--- NOTE | 2024-09-20 05:35 | PC.NURSE ---
2009 Xena Triana RN called and said patient has a bed assigned at [facility], room 6225 bed 1. Report was called to Rashmi Lee RN at 2052.
[2024-09-20 05:39] LABS: Basophils # 0.1 10^3/uL (0.0-0.1); Eosinophils # 0.1 10^3/uL (0.0-0.8); Eosinophils % 1.4 %; Hematocrit 28.7 % (37-53); Lymphocytes # 2.6 10^3/uL (0.8-4.8); Lymphocytes % 35.7 %; Mean Corpuscular HGB Conc 34.1 g/dL (30-55); Mean Corpuscular Hemoglobin 32.3 pg (27-33); Mean Corpuscular Volume 94.7 fl (82-101); Mean Platelet Volume 10.4 fL (7.4-10.4); Monocytes # 0.6 10^3/uL (0.2-0.9); Monocytes % 8.8 %; Neutrophils # 3.83 10^3/uL (1.8-7.7); Neutrophils % 52.8 %; Nucleated Red Blood Cells % 0 %; Platelet Count 294 10^3/cmm (157-399); Red Blood Count 3.03 10^6/uL (3.85-5.65); Red Cell Distribution Width 14.2 % (12.1-15.1); White Blood Count 7.25 10^3/uL (3.29-11.43)
[2024-09-20 05:56] LABS: INR 0.91 (0.8-1.2)
[2024-09-20 06:00] LABS: C Reactive Protein 7.7 mg/L (0.0-4.9); Sodium 125 mmol/L (136-145)
[2024-09-20 06:15] LABS: Glucose Point of Care 169 mg/dL (70-110)
[2024-09-20 06:15] LABS: Ammonia 121 umol/L (16-60)
[2024-09-20 07:46] VITALS: BP 161/88; PULSE 91; RESP 17; O2SAT 97
[2024-09-20] MEDS: gabapentin 100 mg Capsule PO (07:59)
[2024-09-20] MEDS: morphine ER (12 HR) 15 mg Tablet PO (07:59)
[2024-09-20] MEDS: rifaximin 200 mg Tablet 600 MG PO (07:59)
[2024-09-20] MEDS: amlodipine 10 mg Tablet PO (07:59)
[2024-09-20] MEDS: tamsulosin 0.4 mg Capsule 0.8 MG PO (07:59)
[2024-09-20] MEDS: insulin lispro 100 unit/1 mL SUBCUT (07:59)
[2024-09-20 08:21] VITALS: BP 160/80; PULSE 87; O2SAT 98
--- NOTE | 2024-09-20 10:33 | P.TS_ITS ---
Transfer Summary Providers Date of Admission: 09/17/24 16:30 Date of Discharge/Transfer: 10/02/24 Attending Provider at Admission: Keshawn Tamez MD Attending Provider at Transfer: Macho Buck MD Primary Care Provider: David Macario NP Transfer Plans: Anticipated date of transfer: 10/02/24 . Diagnoses at Discharge Discharge Diagnosis (1) Hyponatremia: Status: Acute Reason for Visit Reason for Visit WEAKNESS Hospital Course Hospital Course This is a 43-year-old male currently at a senior living facility, who presents [facility] due to altered mental status Patient was admitted to [facility] for direct hyperbilirubinemia, alk phos elevation, transaminitis Direct hyperbilirubinemia, elevated alk phos, transaminitis -Reviewed the records from [facility] -Recently in July he was transferred to [facility] underwent ERCP and removal of impacted CBD stone and placement of the CBD stent 07/08/2024 -Repeat ERCP and stent removal completed on 07/15 -He had a cholecystectomy 07/18 -He was discharged home -08/04 was readmitted due to hyperbilirubinemia, worsening hepatitis ? MRCP showed some periportal fluid, no obstruction ? For biopsy 08/07, shows cholestasis with ductular reaction and acute inflammation, periportal fibrosis, no significant steatosis, mild reticuloendothelial and minimal hepatocellular stainable, iron, no evidence to support alpha-1 antitrypsin disease, -Etiology hepatitis was thought to be acute drug-induced hepatitis from metformin, tizanidine and/or NSAID -He subsequently had a ERCP 1015 which was negative for any biliary obstruction -CT scan 1016 showed ongoing fluid collection near the liver was reviewed by surgery thought to be consistent with postop changes -On discharge from [facility] 08/19 his direct bilirubin 16.4, total bili 21.5, alk phos over 2300, albumin 1.8, AST 171, ALT 173, INR 0.99 -CT scan abdomen pelvis here shows CT/CT abdomen pelvis w con* [id number] IMPRESSION: 1. 21 mm cystic lesion along the medial aspect of the right hepatic lobe and appears to correspond to the cystic area seen on same-day ultrasound. Finding is new compared to prior exam. Finding may potentially reflect an abscess. Additional considerations may also include a bile collection if there is concern for a biliary leak. Nuclear medicine HIDA scan could further evaluate this. Finding is best seen series 3, image 35. Please correlate clinically. 2. Left lower lobe atelectasis. 3. Cholecystectomy. 4. Fluid in the stomach and small bowel with wall thickening, please correlate for gastroenteritis. hepatobiliary scan NM/NM hepatobiliary wo phar [id number] IMPRESSION: 1. Abnormal HIDA scan. There is persistent radionuclide retained within the liver. This is most consistent with acute hepatitis. 2. No excretion of radionuclide from the liver. No biloma identified. MRCP -FINDINGS: Liver: There is a well-circumscribed rounded lesion at the medial aspect of the right hepatic lobe measuring 1.4 x 1.6 x 1.5 cm in the craniocaudad/transverse/AP dimensions. This lesion is high in signal on the T2 and T1 images and is stable in size when compared to the prior CT scan without signal dropout on the out of phase images. There is no intrahepatic or extrahepatic ductal dilatation. No biliary ductal defects are seen. Gallbladder and biliary ducts: The gallbladder has been removed. Pancreas: Unremarkable. No ductal dilation. Intraperitoneal space: No fluid collection. MR/MR MRCP [id number] IMPRESSION: 1.6 cm rounded lesion along the medial aspect of the right hepatic lobe is high in signal on the T1 and T2 images indicating proteinaceous or hemorrhagic products. Differential includes abscess, postoperative seroma, biloma Given patient alk phos has doubled to over 4000, with persistent hyperammonemia despite medical therapy, -Spoke to [facility] hepatobiliary, -Spoke to [facility] Dr. Brannon, recommended transfer for hepatology evaluation, consideration of ERCP -Differential is cholestasis from medications versus biliary obstruction -Transferred to [facility] For his altered mental status, hyperammonemia, etiology unclear, managed on lactulose, transfer to [facility] For acute hyponatremia serum sodium down to 118, some component related to dehydration, another component related to pseudohyponatremia were related to cholestasis given elevated total serum cholesterol, nephrology consulted received IV fluids, serum sodium is improved, transferred to [facility] Physical Exam Const: COMMON NORMALS: no acute distress and patient oriented x3 Resp: COMMON NORMALS: normal respiratory effort, No retractions, No use of accessory muscles and clear to auscultation bilaterally AUSCULTATION: clear to auscultation bilaterally Cardio: COMMON NORMALS: regular rate, regular rhythm, S1 normal heart sound present and S2 normal heart sound present RATE: regular rate RHYTHM: regular rhythm HEART SOUNDS: S1 normal heart sound present and S2 normal heart sound present GI: COMMON NORMALS: Normal to inspection, nondistended, normoactive bowel sounds present and non-tender Extremity: COMMON NORMALS: no pedal edema Neuro: COMMON NORMALS: patient oriented x3 Psych: COMMON NORMALS: mental status grossly normal Urinary Catheter Management: Sethi: Cath Placed During This Visit: yes Reason for Continuing Indwelling Catheter: Accurate Measurement of Urinary Output in Critically Ill Patients Urinary Catheter Date of Insertion: 09/17/24 Urinary Catheter Time of Insertion: 03:15 TS Data Studies Completed and Pending Pending at discharge Category Date Time Status AMA [Mitochondrial AB Screen] Stat Lab 09/18/24 09:32 Received HENRI Profile Rheumatology Stat Lab 09/18/24 09:32 Results Blood Culture Stat Lab 09/16/24 19:55 Results Heavy Metals Panel (Venous) Routine Lab 09/18/24 15:40 Received Miscellaneous Test Routine Lab 09/19/24 16:15 Ordered Osmolality Serum Stat Lab 09/19/24 05:33 Received Osmolality Urine Routine Lab 09/19/24 12:01 Received Completed Studies During Hospitalization Category Date Time Status CT abdomen pelvis w con* [id number] Stat Cat Scan 09/16/24 22:[address] lumbar spine wo con* [id number] Stat Cat Scan 09/18/24 11:50 Completed MR MRCP [id number] Routine MRI 09/18/24 16:51 Completed NM hepatobiliary wo phar [id number] Routine Nuc Med 09/18/24 13:30 Completed US abdomen limited [id number] Stat Ultrasound 09/16/24 20:33 Completed Laboratory Last Values WBC 7.25 10^3/uL (3.29-11.43) 09/20/24 05:29 RBC 3.03 10^6/uL (3.85-5.65) L 09/20/24 05:29 Hgb 9.80 g/dL (11.27-16.99) L 09/20/24 05:29 Hct 28.7 % (37-53) L 09/20/24 05:29 MCV 94.7 fl (82-101) 09/20/24 05:29 MCH 32.3 pg (27-33) 09/20/24 05:29 MCHC 34.1 g/dL (30-55) 09/20/24 05:29 RDW 14.2 % (12.1-15.1) 09/20/24 05:29 Plt Count 294 10^3/cmm (157-399) 09/20/24 05:29 MPV 10.4 fL (7.4-10.4) 09/20/24 05:29 Neut % (Auto) 52.8 % 09/20/24 05:29 Lymph % (Auto) 35.7 % 09/20/24 05:29 [place] % (Auto) 8.8 % 09/20/24 05:29 Eos % (Auto) 1.4 % 09/20/24 05:29 Baso % (Auto) 1.0 % 09/20/24 05:29 Neut # (Auto) 3.83 10^3/uL (1.8-7.7) 09/20/24 05:29 Lymph # (Auto) 2.6 10^3/uL (0.8-4.8) 09/20/24 05:29 [place] # (Auto) 0.6 10^3/uL (0.2-0.9) 09/20/24 05:29 Eos # (Auto) 0.1 10^3/uL (0.0-0.8) 09/20/24 05:29 Baso # (Auto) 0.1 10^3/uL (0.0-0.1) 09/20/24 05:29 Nucleated RBC % (auto) 0 % 09/20/24 05:29 Nucleated RBCs # 0.0 /100WBC 09/20/24 05:29 ESR 75 mm/hr (0-10) H 09/18/24 06:44 PT 12.50 SECONDS (12.1-14.9) 09/20/24 05:29 INR 0.91 (0.8-1.2) 09/20/24 05:29 APTT 31.9 SECONDS (23.9-36.7) 09/16/24 19:42 Sodium 125 mmol/L (136-145) L 09/20/24 05:29 Sodium Cancelled 09/20/24 05:29 Potassium 3.8 mmol/L (3.5-5.1) 09/19/24 05:33 Chloride 87 mmol/L (98-107) L 09/19/24 05:33 Carbon Dioxide 22 mmol/L (22-29) 09/19/24 05:33 Anion Gap 14.8 (5-19) 09/19/24 05:33 BUN 12 mg/dL (6-20) 09/19/24 05:33 Creatinine 0.3 mg/dL (0.7-1.2) L 09/19/24 05:33 GFR Calculation 327.2 mL/min (90-130) H 09/19/24 05:33 Glucose 156 mg/dL (65-115) H 09/19/24 05:33 POC Glucose 169 mg/dL (70-110) H 09/20/24 06:12 Calculated Osmolality 253 mOsm/kg (285-295) L 09/19/24 05:33 Lactic Acid 1.0 mmol/L (0.5-2.2) 09/16/24 19:55 Calcium 7.5 mg/dL (8.5-10.5) L 09/19/24 05:33 Magnesium 1.9 mg/dL (1.7-2.3) 09/17/24 05:38 Iron 32 ug/dL (59-158) L 09/18/24 06:44 Ferritin 1228 ng/mL (30-400) H 09/18/24 06:44 Direct Bilirubin 10.00 mg/dL (0.00-0.30) H 09/17/24 08:55 Total Bilirubin 13.2 mg/dL (0.15-1.2) H* 09/19/24 05:33 Indirect Bilirubin 2.30 09/17/24 08:55 AST 125 U/L (0-40) H 09/19/24 05:33 ALT 96 U/L (0-41) H 09/19/24 05:33 Alkaline Phosphatase 4165 U/L (40-130) H* 09/19/24 05:33 Ammonia 121 umol/L (16-60) H 09/20/24 05:29 C-Reactive Protein 7.7 mg/L (0.0-4.9) H 09/20/24 05:29 Total Protein 4.3 g/dL (6.6-8.7) L 09/19/24 05:33 Albumin 2.1 g/dL (3.5-5.2) L 09/19/24 05:33 Globulin 2.2 g/dL (1.3-4.6) 09/19/24 05:33 Ceruloplasmin 23 mg/dL (14-30) 09/18/24 15:40 Triglycerides 225 mg/dL (0-150) H 09/19/24 14:10 Cholesterol 1915 mg/dL (0-200) H 09/19/24 14:10 LDL Cholesterol, Calc 1861 mg/dL (50-129) H 09/19/24 14:10 HDL Cholesterol 9 mg/dL (60-100) L 09/19/24 14:10 LDL/HDL Ratio 206.78 RATIO (0.00-3.22) H 09/19/24 14:10 Cholesterol/HDL Ratio 212.78 mg/dL (1.0-5.00) H 09/19/24 14:10 Tumor Marker AFP 1.8 ng/mL (0-8.3) 09/16/24 19:42 Vitamin B12 988 pg/mL (232-1245) 09/17/24 05:38 Procalcitonin 0.39 ng/mL (0-0.5) 09/20/24 02:04 Urine Color Dark yellow (Yellow) A 09/17/24 01:28 Urine Appearance Cloudy (CLEAR) A 09/17/24 01:28 Urine pH 5.5 (5-7) 09/17/24 01:28 Ur Specific Martinez 1.049 (1.005-1.030) H 09/17/24 01:28 Urine Protein 3+ (Negative) A 09/17/24 01: Urine Glucose (UA) Negative (Normal) 09/17/24 01: Urine Ketones Negative (Negative) 09/17/24 01:28 Urine Blood 2+ (Negative) A 09/17/24 01: Urine Nitrate Negative (Negative) 09/17/24 01: Urine Bilirubin 3+ (Negative) H 09/17/24 01:28 Urine Urobilinogen 1.0 mg/dL (Negative) 09/17/24 01:28 Ur Leukocyte Esterase 1+ (Negative) A 09/17/24 01:28 Urine RBC 21-50 /hpf (0-2) H 09/17/24 01:28 Urine WBC 51-100 /hpf (0-5) H 09/17/24 01:28 Ur Squamous Epith Cells 0-5 /hpf (0-5) 09/17/24 01:28 Amorphous Sediment Not Reportable 09/17/24 01:28 Urine Bacteria None seen /hpf (NONE) 09/17/24 01:28 Hyaline Casts 16.53 /lpf 09/17/24 01:28 Coarse Granular Casts 0-4 /lpf H 09/17/24 01:28 Urine Mucus 3+ /hpf 09/17/24 01:28 Urine Yeast 3+ /hpf H 09/17/24 01:28 Urine Sperm 1+ /hpf 09/17/24 01:28 Ur Random Sodium 204 mmol/L 09/19/24 12:01 ODETTE-1 Antibody <1.0 neg AI (<1.0 NEG) 09/18/24 09:32 SS-A Antibody <1.0 neg AI (<1.0 NEG) 09/18/24 09:32 SS-B Antibody <1.0 neg AI (<1.0 NEG) 09/18/24 09:32 Sm (Haji) Antibody <1.0 neg AI (<1.0 NEG) 09/18/24 09:32 MACHINE ROUGH ROUNDER Antibody <1.0 neg AI (<1.0 NEG) 09/18/24 09:32 Scl-70 Antibody <1.0 neg AI (<1.0 NEG) 09/18/24 09:32 Centromere B Antibody <1.0 neg AI (<1.0 NEG) 09/18/24 09:32 Complement C3c 124 mg/dL (82-185) 09/18/24 09:32 Complement C4c 17 mg/dL (15-53) 09/18/24 09:32 CH50 Classical Pathway 58 U/mL (31-60) 09/18/24 09:32 Hepatitis A IgM Ab Non-reactive (Nonreactive) 09/16/24 19:42 Hep Bs Antigen Non-reactive (Nonreactive) 09/16/24 19:42 Hep Bs Antibody 3.6 (11.5-1000) L 09/16/24 19:42 Hep B Core Total Ab Non-reactive (Nonreactive) 09/16/24 19:42 Hepatitis C Antibody Non-reactive (Nonreactive) 09/16/24 19:42 Radiology Impressions Abdomen Ultrasound 09/16/24 20:33 IMPRESSION: 1. Hepatic steatosis. 2. Right hepatic lobe 3.7 cm somewhat complex cyst, consider correlation with nonemergent ultrasound. 3. Gallbladder is absent. 4. Common bile duct is normal in caliber measuring 3 mm. 5. Right kidney appears within normal limits. Abdomen/Pelvis CT 09/16/24 22:16 IMPRESSION: 1. 21 mm cystic lesion along the medial aspect of the right hepatic lobe and appears to correspond to the cystic area seen on same-day ultrasound. Finding is new compared to prior exam. Finding may potentially reflect an abscess. Additional considerations may also include a bile collection if there is concern for a biliary leak. Nuclear medicine HIDA scan could further evaluate this. Finding is best seen series 3, image 35. Please correlate clinically. 2. Left lower lobe atelectasis. 3. Cholecystectomy. 4. Fluid in the stomach and small bowel with wall thickening, please correlate for gastroenteritis. Lumbar Spine CT 09/18/24 11:50 IMPRESSION: 1. No acute lumbar spine fracture. 2. L4-5: Moderate to severe central with bilateral subarticular recess and mild foraminal stenosis. Central disc protrusion contacts the traversing L5 nerve roots. 3. L5-S1: Severe central with bilateral subarticular recess and mild RIGHT foraminal stenosis. Most significant disc contact on the S1 nerve roots, RIGHT greater than LEFT. 4. L2-3: Shallow RIGHT subarticular recess disc protrusion. Mild central stenosis. Hepatobiliary Scan Nuclear Medicine 09/18/24 13:30 IMPRESSION: 1. Abnormal HIDA scan. There is persistent radionuclide retained within the liver. This is most consistent with acute hepatitis. 2. No excretion of radionuclide from the liver. No biloma identified. Cholangiopancreatography MRI 09/18/24 16:51 IMPRESSION: 1.6 cm rounded lesion along the medial aspect of the right hepatic lobe is high in signal on the T1 and T2 images indicating proteinaceous or hemorrhagic products. Differential includes abscess, postoperative seroma, biloma. Recent Clincial Data Last Vital Signs Temp 98.7 F 09/20/24 04:00 Pulse 87 09/20/24 08:21 Resp 17 09/20/24 07:46 BP 160/80 09/20/24 08:21 Pulse Ox 98 09/20/24 08:21 O2 Del Method Room Air 09/20/24 04:00 Vital Signs Temp Pulse Resp BP Pulse Ox O2 Del Method 09/20/24 08:21 87 160/80 98 09/20/24 07:46 91 17 161/88 97 09/20/24 04:00 98.7 F 94 17 154/83 97 Room Air 09/19/24 23:48 97.7 F 91 17 146/80 Intake & Output/Weight 09/18/24 09/19/24 09/20/24 09/21/24 06:59 06:59 06:59 06:59 Intake Total 240 / 240 1098 / 1098 1063.75 / 1063.75 120 / 120 Output Total 1250 / 1250 1400 / 1400 425 / 425 Balance -1010 / -1010 -302 / -302 638.75 / 638.75 120 / 120 Weight 72.235 kg 65.1 kg Vitals Last Vital Signs Temp 98.7 F 09/20/24 04:00 Pulse 87 09/20/24 08:21 Resp 17 09/20/24 07:46 BP 160/80 09/20/24 08:21 Pulse Ox 98 09/20/24 08:21 O2 Del Method Room Air 09/20/24 04:00 TS Medications Medications Discontinued Medications Albuterol/Ipratropium (Ipratropium-Albuterol 3 Ml Neb) 3 ml INHALATION Q6H PRN PRN Reason: SHORTNESS OF BREATH Amlodipine Besylate (Amlodipine 10 Mg Tablet) 10 mg PO DAILY [facility] Last Admin: 09/20/24 07:59 Dose: 10 mg Enoxaparin Sodium (Enoxaparin 40 Mg/0.4 Ml Syringe) 40 mg SUBCUT Q24H [facility] Last Admin: 09/20/24 02:18 Dose: 40 mg Gabapentin (Gabapentin 100 Mg Capsule) 100 mg PO TID [facility] Last Admin: 09/20/24 07:59 Dose: 100 mg Glucagon (Glucagon 1 Mg/Ml Kit 1 Ml) 1 mg IM ONCE PRN; Protocol PRN Reason: Adult Acute Hypoglycemia Nursing Prot. Dextrose (D5w) 500 mls @ 0 mls/hr IV ONCE PRN; Protocol PRN Reason: Adult Acute Hypoglycemia Prot Dextrose (D10w) 125 mls @ 750 mls/hr IV PRN PRN; Protocol PRN Reason: Adult Acute Hypoglycemia Nursing Protocol Dextrose (D10w) 250 mls @ 1,000 mls/hr IV PRN PRN; Protocol PRN Reason: Adult Acute Hypoglycemia Nursing Protocol Ceftriaxone Sodium 2,000 mg/ (Sodium Chloride) 50 mls @ 100 mls/hr IV Q24H [facility]; Protocol Last Infusion: 09/17/24 05:17 Dose: Infused Albumin Human (Albumin) 12.5 gm in 250 mls @ 300 mls/hr IV ONCE ONE Stop: 09/17/24 01:58 Last Infusion: 09/17/24 05:17 Dose: Infused Albumin Human (Albumin) Confirm Administered Dose 12.5 gm in 250 mls @ as directed .ROUTE .STK-MED ONE Stop: 09/17/24 02:28 Sodium Chloride (Sodium Chloride 0.9%) 1,000 mls @ 75 mls/hr IV .[id number] [facility] Last Infusion: 09/19/24 16:00 Dose: Infused Albumin Human (Albumin) 25 g in 100 mls @ 60 mls/hr IV Q8H [facility] Last Infusion: 09/20/24 04:00 Dose: Infused Insulin Glargine (Insulin Glargine 100 Units/1 Ml) 10 unit SUBCUT QPM [facility] Last Admin: 09/19/24 17:22 Dose: 10 unit Insulin Human Lispro (Insulin Lispro 100 Unit/1 Ml) 0 unit SUBCUT WM&BEDTIME [facility]; Protocol Last Admin: 09/20/24 07:59 Dose: 4 unit Iohexol (Iohexol 350 Mg/Ml 500 Ml Btl (Per Ml)) 0 ml IV ONCE ONE Stop: 09/16/24 22:40 Last Admin: 09/16/24 22:39 Dose: 100 ml Lactulose (Lactulose Oral Liq 20 Gm/30 Ml Udc) 30 gm PO TID [facility] Last Admin: 09/19/24 14:16 Dose: Not Given Linezolid (Linezolid 600 Mg Tablet) 600 mg PO Q12H [facility]; Protocol Last Admin: 09/20/24 02:18 Dose: 600 mg Meropenem (Meropenem 1,000 Mg Sdv) 1,000 mg IVP Q8H [facility]; Protocol Last Admin: 09/19/24 06:11 Dose: 1,000 mg Morphine Sulfate (Morphine Ir 15 Mg Tablet) 15 mg PO Q6H PRN PRN Reason: MODERATE PAIN Last Admin: 09/17/24 09:05 Dose: 15 mg Morphine Sulfate (Morphine 4 Mg/Ml Sdv 1 Ml) 2 mg IVP Q4H PRN PRN Reason: SEVERE PAIN Last Admin: 09/18/24 08:36 Dose: 2 mg Morphine Sulfate (Morphine 4 Mg/Ml Sdv 1 Ml) 2 mg IVP Q2H PRN PRN Reason: SEVERE PAIN Last Admin: 09/19/24 14:43 Dose: 2 mg Morphine Sulfate (Morphine Er (12 Hr) 15 Mg Tablet) 15 mg PO BID [facility] Last Admin: 09/20/24 07:59 Dose: 15 mg Morphine Sulfate (Morphine 4 Mg/Ml Sdv 1 Ml) 2 mg IVP Q4H PRN PRN Reason: SEVERE PAIN Last Admin: 09/20/24 05:24 Dose: 2 mg Ondansetron HCl (Ondansetron 2 Mg/Ml Sdv 2 Ml) 4 mg IVP Q6H PRN PRN Reason: NAUSEA AND VOMITING Rifaximin (Rifaximin 200 Mg Tablet) 600 mg PO BID [facility] Last Admin: 09/20/24 07:59 Dose: 600 mg Sodium Chloride (Sodium Chloride 1 Gm Tablet) 1 gm PO ONCE [facility] Last Admin: 09/19/24 17:23 Dose: 1 gm Tamsulosin HCl (Tamsulosin 0.4 Mg Capsule) 0.4 mg PO DAILY [facility] Last Admin: 09/18/24 08:37 Dose: 0.4 mg Tamsulosin HCl (Tamsulosin 0.4 Mg Capsule) 0.8 mg PO DAILY [facility] Last Admin: 09/20/24 07:59 Dose: 0.8 mg Zolpidem Tartrate (Zolpidem 5 Mg Tablet) 5 mg PO BEDTIME PRN PRN Reason: INSOMNIA Allergies No Known Allergies Allergy (Verified 09/16/24 19:35) Home Medications silver sulfadiazine 1 % topical cream (Silvadene) 1 applic topical BID 09/17/24 [History Confirmed 09/17/24] amlodipine 10 mg tablet 10 mg PO DAILY 30 days #30 tabs 09/19/24 [Rx] gabapentin 100 mg capsule 100 mg PO TID 30 days #90 caps 09/19/24 [Rx] glucometer testing kit #1 ea 09/19/24 [Rx] insulin aspart U-100 100 unit/mL (3 mL) subcutaneous pen (Novolog FlexPen U-100 Insulin aspart) See Rx Instructions .Route .COMPLEX #15 mL 09/19/24 [Rx] insulin glargine 100 unit/mL (3 mL) subcutaneous pen (Lantus Solostar U-100 Insulin) 10 unit (0.1 mL) SUBCUT QPM #15 mL 09/19/24 [Rx] lactulose 20 gram/30 mL oral solution 20 g (30 mL) PO BID 30 days #1,800 mL 09/19/24 [Rx] linezolid 600 mg tablet 600 mg PO Q12H 5 days #10 tabs 09/19/24 [Rx] magnesium L-lactate 84 mg tablet,extended release 84 mg PO DAILY 30 days #30 tabs 09/19/24 [Rx] oxycodone 10 mg tablet 10 mg PO BID PRN pain 7 days #14 tabs 09/19/24 [Rx] rifaximin 200 mg tablet (Xifaxan) 400 mg (2 x 200 mg) PO TID 30 days #180 tabs 09/19/24 [Rx] tamsulosin 0.4 mg capsule 0.8 mg (2 x 0.4 mg) PO DAILY 30 days #30 caps 09/19/24 [Rx] Discharge Plan Discharge Patient Disposition: Xfer Short-Term Hosp Condition: Stable Prescriptions: New amlodipine 10 mg Tablet 10 mg PO DAILY 30 Days Qty: 30 0RF Xifaxan 200 mg Tablet 400 mg PO TID 30 Days Qty: 180 0RF lactulose 20 gram/30 mL Solution 20 g PO BID 30 Days Qty: 1800 0RF insulin aspart U-100 [Novolog FlexPen U-100 Insulin] 100 unit/mL (3 mL) insulin pen See Rx Instructions .ROUTE .COMPLEX Qty: 15 0RF Rx Instructions: Inject, subcut, 3 times daily, after meals, based on sliding scale provided (DME) glucometer testing kit See Rx Instructions .Route .MEDSUPPLY Qty: 1 0RF Rx Instructions: Lancets#100 Strips# 100 Continued silver sulfadiazine [Silvadene] 1 % Cream 1 applic TOPICAL BID gabapentin 100 mg Capsule 100 mg PO TID 30 Days Qty: 90 0RF Changed tamsulosin 0.4 mg Capsule 0.8 mg PO DAILY 30 Days Qty: 30 0RF magnesium L-lactate 84 mg Tablet Extended Release 84 mg PO DAILY 30 Days Qty: 30 0RF insulin glargine [Lantus Solostar U-100 Insulin] 100 unit/mL (3 mL) insulin pen 10 unit SUBCUT QPM Qty: 15 0RF Discontinued methocarbamol 1,000 mg Tablet 1,000 mg PO TID PRN (Reason: Pain) insulin lispro 100 unit/mL Insulin Pen 4 unit SUBCUT TID oxycodone 10 mg Tablet, Oral Only 10 mg PO Q4H PRN (Reason: Pain, Severe) Discharge Orders: Discharge Order (Routine); Ordered 10/02/24 Ordered By: Macho Buck Referrals: Evens Raymond DO [Physician] - 1-3 days David Macario NP [Primary Care Provider] - 09/26/24 9:00 am (Appointment will be with Abbie Stafford due to David Macario has retired. You can stop by the clinic and case picker paperwork any time prior to appointment. ) Discharge Diet: Cardiac Discharge Activity: Resume usual activity Patient Instructions: Acute Liver Failure (DC), Opioid Safety Activity Restrictions/Additional Instructions: -DONOT DRINK ALCOHOL -AVOID TYLENOL -SEE PRIMARY CARE NEXT WEEK TO RECHECK SERUM SODIUM LEVEL -Please monitor your blood sugars closely -Monitor your blood sugars 3 times daily as after meals -Please record your blood sugars, and a blood sugar log -For your NovoLog -Please inject blood sugar after meals based on sliding scale provided -Do not inject insulin if you do not eat as hypoglycemia kills -This is a NovoLog sliding scale -Insulin sliding ?fingerstick? Insulin ?141-180?0 units/sq 181-220?2 units/sq ?221-260?4 units/sq ?261-300 6 units/sq ?301-350?8 units/sq ?351-400 10 units/sq ?401-450?12 units/sq >450? 14units/sq -If your blood sugar is greater than 500 go to the emergency room -If your blood sugar is less than 60 or at anytime you feel lightheaded or dizzy or diaphoretic or have chest palpitations check your blood sugar, and eat a hard candy or drink orange juice and go immediately to the emergency room -Remember hypoglycemia kills, so if his blood sugar is less than 60 we have to increase it by taking in a sugary meal such as a hard candy or orange juice and go to the emergency room -If you have any questions please call us where here to help -Please hydrate well -Please have your primary care provider monitor your bilirubin, your liver function -For your oxycodone, please do not drive or operate heavy machinery or work or drink alcohol while taking medication -For your back pain please follow-up with Dr. Raymond Transfer Attestations Time Spent in Transfer Care: greater than 30 min Quality Metrics Clinical Quality Measures [ No reported AMI, CVA or VTE this stay] Coding Level of Care Code Acute Code for Chg Fwd Diagnoses Hyponatremia E87.1
[2024-09-21 10:14] LABS: Arsenic Blood <10 mcg/L (<23); Mercury Blood <5 mcg/L (<OR=10)
[2024-09-22 14:30] LABS: ANA SCREEN, IFA NEGATIVE (NEGATIVE)
[2024-09-22 15:41] LABS: THYROID PEROXIDASE ANTIBODIES 1 IU/mL (<9)
[2024-09-22 15:41] LABS: Osmolality Serum 294 mOsm/kg (278-305)
[2024-09-23 07:54] LABS: Lead Blood 1.1 mcg/dL (<3.5)
[2024-09-23 14:59] LABS: Osmolality Urine 872 mOsm/kg (50-1200)
[2024-09-27 17:20] LABS: DNA AB (DS) CRITHIDIA,IFA NEGATIVE (NEGATIVE)
== END 2024-09-20 08:22 | disposition home or self-care (01) | DRG 442 ==
LOC: ER 23:17 → ER IP 23:49 → MEDSURG 09-17 00:40
PROVIDERS: Hospitalist; Admitting Provider Internal Medicine; Emergency Provider Emergency Medicine; PCP Nurse Practitioner Family; Visit Provider Family Medicine
DX: K76.82 Hepatic encephalopathy (principal); E72.4 Disorders of ornithine metabolism; E87.1 Hypo-osmolality and hyponatremia; N39.0 Urinary tract infection, site not specified; K71.6 Toxic liver disease with hepatitis, not elsewhere classified; T42.8X5A Adverse effect of antiparkinsonism drugs and other central muscle-tone depressants, initial encounter; K59.00 Constipation, unspecified; Z79.4 Long term (current) use of insulin; Z79.84 Long term (current) use of oral hypoglycemic drugs; E11.40 Type 2 diabetes mellitus with diabetic neuropathy, unspecified; F17.200 Nicotine dependence, unspecified, uncomplicated; R16.0 Hepatomegaly, not elsewhere classified; G89.29 Other chronic pain; M54.50 Low back pain, unspecified; Z90.49 Acquired absence of other specified parts of digestive tract; E80.6 Other disorders of bilirubin metabolism; B95.8 Unspecified staphylococcus as the cause of diseases classified elsewhere; R74.8 Abnormal levels of other serum enzymes
CPT/HCPCS: 36415; 36416; 51702; 72131; 74177; 74181; 76705; 78226; 80053; 80061; 81001; 82105; 82140; 82175; 82247; 82248; 82390; 82607; 82728; 82962; 83516; 83540; 83605; 83655; 83735; 83825; 83930; 83935; 84145; 84295; 84300; 85025; 85610; 85651; 85730; 86140; 86160; 86162; 86235; 86255; 86376; 86705; 86706; 86709; 86803; 87040; 87077; 87086; 87186; 87340; 96372; 97116; 97161; 97165; 99285; A9537; G0378; J0696; J1650; J1815; J2185; J2270; J7030; P9045; P9046

== ENCOUNTER 2024-09-28 02:35 | Emergency (ER) | payer OTHER, SELFPAY ==
[2024-09-28 02:41] VITALS: BP 159/99; PULSE 111; RESP 18; TEMP 36.6; O2SAT 100; BMI 18.6
--- NOTE | 2024-09-28 02:46 | W.ED.MALEGU ---
HPI - Male Genitourinary General: Chief complaint: Urogenital-Male Stated complaint: Cant Pee Time Seen by Provider: 09/28/24 02:43 Source: patient Mode of arrival: ambulatory Limitations: no limitations History of Present Illness: 43-year-old male history of cirrhosis he states he is admitted to [facility] last week and had a Sethi placed he had it for a week he states they told him to go to his PCP to have it removed he states he went they did not remove it he states that he believes it is clogged because he is urinating around the Sethi but not able to empty his bladder and having pain over his bladder and wants his Sethi removed Associated symptoms: Deny nausea or vomiting Related Data Home Medications Medication Instructions Recorded Confirmed silver sulfadiazine 1 % topical 1 applic topical BID 09/17/24 09/17/24 cream (Silvadene) Previous Rx's Medication Instructions Recorded amlodipine 10 mg tablet 10 mg PO DAILY 30 days #30 tabs 09/19/24 gabapentin 100 mg capsule 100 mg PO TID 30 days #90 caps 09/19/24 glucometer testing kit #1 ea 09/19/24 insulin aspart U-100 100 unit/mL See Rx Instructions .Route 09/19/24 (3 mL) subcutaneous pen (Novolog .COMPLEX #15 mL FlexPen U-100 Insulin aspart) insulin glargine 100 unit/mL (3 10 unit (0.1 mL) SUBCUT QPM #15 mL 09/19/24 mL) subcutaneous pen (Lantus Solostar U-100 Insulin) lactulose 20 gram/30 mL oral 20 g (30 mL) PO BID 30 days #1,800 09/19/24 solution mL magnesium L-lactate 84 mg 84 mg PO DAILY 30 days #30 tabs 09/19/24 tablet,extended release rifaximin 200 mg tablet (Xifaxan) 400 mg (2 x 200 mg) PO TID 30 days 09/19/24 #180 tabs tamsulosin 0.4 mg capsule 0.8 mg (2 x 0.4 mg) PO DAILY 30 09/19/24 days #30 caps Allergies Allergy/AdvReac Type Severity Reaction Status Date / Time No Known Allergies Allergy Verified 09/16/24 19:35 Review of Systems Const: Denies: fever(s), chills, body aches or change in appetite Eyes: Denies: eye discomfort ENMT: Denies: throat pain or dental pain Card: Denies: chest pain Resp: Denies: dyspnea GI: Reports: abdominal pain; Denies: nausea, vomiting or diarrhea : Reports: difficulty urinating Musc: Denies: neck pain or back pain Skin/Breast: Denies: rash Neuro: Denies: headache(s) PFS ED PFSH: Medical History Back pain Ascending cholangitis Biliary stent removal in July at [facility] Onychodystrophy Onychodystrophy Type 2 diabetes mellitus with diabetic polyneuropathy Surgical History (Updated 09/16/24 @ 22:28 by Keshawn Tamez MD) S/P cholecystectomy July in [facility] Social History Smoking and tobacco/nicotine status: current every day tobacco/nicotine user Physical Exam Const: COMMON NORMALS: no acute distress, patient oriented x3 and healthy appearing HENMT: COMMON NORMALS: normocephalic and atraumatic HEAD & SCALP: normocephalic and atraumatic Neck/C-Spine: COMMON NORMALS: full ROM and supple Chest: COMMONS NORMALS: normal inspection of the chest Resp: COMMON NORMALS: normal respiratory effort Cardio: COMMON NORMALS: regular rate, regular rhythm and No murmurs present (Cardio) RATE: regular rate RHYTHM: regular rhythm GI: COMMON NORMALS: Normal to inspection, nondistended, normoactive bowel sounds present, Soft to palpation and no masses PALPATION: Yes Soft to palpation OTHER: Tenderness over his bladder Extremity: COMMON NORMALS: normal to inspection and full ROM Neuro: COMMON NORMALS: patient oriented x3, moves all extremities and no focal motor deficits Psych: COMMON NORMALS: mental status grossly normal, Normal thought process present and cooperative THOUGHT PROCESS: Normal thought process present Skin: COMMON NORMALS: no rashes or lesions noted and no wounds GENERAL SKIN EXAM: no rashes or lesions noted Course Vital Signs: Vital signs: Vital Signs Temperature 97.8 F 09/28/24 02:41 Pulse Rate 111 H 09/28/24 02:41 Respiratory Rate 18 09/28/24 02:41 Blood Pressure 159/99 09/28/24 02:41 Pulse Oximetry 100 09/28/24 02:41 Oxygen Delivery Me thod Room Air 09/28/24 02:41 MDM - Male Medical Decision Making Patient presents here with clogged Sethi catheter did remove his catheter he is able to urinate here on his own without any difficulty he does not want another catheter placed he stable for discharge follow-up with PCP return if worsening. Medical Records I reviewed the patient's medical records. No radiology studies performed this visit Discharge Plan Discharge Patient Disposition: Home Clinical Impression: Complication, blocked Sethi catheter Condition: Stable Prescriptions: No Action silver sulfadiazine [Silvadene] 1 % Cream 1 applic TOPICAL BID amlodipine 10 mg Tablet 10 mg PO DAILY 30 Days Qty: 30 0RF Xifaxan 200 mg Tablet 400 mg PO TID 30 Days Qty: 180 0RF lactulose 20 gram/30 mL Solution 20 g PO BID 30 Days Qty: 1800 0RF tamsulosin 0.4 mg Capsule 0.8 mg PO DAILY 30 Days Qty: 30 0RF gabapentin 100 mg Capsule 100 mg PO TID 30 Days Qty: 90 0RF magnesium L-lactate 84 mg Tablet Extended Release 84 mg PO DAILY 30 Days Qty: 30 0RF insulin glargine [Lantus Solostar U-100 Insulin] 100 unit/mL (3 mL) insulin pen 10 unit SUBCUT QPM Qty: 15 0RF insulin aspart U-100 [Novolog FlexPen U-100 Insulin] 100 unit/mL (3 mL) insulin pen See Rx Instructions .ROUTE .COMPLEX Qty: 15 0RF Rx Instructions: Inject, subcut, 3 times daily, after meals, based on sliding scale provided (DME) glucometer testing kit See Rx Instructions .Route .MEDSUPPLY Qty: 1 0RF Rx Instructions: Lancets#100 Strips# 100 Discharge Orders: Discharge ED (Routine); Ordered 09/28/24 Ordered By: Annie Lucero Referrals: David Macario NP [Primary Care Provider] - 4-7 days Discharge Diet: Advance as tolerated Discharge Activity: Resume usual activity Patient Instructions: Sethi Catheter Removal (DC) Coding Level of Care Code ED Wellness Ambassador for Maurizio Laird
[2024-09-28 03:06] VITALS: BP 159/89; PULSE 68; O2SAT 99
== END 2024-09-28 03:07 | disposition home or self-care (01) ==
PROVIDERS: Emergency Provider Emergency Medicine; PCP Nurse Practitioner Family
DX: T83.091A Other mechanical complication of indwelling urethral catheter, initial encounter (principal); X58.XXXA Exposure to other specified factors, initial encounter; E11.42 Type 2 diabetes mellitus with diabetic polyneuropathy
CPT/HCPCS: 99282

== ENCOUNTER 2024-10-28 07:51 | Outpatient (CLI) | payer OTHER, SELFPAY ==
--- NOTE | 2024-10-28 07:53 | CTR_ITS ---
PROCEDURE INFORMATION: Exam: CT Chest With Contrast; Diagnostic Exam date and time: 10/28/2024 9:01 AM Age: 43 years old Clinical indication: Prior surgery; Surgery date: 6+ months; Surgery type: Gb; Patient HX: 50lb weight loss in 3 months, incontinence bowel. TECHNIQUE: Imaging protocol: Diagnostic computed tomography of the chest with contrast. Total images: 2 Radiation optimization: All CT scans at this facility use at least one of these dose optimization techniques: automated exposure control; mA and/or kV adjustment per patient size (includes targeted exams where dose is matched to clinical indication); or iterative reconstruction. Contrast material: OMNI 350; Contrast volume: 100 ml; Contrast route: INTRAVENOUS (IV); COMPARISON: CR XR chest 1V portable [id number] 08/27/2024 2:18 PM RADIATION DOSE METRICS: Total DLP (mGy-cm): 490.54 FINDINGS: Lungs: Unremarkable. No consolidation. No masses. Pleural spaces: Unremarkable. No pneumothorax. No pleural effusion. Heart: Unremarkable. No cardiomegaly. No pericardial effusion. Lymph nodes: Unremarkable. No enlarged lymph nodes. Vasculature: Unremarkable. No aortic aneurysm. Bones/joints: Unremarkable. No acute fracture. Soft tissues: Unremarkable. PROCEDURE INFORMATION: Exam: CT Abdomen And Pelvis With Contrast Exam date and time: 10/28/2024 9:01 AM Age: 43 years old Clinical indication: Prior surgery; Surgery date: 6+ months; Surgery type: Gb; Patient HX: 50lb weight loss in 3 months, incontinence bowel. TECHNIQUE: Imaging protocol: Computed tomography of the abdomen and pelvis with contrast. Radiation optimization: All CT scans at this facility use at least one of these dose optimization techniques: automated exposure control; mA and/or kV adjustment per patient size (includes targeted exams where dose is matched to clinical indication); or iterative reconstruction. Contrast material: OMNI 350; Contrast volume: 100 ml; Contrast route: INTRAVENOUS (IV); COMPARISON: MR MRCP [id number] 09/18/2024 5:14 PM RADIATION DOSE METRICS: Total DLP (mGy-cm): 490.54 FINDINGS: Liver: Normal. No mass. Gallbladder and biliary ducts: Prior cholecystectomy noted. Pancreas: Normal. No ductal dilation. Spleen: Normal. No splenomegaly. Adrenal glands: Left adrenal gland demonstrates benign calcifications, no further followup necessary. Kidneys and ureters: Normal. No hydronephrosis. Stomach and bowel: There is colonic wall thickening that most likely represents incomplete distension but colitis could give a similar appearance. Appendix: No evidence of appendicitis. Intraperitoneal space: Unremarkable. No free air. No significant fluid collection. Vasculature: Incidental phleboliths noted. Lymph nodes: Unremarkable. No enlarged lymph nodes. Urinary bladder: Unremarkable as visualized. Reproductive: Calcification of the vas deferens is generally seen with diabetes. Bones/joints: Unremarkable. No acute fracture. Soft tissues: Unremarkable. CT/CT chest abdpel w/*[id number] IMPRESSION: No acute findings. IMPRESSION: 1. Left adrenal gland demonstrates benign calcifications, no further followup necessary. 2. There is colonic wall thickening that most likely represents incomplete distension but colitis could give a similar appearance.
[2024-10-28] MEDS: iohexol 350 mg/mL 500 mL Btl (per mL) PO (09:06)
[2024-10-28] MEDS: iohexol 350 mg/mL 500 mL Btl (per mL) IV (09:08)
== END 2024-10-28 07:52 | disposition home or self-care (01) ==
LOC: RAD 07:52
PROVIDERS: PCP Internal Medicine; Visit Provider Internal Medicine
DX: E27.8 Other specified disorders of adrenal gland (principal); I80.8 Phlebitis and thrombophlebitis of other sites; N50.89 Other specified disorders of the male genital organs; K63.89 Other specified diseases of intestine; R63.4 Abnormal weight loss; Z90.49 Acquired absence of other specified parts of digestive tract
CPT/HCPCS: 71260; 74177

== ENCOUNTER 2025-10-24 10:36 | Inpatient (IN) | payer SELFPAY ==
[2025-10-24] VITALS (63 sets, daily range): BP systolic 61–184; BP diastolic 37–116; PULSE 59–183; RESP 0–35; TEMP 36.6–38.4; O2SAT 86–100; BMI 17.4; BMI 18.6
--- NOTE | 2025-10-24 10:39 | XRR_ITS ---
PROCEDURE INFORMATION: Exam: XR Chest Exam date and time: 10/24/2025 11:42 AM Age: 44 years old Clinical indication: Other: Encephalopathy, altered mental status; Additional info: Weakness TECHNIQUE: Imaging protocol: Radiologic exam of the chest. Views: 1 view. COMPARISON: CT chest quinten w/*[id number] 10/28/2024 9:01 AM FINDINGS: Lungs: Unremarkable. No consolidation. Pleural spaces: Unremarkable. No pleural effusion. No pneumothorax. Heart/Mediastinum: Unremarkable. No cardiomegaly. Bones/joints: No acute osseous abnormality. Mild degenerative changes. Soft tissues: Prominent skin fold overlying the left lateral hemithorax. XR/XR chest 1V portable [id number] IMPRESSION: Prominent skin fold overlying the left lateral hemithorax. If there is clinical concern for pneumothorax, interval follow-up chest radiographs or CT scan may be useful.
--- NOTE | 2025-10-24 10:40 | CTR_ITS ---
PROCEDURE INFORMATION: Exam: CT Head Without Contrast Exam date and time: 10/24/2025 11:43 AM Age: 44 years old Clinical indication: Other: Encephalopathy, altered mental status TECHNIQUE: Imaging protocol: Computed tomography of the head without contrast. Axial, coronal and sagittal reformatted images were created and reviewed. Radiation optimization: All CT scans at this facility use at least one of these dose optimization techniques: automated exposure control; mA and/or kV adjustment per patient size (includes targeted exams where dose is matched to clinical indication); or iterative reconstruction. COMPARISON: CT head wo con* [id number] 08/10/2020 10:24 AM RADIATION DOSE METRICS: Total DLP (mGy-cm): 1076.49 FINDINGS: Brain: Subtle, patchy areas of hypoattenuation in the periventricular and subcortical white matter, nonspecific but suggestive of mild chronic small vessel ischemic disease. No CT evidence of acute intracranial hemorrhage or acute territorial infarction. No significant mass effect or midline shift. Basal cisterns patent. Cerebral ventricles: Prominence of the cortical sulci, cisterns and ventricular system, consistent with cerebral and cerebellar volume loss. Paranasal sinuses: Minimal ethmoid mucosal thickening. No fluid levels. Mastoid air cells: Grossly unremarkable. Bones: Unremarkable. No acute fracture. Soft tissues: Grossly unremarkable. Vasculature: Calcific atherosclerotic disease in the cavernous internal carotid arteries, as well as the vertebro-basilar system. CT/CT head wo con* [id number] IMPRESSION: 1[address] No CT evidence of acute intracranial pathology. 2. Additional findings, as above.
--- OUTSIDE RECORDS SUMMARY | 2025-10-24 10:40 | XMS_ITS | Clinical Summary ---
Author Organization [facility] Address [address] [place] [address] Phone Care Team Providers Care Cardiology Consultants Name Role Phone Unavailable Primary Care Provider Unavailabl e Allergies No known active allergies Medications empagliflozin-me tformin (Synjardy XR) 5-1,000 mg tablet, IR & ER, biphasic 24hr TK 1 T PO BID 08/20/2020 Active predniSONE (DELTASONE) 10 mg tablet 4 p.o. for 4 days, 3 p.o. for 3 days, 2 p.o. for 2 days, 1 p.o. for 1 day 30 Tablet 01/08/2024 Active etodolac (LODINE) 400 mg tablet Take 1 Tablet (400 mg) by mouth 3 times daily as needed for Pain. 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, without long-term current use of insulin 08/26/2020 Family History Medical History Relation Name Comments Osteoporosis Neg Hx Social History Tobacco Use Types Packs/Day Years Used Date Smoking Tobacco: Every Day Cigarettes Smokeless Tobacco: Former Alcohol Use Standard Drinks/Week Comments Not Currently 0 (1 standard drink = 0.6 oz pur e alcohol) Sex and Gender Information Value Date Recorded Sex Assigned at Not on file Legal Sex Male 12:17 PM [employer] Gender Identity Not on file Sexual Orientation Not on file Last Filed Vital Signs Vital Sign Reading Time Taken Comments Blood Pressure 152/94 03/03/2024 8:26 AM CDT Pulse 106 01/05/2021 10:13 AM [employer] Temperature 36.6 C (97.8 F) 09/28/2020 9:54 AM [employer] Respiratory Rate 17 09/28/2020 9:50 AM [employer] Oxygen Saturation - - Inhaled Oxygen Concentration - - Weight 73 kg (161 lb) 03/03/2024 8:26 AM CDT Height 190.5 cm (6' 3 ) 03/03/2024 8:26 AM CDT Body Mass Index 20.12 03/03/2024 8:26 AM CDT Plan of Treatment Health Maintenance Due Date Last Done Comments DIABETES ANNUAL FOOT EXAM 1998 DIABETES MICROALBUMIN ANNUAL SCREEN 1998 DTAP/TDAP/TD VACCINES (1 - Tdap) 1999 HEPATITIS B VACCINES (1 of 3 - 19+ 3-dose series) 1999 LDL CHOLESTEROL ANNUAL 02/05/2020 9, 02/12/2018, 02/23/2016 DIABETES HBA1C Q 6 MONTHS 09/22/20202019, 03/22/2020, 02/04/2019, Additional history exists DIABETES ANNUAL RETINAL EXAM 11/17/2021, 10/21/2020, 10/21/2020, Additional history exists INFLUENZA VACCINE (#1) 2025 HPV VACCINES (No Doses Required) Completed Medical Devices Implanted Type Area Airplane Rigger Device Identifier Shelf Expiration Date Model / Serial / Lot [place] Suture [id number] Bio [facility] Swiveloc-C Dbl #2tw [id number] - [id number] Implanted:Qty : 1 on 09/28/2020 by Jhonny Rodriguez MD [place] Right: Shoulder [employer] [id number] 07/05/2024 [id number] C-2 / / [id number] Procedures Procedure Name Priority Date/Time Associated Diagnosis Comments HEMOGLOBIN A1C Routine 03/22/2020 9:40 AM CDT LIPID PANEL Routine 02/04/2019 7:03 AM CDT from Last 3 Months or Most Recently Relevant to Health Maintenance Results * (ABNORMAL) HEMOGLOBIN A1C (03/22/2020 9:40 AM CDT) HEMOGLOBIN A1C 11.9(H) <=5.6 % 03/22/2020 10:00 AM CDT [facility] EST. AVG GLUCOSE, A1C 295 mg/dL 03/22/2020 10:00 AM CDT [facility] Blood Venipuncture / Unknown 03/22/2020 9:40 AM CDT 03/22/2020 9:43 AM CDT [facility] - 03/22/2020 10:00 AM CDT HGB A1C INTERPRETATION NORMAL: <5.7% PRE-DIABETES: 5.7 - 6.4% DIABETES: 6.5% OR GREATER us Jhonny Rodriguez MD CHEMISTRY ORDERABLES Fin al Result [facility] CLIA #[id number] [address] [place] [address] [facility] CLIA #[id number] [address] [place] [address] * (ABNORMAL) LIPID PANEL (02/04/2019 7:03 AM CDT) CHOLESTEROL 222(H) <200 mg/dL 02/04/2019 2:03 PM CDT [facility] TRIGLYCERIDE 357(H) <150 mg/dL 02/04/2019 2:03 PM CDT [facility] HDL 41 40 - 59 mg/dL 02/04/2019 2:03 PM CDT [facility] LDL CALCULATED 110(H) <100 mg/dL 02/04/2019 2:03 PM T [facility] NON-HDL CHOLESTEROL 181(H) <130 mg/dL 02/04/2019 2:03 PM CDT [facility] Blood Collection / Unknown 02/04/2019 7:03 AM CDT 02/04/2019 12:56 PM CDT [facility] - 02/04/2019 2:03 PM CDT TOTAL CHOLESTEROL mg/dL Desirable<200 Borderline [id number] High>=240 TRIGLYCERIDES mg/dL Normal<150 Borderline [id number] Binr266-808 Very high>=500 HDL CHOLESTEROL mg/dL Low<40 [id number] Desirable>=60 NON HDL CHOLESTEROL mg/dL Optimal<130 Near [id number] Borderline [id number] Very High>=190 Calculated LDL mg/dL Optimal<100 Near [id number] Borderline Jeod912-559 Obku797-806 Very High>=190 ATPIII Guidelines Reference Ranges for Lipid Panels (NCEP/AMA) Yoan Corado DO CHEMISTRY ORDERABLES Final R esult Performing Organization Address City/State/[facility] Co de Phone Number [facility] CLIA# [id number] [address] [place] [address] [facility] CLIA# [id number] [address] [place] [address] from Last 3 Months or Most Recently Relevant to Health Maintenance Insurance [employer] PPO * Guarantor: GERARD BALBUENA Account Type Relation to Patient Date of Phone Billing Address Personal/Family [address] [address] [employer] Commercial Member Subscriber Plan / Payer (Ef fective 2023-Present) Name:Gerard Balbuena Relation to Subscriber:Employee Name:[id number] (Work) Address: [place] [id number] Payer ID:Not on file Group ID:Not on file Type:Other Address: [address] [address]
--- OUTSIDE RECORDS SUMMARY | 2025-10-24 10:40 | XMS_ITS | Clinical Summary ---
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, without long-term current use of insulin ([facility]) 1.25 mg Intraocular 08/26/2020 Act oscar bevacizumab (AVASTIN) injection 1.25 mgIndications:Type 2 diabetes mellitus with both eyes affected by proliferative 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, without long-term current use of insulin ([facility]) 1.25 mg Intraocular 08/26/2020 Act oscar Active Problems Problem Noted Date Diagnosed Date Type 2 diabetes mellitus wit h both eyes affected by proliferative 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, without long-term current use of insulin 08/26/2020 Family History Medical History Relation Name Comments Osteoporosis Neg Hx Social History Tobacco Use Types Packs/Day Years Used Date Smoking Tobacco: Every Day Cigarettes 1 30 Smokeless Tobacco: Never Alcohol Use Standard Drinks/Week Comments Not Currently 0 (1 standard drink = 0.6 oz pur e alcohol) Sex and Gender Information Value Date Recorded Sex Assigned at Not on file Legal Sex Male 2:29 PM CDT Gender Identity Not on file Sexual Orientation Not on file Last Filed Vital Signs Vital Sign Reading Time Taken Comments Blood Pressure 130/82 01/05/2021 10:13 AM DEVOPS Pulse 106 01/05/2021 10:13 AM DEVOPS Temperature 36.6 C (97.8 F) 09/28/2020 9:54 AM DEVOPS Respiratory Rate 17 09/28/2020 9:50 AM DEVOPS Oxygen Saturation 94% 09/28/2020 10:45 AM DEVOPS Inhaled Oxygen Concentration - - Weight 74.8 kg (165 lb) 01/05/2021 10:13 AM DEVOPS Height 190.5 cm (6' 3 ) 01/05/2021 10:13 AM DEVOPS Body Mass Index 20.62 01/05/2021 10:13 AM DEVOPS Plan of Treatment Health Maintenance Due Date Last Done Comments DIABETES ANNUAL FOOT EXAM 1998 DIABETES MICROALBUMIN ANNUAL SCREEN 1998 DTAP/TDAP/TD VACCINES (1 - Tdap) 1999 HEPATITIS B VACCINES (1 of 3 - 19+ 3-dose series) 1999 LDL CHOLESTEROL ANNUAL 02/05/2020 9, 02/12/2018, 02/23/2016, Additional history exists DIABETES HBA1C Q 6 MONTHS 09/22/20202019, 02/04/2019, 02/12/2018 DIABETES ANNUAL RETINAL EXAM 10/21/2021, 10/21/2020, 10/21/2020, Additional history exists INFLUENZA VACCINE (#1) 2025 HPV VACCINES (No Doses Required) Completed Medical Devices Implanted Type Area Tower Supervisor Device Identifier Shelf Expiration Date Model / Serial / Lot [place] Suture [id number] Bio [facility] Swiveloc-C Dbl #2tw [id number] - [id number] Implanted:Qty: 1 on 09/28/2020 by Jhonny Rodriguez MD at [facility] Right: Shoulder [employer] [id number] 07/05/2024 [id number] C-2 / / [id number] Procedures Procedure Name Priority Date/Time Associated Diagnosis Comments HEMOGLOBIN A1C Routine 03/22/2020 9:40 AM CDT Acute pain of right shoulder Adhesive capsulitis of right shoulder LIPID PANEL Routine 02/04/2019 7:03 AM CDT from Last 3 Months or Most Recently Relevant to Health Maintenance Results * (ABNORMAL) HEMOGLOBIN A1C (03/22/2020 9:40 AM CDT) HEMOGLOBIN A1C 11.9(H) <=5.6 % 03/22/2020 10:00 AM CDT [facility] EST. AVG GLUCOSE, A1C 295 mg/dL 03/22/2020 10:00 AM CDT [facility] Blood Venipuncture / Unknown 03/22/2020 9:40 AM CDT 03/22/2020 9:43 AM CDT [facility] - 03/22/2020 10:00 AM CDT HGB A1C INTERPRETATION NORMAL: <5.7% PRE-DIABETES: 5.7 - 6.4% DIABETES: 6.5% OR GREATER us Jhonny Rodriguez MD CHEMISTRY ORDERABLES Fin al Result [facility] #[id number] [address] [place] [address] * (ABNORMAL) LIPID PANEL (02/04/2019 7:03 AM CDT) CHOLESTEROL 222(H) <200 mg/dL 02/04/2019 2:03 PM CDT [facility] TRIGLYCERIDE 357(H) <150 mg/dL 02/04/2019 2:03 PM CDT [facility] HDL 41 40 - 59 mg/dL 02/04/2019 2:03 PM T [facility] LDL CALCULATED 110(H) <100 mg/dL 02/04/2019 2:03 PM CDT [facility] NON-HDL CHOLESTEROL 181(H) <130 mg/dL 02/04/2019 2:03 PM T [facility] Blood Collection / Unknown 02/04/2019 7:03 AM CDT 02/04/2019 12:56 PM CDT [facility] - 02/04/2019 2:03 PM CDT TOTAL CHOLESTEROL mg/dL Desirable <200 Borderline high 200-239 High >=240 TRIGLYCERIDES mg/dL Normal <150 Borderline high 150-199 High 200-499 Very high >=500 HDL CHOLESTEROL mg/dL Low <40 Normal 40-59 Desirable >=60 NON HDL CHOLESTEROL mg/dL Optimal <130 Near Optimal 130-159 Borderline High 160-189 Very High >=190 Calculated LDL mg/dL Optimal <100 Near Optimal 100-129 Borderline High 130-159 High 160-189 Very High >=190 ATPIII Guidelines Reference Ranges for Lipid Panels (NCEP/AMA) Yoan Corado DO CHEMISTRY ORDERABLES Final R esult [facility] CLIA# [id number] [address] [place] [id number] from Last 3 Months or Most Recently Relevant to Health Maintenance Insurance C[employer] PPO RX PHARMACY [employer] Commercial [employer] Commercial Advance Directives For more information, please contact: [phone] * Full Code (Latest Code Status on File) Date Activated Date Inactivated Comments 09/28/2020 6:45 AM 09/28/2020 1:10 PM
--- OUTSIDE RECORDS SUMMARY | 2025-10-24 10:40 | XMS_ITS | Encounter Summary ---
Author Organization [facility] Address [address] [place] [address] Care Team Providers Care Lace Roller Operator Name Role Phone Unavailable Primary Care Provider Unavailabl e Encounter Details Date Type Department Care Team (Late st Contact Info) Description 02/26/2019 [facility]phone [facility] [place] [address] [place] [address] Ashley Quiñonez LPN [address] [facility] [place], [place] [id number] Social History Tobacco Use Types Packs/Day Years Used Date Smoking Tobacco: Never Assessed Sex and Gender Information Value Date Recorded Sex Assigned at Not on file Legal Sex Male 2:29 PM CDT Gender Identity Not on file Sexual Orientation Not on file documented as of this encounter Plan of Treatment Not on file documented as of this encounter Visit Diagnoses Not on filedocumented in this encounter
--- OUTSIDE RECORDS SUMMARY | 2025-10-24 10:40 | XMS_ITS | Encounter Summary ---
Author Organization [facility] Address [address] [place] [address] Care Team Providers Care Fire Prevention Bureau Captain Name Role Phone Unavailable Primary Care Provider Unavailabl e Encounter Details Date Type Department Care Team (Late st Contact Info) Description 02/12/2018 Lab Requisition [facility] Laboratory Services [address] [place] [address] [place] [address] Yoan Corado, [address] [address] Social History Tobacco Use Types Packs/Day Years Used Date Smoking Tobacco: Never Assessed Sex and Gender Information Value Date Recorded Sex Assigned at Not on file Legal Sex Male 2:29 PM CDT Gender Identity Not on file Sexual Orientation Not on file documented as of this encounter Plan of Treatment Not on file documented as of this encounter Procedures Procedure Name Priority Date/Time Associated Diagnosis Comments HEMOGLOBIN A1C Routine 02/12/2018 7:22 AM CDT LIPID PANEL Routine 02/12/2018 7:22 AM CDT COMPREHENSIVE METABOLIC PANEL Routine 02/12/2018 7:22 AM CDT documented in this encounter Results * (ABNORMAL) COMPREHENSIVE METABOLIC PANEL (02/12/2018 7:22 AM CDT) SODIUM 135(L) 136 - 145 mmol/L 02/12/2018 1:33 PM CDT [facility] POTASSIUM 4.7 3.5 - 5.1 mmol/L 02/12/2018 1:[address] [facility] CHLORIDE 94(L) 98 - 107 mmol/L 02/12/2018 1:[address] [facility] CO2 31(H) 22 - 29 mmol/L 02/12/2018 1:[address] [facility] CALCIUM 9.8 8.6 - 10.0 mg/dL 02/12/2018 1:[address] [facility] BUN 15 6 - 20 mg/dL 02/12/2018 1:[address] [facility] CREATININE 0.87 0.67 - 1.17 mg/dL 02/12/2018 1:[address] [facility] GLUCOSE 352(H) 74 - 106 mg/dL 02/12/2018 1:[address] [facility] TOTAL PROTEIN 7.4 6.4 - 8.3 g/dL 02/12/2018 1:[address] [facility] ALBUMIN 4.3 3.5 - 5.2 g/dL 02/12/2018 1:[address] [facility] BILIRUBIN TOTAL 0.5 0.2 - 1.0 mg/dL 02/12/2018 1:[address] [facility] ALKALINE PHOSPHATASE 92 40 - 129 U/L 02/12/2018 1:[address] [facility] AST 20 10 - 50 U/L 02/12/2018 1:[address] [facility] ALT 25 <=50 U/L 02/12/2018 1:[address] [facility] GFR >60 >=60 mL/min/1.7 3 sq meter 02/12/2018 1:[address] [facility] Comment: eGFR has not been validated for use in the elderly (> 70 years of age), women, patients with serious co-morbid conditions, or persons with extremes of body size or muscle mass and should also be interpreted with caution in patients with acute kidney failure, dialysis dependent patients, patients reporting exceptional dietary intake (e.g. vegetarian diet, high protein diets, creatine supplementation), and patients with severe liver disease. Based on National Kidney Disease Education Program If patient is , please refer to the GFR result. GFR, >60 >=60 mL/min/1.7 3 sq meter 02/12/2018 1:33 PM CDT [facility] ANION GAP 10 4 - 30 mmol/L 02/12/2018 1:33 PM CDT [facility] Blood Collection / Unknown 02/12/2018 7:22 AM CDT 02/12/2018 12:04 PM CDT Yoan Corado DO CHEMISTRY ORDERABLES Final R esult Performing Organization Address [facility] Co de Phone Number [facility] CLIA# [id number] [address] [place] [address] * (ABNORMAL) HEMOGLOBIN A1C (02/12/2018 7:22 AM CDT) HEMOGLOBIN A1C 13.0(H) 4.0 - 6.0 % 02/13/2018 9:56 AM CDT [facility] EST. AVG GLUCOSE, A1C 326 mg/dL 02/13/2018 9:56 AM CDT [facility] Blood Collection / Unknown 02/12/2018 7:22 AM CDT 02/12/2018 12:04 PM CDT Narrative [facility] - 02/13/2018 9:56 AM CDT Test performed on [employer] instrumentation using HPLC methodology us Yoan Corado DO CHEMISTRY ORDERABLES Final R esult Performing Organization Address [facility] Co de Phone Number [facility] CLIA# [id number] [address] [place] [address] * (ABNORMAL) LIPID PANEL (02/12/2018 7:22 AM CDT) CHOLESTEROL 268(H) <200 mg/dL 02/12/2018 1:37 PM CDT [facility] TRIGLYCERIDE 512(H) <150 mg/dL 02/12/2018 1:37 PM T [facility] HDL 37(L) 40 - 59 mg/dL 02/12/2018 1:37 PM T [facility] LDL CALCULATED <100 mg/dL 02/12/2018 1:37 PM T [facility] Comment:Calculated LDL is no t accurate when the Triglyceride value exceeds 400. NON-HDL CHOLESTEROL 231(H) <130 mg/dL 02/12/2018 1:37 PM T [facility] Blood Collection / Unknown 02/12/2018 7:22 AM CDT 02/12/2018 12:04 PM CDT Narrative [facility] - 02/12/2018 1:37 PM CDT TOTAL CHOLESTEROL mg/dL Desirable <200 [...] Guidelines Reference Ranges for Lipid Panels (NCEP/AMA) us Yoan Corado DO CHEMISTRY ORDERABLES Final R esult [facility] CLIA# [id number] [address] [place] [address] documented in this encounter Visit Diagnoses Not on filedocumented in this encounter
--- OUTSIDE RECORDS SUMMARY | 2025-10-24 10:40 | XMS_ITS | Clinical Summary ---
Author Organization [facility] Address [address] [place] [address] Care Team Providers Care Superintendent Institution Name Role Phone Unavailable Primary Care Provider Unavailabl e Allergies No known active allergies Medications insulin glargine-yfgn (SEMGLEE-YFGN) 100 UNIT/ML SOPN pen INJECT 20 UNITS SUBCUTANEOUSLY AT EVERY BEDTIME 4 Active TECHLITE PEN NEEDLES 31G X 8 MM MISC USE directed with insulin. 4 Active Ostomy Supplies (SKIN TAC ADHESIVE BARRIER WIPE) MISC APPLY TO SKIN BEFORE APPLYING SENSOR 4 Active BD [employer] Home MISC USE DIRECTED +++CONTACT [employer] FOR REFILL+++ 4 Active Social History Tobacco Use Types Packs/Day Years Used Date Smoking Tobacco: Every Day Cigarettes Smokeless Tobacco: Never Tobacco Cessation:Ready to Q uit: Not Asked; Counseling Given: Not Answered Alcohol Use Standard Drinks/Week Comments Not Currently 0 (1 standard drink = 0.6 oz pur e alcohol) occasionally Alcohol Use Answer Date Recorded Frequency of Alcohol Consumption Not on file 05/15/2024 Average Number of Drinks Not on file 024 Frequency of Binge Drinking Not on file 05/05 Alcohol Use Status Not Currently 05/15/2024 Average alcohol consumption Not on file 05/05 Sex and Gender Information Value Date Recorded Sex Assigned at Not on file Legal Sex Male 7:18 AM CDT Gender Identity Not on file Sexual Orientation Not on file Last Filed Vital Signs Vital Sign Reading Time Taken Comments Blood Pressure 122/76 06/26/2024 8:02 AM CDT Pulse 90 06/26/2024 8:02 AM CDT Temperature 36.7 C (98 F) 06/26/2024 8:02 AM CDT Respiratory Rate 18 06/26/2024 8:02 AM CDT Oxygen Saturation 95% 06/26/2024 8:02 AM CDT Inhaled Oxygen Concentration - - Weight 77.7 kg (171 lb 4.8 oz) 05/29/2024 8:33 A M CDT Height 188 cm (6' 2 ) 05/15/2024 11:00 AM CDT Body Mass Index 21.99 05/15/2024 11:00 AM CDT Plan of Treatment Health Maintenance Due Date Last Done Comments DIABETIC FOOT EXAM 1980 Diabetic Eye Exam 1980 HIV Screening 1980 Hepatitis C Screening ages 1 8 to 79 once 1980 MMR VACCINES (1 of 1 - Stand edith series) 1981 YEARLY WELLNESS EXAM 1983 DEPRESSION SCREENING 1992 Varicella Vaccine (1 of 2 - 13+ 2-dose series) 1993 HPV VACCINES (1 - Male 3-dos e series) 1995 ADULT TETANUS 1999 HEPATITIS B VACCINES (1 of 3 - 19+ 3-dose series) 1999 Pneumococcal Vaccine: Peds t o 50 & At-Risk Patients (1 of 2 - PCV) 1999 Diabetes follow-up every 6 m onths by HEMOGLOBIN A1C 2024 05/16/2024 LIPID TESTING 05/16/2025 05/16/2024 URINARY MICROALBUMIN IN DIABETES 05/16/2025 05/16/20 24 Influenza Vaccine 06/05/2025 COVID-19 Immunization (1 - 2 024-25 season) 2025 Zoster Vaccine (Recombinant Vaccine) (1 of 2) 2030 HEPATITIS A VACCINES Aged Out No long er eligible based on patient's age to complete this topic HIB VACCINES Aged Out No longer eligi ble based on patient's age to complete this topic IPV VACCINES Aged Out No longer eligi ble based on patient's age to complete this topic MENINGOCOCCAL VACCINE Aged Out No maximus sarina eligible based on patient's age to complete this topic Meningococcal B Vaccine Aged Out No l onger eligible based on patient's age to complete this topic ROTAVIRUS VACCINES Aged Out No longer eligible based on patient's age to complete this topic Procedures Procedure Name Priority Date/Time Associated Diagnosis Comments LIPID PROFILE Routine 05/16/2024 12:00 AM CDT Uncontrolled type 1 diabetes mellitus with hyperglycemia (HCC) MICROALBUMIN, RANDOM URINE Routine 05/16/2024 12:00 AM CDT Uncontrolled type 1 diabetes mellitus with hyperglycemia (HCC) HEMOGLOBIN A1C Routine 05/16/2024 12:00 AM CDT Uncontrolled type 1 diabetes mellitus with hyperglycemia (HCC) from Last 3 Months or Most Recently Relevant to Health Maintenance Results * MICROALBUMIN, RANDOM URINE (05/16/2024 12:00 AM CDT) [facility] DIRECTOR DIGITAL CATALOGUE URINE ORDERABLES Final Result Performing Organization Address [facility] de Phone Number [address] [phone] * HEMOGLOBIN A1C (05/16/2024 12:00 AM CDT) Blood specimen (specimen) [facility] DIRECTOR DIGITAL CATALOGUE CHEMISTRY ORDERABLES Fi nal Result Performing Organization Address [facility] Co de Phone Number [address] [phone] * LIPID PROFILE (05/16/2024 12:00 AM CDT) Blood specimen (specimen) [facility] DIRECTOR DIGITAL CATALOGUE CHEMISTRY ORDERABLES Fi nal Result Performing Organization Address [facility] de Phone Number [facility] [address] [place] [address] from Last 3 Months or Most Recently Relevant to Health Maintenance
--- OUTSIDE RECORDS SUMMARY | 2025-10-24 10:40 | XMS_ITS | Encounter Summary ---
Author Organization [facility] Address [address] [place] [address] Care Team Providers Care Policeman Name Role Phone Unavailable Primary Care Provider Unavailabl e Encounter Details Date Type Department Care Team (Late st Contact Info) Description 02/23/[address] [facility] Laboratory Services [address] [place] [address] [place] [id number] Erik Arechiga MD NO ADDRESS ON FILE Social History Tobacco Use Types Packs/Day Years [...] Procedure Name Priority Date/Time Associated Diagnosis Comments GLUCOSE FASTING Routine 02/23/2016 9:17 AM CDT LIPID PANEL Routine 02/23/2016 9:17 AM CDT documented in this encounter Results * (ABNORMAL) GLUCOSE FASTING (02/23/2016 9:17 AM CDT) [facility] GLUCOSE-FASTIN G 256(H) 70 - 99 mg/dL 02/23/2016 2:19 PM CDT [facility] [place] [facility] Blood Collection / Unknown 02/23/2016 9:17 AM CDT 02/23/2016 12:59 PM CDT Narrative [facility] [place] [facility] - 02/23/2016 2:19 PM CDT <100 mg/dl: Normal Fasting Glucose 100-125 mg/dl: Impaired Fasting Glucose >/=126 mg/dl: Provisional diagnosis of Diabetes The diagnosis must be confirmed. us Erik Arechiga MD CHEMISTRY ORDERABLES Final Res ult Performing Organization Address City/[facility]/ZIP Co de Phone Number [facility] CLIA# [id number] [address] [place] [address] * (ABNORMAL) LIPID PANEL (02/23/2016 9:17 AM CDT) [facility] CHOLESTEROL 198 <200 mg/dL 02/23/2016 2:19 PM CDT [facility] TRIGLYCERIDE 280(H) <150 mg/dL 02/23/2016 2:19 PM CDT [facility] HDL 35(L) 40 - 59 mg/dL 02/23/2016 2:19 PM CDT [facility] LDL CALCULATED 107(H) <100 mg/dL 02/23/2016 2:19 PM CDT [facility] NON-HDL CHOLESTEROL 163(H) <130 mg/dL 02/23/2016 2:19 PM T [facility] Blood Collection / Unknown 02/23/2016 9:17 AM CDT 02/23/2016 12:59 PM CDT Narrative [facility] - 02/23/2016 2:19 PM CDT TOTAL CHOLESTEROL mg/dL Desirable <200 Borderline high 200-239 High >=240 TRIGLYCERIDES mg/dL Normal <150 Borderline high 150-199 High 200-499 Very high >=500 HDL CHOLESTEROL mg/dL Low <40 Normal 40-59 Desirable >=60 LDL CHOLESTEROL mg/dL Optimal <100 Low risk 100-129 Borderline high 130-159 High 160-189 Very high >=190 NON HDL CHOLESTEROL mg/dL Optimal <130 Near Optimal 130-159 Borderline High 160-189 High 190-219 Very high >=220 Based on AHA/NCEP Guidelines us Erik Arechiga MD CHEMISTRY ORDERABLES Final Res ult Performing Organization Address City/[facility]/ZIP Co de Phone Number [facility] CLIA# [id number] [facility] [place] [address] documented in this encounter Visit Diagnoses Not on filedocumented in this encounter
--- OUTSIDE RECORDS SUMMARY | 2025-10-24 10:40 | XMS_ITS | Encounter Summary ---
Author Organization [facility] Address [address] [place] [address] Care Team Providers Care Education Professional Name Role Phone Unavailable Primary Care Provider Unavailabl e Encounter Details Date Type Department Care Team (Late st Contact Info) Description 02/04/2019 Lab Requisition [facility] Laboratory Services [address] [place] [address] [place] [address] Yoan Corado DO [address] [address] Social History Tobacco Use Types [...] Date/Time Associated Diagnosis Comments HEMOGLOBIN A1C Routine 02/04/2019 7:03 AM CDT LIPID PANEL Routine 02/04/2019 7:03 AM CDT COMPREHENSIVE METABOLIC PANEL Routine 02/04/2019 7:03 AM CDT documented in this encounter Results * (ABNORMAL) HEMOGLOBIN A1C (02/04/2019 7:03 AM CDT) HEMOGLOBIN A1C 13.6(H) 4.0 - 6.0 % 02/05/2019 11:59 AM CDT [facility] SERVICES [facility] EST. AVG GLUCOSE, A1C 344 mg/dL 02/05/2019 11:59 AM CDT [facility] Blood Collection / Unknown 02/04/2019 7:03 AM CDT 02/04/2019 12:56 PM CDT Adam [facility] - 02/05/2019 11:59 AM CDT HGB A1C INTERPRETATION NORMAL: <5.7% PRE-DIABETES: 5.7 - 6.4% DIABETES: 6.5% OR GREATER Yoan Corado DO CHEMISTRY ORDERABLES Final R esult [facility] CLIA# [id number] [address] [place] [address] * (ABNORMAL) LIPID PANEL (02/04/2019 7:03 AM CDT) CHOLESTEROL 222(H) <200 mg/dL 02/04/2019 2:03 PM CDT [facility] TRIGLYCERIDE 357(H) <150 mg/dL 02/04/2019 2:03 PM T [facility] HDL 41 40 - 59 mg/dL 02/04/2019 2:03 PM T [facility] LDL CALCULATED 110(H) <100 mg/dL 02/04/2019 2:03 PM T [facility] NON-HDL CHOLESTEROL 181(H) <130 mg/dL 02/04/2019 2:03 PM CDT [facility] Blood Collection / Unknown 02/04/2019 7:03 AM CDT 02/04/2019 12:56 PM CDT [facility] - 02/04/2019 2:03 PM CDT TOTAL [...] Corado DO CHEMISTRY ORDERABLES Final R esult [facility] CLSUDHA# [id number] [facility] [place] [address] * (ABNORMAL) COMPREHENSIVE METABOLIC PANEL (02/04/2019 7:03 AM CDT) SODIUM 133(L) 136 - 145 mmol/L 02/04/2019 2:03 PM CDT [facility] POTASSIUM 4.3 3.5 - 5.1 mmol/L 02/04/2019 2:03 PM [facility] CHLORIDE 94(L) 98 - 107 mmol/L 02/04/2019 2:03 PM T [facility] CO2 27 22 - 29 mmol/L 02/04/2019 2:03 PM T [facility] CALCIUM 9.4 8.6 - 10.0 mg/dL 02/04/2019 2:03 PM T [facility] BUN 23(H) 6 - 20 mg/dL 02/04/2019 2:03 PM [facility] CREATININE 0.90 0.67 - 1.17 mg/dL 02/04/2019 2:03 PM [facility] GLUCOSE 358(H) 74 - 99 mg/dL 02/04/2019 2:03 PM T [facility] TOTAL PROTEIN 7.4 6.4 - 8.3 g/dL 02/04/2019 2:03 PM [facility] ALBUMIN 4.4 3.5 - 5.2 g/dL 02/04/2019 2:03 PM [facility] BILIRUBIN TOTAL 0.4 0.2 - 1.0 mg/dL 02/04/2019 2:03 PM [facility] ALKALINE PHOSPHATASE 91 40 - 129 U/L 02/04/2019 2:03 PM [facility] AST 19 10 - 50 U/L 02/04/2019 2:03 PM [facility] ALT 25 <=50 U/L 02/04/2019 2:03 PM [facility] GFR >60 >=60 mL/min/1.7 3 sq meter 02/04/2019 2:03 PM [facility] Comment: eGFR has not been [...] GFR, >60 >=60 mL/min/1.7 3 sq meter 02/04/2019 2:03 PM T [facility] ANION GAP 12 9 - 20 mmol/L 02/04/2019 2:03 PM [facility] Blood Collection / Unknown 02/04/2019 7:03 AM CDT 02/04/2019 12:56 PM CDT us Yoan Corado DO CHEMISTRY ORDERABLES Final R esult [facility] CLIA# [id number] [address] [place] [address] documented in this encounter Visit Diagnoses Not on filedocumented in this encounter
--- OUTSIDE RECORDS SUMMARY | 2025-10-24 10:40 | XMS_ITS | Encounter Summary ---
Author Organization [facility] Address [address] [place] [address] Care Team Providers Care Operations Management Trainee Name Role Phone Unavailable Primary Care Provider Unavailabl e Encounter Details Date Type Department Care Team (Late st Contact Info) Description 02/19/2020 Ancillary Orders [facility] Orthopedics [facility] [place] [facility] [address] [place] [phone] [facility], External Provider [address] [address] Pain Social History Tobacco Use Types Packs/Day Years Used Date Smoking Tobacco: Every Day Smokeless Tobacco: Never Sex and Gender Information Value Date Recorded Sex Assigned at Not on file Legal Sex Male 2:29 PM CDT Gender Identity Not on file Sexual Orientation Not on file COVID-19 Exposure Response Date Recorded In the last month, have you been in contact with someone who was confirmed or suspected to have Coronavirus / COVID-19? No / Unsure 02/11/2020 12:49 PM CDT documented as of this encounter Plan of Treatment Not on file documented as of this encounter Results * MRI PRIOR STUDY (02/05/2020 12:00 PM CDT) Narrative 02/19/2020 3:20 PM CDT This exam was auto finalized to allow images to be scanned to PACS. us External Provider Aubrey MR ORDERABLES Final Resu lt documented in this encounter Visit Diagnoses Diagnosis Pain Generalized pain Pain Generalized pain documented in this encounter
[2025-10-24 10:44] LABS: ABG PCO2 32.1 mmHg (35-45); ABG PH Result 7.41 (7.35-7.45); Arterial Blood Gas Hematocrit 35.1 % (42-52); Blood Gas Allen Test Pos; Blood Gas LPM 10.0 %; Blood Gas Operator Identificat WACI; Blood Gas Sample Site Radial, left; Blood Gas Sample Type Arterial; Carboxyhemoglobin 0.4 %THgb (0.4-20.1); Glucose Level-ABG 353.0 mg/dL (70-115); HCO3 ABG 20.5 mmol/L (22-26); Ionized Calcium Level - ABG 1.0 mmol/L (1.1-1.4); Methemoglobin 0.3 % (0.4-1.5); Oxygen Saturation ABG > 99.1; PO2 ABG 165.0 mmHg (80.0-100.0); Potassium Level - ABG 3.4 mmol/L (3.5-5.0); Sodium Level - ABG 123.0 mmol/L (131-143)
--- NOTE | 2025-10-24 10:56 | W.ED.AMS ---
HPI - Altered Mental Status General: Chief Complaint: Altered Mental Status Stated Complaint: found unresponsive Time Seen by Provider: 10/24/25 10:37 History of Present Illness: 44-year-old man with a history of insulin-dependent diabetes and liver disease who presents to the emergency room with altered mental status by ambulance. He was hypotensive on his way to the emergency room. He received some epinephrine. He is somewhat altered. He can slightly answer questions but mostly does not. He has skin tears on his legs bilaterally. No focal deficits. He is febrile on presentation Related Data Home Medications ?Medication ?Instructions ?Recorded ?Confirmed No Known Home Medications 10/24/25 10/24/25 Allergies Allergy/AdvReac Type Severity Reaction Status Date / Time No Known Allergies Allergy Verified 09/16/24 19:35 Review of Systems Narrative: Constitutional symptoms: Negative except as documented in HPI. Skin symptoms: Negative except as documented in HPI. Eye symptoms: Negative except as documented in HPI. ENMT symptoms: Negative except as documented in HPI. Respiratory symptoms: Negative except as documented in HPI. Cardiovascular symptoms: Negative except as documented in HPI. Gastrointestinal symptoms: Negative except as documented in HPI. Genitourinary symptoms: Negative except as documented in HPI. Musculoskeletal symptoms: Negative except as documented in HPI. Neurologic symptoms: Negative except as documented in HPI. Psychiatric symptoms: Negative except as documented in HPI. Endocrine symptoms: Negative except as documented in HPI. 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 Patient has skin tears on his lower legs bilaterally. Head: Normocephalic, atraumatic. Neck: Supple, trachea midline. Eye: Extraocular movements are intact. Ears, nose, mouth and throat: Dry oral mucosa Cardiovascular: Regular, Normal peripheral perfusion. Respiratory: Lungs are clear to auscultation, respirations are non-labored, breath sounds are equal, Symmetrical chest wall expansion. Gastrointestinal: Soft, Nontender, Non distended Musculoskeletal: Normal ROM, no deformity. Neurological: Somnolent but arousable, no focal neurological deficit observed. Psychiatric: Initially somewhat confused. Course Vital Signs: Vital signs: Vital Signs Temperature 98.4 F 10/24/25 15:32 Pulse Rate 116 H 10/24/25 15:15 Respiratory Rate 35 H 10/24/25 14:15 Blood Pressure 111/64 10/24/25 14:45 Pulse Oximetry 99 10/24/25 15:15 Oxygen Delivery Me thod Room Air 10/24/25 11:06 Oxygen Flow Rate 3 10/24/25 10:51 MDM - Altered Mental Status Medical Decision Making Medical decision making Patient's reason for coming to the emergency room: Altered mental status Social determinants: Patient is disabled I reviewed the patient's medical record. Patient had been admitted here I reviewed the patient's current home meds Patient is insulin-dependent but he says he has not been taking his insulin for some time now. Alternate historians: EMS and family Differential diagnosis including but not limited to and based on the above HPI, review of systems and physical exam: In this patient with altered mental status: Stroke. Hypoglycemia. Metabolic encephalopathy. Infections such as pneumonia, urinary tract infection, Covid-19, Influenza. Electrolyte abnormalities such as hypernatremia. Renal failure / uremia. Hepatic encephalopathy. Hypoxemia. Hypercapnic respiratory failure. Psychosis. Drug or alcohol intoxication. Medication overdose. Orders placed to evaluate differential diagnosis based on the above differential, HPI and physical exam Chest x-ray: No acute process. This was reviewed and interpreted by myself the emergency room physician. I also reviewed the radiology report. CT head: No acute intracranial process. No intracranial hemorrhage, no evidence of infarct. No evidence of acute fracture. This was reviewed and interpreted by myself the emergency room physician. I also reviewed the radiology report. CT of the chest abdomen pelvis: Sepsis and renal failure. Rule out other sources of sepsis or urinary obstruction. 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 Lab Review: Laboratory results were reviewed and interpreted by myself the emergency room physician. Leukocytosis with white count of 23,000. Hemoglobin 10.9. BUN and creatinine elevated at 23 and 2.8. Sodium low at 123. Some of this is osmotic secondary to hyperglycemia but not all. Consultation: I spoke Dr. Rafa Jack urologist from [place]. He says at this point there would be no urologic intervention. He agrees with Sethi catheter placement and broad-spectrum antibiotics. Consultation: I spoke with Dr. Chu who is on-call for the hospitalist service who agrees to admission. Assessment of risk: Level of risk: Hospitalization considerations: Reexamination: Patient is quite a bit improved on my reexamination. Blood pressure is now staying with a mean of around 80. He is much more alert and able to tell me more about his history. He says he has not been taking his insulin like he should. He said he started feeling really bad a couple days ago. Assessment and plan: Sepsis Dehydration Acute renal failure Urinary tract infection Hyperglycemia Hyponatremia Lactic acidosis Metabolic encephalopathy -2.7 L normal saline bolus. Fluid volumes based on ideal body weight. And then started 200 mL/h of saline. -Broad-spectrum antibiotics were administered. Zyvox and meropenem -Sepsis quality measures. -Lactic acid with a reflex was ordered. -Blood cultures were ordered. ?I reevaluated the patient's volume status after sepsis fluids were given. -I discussed the patient with the hospitalist on-call who is admitting the patient. - Discussed findings and plan with patient. Answered any questions. - All laboratory values were reviewed and interpreted personally by myself, the ER physician - All imaging was reviewed and interpreted personally by myself, the ER physician. - Evaluation and treatment of this problem were appropriate in the emergency setting Critical Care: -I spent a total of 68 minutes of critical care time managing the patient, independent of any other practitioner. -The time involved in the performance of separately reportable procedures was not counted towards critical care time. Lab Data 10/24/25 10:56 10/24/25 10:56 Radiology Impressions Chest X-Ray 10/24/25 10:39 IMPRESSION: Prominent skin fold overlying the left lateral hemithorax. If there is clinical concern for pneumothorax, interval follow-up chest radiographs or CT scan may be useful. Head CT 10/24/25 10:[address]: 1[address] evidence of acute intracranial pathology. 2. Additional findings, as above. Chest/Abdomen/Pelvis CT 10/24/25 12:48 IMPRESSION: 1. Dependent linear stranding, groundglass at the lung bases, likely due to atelectasis. Aspiration cannot be excluded. 2. Mild esophageal wall thickening, suggestive of nonspecific esophagitis. 3. Additional findings, as above. IMPRESSION: 1. Emphysematous cystitis with associated ascending gas producing left-sided urinary tract infection and probable pyelonephritis. 2. Left colonic underdistention versus wall thickening. Nonspecific colitis can not be excluded. 3. Additional findings, as above. Laboratory Results WBC 23.30 10^3/uL (3.29-11.43) H 10/24/25 10:56 RBC 3.95 10^6/uL (3.85-5.65) 10/24/25 10:56 Hgb 10.90 g/dL (11.27-16.99) L 10/24/25 10:56 Hct 33.1 % (37-53) L 10/24/25 10:56 MCV 83.8 fl (82-101) 10/24/25 10:56 MCH 27.6 pg (27-33) 10/24/25 10:56 MCHC 32.9 g/dL (30-55) 10/24/25 10:56 RDW 12.9 % (12.1-15.1) 10/24/25 10:56 Plt Count 159 10^3/cmm (157-399) 10/24/25 10:56 MPV 11.4 fL (7.4-10.4) H 10/24/25 10:56 Neut % (Auto) 76.6 % 10/24/25 10:56 Lymph % (Auto) 11.3 % 10/24/25 10:56 [place] % (Auto) 4.1 % 10/24/25 10:56 Eos % (Auto) 0.5 % 10/24/25 10:56 Baso % (Auto) 0.5 % 10/24/25 10:56 Neut # (Auto) 17.84 10^3/uL (1.8-7.7) H 10/24/25 10:56 Lymph # (Auto) 2.6 10^3/uL (0.8-4.8) 10/24/25 10:56 [place] # (Auto) 1.0 10^3/uL (0.2-0.9) H 10/24/25 10:56 Eos # (Auto) 0.1 10^3/uL (0.0-0.8) 10/24/25 10:56 Baso # (Auto) 0.1 10^3/uL (0.0-0.1) 10/24/25 10:56 Nucleated RBC % (auto) 0 % 10/24/25 10:56 Nucleated RBCs # 0.0 /100WBC 10/24/25 10:56 Specimen Type Arterial 10/24/25 10:33 Sample Site Radial, left 10/24/25 10:33 ABG pH 7.41 (7.35-7.45) 10/24/25 10:33 ABG pCO2 32.1 mmHg (35-45) L 10/24/25 10:33 ABG pO2 165.0 mmHg (80.0-100.0) H 10/24/25 10:33 ABG HCO3 20.5 mmol/L (22-26) L 10/24/25 10:33 ABG O2 Saturation > 99.1 10/24/25 10:33 ABG Base Excess -3.4 mmol/L (-2.0-2.0) L 10/24/25 10:33 Adriel Test Pos 10/24/25 10:33 A-a O2 Gradient Not Reportable 10/24/25 10:33 Hematocrit 35.1 % (42-52) L 10/24/25 10:33 Hgb O2 Saturation 98.7 % (95-100) 10/24/25 10:33 Carboxyhemoglobin 0.4 %THgb (0.4-20.1) 10/24/25 10:33 Methemoglobin 0.3 % (0.4-1.5) L 10/24/25 10:33 Total Hemoglobin 11.5 g/dL (14-18) L 10/24/25 10:33 Sodium 123.0 mmol/L (131-143) L 10/24/25 10:33 Potassium 3.4 mmol/L (3.5-5.0) L 10/24/25 10:33 Glucose 353.0 mg/dL (70-115) H 10/24/25 10:33 Ionized Calcium 1.0 mmol/L (1.1-1.4) L 10/24/25 10:33 O2 Delivery Device Nrb 10/24/25 10:33 O2 Liters/Min 10.0 % 10/24/25 10:33 Wire Rope Fabrication Supervisor ID Waci 10/24/25 10:33 Sodium 123 mmol/L (136-145) L 10/24/25 10:56 Potassium 3.3 mmol/L (3.5-5.1) L 10/24/25 10:56 Chloride 84 mmol/L (98-107) L 10/24/25 10:56 Carbon Dioxide 19 mmol/L (22-29) L 10/24/25 10:56 Anion Gap 23.3 (5-19) H 10/24/25 10:56 BUN 23 mg/dL (6-20) H 10/24/25 10:56 Creatinine 2.8 mg/dL (0.7-1.2) H 10/24/25 10:56 GFR Calculation 24.7 mL/min (90-130) L 10/24/25 10:56 Glucose 348 mg/dL (65-115) H 10/24/25 10:56 Calculated Osmolality 274 mOsm/kg (285-295) L 10/24/25 10:56 Lactic Acid 6.8 mmol/L (0.5-2.2) H* 10/24/25 10:56 Lactic Acid (Sepsis) 4.8 mmol/L (0.5-2.2) H* 10/24/25 13:36 Calcium 7.9 mg/dL (8.5-10.5) L 10/24/25 10:56 Total Bilirubin 0.9 mg/dL (0.15-1.2) 10/24/25 10:56 AST 32 U/L (0-40) 10/24/25 10:56 ALT 11 U/L (0-41) 10/24/25 10:56 Alkaline Phosphatase 427 U/L (40-130) H 10/24/25 10:56 Ammonia 27 umol/L (16-60) 10/24/25 13:36 C-Reactive Protein 273.6 mg/L (0.0-4.9) H 10/24/25 10:56 Total Protein 5.1 g/dL (6.6-8.7) L 10/24/25 10:56 Albumin 2.0 g/dL (3.5-5.2) L 10/24/25 10:56 Globulin 3.1 g/dL (1.3-4.6) 10/24/25 10:56 Lipase 7 U/L (13-60) L 10/24/25 10:56 Procalcitonin > 100.00 ng/mL (0-0.5) H 10/24/25 10:56 Urine Color Yellow (Yellow) 10/24/25 11:53 Urine Appearance Cloudy (CLEAR) A 10/24/25 11:53 Urine pH 5.0 (5-7) 10/24/25 11:53 Ur Specific [place] 1.020 (1.005-1.030) 10/24/25 11:53 Urine Protein 3+ (Negative) A 10/24/25 11:53 Urine Glucose (UA) 3+ (Normal) H 10/24/25 11:53 Urine Ketones Trace (Negative) 10/24/25 11:53 Urine Blood 3+ (Negative) A 10/24/25 11:53 Urine Nitrate Negative (Negative) 10/24/25 11:53 Urine Bilirubin Negative (Negative) 10/24/25 11:53 Urine Urobilinogen 1.0 mg/dL (Negative) 10/24/25 11:53 Ur Leukocyte Esterase 1+ (Negative) A 10/24/25 11:53 Urine RBC 6-10 /hpf (0-2) 10/24/25 11:53 Urine WBC 21-50 /hpf (0-5) H 10/24/25 11:53 Ur Squamous Epith Cells 0-5 /hpf (0-5) 10/24/25 11:53 Amorphous Sediment Not Reportable 10/24/25 11:53 Urine Bacteria None seen /hpf (NONE) 10/24/25 11:53 Hyaline Casts 12.81 /lpf 10/24/25 11:53 Serum Ketones Negative (Negative) 10/24/25 10:56 Influenza A (PCR) Negative (Negative) 10/24/25 11:16 Influenza Type B (PCR) Negative (Negative) 10/24/25 11:16 RSV (PCR) Negative (Negative) 10/24/25 11:16 SARS-CoV-2 (PCR) Negative (Negative) 10/24/25 11:16 All radiology interpretation(s) finalized by discharge Discharge Plan Discharge Patient Disposition: Admitted As Inpatient Admit Provider: Yo Chu Clinical Impression: Sepsis, Acute renal failure, Urinary tract infection, Acute metabolic encephalopathy, Dehydration, Hyperglycemia, Medical non-compliance, Hyponatremia, Lactic acidosis Condition: Stable Coding Level of Care Code ED Digging Machine Operator for Maurizio Laird
--- NOTE | 2025-10-24 10:59 | ECG_ITS ---
[facility]25-[facility]24 Pat Name: Kristian Balbuena Department: Room: ICU04 Gender: Male Splitter Head: : 1980 Requested By: Adrianne Nunez Order Number: [id number] Angel MD: DIXIE CHEN Measurements Intervals [place] Rate: 115 P: 74 VT: 104 QRS: 79 QRSD: 127 T: 89 QT: 328 QTc: 454 Interpretive Statements SINUS TACHYCARDIA WITH SHORT VT INTERVAL POSSIBLE RIGHT VENTRICULAR CONDUCTION DELAY [RSR (QR) IN V1/V2] MODERATE ST DEPRESSION [0.05+ mV ST DEPRESSION] Compared to ECG 08/27/2024 14:14:16 Short VT interval now present ST (T wave) deviation now present Sinus rhythm no longer present Myocardial infarct finding no longer present Electronically Signed On 10-28-2025 20:50:40 DIRECTOR DIETETICS DEPARTMENT by DIXIE CHEN [email or web address]
[2025-10-24] MEDS: linezolid premix 600 MG/300 ML PREMIX 300 MG IV (11:05)
[2025-10-24] MEDS: norepinephrine 4 MG/250 ML BAG 7.5 MG IV (11:09)
[2025-10-24 11:13] LABS: Hematocrit 33.1 % (37-53); Hemoglobin 10.90 g/dL (11.27-16.99); Mean Corpuscular HGB Conc 32.9 g/dL (30-55); Mean Corpuscular Hemoglobin 27.6 pg (27-33); Mean Corpuscular Volume 83.8 fl (82-101); Nucleated Red Blood Cells % 0 %; Platelet Count 159 10^3/cmm (157-399); Red Blood Count 3.95 10^6/uL (3.85-5.65); White Blood Count 23.30 10^3/uL (3.29-11.43)
[2025-10-24 11:19] LABS: Ketone (Acetest) Serum Negative (Negative)
[2025-10-24 11:29] LABS: Alanine Aminotransferase 11 U/L (0-41); Albumin Level 2.0 g/dL (3.5-5.2); Alkaline Phosphatase 427 U/L (40-130); Anion Gap 23.3 (5-19); Aspartate Amino Transferase 32 U/L (0-40); Blood Urea Nitrogen 23 mg/dL (6-20); Calcium 7.9 mg/dL (8.5-10.5); Carbon Dioxide 19 mmol/L (22-29); Chloride 84 mmol/L (98-107); Globulin 3.1 g/dL (1.3-4.6); Glucose 348 mg/dL (65-115); Lipase 7 U/L (13-60); Osmolality Calculated 274 mOsm/kg (285-295); Potassium 3.3 mmol/L (3.5-5.1); Sodium 123 mmol/L (136-145); Total Protein 5.1 g/dL (6.6-8.7)
[2025-10-24 11:34] LABS: Lactic Sepsis W/Reflex 6.8 mmol/L (0.5-2.2)
[2025-10-24 11:47] LABS: Procalcitonin > 100.00 ng/mL (0-0.5)
--- NOTE | 2025-10-24 11:54 | PC.NURSE ---
pt is awake and speaking with family, still drowsy.
[2025-10-24 11:57] LABS: Respiratory Syncytial Virus Ce NEGATIVE (Negative); SARS-CoV-2 PCR NEGATIVE (Negative)
[2025-10-24 12:12] LABS: Reflex Lactate Order REFLEX LACTIC ORDERD
[2025-10-24 12:13] LABS: Glucose Urine UA 3+ (Normal); Nitrate Urine Negative (Negative); Specific Gravity, Urine 1.020 (1.005-1.030)
[2025-10-24 12:32] LABS: UA Slide Review UA Slide Review Perf
--- NOTE | 2025-10-24 12:48 | CTR_ITS ---
PROCEDURE INFORMATION: Exam: CT Chest Without Contrast; Diagnostic Exam date and time: 10/24/2025 1:19 PM Age: 44 years old Clinical indication: Other: Sepsis. TECHNIQUE: Imaging protocol: Diagnostic computed tomography of the chest without contrast. Axial, coronal and sagittal reformatted images were created and reviewed. Radiation optimization: All CT scans at this facility use at least one of these dose optimization techniques: automated exposure control; mA and/or kV adjustment per patient size (includes targeted exams where dose is matched to clinical indication); or iterative reconstruction. COMPARISON: CT chest abdpel w/*[id number] 10/28/2024 9:01 AM RADIATION DOSE METRICS: Total DLP (mGy-cm): 538.28 FINDINGS: Lungs: Dependent linear stranding, groundglass at the lung bases, likely due to atelectasis. Pleural spaces: Unremarkable. No pneumothorax. No pleural effusion. Heart: Unremarkable. No cardiomegaly. No pericardial effusion. No significant coronary artery calcification. Esophagus: Mild esophageal wall thickening, suggestive of nonspecific esophagitis. Lymph nodes: No pathologically enlarged lymph nodes. Vasculature: Unremarkable. No aortic aneurysm. Bones/joints: No acute osseous abnormality. Osteopenia. Mild degenerative changes. Soft tissues: Unremarkable. PROCEDURE INFORMATION: Exam: CT Abdomen And Pelvis Without Contrast Exam date and time: 10/24/2025 1:19 PM Age: 44 years old Clinical indication: Other: Sepsis. TECHNIQUE: Imaging protocol: Computed tomography of the abdomen and pelvis without contrast. Axial, coronal and sagittal reformatted images were created and reviewed. Radiation optimization: All CT scans at this facility use at least one of these dose optimization techniques: automated exposure control; mA and/or kV adjustment per patient size (includes targeted exams where dose is matched to clinical indication); or iterative reconstruction. COMPARISON: MR MRCP [id number] 09/18/2024 5:14 PM RADIATION DOSE METRICS: Total DLP (mGy-cm): 538.28 FINDINGS: Liver: Unremarkable. Gallbladder and biliary ducts: Status post cholecystectomy. No biliary ductal dilatation. Pancreas: Mild, diffuse pancreatic atrophy. Spleen: Unremarkable. Adrenal glands: Normal. No mass. Kidneys and ureters: Mild left-sided hydroureteronephrosis with gas in the left ureter and left renal collecting system and associated perinephric/periureteral edema. Edematous left kidney. No radiodense calculi. Stomach and bowel: Left colonic underdistention versus wall thickening. No obstruction. No pneumatosis. Appendix: Normal. Intraperitoneal space: No free fluid. No organized fluid collection. No free air. Vasculature: Unremarkable. No aneurysm. Lymph nodes: No pathologically enlarged lymph nodes. Urinary bladder: Sethi catheter and air in the urinary bladder. Severe urinary bladder wall thickening and perivesicular edema seen with extensive associated mural gas, consistent with emphysematous cystitis. Reproductive: Unremarkable. Bones/joints: No acute osseous abnormality. Osteopenia. Degenerative changes. Soft tissues: Unremarkable. CT/[place] [id number] IMPRESSION: 1. Dependent linear stranding, groundglass at the lung bases, likely due to atelectasis. Aspiration cannot be excluded. 2. Mild esophageal wall thickening, suggestive of nonspecific esophagitis. 3. Additional findings, as above. IMPRESSION: 1. Emphysematous cystitis with associated ascending gas producing left-sided urinary tract infection and probable pyelonephritis. 2. Left colonic underdistention versus wall thickening. Nonspecific colitis can not be excluded. 3. Additional findings, as above.
--- NOTE | 2025-10-24 13:00 | PC.PHAR ---
Spoke with [facility] and they have not filled anything for patient Since July and it was for Cholestyramine Light Powder. Pharmacy hasn't filled any insulin sine 2023. I spoke with Patient adn he stated he is not taking any medications. I removed the things on his record.
[2025-10-24] MEDS: acetaminophen 1,000 MG/100 ML PIGGYBACK 400 MG IV (13:32)
[2025-10-24 14:04] LABS: Ammonia 27 umol/L (16-60)
[2025-10-24 14:10] LABS: Lactic Acid level (Lactate) 4.8 mmol/L (0.5-2.2)
--- NOTE | 2025-10-24 14:47 | PC.NURSE ---
per Dr. French to run normal saline bolus ordered @1248 at 200mL/hr instead of bolus.
--- NOTE | 2025-10-24 15:06 | PC.NURSE ---
per ED provider, Dr. French, pt responding to Levophed at this time, to hold Vasopressin and begin titrating Levo down as per protocol
[2025-10-24] MEDS: norepinephrine 4 MG/250 ML BAG 75 MG IV (15:26)
--- NOTE | 2025-10-24 15:50 | PC.NURSE ---
Pt admitted to ICU from ER. Levophed infusing at 20mcg/min. NS infusing at 200ml/hr. Sethi present and patent draining yellow urine. Pt stated he live at home alone and can barely walk. He utilizes a walker and a W/C to get around. His feet have layers of skin present, shower cap to soften and lean applied. Pt stated he has not been able to shower and clean his feet in a long time. He has wounds bilat lower legs . He states his feet and lower legs are numb. When asked about his driving he stated he just lifts his legs up in there and drives.
--- NOTE | 2025-10-24 16:51 | P.HP_ITS ---
Providers/Chief Complaint 2 Admitting Physician: Yo Chu Primary Care Provider: Glendy Moseley MD Chief Complaint: found unresponsive History of Present Illness Kristian Balbuena is a 44 year old male with diabetes mellitus (insulin previously prescribed but not used for ~1 year), diabetic polyneuropathy, chronic back pain, history of ascending cholangitis with prior biliary stent placement and subsequent removal, and daily tobacco use was found unresponsive at home by his 12-year-old son. Reports one day of severe nausea and vomiting with poor oral intake prior to presentation. Endorses a little shortness of breath, denies chest pain and significant abdominal pain. Has chronic lower extremity wounds that he self-manages and reports decreased sensation in the feet. Uses a walker and wheelchair at home due to neuropathy. In the emergency department, he was noted to be hypotensive and febrile with tachycardia and hypoxemia on room air. Laboratory evaluation showed leukocytosis, hyperglycemia, hyponatremia, hypokalemia, elevated creatinine compared to a normal value one year prior, elevated lactate (with partial downtrend on reassessment), low albumin, elevated alkaline phosphatase, elevated C-reactive protein, and urinalysis with pyuria, proteinuria, glucosuria, trace ketones, and cloudy urine; serum ketones reported negative. Respiratory viral panel was negative. Head CT showed no intracranial pathology. CT chest/abdomen/pelvis demonstrated emphysematous cystitis associated with ascending gas-producing left-sided urinary tract infection and probable pyelonephritis; dependent basal lung changes likely atelectasis/aspiration not excluded; mild esophageal wall thickening; possible left colonic underdistention versus wall thickening. Patient and family discussions noted challenges with diabetes self-care and prior wound clinic attendance that he stopped. Code status discussion performed; patient is awake and making his own decisions. Review of Systems 2 Const: Reports: change in appetite, fatigue and malaise; Denies: fever(s), chills or body aches ENMT: Denies: throat pain Card: Denies: chest pain, edema, pre-syncope or dyspnea on exertion Resp: Denies: dyspnea, productive cough, change in phlegm color or hemoptysis GI: Reports: nausea and vomiting; Denies: abdominal pain, diarrhea, constipation, hematochezia or melena : Reports: oliguria; Denies: flank pain, difficulty urinating, urinary frequency or hematuria Musc: Reports: other (Back locks up ); Denies: joint swelling or joint redness Skin/Breast: Denies: rash or new lesions Neuro: Reports: other (Chronic neuropathy); Denies: headache(s) or confusion Medications/Allergies Home Medications ?Medication ?Instructions ?Recorded ?Confirmed ?Last Taken ?Type No Known Home Medications 10/24/2510/06 Unknown History Allergies Allergy/AdvReac Type Severity Reaction Status Date / Time No Known Allergies Allergy Verified 09/16/24 19:35 PFSH Acute 2 PFSH: Medical History Back pain Ascending cholangitis Biliary stent removal in July at [facility] Onychodystrophy Onychodystrophy Type 2 diabetes mellitus with diabetic polyneuropathy Surgical History S/P cholecystectomy July in [facility] Social History Smoking and tobacco/nicotine status: current every day tobacco/nicotine user Vitals/I&O/Wt Last Vital Signs Temp 98.4 F 10/24/25 15:32 Pulse 115 H 10/24/25 15:50 Resp 35 H 10/24/25 14:15 BP 121/69 10/24/25 15:50 Pulse Ox 98 10/24/25 15:50 O2 Del Method Nasal Cannula 10/24/25 16:00 O2 Flow Rate 3 10/24/25 10:51 10/24/25 10/24/25 10/24/25 06:59 14:59 22:59 Intake Total 3503.625 / 3503.625 217.625 / 3721.250 Balance 3503.625 / 3503.625 217.625 / 3721.250 Weight last 48 hrs Weight 61.689 kg Physical Exam 2 Const: COMMON NORMALS: patient oriented x3 and alert GENERAL APPEARANCE: c ooperative NUTRITIONAL APPEARANCE: thin ORIENTATION/CONSCIOUSNESS: Yes awake HENMT: COMMON NORMALS: oropharynx normal Neck/C-Spine: COMMON NORMALS: no JVD Resp: COMMON NORMALS: normal respiratory effort and clear to auscultation bilaterally AUSCULTATION: clear to auscultation bilaterally Cardio: COMMON NORMALS: no JVD, regular rhythm, S1 normal heart sound present, S2 normal heart sound present and No murmurs present (Cardio) RHYTHM: regular rhythm HEART SOUNDS: S1 normal heart sound present and S2 normal heart sound present GI: COMMON NORMALS: Normal to inspection, nondistended, normoactive bowel sounds present, Soft to palpation and non-tender PALPATION: Yes Soft to palpation Extremity: COMMON NORMALS: no joint enlargement and no pedal edema Neuro: COMMON NORMALS: patient oriented x3 and moves all extremities S ENSORIUM/ORIENTATION: Yes alert Skin: COMMON NORMALS: no rashes or lesions noted GENERAL SKIN EXAM: no rashes or lesions noted Urinary Catheter Management: Sethi: Cath Placed During This Visit: yes Urinary Catheter Date of Insertion: 10/24/25 Urinary Catheter Time of Insertion: 11:30 Quick SOFA Score: Respiratory Rate: 16 Blood Pressure: 97/72 [place] Coma Scale: 15 qSOFA Score: 1 If qSOFA score 2 or greater, continue: Blood Pressure Mean: 80 Bilirubin (mg/dl): 0.9 Platelets (x10?/ml): 159 Creatinine (mg/dl): 2.9 Evaluation: Current stage of sepsis: septic shock Sepsis stage criteria used: [facility] [address] Sep-1 and Sepsis-3 Focused Exam: Vital signs: Temp Pulse Resp BP Pulse Ox O2 Del Method O2 Flow Rate 10/24/25 17:50 108 H 16 97/72 100 Nasal Cannula 2 10/24/25 17:40 109 H 20 H 97/72 99 Nasal Cannula 2 10/24/25 17:30 109 H 12 89/55 97 Nasal Cannula 2 10/24/25 17:20 110 H 17 91/59 99 Nasal Cannula 2 10/24/25 17:10 110 H 14 89/57 99 Nasal Cannula 2 10/24/25 17:00 111 H 7 L 90/55 98 Nasal Cannula 2 10/24/25 16:51 110 H 10/24/25 16:50 100 17 121/69 Nasal Cannula 2 10/24/25 16:40 97.8 F 110 H 16 93/54 98 Nasal Cannula 2 10/24/25 16:30 111 H 19 H 100/61 98 Nasal Cannula 2 10/24/25 16:20 121/69 10/24/25 16:00 Nasal Cannula 10/24/25 15:50 115 H 121/69 98 12/20/25 15:32 98.4 F 10/24/25 15:15 116 H 99 10/24/25 15:00 118 H 100 10/24/25 14:45 119 H 111/64 100 10/24/25 14:30 118 H 109/66 100 10/24/25 14:15 117 H 35 H 107/64 100 10/24/25 14:00 116 H 33 H 100 10/24/25 13:45 114 H 32 H 101/57 100 10/24/25 13:30 115 H 32 H 94/52 99 10/24/25 13:15 116 H 24 H 96/57 100 10/24/25 13:00 116 H 32 H 100/58 100 10/24/25 12:45 116 H 27 H 102/60 100 10/24/25 12:30 115 H 25 H 90/55 100 10/24/25 12:15 115 H 29 H 90/55 99 10/24/25 12:00 118 H 28 H 93/58 100 10/24/25 11:56 116 H 32 H 80/51 99 10/24/25 11:56 80/51 10/24/25 11:30 115 H 26 H 91/59 99 10/24/25 11:06 116 H 32 H 95/57 97 Room Air 10/24/25 10:51 129 H 98 Nasal Cannula 3 10/24/25 10:44 101.2 F H 126 H 20 H 61/37 96 Nasal Cannula 3 Cardiovascular exam: regular rate Capillary refill: < 3 Seconds Skin exam: pallor not present and no mottling Date exam was performed: 10/24/25 Time exam was performed: 22:39 2 Sepsis Screen No Definite Risk Today, 15:32 Respiratory Rate, (12 - 18) 16 breaths/min Today, 17:50 Blood Pressure 97/72 mmHg Today, 17:50 John Coma Scale Score 15 Today, 16:00 Quick SOFA Score 1 Today, 22:21 SOFA Score: 2 [place] Coma Scale Score 15 Today, 16:00 Blood Pressure Mean 80 mmHg Today, 17:50 Total Bilirubin, (0.15-1.2) 0.9 mg/dL Today, 10:56 Platelet Count, (157-399) 159 10^3/cmm Today, 10:56 Creatinine, (0.7-1.2) 2.9 mg/dL H Today, 20:53 Data 10/24/25 10:56 10/24/25 20:53 Micro: Microbiology 10/24/25 10:58 Blood Culture - Preliminary Blood SPECIMEN COLLECTED 10/24/25 10:56 Blood Culture - Preliminary Blood SPECIMEN COLLECTED A&P Assessment and plan 1. Complicated UTI (urinary tract infection): Emphysematous cystitis with ascending UTI and left pyelonephritis : CT chest/abdomen/pelvis shows emphysematous cystitis with ascending gas-producing left-sided urinary tract infection and probable pyelonephritis; urinalysis with pyuria, proteinuria, glucosuria, trace ketones, and cloudy urine. Reviewed vitals, CBC, CMP, ABG, lactic acid, CRP, procalcitonin, lipase, ammonia, UA, serum ketones, influenza, RSV, COVID swab, chest x-ray, head CT, CT chest abdomen pelvis. - Continue antibiotic coverage with ciprofloxacin. - Follow-up urine and blood culture 2. Septic shock: Combination of hypovolemic and septic shock on presentation. Received volume resuscitation. NICOM checked, no longer fluid responsive. No further boluses. Manage pressors. Vasopressin added. Presentation with hypotension (61/37), tachycardia, fever, leukocytosis, elevated lactate, and CT-confirmed urinary source consistent with severe sepsis with shock physiology requiring hemodynamic support. - Continue antibiotic coverage with ciprofloxacin. - Continue IV fluid hydration. Fluid rate decreased. - NICOM obtained. Not fluid responsive. Hold off further boluses. - Support blood pressure with ongoing vasopressor drip. Vasopressin added. - Send and follow cultures to guide targeted therapy. 3. TRAY (acute kidney injury): Creatinine 2.8 with prior normal creatinine one year ago; likely multifactorial in setting of sepsis, hypovolemia, and poor oral intake. Received fluid challenge. - Continue IV fluid hydration. - Monitor renal function; recheck chemistries. 4. Emphysematous cystitis: 5. Hyperglycemia: With anion gap, metabolic acidosis, initial concern for possible DKA, trace ketones in urine. Serum ketones negative. Mixed base picture with contraction alkalosis. Beta hydroxybutyrate is not tested in the hospital. If he is in DKA, it is a mild 1. Marked hyperglycemia (glucose 348) with vomiting and trace urine ketones; serum ketones negative; clinician concerned for mild DKA versus mixed acid-base disorder in sepsis. -Considered insulin drip, but will give subcutaneous Lantus and sliding scale instead. -Clear liquid consult carb diet. - Check hemoglobin A1c. 6. Hyponatremia: Serum sodium 123 on presentation in the setting of sepsis and dehydration. Received fluid resuscitation. -Reassess sodium and monitor electrolytes. -Urine electrolytes 7. Hypokalemia: Serum potassium 3.3 on presentation. Potassium replaced. Follow-up chemistry 8. Lactic acidosis: Severe lactic acidosis, improving resuscitation. Repeat chemistry. 9. Acute encephalopathy: Acute metabolic encephalopathy on presentation, lethargic. Gradually improving and resolving with resuscitation. 10. Uncontrolled diabetes mellitus: Has not taken insulin in a year. A1c requested. 11. Declining functional status: Severe peripheral neuropathy. Chronic back problems with back locking up . Walks with a walker but has been walking significantly less. And significant functional decline. Self-neglect. Unkempt, with layers of scaly skin on his feet. Nonhealing wounds of bilateral lower extremities. Will need PT assessment once more stable. Case management consult. Family are interested in setting up help for him after discharge. 12. Wounds, multiple open, lower extremity: Wound care Plan: Hypomagnesemia: Replace. Recheck magnesium. Diabetes mellitus, insulin-dependent type unclear : Longstanding diabetes diagnosed at age 15; not using prescribed insulin for ~1 year; significant hyperglycemia on arrival; education provided regarding complications and need for ongoing treatment. - Initiate inpatient insulin drip as above. - Plan to transition to appropriate insulin regimen after stabilization (discussed need for ongoing diabetes treatment). Diabetic polyneuropathy : Reports loss of sensation in legs/feet; uses walker and wheelchair at home; likely contributing to skin injury. Chronic back pain : History of chronic back pain; family reports episodic severe spasms since prior hospitalization. Tobacco use : Current smoker ~1 pack/day. - Advised smoking cessation. History of ascending cholangitis, s/p biliary stent placement and removal, s/p cholecystectomy : Past history relevant to prior hepatobiliary disease with stent placement and removal; cholecystectomy. PDMP PDMP Reviewed: Not Reviewed Attestations 2 Medical Necessity Statement*: Admission of over 2 midnights is anticipated for assessment of management of complicated UTI, septic shock, TRAY and additional comorbidities as above. Coding Level of Care Code Critical Care >/= 30 minutes Critical care time (in minutes): 50 The high probability of a clinically significant, sudden or life threatening deterioration, as referenced in this documentation, required my full and direct attention, intervention and personal management. The critical care time shown is in addition to time spent performing any reported separately billable procedures and includes the following: [x] Data and vital sign review and interpretation [x ] Patient assessment, examination and intervention [x] Medication orders and management [x] Patient/Family updates as able [x] Care Coordination and Documentation. Diagnoses Complicated UTI (urinary tract infection) N39.0 Septic shock A41.9; R65.21 TRAY (acute kidney injury) N17.9 Emphysematous cystitis N30.80 Hyperglycemia R73.9 Hyponatremia E87.1 Hypokalemia E87.6 Lactic acidosis E87.20 Acute encephalopathy G93.40 Uncontrolled diabetes mellitus Declining functional status R53.81 Wounds, multiple open, lower extremity S81.809A
[2025-10-24 17:19] LABS: Magnesium 1.4 mg/dL (1.7-2.3)
[2025-10-24] MEDS: pantoprazole 40 mg SDV IVP (17:31)
[2025-10-24] MEDS: lidocaine 1% 5 ML in potassium chloride premix 100 ML 52.5 ML IV ×2 (17:32→20:01)
[2025-10-24 17:52] LABS: Anion Gap 22.6 (5-19); Blood Urea Nitrogen 27 mg/dL (6-20); Calcium 7.5 mg/dL (8.5-10.5); Carbon Dioxide 17 mmol/L (22-29); Chloride 89 mmol/L (98-107); Glucose 377 mg/dL (65-115); Osmolality Calculated 281 mOsm/kg (285-295); Potassium 3.6 mmol/L (3.5-5.1); Sodium 125 mmol/L (136-145)
--- NOTE | 2025-10-24 19:14 | PC.NURSE ---
Non-invasive bioreatance hemodynamic monitoring completed. SVI CI HR 1900 11 1.2 109 1901 11 1.2 110 1902 19 2.1 110 1903 PLR started 20 2.2 111 1904 20 2.2 112 1905 19 2.2 113 1906 leg raised 18 2.1 112 18 2.1 112 1907 18 2 111 SVI change of 5.9%. Pt NOT fluid responsive. Dr Chu notified via secured messaging.
[2025-10-24] MEDS: sodium chlor 0.9% + KCl 20 mEq 20 MEQ/1,000 ML BAG 100 MEQ IV (20:02)
[2025-10-24] MEDS: norepinephrine 4 MG/250 ML BAG 52.5 MG IV (20:02)
--- NOTE | 2025-10-24 20:23 | XRR_ITS ---
PROCEDURE INFORMATION: Exam: XR Chest Exam date and time: 10/24/2025 8:27 PM Age: 44 years old Clinical indication: Other vascular access device placement or adjustment; Central line, non-tunnelled; Additional info: Central line placement TECHNIQUE: Imaging protocol: Radiologic exam of the chest. Views: 1 view. COMPARISON: [place] [id number] 10/24/2025 1:19 PM FINDINGS: Lungs: Linear parenchymal opacities present lower lobes may represent atelectasis correlate clinically Pleural spaces: There is a right internal jugular catheter terminating in the proximal right atrium no pneumothorax Heart/Mediastinum: Unremarkable. No cardiomegaly. Bones/joints: Hard bony structures show no acute findings XR/XR chest 1V portable [id number] IMPRESSION: Right internal jugular catheter in the right atrium no pneumothorax Vague linear opacities lower lobe may reflect atelectasis correlate and follow-up as indicated
--- NOTE | 2025-10-24 20:37 | P.PCN_ITS ---
Acute Procedures Central Line Placement: Right IJ: Patient placed on monitor/pulse ox: Yes MD prep: mask, gown and gloves Central line prep: Chlorhexidine scrub and sterile drapes applied Local anesthesia used: lidocaine 1% Amount of anesthesia used (ml): 1 Ultrasound used for placement: Yes Central line lumen inserted: triple Post procedure: sutured in place Post procedure x-ray: tip of catheter in good position and no pneumothorax seen Patient tolerated procedure: well Additional comments: CVC for irritant medications, multiple drips and resuscitation. Discussed risk- benefit and alternatives with the patient. He is agreeable to proceed.
[2025-10-24 21:21] LABS: Anion Gap 18.6 (5-19); Blood Urea Nitrogen 28 mg/dL (6-20); Calcium 7.2 mg/dL (8.5-10.5); Carbon Dioxide 19 mmol/L (22-29); Chloride 91 mmol/L (98-107); Glucose 390 mg/dL (65-115); Osmolality Calculated 280 mOsm/kg (285-295); Potassium 4.6 mmol/L (3.5-5.1); Sodium 124 mmol/L (136-145)
[2025-10-24 22:41] LABS: Estmated Average Glucose 361; Hemoglobin A1C 14.2 % (4.0-6.0)
[2025-10-24] MEDS: insulin glargine 100 units/1 mL 10 UNIT SUBCUT (22:47)
[2025-10-24] MEDS: sodium chlor 0.9% + KCl 20 mEq 20 MEQ/1,000 ML BAG 200 MEQ IV (22:49)
[2025-10-24] MEDS: magnesium sulfate premix 4 GM/100 ML PREMIX IV (23:04)
[2025-10-24 23:06] LABS: Urine Random Sodium 25 mmol/L
[2025-10-24] MEDS: ondansetron 2 mg/ML SDV 2 mL 4 MG IVP (23:11)
[2025-10-24] MEDS: vasopressin 40 UNIT/100 ML PREMIX 4.5 UNIT IV ×2 (23:36→23:50)
--- NOTE | 2025-10-24 23:51 | PC.NURSE ---
Patient maxed on levophed. Dr. Aguilar ordered titratable vaso. medications going through central line.
--- NOTE | 2025-10-24 23:53 | ECG_ITS ---
Vascular Imaging Test Date: 2025-10-24 Pat Name: Kristian Balbuena Department: Room: ICU04 Gender: Male Ham Smoker: : 1980 Requested By: Darius Nunez Order Number: [id number] Reading MD: DIXIE CHEN Measurements Intervals Fonda Rate: 148 P: 64 MA: 131 QRS: 63 QRSD: 80 T: 91 QT: 263 QTc: 413 Interpretive Statements SINUS TACHYCARDIA, POSSIBLE ATRIAL FLUTTER LOW QRS VOLTAGE IN EXTREMITY LEADS [QRS DEFLECTION < 0.5 mV IN LIMB LEADS] SEPTAL MYOCARDIAL INFARCTION , OF INDETERMINATE AGE [40+ ms Q WAVE IN V1/V2] Compared to ECG 08/27/2024 14:14:16 Sinus rhythm no longer present Myocardial infarct finding still present Electronically Signed On 10-27-2025 12:04:46 NURSE AIDE by DIXIE CHEN [email or web address]
[2025-10-25] VITALS (95 sets, daily range): BP systolic 75–134; BP diastolic 47–88; PULSE 103–193; RESP 0–34; TEMP 36.9–37.6; O2SAT 81–100
[2025-10-25] MEDS: hydrocortisone 100 mg/2 mL SDV IVP ×4 (00:23→17:24)
--- NOTE | 2025-10-25 00:47 | PM.PN ---
Subjective Subjective: Called to evaluate 44-year-old male found down by his 12-year-old son. Patient states he lives alone but has 3 children to visit him on the weekends. Son slept with him in bed because patient was so sick. Patient has had symptoms of loss of appetite due to nausea, feeling cold all the time, weight loss 16 pounds in last 1 year 40 pounds in the last 4 years. Patient admits to being cold compared to others. He states his blood sugars have been running high because he stopped taking insulin. Patient states his blood sugars were tanking anytime he uses insulin so he stopped using it. Patient states he has had some sores on his legs and has been on steroids for short course in the past. Patient states he had a girlfriend that had hep C. He has had hepatitis in the past but was not related to viral hepatitis. He has never had HIV. Patient denies history of IV drugs ever. He has used a weed but never methamphetamines or heroin Vitals/I&O/Wt Last Vital Signs Temp 97.8 F 10/24/25 16:40 Pulse 108 H 10/24/25 17:50 Resp 16 10/24/25 17:50 BP 97/72 10/24/25 17:50 Pulse Ox 100 10/24/25 17:50 O2 Del Method Nasal Cannula 10/24/25 17:50 O2 Flow Rate 2 10/24/25 17:50 10/24/25 10/24/25 10/25/25 14:59 22:59 06:59 Intake Total 3503.625 / 3503.625 701.375 / 4205.000 Output Total 60 / 60 Balance 3503.625 / 3503.625 641.375 / 4145.000 Weight last 48 hrs Weight 65.6 kg Weight 61.689 kg Physical Exam Narrative: General Well-developed thin chronically ill-appearing male in no acute cardiopulmonary stress Neck no JVD CV regular tachycardic rhythm Lungs clear to auscultation bilaterally no rales or wheezes Abdomen positive bowel tones soft mild nonspecific tenderness Calves no tenderness cords pretibial edema he has diminished skin turgor and dry scaly skin multiple tattoos Urinary Catheter Management: Sethi: Cath Placed During This Visit: yes Reason for Continuing Indwelling Catheter: Accurate Measurement of Urinary Output in Critically Ill Patients Urinary Catheter Date of Insertion: 10/24/25 Urinary Catheter Time of Insertion: 11:30 Data 10/24/25 10:56 10/24/25 20:53 Micro: Microbiology 10/24/25 10:58 Blood Culture - Preliminary Blood SPECIMEN COLLECTED 10/24/25 10:56 Blood Culture - Preliminary Blood SPECIMEN COLLECTED A&P Assessment and plan 1. Complicated UTI (urinary tract infection): Continue ciprofloxacin. Will aggressively volume replete. 2. Septic shock: Patient is on 2 pressors including Levophed and vasopressin. Will start stress dose steroids. Clinical picture is consistent with adrenal insufficiency. Will check cortisol and TSH on blood in the lab which I confirm they can run on current sample that they have 3. TRAY (acute kidney injury): Patient had no urine output. Will give fluid boluses until urine output normalizes and systolic blood pressure greater than 90 off pressors 4. Emphysematous cystitis: As above 5. Hyperglycemia: Patient with history of hypoglycemia with his insulin. He has not been taking his insulin - Check hemoglobin A1c. 6. Hyponatremia: Serum sodium 123 on presentation in the setting of sepsis and dehydration. Urine sodium was 25. This is not SIADH. He appears to be profoundly volume depleted likely due to adrenal insufficiency 7. Hypokalemia: Potassium up to 4.6 decrease rate of repletion. Magnesium was also aggressively replaced by admitting physician which is good 8. Lactic acidosis: Repeat lactic with next chemistry 9. Acute encephalopathy: Resolved 10. Uncontrolled diabetes mellitus: Has not taken insulin in a year. A1c requested. 11. Declining functional status: Severe peripheral neuropathy. Chronic back problems with back locking up . Walks with a walker but has been walking significantly less. And significant functional decline. Self-neglect. Unkempt, with layers of scaly skin on his feet. Nonhealing wounds of bilateral lower extremities. Will need PT assessment once more stable. Case management consult. Family are interested in setting up help for him after discharge. 12. Wounds, multiple open, lower extremity: Wound care Plan: Sepsis complicated by suspected renal failure PDMP PDMP Reviewed: Not Reviewed Attestations Medical Necessity Statement*: Patient is in the ICU and we will require greater than 2 midnights Coding Level of Care Code Acute Code for [facility] Fwd Diagnoses Complicated UTI (urinary tract infection) N39.0 Septic shock A41.9; R65.21 TRAY (acute kidney injury) N17.9 Emphysematous cystitis N30.80 Hyperglycemia R73.9 Hyponatremia E87.1 Hypokalemia E87.6 Lactic acidosis E87.20 Acute encephalopathy G93.40 Uncontrolled diabetes mellitus Declining functional status R53.81 Wounds, multiple open, lower extremity S81.809A Time Spent (min) 60 Comment [id number]
[2025-10-25 00:49] LABS: Thyroid Stimulating Hormone 2.71 uIU/mL (0.27-4.20)
[2025-10-25 01:16] LABS: Anion Gap 20.5 (5-19); Blood Urea Nitrogen 28 mg/dL (6-20); Calcium 6.8 mg/dL (8.5-10.5); Carbon Dioxide 16 mmol/L (22-29); Chloride 95 mmol/L (98-107); Glucose 277 mg/dL (65-115); Osmolality Calculated 279 mOsm/kg (285-295); Potassium 4.5 mmol/L (3.5-5.1); Sodium 127 mmol/L (136-145)
[2025-10-25 01:35] LABS: Lactate (Lactic Acid level) 6.2 mmol/L (0.5-2.2)
[2025-10-25] MEDS: FUROsemide 10 mg/mL SDV 2mL 20 MG IVP (01:38)
[2025-10-25] MEDS: norepinephrine 4 MG/250 ML BAG 75 MG IV ×2 (02:32→04:46)
[2025-10-25] MEDS: calcium gluconate 0.9% NaCL 1 GM/50 ML PREMIX IV ×2 (02:35→03:13)
--- NOTE | 2025-10-25 03:29 | PC.NURSE ---
Patient alert and responsive, BP MAP is hanging around 70 consistently on 20 of levophed and 0.05 of vaso. doctor notified of blood pressures and tachycardic heart rates throughout the night with new orders received per JAN.
[2025-10-25 04:30] LABS: Hematocrit 33.7 % (37-53); Hemoglobin 11.30 g/dL (11.27-16.99); Mean Corpuscular HGB Conc 33.5 g/dL (30-55); Mean Corpuscular Hemoglobin 28.3 pg (27-33); Mean Corpuscular Volume 84.5 fl (82-101); Nucleated Red Blood Cells % 0 %; Platelet Count 70 10^3/cmm (157-399); Red Blood Count 3.99 10^6/uL (3.85-5.65); White Blood Count 13.91 10^3/uL (3.29-11.43)
[2025-10-25] MEDS: oxyCODONE 5 mg IR Tab/Cap PO ×2 (04:33→08:28)
[2025-10-25 04:54] LABS: Alanine Aminotransferase 16 U/L (0-41); Albumin Level 1.8 g/dL (3.5-5.2); Alkaline Phosphatase 569 U/L (40-130); Anion Gap 19.5 (5-19); Aspartate Amino Transferase 49 U/L (0-40); Blood Urea Nitrogen 26 mg/dL (6-20); Calcium 7.2 mg/dL (8.5-10.5); Carbon Dioxide 17 mmol/L (22-29); Chloride 97 mmol/L (98-107); Globulin 3.0 g/dL (1.3-4.6); Glucose 265 mg/dL (65-115); Magnesium 2.1 mg/dL (1.7-2.3); Osmolality Calculated 282 mOsm/kg (285-295); Potassium 4.5 mmol/L (3.5-5.1); Sodium 129 mmol/L (136-145); Total Protein 4.8 g/dL (6.6-8.7)
[2025-10-25 05:25] LABS: Slide Review Slide Review Perform
--- NOTE | 2025-10-25 07:01 | USCV_ITS ---
Kristian Balbuena Age: 44 Gender: M : 1980 Exam Date: 10/25/2025 16:59 Ordering Phys: Darius Aguilar MD Technologist: LUIS Exam Location: [facility] [place] Indication: Hypotention and sepsis BP: 117 / 78 HR: 103 Rhythm: Sinus Technical Quality: Adequate MEASUREMENTS (Male / Female) Normal Values 2D ECHO LV Diastolic Diameter PLAX 5.4 cm 4.2 - 5.9 / 3.9 - 5.3 cm IVS Diastolic Thickness 0.6 cm 0.6 - 1.0 / 0.6 - 0.9 cm IVS Systolic Thickness 0.8 cm LVPW Diastolic Thickness 0.8 cm 0.6 - 1.0 / 0.6 - 0.9 cm LVPW Systolic Thickness 1.0 cm LVOT Diameter 1.9 cm LV Ejection Fraction 2D Teich 25.8 % LV Ejection Fraction MOD 4C 49.8 % LV Ejection Fraction MOD 2C 42.1 % LV Ejection Fraction 2C AL 43.5 % LA Diameter 2.4 cm RA Systolic Volume 4C AL 31.8 ml RA Systolic Volume 4C MOD 30.3 ml LA Sys Volume AL 31.2 cm cubed LA Sys Volume Index AL 16.4 cm cubed/m squared Aorta at Sinotubular Diameter 2.4 cm M-MODE LA Ao Ratio MM 1.0 AV Cusp Separation MM 1.5 cm DOPPLER AV Peak Velocity 87.0 cm/s LVOT Peak Velocity 72.0 cm/s AV Area Cont Eq vti 2.6 cm squared AV Area Cont Eq pk 2.3 cm squared MV Peak Velocity 69.0 cm/s MV Area PHT 7.2 cm squared Mitral E to A Ratio 1.5 TR Peak Velocity 136.0 cm/s TR Peak Gradient 7.4 mmHg TV Peak E Velocity 59.0 cm/s PV Peak Velocity 69.0 cm/s FINDINGS Left Ventricle Normal left ventricular size, systolic function and wall thickness, with no regional wall motion abnormalities. Left ventricular ejection fraction is estimated at 60 %. Normal diastolic function. Right Ventricle Normal right ventricular size and systolic function. Right Atrium Normal right atrial size. Left Atrium Normal left atrial size. IA Septum Normal appearance of the interatrial septum. Mitral Valve Mildly thickened mitral valve. No mitral valve stenosis. Trace mitral valve regurgitation. Aortic Valve Normal aortic valve structure. No aortic valve stenosis or regurgitation. Tricuspid Valve Normal tricuspid valve structure. No tricuspid valve stenosis or regurgitation. Normal pulmonary pressure. Pulmonic Valve Normal pulmonic valve structure. No pulmonic valve stenosis or regurgitation. Pericardium No pericardial effusion. Aorta Normal diameter of the aortic root and ascending thoracic aorta. IVC Normal IVC diameter. CONCLUSIONS Normal left ventricular size, systolic function and wall thickness, with no regional wall motion abnormalities. Left ventricular ejection fraction is estimated at 60 %. Normal diastolic function. Mildly thickened mitral valve. Normal aortic valve structure. No aortic valve stenosis or regurgitation. No mitral valve stenosis. Trace mitral valve regurgitation. There is no pericardial effusion. Right atrial pressure is around 5 mm of mercury. Keshawn Wilder MD (Electronically Signed) Final Date: 25 October 2025 18:59 S
[2025-10-25] MEDS: norepinephrine 4 MG/250 ML BAG 67.5 MG IV (08:29)
[2025-10-25 09:14] LABS: Anion Gap 19.7 (5-19); Blood Urea Nitrogen 27 mg/dL (6-20); Calcium 6.9 mg/dL (8.5-10.5); Carbon Dioxide 18 mmol/L (22-29); Chloride 95 mmol/L (98-107); Glucose 330 mg/dL (65-115); Osmolality Calculated 284 mOsm/kg (285-295); Potassium 4.7 mmol/L (3.5-5.1); Sodium 128 mmol/L (136-145)
[2025-10-25 09:16] LABS: Lactate (Lactic Acid level) 3.5 mmol/L (0.5-2.2)
[2025-10-25] MEDS: norepinephrine 4 MG/250 ML BAG 60 MG IV ×2 (11:45→15:26)
[2025-10-25] MEDS: vasopressin 40 UNIT/100 ML PREMIX 4.5 UNIT IV (11:46)
--- NOTE | 2025-10-25 17:10 | PC.NURSE ---
Orestes Charles: pt's ex - is allowed information via telephone per patient
[2025-10-25] MEDS: pantoprazole 40 mg SDV IVP (17:23)
--- NOTE | 2025-10-25 17:55 | PC.NURSE ---
Shift summary: Pt rested in bed throughout shift. He reported pain all over this am, Oxycodone admin. He state this afternoon that helped him feel much better and he has rested well. the three peripheral IVs remain. CVL located in his right neck remain patent with good blood return. Bicarb IV fluids completed today. at the beginning of shift Levophed was a t20mcg/min and Vasopressin at 0.05 unit/hour. They have been titrated down this shift: Levophed now at 14mcg/min and Vasopresin at 0.01mcg/min. is urine output per catheter has increased this shift. 150ml of output, some sediment noted. Dressing with hydrofera blue remained intact over wounds. he required insulin at breakfast and lunch time. Dinner time no insulin required. He ate part of a pocicle this am but nothing since.
[2025-10-25] MEDS: norepinephrine 4 MG/250 ML BAG 56.25 MG IV (19:34)
[2025-10-25] MEDS: meropenem 1,000 mg SDV 2000 MG IVP (19:57)
--- NOTE | 2025-10-25 21:03 | P.PN_ITS ---
Subjective 2 Subjective: Patient admitted with severe sepsis and septic shock, urinary source. Previous history of urinary tract infections, no enteric coccus history. Patient responded moderately to IV ciprofloxacin. Poor urine output today, possible ATN from shock state. Plan today is to broaden IV antibiotic coverage, fluid resuscitation and wean off vasopressors. Patient denies any history of UTI, reviewed with her history he had at least 1 episode of Staphylococcus hemolyticus, however gram-negative rods grow at that urine today. Enteric coccus ruled out. Pseudomonas not ruled out. ESBL not ruled out. Vitals/I&O/Wt Last Vital Signs Temp 99.7 F H 10/25/25 17:15 Pulse 107 H 10/25/25 20:00 Resp 17 10/25/25 20:00 BP 106/69 10/25/25 20:00 Pulse Ox 91 10/25/25 20:00 O2 Del Method Room Air 10/25/25 18:00 O2 Flow Rate 2 10/25/25 14:15 10/25/25 10/25/25 10/25/25 06:59 14:59 22:59 Intake Total 7416.833 / 03414.583 1819.050 / 4855.165 5003.425 / 3319.475 Output Total 50 / 110 Balance 7366.833 / 14391.583 1819.050 / 2039.457 6625.425 / 3319.475 Weight last 48 hrs Weight 70 kg Weight 65.6 kg Weight 61.689 kg Physical Exam 2 Narrative: General Well-developed thin chronically ill-appearing male in no acute cardiopulmonary stress Neck no JVD CV regular tachycardic rhythm Lungs clear to auscultation bilaterally no rales or wheezes Abdomen positive bowel tones soft mild nonspecific tenderness Calves no tenderness cords pretibial edema he has diminished skin turgor and dry scaly skin multiple tattoos Urinary Catheter Management: Sethi: Cath Placed During This Visit: yes Reason for Continuing Indwelling Catheter: Accurate Measurement of Urinary Output in Critically Ill Patients Urinary Catheter Date of Insertion: 10/24/25 Urinary Catheter Time of Insertion: 11:30 Data 10/25/25 03:23 10/25/25 08:23 Micro: Microbiology 10/24/25 10:58 Blood Culture - Preliminary Blood NEGATIVE TO DATE 10/24/25 10:56 Blood Culture - Preliminary Blood NEGATIVE TO DATE 10/24/25 11:53 Urine Culture - Preliminary Urine,Clean Catch Gram Negative Rods A&P Assessment and plan 1. Complicated UTI (urinary tract infection): Discontinue ciprofloxacin due to concern for crystal nephropathy in the setting of ATN, secondary to septic shock. Will implement broad-spectrum ESBL coverage for gram-negative rods. Start meropenem renally dosed 2 g IV every 12 hours. Monitor vitals, continue to wean off vasopressors. 2. Septic shock: Continue Levophed and vasopressin, stress dose steroids. Was able to wean down from 20 mcg to 15 later this afternoon. Continue fluid resuscitation with 1 L of lactated Ringer's. Measure urine output, continue Sethi catheter. 3. TRAY (acute kidney injury): Continues to have minimal urine output, does not appear overloaded. Continue fluid resuscitation and wean off vasopressors. Monitor hourly urine output via indwelling Sethi catheter. 4. Emphysematous cystitis: As above 5. Hyperglycemia: Was uncontrolled at admission, increase to moderate sliding scale. Afternoon blood glucose 105. Will withhold insulin overnight, check blood glucose in AM. Patient states that he has had diabetes and's age 15, unknown exactly what subtype. Likely type I diabetic. Likely requires minimal insulin. Focus on fluid resuscitation. Patient is on clear liquid diet, minimal p.o. intake. 6. Hyponatremia: Serum sodium 123 on presentation in the setting of sepsis and dehydration. Urine sodium was 25. This is not SIADH. He appears to be profoundly volume depleted likely due to adrenal insufficiency 7. Hypokalemia: Improving, check CMP in AM. 8. Lactic acidosis: Improved with volume resuscitation 9. Acute encephalopathy: Resolved 10. Uncontrolled diabetes mellitus: Has not taken insulin in a year. A1c requested. 11. Declining functional status: Severe peripheral neuropathy. Chronic back problems with back locking up . Walks with a walker but has been walking significantly less. And significant functional decline. Self-neglect. Unkempt, with layers of scaly skin on his feet. Nonhealing wounds of bilateral lower extremities. Will need PT assessment once more stable. Case management consult. Family are interested in setting up help for him after discharge. 12. Wounds, multiple open, lower extremity: Wound care PDMP PDMP Reviewed: Not Reviewed Attestations 2 Medical Necessity Statement*: Patient is critical ill, requires greater than 2 overnights for treatment of sepsis, septic shock, complicated UTI and suspected ATN. Critical Care Time: Total of 45 minutes was spent with critical care time, with medication management, antibiotic titration, management of vasopressors. Critical Care Time (min): 45 Coding Level of Care Code Critical Care >/= 30 minutes Other Coding Information Prolonged care (total time indicated above or notated here) Diagnoses Complicated UTI (urinary tract infection) N39.0 Septic shock A41.9; R65.21 TRAY (acute kidney injury) N17.9 Emphysematous cystitis N30.80 Hyperglycemia R73.9 Hyponatremia E87.1 Hypokalemia E87.6 Lactic acidosis E87.20 Acute encephalopathy G93.40 Uncontrolled diabetes mellitus Declining functional status R53.81 Wounds, multiple open, lower extremity S81.809A
[2025-10-25] MEDS: norepinephrine 4 MG/250 ML BAG 41.25 MG IV (23:35)
[2025-10-26] VITALS (58 sets, daily range): BP systolic 80–125; BP diastolic 54–83; PULSE 93–104; RESP 0–23; TEMP 36.7; O2SAT 93–97
[2025-10-26] MEDS: hydrocortisone 100 mg/2 mL SDV IVP (00:22)
[2025-10-26] MEDS: hydrocortisone 100 mg/2 mL SDV 50 MG IVP ×3 (03:02→18:09)
[2025-10-26 03:34] LABS: Hematocrit 29.9 % (37-53); Hemoglobin 9.90 g/dL (11.27-16.99); Mean Corpuscular HGB Conc 33.1 g/dL (30-55); Mean Corpuscular Hemoglobin 27.6 pg (27-33); Mean Corpuscular Volume 83.3 fl (82-101); Nucleated Red Blood Cells % 0 %; Red Blood Count 3.59 10^6/uL (3.85-5.65); White Blood Count 28.86 10^3/uL (3.29-11.43)
[2025-10-26 04:02] LABS: Alanine Aminotransferase 14 U/L (0-41); Albumin Level 1.7 g/dL (3.5-5.2); Alkaline Phosphatase 359 U/L (40-130); Anion Gap 19.8 (5-19); Aspartate Amino Transferase 30 U/L (0-40); Blood Urea Nitrogen 32 mg/dL (6-20); Calcium 6.6 mg/dL (8.5-10.5); Carbon Dioxide 18 mmol/L (22-29); Chloride 97 mmol/L (98-107); Globulin 2.2 g/dL (1.3-4.6); Glucose 151 mg/dL (65-115); Magnesium 2.0 mg/dL (1.7-2.3); Osmolality Calculated 280 mOsm/kg (285-295); Potassium 4.8 mmol/L (3.5-5.1); Sodium 130 mmol/L (136-145); Total Protein 3.9 g/dL (6.6-8.7)
[2025-10-26 04:04] LABS: Platelet Count 25 10^3/cmm (157-399)
--- NOTE | 2025-10-26 04:13 | PC.NURSE ---
Patient's platelet count on 10/26 came back with result of 25. Platelet count on 10/[address] Aguilar and received order to hold all anticoagulants. Lovenox placed on hold, see MAR.
[2025-10-26] MEDS: FUROsemide 10 mg/mL SDV 10mL 100 MG IVP (05:32)
[2025-10-26] MEDS: norepinephrine 4 MG/250 ML BAG 26.25 MG IV (06:00)
[2025-10-26] MEDS: MEROPENEM 2,000 MG in sodium chloride 0.9% (plus) 50 ML 100 MG IV (09:49)
[2025-10-26] MEDS: cefTRIAXone 2,000 mg SDV 2000 MG IVP (14:59)
[2025-10-26] MEDS: norepinephrine 4 MG/250 ML BAG 15 MG IV (16:10)
[2025-10-26] MEDS: ondansetron 2 mg/ML SDV 2 mL 4 MG IVP (16:20)
[2025-10-26] MEDS: oxyCODONE 5 mg IR Tab/Cap PO (17:06)
[2025-10-26] MEDS: pantoprazole 40 mg SDV IVP (17:06)
--- NOTE | 2025-10-26 19:10 | P.PN_ITS ---
Subjective 2 Subjective: Patient states he feels a lot better today. Sensitivities came back for the GNR, positive for Klebsiella pneumonia De-escalated meropenem to IV ceftriaxone Patient is eating and drinking, talkative Minimal amount of urine output Norepinephrine down to 7 mcg Vitals/I&O/Wt Last Vital Signs Temp 98.1 F 10/26/25 17:30 Pulse 100 10/26/25 18:30 Resp 12 10/26/25 18:30 BP 96/61 10/26/25 18:30 Pulse Ox 97 10/26/25 12:00 O2 Del Method Room Air 10/25/25 18:00 O2 Flow Rate 2 10/25/25 14:15 10/26/25 10/26/25 10/26/25 06:59 14:59 22:59 Intake Total 2446.000 / 5765.475 465 / 465 308.75 / 773.75 Output Total 225 / 225 Balance 2446.000 / 5765.475 465 / 465 83.75 / 548.75 Weight last 48 hrs Weight 75.5 kg Weight 70 kg Physical Exam 2 Narrative: General Well-developed thin chronically ill-appearing male in no acute cardiopulmonary stress Neck no JVD CV regular tachycardic rhythm Lungs clear to auscultation bilaterally no rales or wheezes Abdomen positive bowel tones soft mild nonspecific tenderness Calves no tenderness cords pretibial edema he has diminished skin turgor and dry scaly skin multiple tattoos Urinary Catheter Management: Sethi: Cath Placed During This Visit: yes Reason for Continuing Indwelling Catheter: Accurate Measurement of Urinary Output in Critically Ill Patients Urinary Catheter Date of Insertion: 10/24/25 Urinary Catheter Time of Insertion: 11:30 Data 10/26/25 03:17 10/26/25 03:17 Micro: Microbiology 10/24/25 11:53 Urine Culture - Final Urine,Clean Catch Klebsiella pneumoniae A&P Assessment and plan 1. Complicated UTI (urinary tract infection): Improving, tailor antibiotics to Klebsiella pneumonia, sensitive to Rocephin. Start ceftriaxone 2 g IV every 24 hours 2. Septic shock: Continue Levophed and vasopressin, stress dose steroids. Was able to wean down from 20 mcg to 15 later this afternoon. Continue fluid resuscitation, regular diet. Measure urine output, continue Sethi catheter. 3. TRAY (acute kidney injury): Continues to have minimal urine output, does not appear overloaded. Continue fluid resuscitation and wean off vasopressors. Monitor hourly urine output via indwelling Sethi catheter. 4. Emphysematous cystitis: As above 5. Hyperglycemia: Was uncontrolled at admission, increase to moderate sliding scale. Afternoon blood glucose 105. Will withhold insulin overnight, check blood glucose in AM. Patient states that he has had diabetes and's age 15, unknown exactly what subtype. Likely type I diabetic. Likely requires minimal insulin. Focus on fluid resuscitation. Patient is on clear liquid diet, minimal p.o. intake. 6. Hyponatremia: Likely due to hypovolemia in setting of sepsis, now improved. Follow-up labs in a.m. 7. Hypokalemia: Improving, check CMP in AM. 8. Lactic acidosis: Resolved 9. Acute encephalopathy: Resolved 10. Uncontrolled diabetes mellitus: Has not taken insulin in a year. A1c of 14. Will resume mild sliding scale with Lantus, now the patient is eating. 11. Declining functional status: Severe peripheral neuropathy. Chronic back problems with back locking up . Walks with a walker but has been walking significantly less. And significant functional decline. Self-neglect. Unkempt, with layers of scaly skin on his feet. Nonhealing wounds of bilateral lower extremities. Will need PT assessment once more stable. Case management consult. Family are interested in setting up help for him after discharge. 12. Wounds, multiple open, lower extremity: Wound care PDMP PDMP Reviewed: Not Reviewed Attestations 2 Medical Necessity Statement*: Patient is critical ill, requires greater than 2 overnights for treatment of sepsis, septic shock, complicated UTI and suspected ATN. Critical Care Time: Total of 45 minutes was spent with critical care time, with medication management, antibiotic titration, management of vasopressors. Critical Care Time (min): 45 Coding Level of Care Code Critical Care >/= 30 minutes Critical care time (in minutes): 45 The high probability of a clinically significant, sudden or life threatening deterioration, as referenced in this documentation, required my full and direct attention, intervention and personal management. The critical care time shown is in addition to time spent performing any reported separately billable procedures and includes the following: [x] Data and vital sign review and interpretation [x ] Patient assessment, examination and intervention [x] Medication orders and management [x] Patient/Family updates as able [x] Care Coordination and Documentation. Diagnoses Complicated UTI (urinary tract infection) N39.0 Septic shock A41.9; R65.21 TRAY (acute kidney injury) N17.9 Emphysematous cystitis N30.80 Hyperglycemia R73.9 Hyponatremia E87.1 Hypokalemia E87.6 Lactic acidosis E87.20 Acute encephalopathy G93.40 Uncontrolled diabetes mellitus Declining functional status R53.81 Wounds, multiple open, lower extremity S81.809A
[2025-10-27] VITALS (61 sets, daily range): BP systolic 79–138; BP diastolic 47–89; PULSE 90–108; RESP 0–20; TEMP 36.3; O2SAT 91–96; BMI 21.4
[2025-10-27] MEDS: norepinephrine 4 MG/250 ML BAG 26.25 MG IV (01:49)
[2025-10-27] MEDS: hydrocortisone 100 mg/2 mL SDV 50 MG IVP ×2 (03:14→09:33)
[2025-10-27 05:31] LABS: Hematocrit 35.3 % (37-53); Hemoglobin 11.00 g/dL (11.27-16.99); Mean Corpuscular HGB Conc 31.2 g/dL (30-55); Mean Corpuscular Hemoglobin 27.6 pg (27-33); Mean Corpuscular Volume 88.5 fl (82-101); Nucleated Red Blood Cells % 0 %; Red Blood Count 3.99 10^6/uL (3.85-5.65); White Blood Count 28.38 10^3/uL (3.29-11.43)
[2025-10-27 05:53] LABS: Magnesium 2.0 mg/dL (1.7-2.3)
[2025-10-27 05:54] LABS: Alanine Aminotransferase 11 U/L (0-41); Albumin Level 1.6 g/dL (3.5-5.2); Alkaline Phosphatase 382 U/L (40-130); Anion Gap 28.0 (5-19); Aspartate Amino Transferase 13 U/L (0-40); Blood Urea Nitrogen 47 mg/dL (6-20); Calcium 7.2 mg/dL (8.5-10.5); Carbon Dioxide 12 mmol/L (22-29); Chloride 94 mmol/L (98-107); Globulin 3.1 g/dL (1.3-4.6); Glucose 315 mg/dL (65-115); Osmolality Calculated 292 mOsm/kg (285-295); Potassium 5.0 mmol/L (3.5-5.1); Sodium 129 mmol/L (136-145); Total Protein 4.7 g/dL (6.6-8.7)
[2025-10-27 06:25] LABS: Platelet Count 27 10^3/cmm (157-399); Slide Review Slide Review Perform
[2025-10-27] MEDS: norepinephrine 4 MG/250 ML BAG 22.5 MG IV (12:06)
[2025-10-27] MEDS: cefTRIAXone 2,000 mg SDV 2000 MG IVP (12:11)
--- NOTE | 2025-10-27 15:10 | CT_ITS ---
WS: [id number] CT HEAD NONCONTRAST HISTORY: Symptoms of acute stroke TECHNIQUE: Contiguous axial imaging performed through the brain. Bone and soft tissue windows. Sagittal and coronal reformats reviewed. All CT scans at [facility] use at least one of these dose optimization techniques: automated exposure control; mA and/or kV adjustment per patient size (includes targeted exams where dose is matched to clinical indication); or iterative reconstruction. DLP: 1087.48 mGy COMPARISON: 10/24/2025 No acute intracranial hemorrhage, midline shift or mass effect. Mild atrophy and small vessel disease. No acute edema. Ventricles: Normal size with no hydrocephalus. Paranasal sinuses: As visualized are clear. Mastoid air cells: Well pneumatized. Calvarium and scalp: Skull is intact with no soft tissue edema or swelling. Scattered plaque in the intracranial carotid arteries. CT/CT head thrombolytic 35517 IMPRESSION: 1. No acute intracranial hemorrhage or edema. 2. Stable noncontrast CT head since 10/24/2025. 3. Attempted notification Jai Stone MD at 10/27/2025 3:29 PM. Message left by the hospital caterpillar tractor operator for return call.
--- NOTE | 2025-10-27 15:23 | PM.PN ---
Subjective Subjective: At 3:00 to 3 tentative phone call for the nurse, patient is dysarthric, possible aphasia. NIHSS scale not assessed, stroke alert was initiated. While patient was on her way to CT, I communicated with [facility] teleneurology. Patient agreed to tenecteplase, lower likelihood of spontaneous hemorrhage due to low suspicion for acute stroke. TNK administered promptly before 4 PM. Stroke order set ordered, afterward receiving the TNK, I came back to bedside and patient was lethargic but not in distress. Vitals/I&O/Wt Last Vital Signs Temp 98.1 F 10/26/25 17:30 Pulse 96 10/27/25 14:00 Resp 15 10/27/25 14:00 BP 88/55 10/27/25 14:00 Pulse Ox 94 10/27/25 14:00 O2 Del Method Room Air 10/25/25 18:00 O2 Flow Rate 2 10/25/25 14:15 10/27/25 10/27/25 10/27/25 06:59 14:59 22:59 Intake Total 144.75 / 3068.50 550 / 550 Output Total 0 / 225 Balance 144.75 / 2843.50 550 / 550 Weight last 48 hrs Weight 75.614 kg Weight 75.5 kg Physical Exam Narrative: Frail patient, lethargic, garbled speech, alert and oriented x 3. Neck no JVD CV regular tachycardic rhythm Lungs clear to auscultation bilaterally no rales or wheezes Abdomen positive bowel tones soft mild nonspecific tenderness Calves no tenderness cords pretibial edema he has diminished skin turgor and dry scaly skin multiple tattoos Neuro: Subjective findings of focal left visual field loss, dysarthria Urinary Catheter Management: Sethi: Cath Placed During This Visit: yes Reason for Continuing Indwelling Catheter: Acute Urinary Retention or Obstruction Urinary Catheter Date of Insertion: 10/24/25 Urinary Catheter Time of Insertion: 11:30 Data 10/30/25 04:28 10/30/25 04:28 Micro: Microbiology 10/24/25 11:53 Urine Culture - Final Urine,Clean Catch Klebsiella pneumoniae A&P Assessment and plan 1. Emphysematous cystitis: Plan: Complicated UTI with emphysematous cystitis, in the setting of severe sepsis and septic shock. Emphysematous cystitis Hyperglycemia with uncontrolled type 1 diabetes Hypovolemic hyponatremia Hypokalemia Acute encephalopathy TRAY likely due to acute tubular necrosis, post shock state ? Acute dysarthria, less likely stroke possibly acute metabolic encephalopathy in the setting of prerenal azotemia(currently no urine output) ?Stroke order set initiated. Repeat CT scan 24 hours after TNK ? Follow-up MRI when stable ? Thrombolytic pressure parameters, however patient has had low blood pressure so he will remain on the norepinephrine drip for the sepsis ? Appreciate neurology recommendations ? Avoid any antiplatelets for at least 24 hours, no antithrombotics. ? Patient also has a thrombocytopenia, worse with the sepsis. Possible cirrhosis? Check ammonia Shock state resolved ? Continue to tailor antibiotics Klebsiella pneumonia, continue ceftriaxone 2 g IV every 24 hours ? Continue to wean off of pressor support, Levophed remains at 6 to 7 mcg/h DVT prophylaxis with SCDs GI prophylaxis metoprolol PDMP PDMP Reviewed: Not Reviewed Attestations Medical Necessity Statement*: Patient is critical ill, requires greater than 2 overnights for treatment of sepsis, septic shock, complicated UTI and suspected ATN. Critical Care Time: Total of 45 minutes was spent with critical care time, with medication management, antibiotic titration, management of vasopressors. Critical Care Time (min): 45 Coding Level of Care Code Critical Care >/= 30 minutes Critical care time (in minutes): 45 The high probability of a clinically significant, sudden or life threatening deterioration, as referenced in this documentation, required my full and direct attention, intervention and personal management. The critical care time shown is in addition to time spent performing any reported separately billable procedures and includes the following: [x] Data and vital sign review and interpretation [x] Patient assessment, examination and intervention [x] Medication orders and management [x] Patient/Family updates as able [x] Care Coordination and Documentation. Diagnoses Emphysematous cystitis N30.80
[2025-10-27 15:44] LABS: Hematocrit 32.8 % (37-53); Hemoglobin 10.70 g/dL (11.27-16.99); Mean Corpuscular HGB Conc 32.6 g/dL (30-55); Mean Corpuscular Hemoglobin 27.6 pg (27-33); Mean Corpuscular Volume 84.5 fl (82-101); Nucleated Red Blood Cells % 0 %; Red Blood Count 3.88 10^6/uL (3.85-5.65); White Blood Count 21.84 10^3/uL (3.29-11.43)
[2025-10-27 16:00] LABS: Anion Gap 20.5 (5-19); Blood Urea Nitrogen 57 mg/dL (6-20); Calcium 7.3 mg/dL (8.5-10.5); Carbon Dioxide 18 mmol/L (22-29); Chloride 96 mmol/L (98-107); Glucose 277 mg/dL (65-115); INR 0.87 (0.8-1.2); Osmolality Calculated 296 mOsm/kg (285-295); Potassium 4.5 mmol/L (3.5-5.1); Prothrombin Time 12.50 SECONDS (12.1-14.9); Sodium 130 mmol/L (136-145)
[2025-10-27 16:01] LABS: Partial Thromboplastin Time 24.6 SECONDS (23.9-36.7)
[2025-10-27] MEDS: tenecteplase 50mg Kit (STROKE) 19 MG IVP (16:29)
--- NOTE | 2025-10-27 16:30 | PC.NURSE ---
Time out performed with second nurse, administered TNKase per providers orders. 19mg given equivalent to 3.8mLs, dose verified with MAR and second nurse Leana MCCRAY.
[2025-10-27 16:37] LABS: Platelet Count 21 10^3/cmm (157-399)
[2025-10-27 16:38] LABS: Slide Review Slide Review Perform
--- NOTE | 2025-10-27 16:40 | PC.NURSE ---
This nurse was notified approximately 1505 by OT that patient's speech has changed and patient was confused which started suddenly as OT was speaking with patient. upon entering room found patient with slurred speech difficulty finding words, notified dr. Stone Stroke alert called patient taken to CT. once back in room tele neurology contacted tele neurologist assessed patient dr. Stone came to bedside and reviewed ct scan and labs with tele neurology. tele neurology recommended to administer TKNASE, patient agreed, see MAR for administration. Approximately 1637 this nurse was notified by lab of critical plt of 21 Dr. Stone notified
--- NOTE | 2025-10-27 16:52 | PC.NURSE ---
Patient requested son be updated, attempted to contact
--- NOTE | 2025-10-27 17:35 | PC.NURSE ---
2 insulin sliding scale insulin orders, Dr. Stone gave v.o. to stop med dose
[2025-10-27] MEDS: insulin glargine 100 units/1 mL 10 UNIT SUBCUT (22:15)
[2025-10-28] VITALS (59 sets, daily range): BP systolic 83–114; BP diastolic 53–71; PULSE 90–104; RESP 0–20; TEMP 36.1–36.5; O2SAT 91–94; BMI 21.3
[2025-10-28 04:51] LABS: Hematocrit 32.6 % (37-53); Hemoglobin 10.40 g/dL (11.27-16.99); Mean Corpuscular HGB Conc 31.9 g/dL (30-55); Mean Corpuscular Hemoglobin 27.5 pg (27-33); Mean Corpuscular Volume 86.2 fl (82-101); Nucleated Red Blood Cells % 0 %; Red Blood Count 3.78 10^6/uL (3.85-5.65); White Blood Count 13.70 10^3/uL (3.29-11.43)
[2025-10-28 05:08] LABS: Alanine Aminotransferase 8 U/L (0-41); Albumin Level 1.5 g/dL (3.5-5.2); Alkaline Phosphatase 376 U/L (40-130); Anion Gap 17.0 (5-19); Aspartate Amino Transferase 10 U/L (0-40); Blood Urea Nitrogen 59 mg/dL (6-20); Calcium 7.3 mg/dL (8.5-10.5); Carbon Dioxide 20 mmol/L (22-29); Chloride 97 mmol/L (98-107); Globulin 2.9 g/dL (1.3-4.6); Glucose 294 mg/dL (65-115); Osmolality Calculated 297 mOsm/kg (285-295); Potassium 4.0 mmol/L (3.5-5.1); Sodium 130 mmol/L (136-145); Total Protein 4.4 g/dL (6.6-8.7)
[2025-10-28 05:18] LABS: Cholesterol 126 mg/dL (0-200); HDL Cholesterol 12 mg/dL (60-100); Triglycerides 232 mg/dL (0-150)
[2025-10-28 05:29] LABS: Platelet Count 15 10^3/cmm (157-399); Slide Review Slide Review Perform
[2025-10-28] MEDS: morphine 4 mg/mL SDV 1 mL 2 MG IVP (06:50)
--- NOTE | 2025-10-28 08:28 | PC.NURSE ---
customer support coordinator rounds at [phone]- patient awakes easily but falls back asleep easily, patient's speech is clear while awake and slurs as he dozes off. Gave patient stroke education book. Discussed risk factors and ways to prevent stroke in the future. Patient verbalized understanding but may need reinforcement.
--- NOTE | 2025-10-28 09:00 | CTR_ITS ---
PROCEDURE INFORMATION: Exam: CT Head Without Contrast Exam date and time: 10/28/2025 4:23 PM Age: 44 years old Clinical indication: Other: 24 hr post tnk for acute stroke; Additional info: Acute stroke, 24 hr post tnk for acute stroke TECHNIQUE: Imaging protocol: Computed tomography of the head without contrast. Axial, coronal and sagittal reformatted images were created and reviewed. Radiation optimization: All CT scans at this facility use at least one of these dose optimization techniques: automated exposure control; mA and/or kV adjustment per patient size (includes targeted exams where dose is matched to clinical indication); or iterative reconstruction. COMPARISON: CT head thrombolytic [id number] 10/27/2025 3:14 PM RADIATION DOSE METRICS: Total DLP (mGy-cm): 1099.18 FINDINGS: Brain: Ill-defined hypoattenuation in the left temporoparietal lobe with associated sulcal effacement, consistent with evolving infarction. Subtle, patchy areas of hypoattenuation in the periventricular and subcortical white matter, nonspecific but suggestive of mild chronic small vessel ischemic disease. No CT evidence of acute intracranial hemorrhage. No significant midline shift. Basal cisterns patent. Cerebral ventricles: Prominence of the cortical sulci, cisterns and ventricular system, consistent with cerebral and cerebellar volume loss. Paranasal sinuses: Minimal ethmoid mucosal thickening. No fluid levels. Mastoid air cells: Grossly unremarkable. Bones: Unremarkable. No acute fracture. Soft tissues: Grossly unremarkable. CT/CT head wo con* [id number] IMPRESSION: 1. Ill-defined hypoattenuation in the left temporoparietal lobe with associated sulcal effacement, consistent with evolving infarction. No CT evidence of acute intracranial hemorrhage. 2. Additional findings, as above.
--- NOTE | 2025-10-28 09:06 | P.PN_ITS ---
Subjective 2 Subjective: Patient is more coherent today, slightly lethargic. Complains that he has had limited mobility of his feet. But he is able to move his legs very slightly, will not wiggle his toes. No signs of focal deficits still, CT showed no hemorrhage 24 hours after TNK. Vitals/I&O/Wt Last Vital Signs Temp 98.3 F 10/30/25 05:08 Pulse 97 10/30/25 06:00 Resp 16 10/30/25 05:00 BP 93/58 10/30/25 05:00 Pulse Ox 95 10/30/25 05:00 O2 Del Method Room Air 10/29/25 18:45 O2 Flow Rate 2 10/25/25 14:15 10/29/25 10/30/25 10/30/25 22:59 06:59 14:59 Intake Total 486.75 / 1785.997 11.75 / 1797.747 Output Total 1450 / 1450 300 / 1750 Balance -963.25 / 335.997 -288.25 / 47.747 Weight last 48 hrs Weight 80.2 kg Weight 75.741 kg Physical Exam 2 Narrative: Frail patient, lethargic, garbled speech, alert and oriented x 3. Neck no JVD CV regular tachycardic rhythm Lungs clear to auscultation bilaterally no rales or wheezes Abdomen positive bowel tones soft mild nonspecific tenderness Calves no tenderness cords pretibial edema he has diminished skin turgor and dry scaly skin multiple tattoos Neuro: Subjective findings of focal left visual field loss, dysarthria Urinary Catheter Management: Sethi: Cath Placed During This Visit: yes Reason for Continuing Indwelling Catheter: Accurate Measurement of Urinary Output in Critically Ill Patients Urinary Catheter Date of Insertion: 10/24/25 Urinary Catheter Time of Insertion: 11:30 Data 10/30/25 04:28 10/30/25 04:28 Micro: Microbiology 10/24/25 10:58 Blood Culture - Final Blood NO GROWTH AFTER 5 DAYS 10/24/25 10:56 Blood Culture - Final Blood NO GROWTH AFTER 5 DAYS 10/30/25 04:28 10/30/25 04:28 Radiology Impressions Chest/Abdomen/Pelvis CT 10/24/25 12:48 IMPRESSION: 1. Dependent linear stranding, groundglass at the lung bases, likely due to atelectasis. Aspiration cannot be excluded. 2. Mild esophageal wall thickening, suggestive of nonspecific esophagitis. 3. Additional findings, as above. IMPRESSION: 1. Emphysematous cystitis with associated ascending gas producing left-sided urinary tract infection and probable pyelonephritis. 2. Left colonic underdistention versus wall thickening. Nonspecific colitis can not be excluded. 3. Additional findings, as above. Chest X-Ray 10/24/25 20:23 IMPRESSION: Right internal jugular catheter in the right atrium no pneumothorax Vague linear opacities lower lobe may reflect atelectasis correlate and follow-up as indicated Head CT 10/28/25 09:00 IMPRESSION: 1. Ill-defined hypoattenuation in the left temporoparietal lobe with associated sulcal effacement, consistent with evolving infarction. No CT evidence of acute intracranial hemorrhage. 2. Additional findings, as above. Head MRI 10/30/25 08:00 IMPRESSION: 1. Restricted diffusion compatible with acute ischemia involving a large portion of the LEFT temporal lobe extending to the temporoparietal junction described above. 2. Moderate associated edema. No midline shift or hydrocephalus. 3. Tiny punctate focus of hemosiderin along the anterior portion of the infarct. Otherwise no evidence of hemorrhage. 4. No other acute findings. Laboratory Results WBC 11.92 10^3/uL (3.29-11.43) H 10/30/25 04:28 RBC 3.33 10^6/uL (3.85-5.65) L 10/30/25 04:28 Hgb 9.40 g/dL (11.27-16.99) L 10/30/25 04:28 Hct 28.0 % (37-53) L 10/30/25 04:28 MCV 84.1 fl (82-101) 10/30/25 04:28 MCH 28.2 pg (27-33) 10/30/25 04:28 MCHC 33.6 g/dL (30-55) 10/30/25 04:28 RDW 14.7 % (12.1-15.1) 10/30/25 04:28 Plt Count 50 10^3/cmm (157-399) L D 10/30/25 04:28 MPV 11.6 fL (7.4-10.4) H 10/30/25 04:28 Neut % (Auto) 75.9 % 10/30/25 04:28 Lymph % (Auto) 14.9 % 10/30/25 04:28 [place] % (Auto) 6.8 % 10/30/25 04:28 Eos % (Auto) 0.7 % 10/30/25 04:28 Baso % (Auto) 0.3 % 10/30/25 04:28 Neut # (Auto) 9.05 10^3/uL (1.8-7.7) H 10/30/25 04:28 Lymph # (Auto) 1.8 10^3/uL (0.8-4.8) 10/30/25 04:28 [place] # (Auto) 0.8 10^3/uL (0.2-0.9) 10/30/25 04:28 Eos # (Auto) 0.1 10^3/uL (0.0-0.8) 10/30/25 04:28 Baso # (Auto) 0.0 10^3/uL (0.0-0.1) 10/30/25 04:28 Nucleated RBC % (auto) 0 % 10/30/25 04:28 Nucleated RBCs # 0.0 /100WBC 10/30/25 04:28 PT 12.50 SECONDS (12.1-14.9) 10/27/25 15:36 INR 0.87 (0.8-1.2) 10/27/25 15:36 APTT 24.6 SECONDS (23.9-36.7) 10/27/25 15:36 Specimen Type Arterial 10/24/25 10:33 Sample Site Radial, left 10/24/25 10:33 ABG pH 7.41 (7.35-7.45) 10/24/25 10:33 ABG pCO2 32.1 mmHg (35-45) L 10/24/25 10:33 ABG pO2 165.0 mmHg (80.0-100.0) H 10/24/25 10:33 ABG HCO3 20.5 mmol/L (22-26) L 10/24/25 10:33 ABG O2 Saturation > 99.1 10/24/25 10:33 ABG Base Excess -3.4 mmol/L (-2.0-2.0) L 10/24/25 10:33 Adriel Test Pos 10/24/25 10:33 A-a O2 Gradient Not Reportable 10/24/25 10:33 Hematocrit 35.1 % (42-52) L 10/24/25 10:33 Hgb O2 Saturation 98.7 % (95-100) 10/24/25 10:33 Carboxyhemoglobin 0.4 %THgb (0.4-20.1) 10/24/25 10:33 Methemoglobin 0.3 % (0.4-1.5) L 10/24/25 10:33 Total Hemoglobin 11.5 g/dL (14-18) L 10/24/25 10:33 Sodium 123.0 mmol/L (131-143) L 10/24/25 10:33 Potassium 3.4 mmol/L (3.5-5.0) L 10/24/25 10:33 Glucose 353.0 mg/dL (70-115) H 10/24/25 10:33 Ionized Calcium 1.0 mmol/L (1.1-1.4) L 10/24/25 10:33 O2 Delivery Device Nrb 10/24/25 10:33 O2 Liters/Min 10.0 % 10/24/25 10:33 Creative Services Producer ID Waci 10/24/25 10:33 Sodium 133 mmol/L (136-145) L 10/30/25 04:28 Potassium 3.7 mmol/L (3.5-5.1) 10/30/25 04:28 Chloride 100 mmol/L (98-107) 10/30/25 04:28 Carbon Dioxide 25 mmol/L (22-29) 10/30/25 04:28 Anion Gap 11.7 (5-19) 10/30/25 04:28 BUN 55 mg/dL (6-20) H 10/30/25 04:28 Creatinine 2.1 mg/dL (0.7-1.2) H 10/30/25 04:28 GFR Calculation 34.5 mL/min (90-130) L 10/30/25 04:28 Glucose 198 mg/dL (65-115) H 10/30/25 04:28 POC Glucose 182 mg/dL (70-110) H 10/30/25 20:13 Estimat Average Glucose 361 10/24/25 10:56 Hemoglobin A1c 14.2 % (4.0-6.0) H 10/24/25 10:56 Calculated Osmolality 297 mOsm/kg (285-295) H 10/30/25 04:28 Lactic Acid 6.8 mmol/L (0.5-2.2) H* 10/24/25 10:56 Lactic Acid (Sepsis) 4.8 mmol/L (0.5-2.2) H* 10/24/25 13:36 Lactate 3.5 mmol/L (0.5-2.2) H 10/25/25 08:23 Calcium 7.4 mg/dL (8.5-10.5) L 10/30/25 04:28 Ionized Calcium Mark 0.9 mmol/L (1.1-1.4) L 10/25/25 02:03 Phosphorus 4.7 mg/dL (2.5-4.5) H 10/27/25 04:57 Magnesium 2.0 mg/dL (1.7-2.3) 10/27/25 04:57 Total Bilirubin 0.4 mg/dL (0.15-1.2) 10/29/25 03:32 AST 18 U/L (0-40) 10/29/25 03:32 ALT 8 U/L (0-41) 10/29/25 03:32 Alkaline Phosphatase 391 U/L (40-130) H 10/29/25 03:32 Ammonia 37 umol/L (16-60) 10/28/25 09:06 Creatine Kinase 115 U/L (39-308) 10/26/25 03:17 C-Reactive Protein 273.6 mg/L (0.0-4.9) H 10/24/25 10:56 Total Protein 4.7 g/dL (6.6-8.7) L 10/29/25 03:32 Albumin 1.7 g/dL (3.5-5.2) L 10/29/25 03:32 Globulin 3.0 g/dL (1.3-4.6) 10/29/25 03:32 Triglycerides 232 mg/dL (0-150) H 10/28/25 03:54 Cholesterol 126 mg/dL (0-200) 10/28/25 03:54 LDL Cholesterol, Calc 68 mg/dL (50-129) 10/28/25 03:54 HDL Cholesterol 12 mg/dL (60-100) L 10/28/25 03:54 LDL/HDL Ratio 5.67 RATIO (0.00-3.22) H 10/28/25 03:54 Cholesterol/HDL Ratio 10.50 mg/dL (1.0-5.00) H 10/28/25 03:54 Lipase 7 U/L (13-60) L 10/24/25 10:56 Procalcitonin > 100.00 ng/mL (0-0.5) H 10/24/25 10:56 TSH 2.71 uIU/mL (0.27-4.20) 10/24/25 20:53 Random Cortisol 34.96 ug/dL (2.47-19.5) H 10/24/25 20:53 Urine Color Yellow (Yellow) 10/24/25 11:53 Urine Appearance Cloudy (CLEAR) A 10/24/25 11:53 Urine pH 5.0 (5-7) 10/24/25 11:53 Ur Specific [place] 1.020 (1.005-1.030) 10/24/25 11:53 Urine Protein 3+ (Negative) A 10/24/25 11:53 Urine Glucose (UA) 3+ (Normal) H 10/24/25 11:53 Urine Ketones Trace (Negative) 10/24/25 11:53 Urine Blood 3+ (Negative) A 10/24/25 11:53 Urine Nitrate Negative (Negative) 10/24/25 11:53 Urine Bilirubin Negative (Negative) 10/24/25 11:53 Urine Urobilinogen 1.0 mg/dL (Negative) 10/24/25 11:53 Ur Leukocyte Esterase 1+ (Negative) A 10/24/25 11:53 Urine RBC 6-10 /hpf (0-2) 10/24/25 11:53 Urine WBC 21-50 /hpf (0-5) H 10/24/25 11:53 Ur Squamous Epith Cells 0-5 /hpf (0-5) 10/24/25 11:53 Amorphous Sediment Not Reportable 10/24/25 11:53 Urine Bacteria None seen /hpf (NONE) 10/24/25 11:53 Hyaline Casts 12.81 /lpf 10/24/25 11:53 Urine Osmolality 320 mOsm/kg (50-1200) 10/24/25 05:18 Ur Random Sodium 25 mmol/L 10/24/25 11:53 Serum Ketones Negative (Negative) 10/24/25 10:56 Influenza A (PCR) Negative (Negative) 10/24/25 11:16 Influenza Type B (PCR) Negative (Negative) 10/24/25 11:16 RSV (PCR) Negative (Negative) 10/24/25 11:16 SARS-CoV-2 (PCR) Negative (Negative) 10/24/25 11:16 Blood Type O Positive 10/28/25 06:17 Rho(D) Type Rh positive 10/28/25 06:17 A&P Assessment and plan 1. Emphysematous cystitis: Plan: Complicated UTI with emphysematous cystitis, in the setting of severe sepsis and septic shock. Emphysematous cystitis Hyperglycemia with uncontrolled type 1 diabetes Hypovolemic hyponatremia Hypokalemia Acute encephalopathy TRAY likely due to acute tubular necrosis, post shock state ? Acute dysarthria, less likely stroke possibly acute metabolic encephalopathy in the setting of prerenal azotemia(currently no urine output) ?Stroke order set initiated. Repeat CT 24 hours after TNK unremarkable. ? Follow-up MRI when stable ?Secondary stroke prevention measures for cardiovascular disease. Patient has uncontrolled type 1 diabetes, so he likely has some degree of vascular disease. ? Avoid any antiplatelets for at least 24 hours, no antithrombotics. ? Patient also has a thrombocytopenia, worse with the sepsis. Possible cirrhosis? But is now improving. Ammonia normal ?Remains oliguric Shock state resolved ? Continue to tailor antibiotics Klebsiella pneumonia, continue ceftriaxone 2 g IV every 24 hours ? Continue to wean off of pressor support, Levophed remains at 2 to 3 mcg/h DVT prophylaxis with SCDs GI prophylaxis metoprolol PDMP PDMP Reviewed: Not Reviewed Attestations 2 Medical Necessity Statement*: Patient is critical ill, requires greater than 2 overnights for treatment of sepsis, septic shock, complicated UTI and suspected ATN. Critical Care Time: Total of 45 minutes was spent with critical care time, with medication management, antibiotic titration, management of vasopressors. Critical Care Time (min): 45 Coding Level of Care Code Critical Care >/= 30 minutes Critical care time (in minutes): 45 The high probability of a clinically significant, sudden or life threatening deterioration, as referenced in this documentation, required my full and direct attention, intervention and personal management. The critical care time shown is in addition to time spent performing any reported separately billable procedures and includes the following: [x] Data and vital sign review and interpretation [x ] Patient assessment, examination and intervention [x] Medication orders and management [x] Patient/Family updates as able [x] Care Coordination and Documentation. Diagnoses Emphysematous cystitis N30.80
[2025-10-28 09:38] LABS: Ammonia 37 umol/L (16-60)
--- NOTE | 2025-10-28 10:46 | PC.NURSE ---
CT ordered for 899, Dr. Stone approved waiting until 24 hr priscila per protocol and notified being unable to do MRI due to patient being on Levophed and IV pump cant be in MRI per contract technical writer
[2025-10-28] MEDS: cefTRIAXone 2,000 mg SDV 2000 MG IVP (12:39)
--- NOTE | 2025-10-28 15:38 | PC.OT ---
OT TREATMENT ATTEMPTED TWICE THIS P.M. PATIENT SLEEPING SOUNDLY AND DOES NOT AWAKEN.
[2025-10-28] MEDS: norepinephrine 4 MG/250 ML BAG 7.5 MG IV (16:20)
--- NOTE | 2025-10-28 23:46 | PC.NURSE ---
Lantus: Dr Hazel notified patient did not want to take his lantus before bed due to blood sugar being 86 and patient did not eat dinner and does not want a snack.
[2025-10-29] VITALS (57 sets, daily range): BP systolic 74–152; BP diastolic 25–97; PULSE 91–126; RESP 2–27; TEMP 36.4–37.4; O2SAT 91–99
[2025-10-29 03:52] LABS: Hematocrit 31.5 % (37-53); Hemoglobin 10.50 g/dL (11.27-16.99); Mean Corpuscular HGB Conc 33.3 g/dL (30-55); Mean Corpuscular Hemoglobin 27.9 pg (27-33); Mean Corpuscular Volume 83.8 fl (82-101); Nucleated Red Blood Cells % 0 %; Platelet Count 30 10^3/cmm (157-399); Red Blood Count 3.76 10^6/uL (3.85-5.65); White Blood Count 11.88 10^3/uL (3.29-11.43)
[2025-10-29 04:09] LABS: Alanine Aminotransferase 8 U/L (0-41); Albumin Level 1.7 g/dL (3.5-5.2); Alkaline Phosphatase 391 U/L (40-130); Anion Gap 12.6 (5-19); Aspartate Amino Transferase 18 U/L (0-40); Blood Urea Nitrogen 56 mg/dL (6-20); Calcium 7.4 mg/dL (8.5-10.5); Carbon Dioxide 24 mmol/L (22-29); Chloride 101 mmol/L (98-107); Globulin 3.0 g/dL (1.3-4.6); Glucose 94 mg/dL (65-115); Osmolality Calculated 293 mOsm/kg (285-295); Potassium 3.6 mmol/L (3.5-5.1); Sodium 134 mmol/L (136-145); Total Protein 4.7 g/dL (6.6-8.7)
[2025-10-29 04:35] LABS: Slide Review Slide Review Perform
--- NOTE | 2025-10-29 09:07 | P.PN_ITS ---
Subjective 2 Subjective: Patient is doing much better today, has high amount of urine output 600 cc overnight. No sediment in Sethi bag. Is more color to his skin, leukocytosis resolving. Platelets improved. Patient has not yet gotten out of bed, however. Vitals/I&O/Wt Last Vital Signs Temp 98.3 F 10/30/25 05:08 Pulse 97 10/30/25 06:00 Resp 16 10/30/25 05:00 BP 93/58 10/30/25 05:00 Pulse Ox 95 10/30/25 05:00 O2 Del Method Room Air 10/29/25 18:45 O2 Flow Rate 2 10/25/25 14:15 10/29/25 10/30/25 10/30/25 22:59 06:59 14:59 Intake Total 486.75 / 1785.997 11.75 / 1797.747 Output Total 1450 / 1450 300 / 1750 Balance -963.25 / 335.997 -288.25 / 47.747 Weight last 48 hrs Weight 80.2 kg Weight 75.741 kg Physical Exam 2 Narrative: Alert and oriented, talkative, no focal deficits Neck no JVD CV regular tachycardic rhythm Lungs clear to auscultation bilaterally no rales or wheezes Abdomen positive bowel tones soft mild nonspecific tenderness Calves no tenderness cords pretibial edema he has diminished skin turgor and dry scaly skin multiple tattoos Neuro: Subjective findings of focal left visual field loss, dysarthria Urinary Catheter Management: Sethi: Cath Placed During This Visit: yes Reason for Continuing Indwelling Catheter: Accurate Measurement of Urinary Output in Critically Ill Patients Urinary Catheter Date of Insertion: 10/24/25 Urinary Catheter Time of Insertion: 11:30 Data 10/30/25 04:28 10/30/25 04:28 Micro: Microbiology 10/24/25 10:58 Blood Culture - Final Blood NO GROWTH AFTER 5 DAYS 10/24/25 10:56 Blood Culture - Final Blood NO GROWTH AFTER 5 DAYS A&P Assessment and plan 1. Emphysematous cystitis: Plan: Complicated UTI with emphysematous cystitis, in the setting of severe sepsis and septic shock. Resolved Emphysematous cystitis, improving Hyperglycemia with uncontrolled type 1 diabetes Hypovolemic hyponatremia Hypokalemia Acute encephalopathy TRAY likely due to acute tubular necrosis, post shock state, improving with urine output and creatinine downtrending. ? Acute dysarthria, less likely stroke possibly acute metabolic encephalopathy in the setting of prerenal azotemia(currently no urine output) ?Stroke order set initiated. Repeat CT 24 hours after TNK unremarkable. ? Follow-up MRI when stable ?Secondary stroke prevention measures for cardiovascular disease. Patient has uncontrolled type 1 diabetes, so he likely has some degree of vascular disease. ? Avoid any antiplatelets for at least 24 hours, no antithrombotics. ? Patient also has a thrombocytopenia, worse with the sepsis. Possible cirrhosis? But is now improving. Ammonia normal ?Remains oliguric Shock state resolved ? Continue to tailor antibiotics Klebsiella pneumonia, continue ceftriaxone 2 g IV every 24 hours ? Continue to wean off of pressor support, Levophed remains at 2 to 3 mcg/h DVT prophylaxis with SCDs GI prophylaxis metoprolol PDMP PDMP Reviewed: Not Reviewed Attestations 2 Medical Necessity Statement*: Patient is critical ill, requires greater than 2 overnights for treatment of sepsis, septic shock, complicated UTI and suspected ATN. Critical Care Time: Total of 45 minutes was spent with critical care time, with medication management, antibiotic titration, management of vasopressors. Critical Care Time (min): 45 Coding Level of Care Code Critical Care >/= 30 minutes Critical care time (in minutes): 49 The high probability of a clinically significant, sudden or life threatening deterioration, as referenced in this documentation, required my full and direct attention, intervention and personal management. The critical care time shown is in addition to time spent performing any reported separately billable procedures and includes the following: [x] Data and vital sign review and interpretation [x ] Patient assessment, examination and intervention [x] Medication orders and management [x] Patient/Family updates as able [x] Care Coordination and Documentation. Diagnoses Emphysematous cystitis N30.80
[2025-10-29] MEDS: cefTRIAXone 2,000 mg SDV 2000 MG IVP (13:12)
--- NOTE | 2025-10-29 16:40 | PC.NURSE ---
Pt had a xlarge incontinent of Bm episode. Pericare and linen change provided. Moisture barrier cream and skin protectant ointment used. Sacral optifoam , soiled, removed.
--- NOTE | 2025-10-29 18:42 | PC.NURSE ---
Shift summary: Pt remains resting in bed. He has a hard time finding the correct words at times. He has slept a good portion of the day. He has had multiple family members in to visit today. He stated his appetite is improving. He has tried to eat a small portion of every meal today. His urine output has improved: 1000ml. He has had several incontinent of bowel episodes today. Scrotal edema noted. Pt very tender during pericare. He has a pressure injury on his sacrum that is dark red/purple. He does report hip/leg and bottom pain. Usually relieved with position change . He did received pain medication once this shift. He started the shift on Levophed at 1 mcg/min. Unable to titrate off. It has been as high as 4mcg/min. It is now at 2mcg/min. He received a liter bolus of LR. Midodrine was ordered for alter today.
[2025-10-29] MEDS: insulin glargine 100 units/1 mL 10 UNIT SUBCUT (20:42)
[2025-10-30] VITALS (49 sets, daily range): BP systolic 85–115; BP diastolic 52–75; PULSE 91–101; RESP 0–23; TEMP 36.2–36.8; O2SAT 93–96; BMI 22.6
[2025-10-30 04:34] LABS: Hematocrit 28.0 % (37-53); Hemoglobin 9.40 g/dL (11.27-16.99); Mean Corpuscular HGB Conc 33.6 g/dL (30-55); Mean Corpuscular Hemoglobin 28.2 pg (27-33); Mean Corpuscular Volume 84.1 fl (82-101); Nucleated Red Blood Cells % 0 %; Platelet Count 50 10^3/cmm (157-399); Red Blood Count 3.33 10^6/uL (3.85-5.65); White Blood Count 11.92 10^3/uL (3.29-11.43)
[2025-10-30 04:51] LABS: Anion Gap 11.7 (5-19); Blood Urea Nitrogen 55 mg/dL (6-20); Calcium 7.4 mg/dL (8.5-10.5); Carbon Dioxide 25 mmol/L (22-29); Chloride 100 mmol/L (98-107); Glucose 198 mg/dL (65-115); Osmolality Calculated 297 mOsm/kg (285-295); Potassium 3.7 mmol/L (3.5-5.1); Sodium 133 mmol/L (136-145)
--- NOTE | 2025-10-30 08:00 | MR_ITS ---
WS: [id number] MRI HEAD WITHOUT CONTRAST TECHNIQUE: Sagittal T1, T2 axial, T2 axial FLAIR, axial and coronal T1 images, axial susceptibility weighted imaging, axial diffusion weighted images, and coronal T2 images were obtained. CLINICAL INFORMATION: stroke s/p tnkase FINDINGS: Region of restricted diffusion involving the LEFT temporal lobe extending to the temporoparietal junction compatible with acute ischemia. Associated surrounding edema. Abnormal region measures approximately 6.7 x 2.9 cm. Single tiny punctate focus of hemosiderin along the LEFT temporal lobe at the anterior portion of the infarct. Otherwise no evidence of acute hemorrhage or hemosiderin. Mild mucosal thickening in the paranasal sinuses. Mild mucosal thickening in the mastoid air cells. Normal posterior nasopharynx. Normal vascular flow voids at the skull base. No extra-axial fluid collections. Normal optic chiasm and pituitary infundibulum. MR/MR head wo con* [id number] IMPRESSION: 1. Restricted diffusion compatible with acute ischemia involving a large porti on of the LEFT temporal lobe extending to the temporoparietal junction describe d above. 2. Moderate associated edema. No midline shift or hydrocephalus. 3. Tiny punctate focus of hemosiderin along the anterior portion of the infarc t. Otherwise no evidence of hemorrhage. 4. No other acute findings.
--- NOTE | 2025-10-30 11:15 | P.PN_ITS ---
Subjective 2 Subjective: Patient continues to do better, more urine output [place] 50 cc overnight. ? Patient reports no pain. Has been completely weaned off Levaquin. Transferring to MedSurg floor today. Sugars better under control with titration of insulin. Vitals/I&O/Wt Last Vital Signs Temp 98.3 F 10/30/25 05:08 Pulse 97 10/30/25 06:00 Resp 16 10/30/25 05:00 BP 93/58 10/30/25 05:00 Pulse Ox 95 10/30/25 05:00 O2 Del Method Room Air 10/29/25 18:45 O2 Flow Rate 2 10/25/25 14:15 10/29/25 10/30/25 10/30/25 22:59 06:59 14:59 Intake Total 486.75 / 1785.997 11.75 / 1797.747 Output Total 1450 / 1450 300 / 1750 Balance -963.25 / 335.997 -288.25 / 47.747 Weight last 48 hrs Weight 80.2 kg Weight 75.741 kg Physical Exam 2 Narrative: Alert and oriented, talkative, no focal deficits Neck no JVD CV regular tachycardic rhythm Lungs clear to auscultation bilaterally no rales or wheezes Abdomen positive bowel tones soft mild nonspecific tenderness Calves no tenderness cords pretibial edema he has diminished skin turgor and dry scaly skin multiple tattoos Neuro: Subjective findings of focal left visual field loss, dysarthria Urinary Catheter Management: Sethi: Cath Placed During This Visit: yes Reason for Continuing Indwelling Catheter: Accurate Measurement of Urinary Output in Critically Ill Patients Urinary Catheter Date of Insertion: 10/24/25 Urinary Catheter Time of Insertion: 11:30 Data 10/30/25 04:28 10/30/25 04:28 Micro: Microbiology 10/24/25 10:58 Blood Culture - Final Blood NO GROWTH AFTER 5 DAYS 10/24/25 10:56 Blood Culture - Final Blood NO GROWTH AFTER 5 DAYS A&P Assessment and plan 1. Emphysematous cystitis: 2. Stroke: Plan: Complicated UTI with emphysematous cystitis, in the setting of severe sepsis and septic shock. Resolved Emphysematous cystitis, improving Hyperglycemia with uncontrolled type 1 diabetes Hypovolemic hyponatremia Hypokalemia Acute encephalopathy TRAY likely due to acute tubular necrosis, post shock state, improving with urine output and creatinine downtrending. ? Acute dysarthria, less likely stroke possibly acute metabolic encephalopathy in the setting of prerenal azotemia, now resolved ?Stroke order set initiated [address] 24 hours after TNK unremarkable. ? Follow-up MRI when stable ?Secondary stroke prevention measures for cardiovascular disease. Patient has uncontrolled type 1 diabetes, so he likely has some degree of vascular disease. ? Avoid any antiplatelets for at least 24 hours, no antithrombotics. ? Patient also has a thrombocytopenia, worse with the sepsis. Possible cirrhosis? But is now improving. Ammonia normal ?Urine output resolved Shock state resolved ? Continue to tailor antibiotics Klebsiella pneumonia, continue ceftriaxone 2 g IV every 24 hours ? Continue to wean off of pressor support, Levophed discontinued DVT prophylaxis with SCDs Acute stroke Ordering Provider/Ordering MD: Jai Stone MD Date of Service: 10/30/25 MRI HEAD WITHOUT CONTRAST TECHNIQUE: Sagittal T1, T2 axial, T2 axial FLAIR, axial and coronal T1 images, axial susceptibility weighted imaging, axial diffusion weighted images, and coronal T2 images were obtained. CLINICAL INFORMATION: stroke s/p tnkase FINDINGS: Region of restricted diffusion involving the LEFT temporal lobe extending to the temporoparietal junction compatible with acute ischemia. Associated surrounding edema. Abnormal region measures approximately 6.7 x 2.9 cm. Single tiny punctate focus of hemosiderin along the LEFT temporal lobe at the anterior portion of the infarct. Otherwise no evidence of acute hemorrhage or ...hemosiderin. ?See above, patient confirmed to have had his acute stroke. 48 hours out of event, patient received stroke measures, optimize blood pressure, high intensity statin. No hemorrhage seen on the MRI 48 hours later. Will start antiplatelet therapy. Hold off on antithrombotics for at least 10 days. Blood sugars better controlled, continue to titrate insulin. ? Will transfer patient to stepdown, needs aggressive PT/OT PDMP PDMP Reviewed: Not Reviewed Attestations 2 Medical Necessity Statement*: Patient is critical ill, requires greater than 2 overnights for treatment of sepsis, septic shock, complicated UTI and suspected ATN. Critical Care Time: Total of 45 minutes was spent with critical care time, with medication management, antibiotic titration, management of vasopressors. Critical Care Time (min): 45 Coding Level of Care Code Critical Care >/= 30 minutes Critical care time (in minutes): 48 The high probability of a clinically significant, sudden or life threatening deterioration, as referenced in this documentation, required my full and direct attention, intervention and personal management. The critical care time shown is in addition to time spent performing any reported separately billable procedures and includes the following: [x] Data and vital sign review and interpretation [x ] Patient assessment, examination and intervention [x] Medication orders and management [x] Patient/Family updates as able [x] Care Coordination and Documentation. Diagnoses Emphysematous cystitis N30.80 Stroke I63.9
[2025-10-30] MEDS: cefTRIAXone 2,000 mg SDV 2000 MG IVP (13:35)
--- NOTE | 2025-10-30 14:31 | PICC.NOTE ---
Report called to med surg nurse.
--- NOTE | 2025-10-30 14:59 | PC.NURSE ---
Transferred to [facility]
[2025-10-30] MEDS: insulin glargine 100 units/1 mL 10 UNIT SUBCUT (22:13)
[2025-10-31 02:34] VITALS: RESP 16
[2025-10-31] MEDS: morphine 4 mg/mL SDV 1 mL 2 MG IVP (02:34)
[2025-10-31 03:53] LABS: Hematocrit 29.5 % (37-53); Hemoglobin 9.80 g/dL (11.27-16.99); Mean Corpuscular HGB Conc 33.2 g/dL (30-55); Mean Corpuscular Hemoglobin 27.8 pg (27-33); Mean Corpuscular Volume 83.8 fl (82-101); Nucleated Red Blood Cells % 0 %; Platelet Count 71 10^3/cmm (157-399); Red Blood Count 3.52 10^6/uL (3.85-5.65); White Blood Count 11.63 10^3/uL (3.29-11.43)
[2025-10-31 04:00] VITALS: BP 112/70; PULSE 86; RESP 16; TEMP 36.4; O2SAT 94
[2025-10-31 04:11] LABS: Magnesium 2.0 mg/dL (1.7-2.3)
[2025-10-31 04:12] LABS: Alanine Aminotransferase 6 U/L (0-41); Albumin Level 1.8 g/dL (3.5-5.2); Alkaline Phosphatase 461 U/L (40-130); Anion Gap 12.9 (5-19); Aspartate Amino Transferase 17 U/L (0-40); Blood Urea Nitrogen 48 mg/dL (6-20); Calcium 7.3 mg/dL (8.5-10.5); Carbon Dioxide 26 mmol/L (22-29); Chloride 99 mmol/L (98-107); Globulin 2.7 g/dL (1.3-4.6); Glucose 225 mg/dL (65-115); Osmolality Calculated 298 mOsm/kg (285-295); Potassium 3.9 mmol/L (3.5-5.1); Sodium 134 mmol/L (136-145); Total Protein 4.5 g/dL (6.6-8.7)
[2025-10-31 08:00] VITALS: BP 107/69; PULSE 92; RESP 16; TEMP 36.4; O2SAT 95
[2025-10-31 12:00] VITALS: BP 118/74; PULSE 91; RESP 17; TEMP 36.4; O2SAT 95
[2025-10-31] MEDS: cefTRIAXone 2,000 mg SDV 2000 MG IVP (12:43)
[2025-10-31 16:00] VITALS: BP 126/76; PULSE 98; RESP 17; TEMP 36.4; O2SAT 96
--- NOTE | 2025-10-31 19:27 | P.PN_ITS ---
Subjective 2 Subjective: Patient doing well overnight, cooperating very with PT, To the edge of the bed today. Improved urine output 600 yesterday, 1000 today. Kidney function improving creatinine down, patient is lucid and talking. Vitals/I&O/Wt Last Vital Signs Temp 97.5 F L 10/31/25 16:00 Pulse 98 10/31/25 16:00 Resp 17 10/31/25 16:00 BP 126/76 10/31/25 16:00 Pulse Ox 96 10/31/25 16:00 O2 Del Method Room Air 10/31/25 16:00 O2 Flow Rate 2 10/25/25 14:15 10/31/25 10/31/25 10/31/25 06:59 14:59 22:59 Intake Total 960 / 960 360 / 1320 Output Total 1000 / 2950 600 / 600 700 / 1300 Balance -1000 / -1750 360 / 360 -340 / 20 Weight last 48 hrs Weight 77.621 kg Weight 80.2 kg Physical Exam 2 Narrative: Alert and oriented, talkative, no focal deficits Neck no JVD CV regular tachycardic rhythm Lungs clear to auscultation bilaterally no rales or wheezes Abdomen positive bowel tones soft mild nonspecific tenderness Calves no tenderness cords pretibial edema he has diminished skin turgor and dry scaly skin multiple tattoos Neuro: Subjective findings of focal left visual field loss, dysarthria Urinary Catheter Management: Sethi: Cath Placed During This Visit: yes Reason for Continuing Indwelling Catheter: Other Urinary Catheter Date of Insertion: 10/24/25 Urinary Catheter Time of Insertion: 11:30 Data 10/31/25 03:00 10/31/25 03:00 A&P Assessment and plan 1. Emphysematous cystitis: 2. Stroke: Plan: Complicated UTI with emphysematous cystitis, in the setting of severe sepsis and septic shock. Resolved Emphysematous cystitis, improving Hyperglycemia with uncontrolled type 1 diabetes Hypovolemic hyponatremia Hypokalemia Acute encephalopathy TRAY likely due to acute tubular necrosis, post shock state, improving with urine output and creatinine downtrending. ? Acute dysarthria, less likely stroke possibly acute metabolic encephalopathy in the setting of prerenal azotemia, now resolved ?Stroke order set initiated [address] 24 hours after TNK unremarkable. ? Follow-up MRI when stable ?Secondary stroke prevention measures for cardiovascular disease. Patient has uncontrolled type 1 diabetes, so he likely has some degree of vascular disease. ? Stable on daily aspirin ? Patient also has a thrombocytopenia, worse with the sepsis. Possible cirrhosis? But is now improving. Ammonia normal ?Urine output resolved Shock state resolved ? Continue to tailor antibiotics Klebsiella pneumonia, continue ceftriaxone 2 g IV every 24 hours ? Continue to wean off of pressor support, Levophed discontinued DVT prophylaxis with SCDs patient confirmed to have had his acute stroke. 48 hours out of event, patient received stroke measures, optimize blood pressure, high intensity statin. No hemorrhage seen on the MRI 48 hours later. Continue antiplatelet therapy. Hold off on antithrombotics for at least 10 days. Blood sugars better controlled, continue to titrate insulin. ? Continue on MedSurg floor, continue PT, patient has severe deconditioning PDMP PDMP Reviewed: Not Reviewed Attestations 2 Medical Necessity Statement*: Patient is improving, has ICU myopathy, deconditioning, but cognitively, stable, sepsis is resolved. Depending on physical therapy evaluation, patient may be appropriate for SNF. Pursue authorizations. Critical Care Time: Total of 45 minutes was spent with critical care time, with medication management, antibiotic titration, management of vasopressors. Critical Care Time (min): 45 Diagnoses Emphysematous cystitis N30.80 Stroke I63.9
[2025-10-31 20:00] VITALS: BP 123/72; PULSE 100; RESP 16; TEMP 36.6; O2SAT 95
[2025-10-31] MEDS: insulin glargine 100 units/1 mL 15 UNIT SUBCUT (21:36)
[2025-11-01] VITALS (9 sets, daily range): BP systolic 104–124; BP diastolic 69–76; PULSE 89–104; RESP 16–19; TEMP 36.1–36.9; O2SAT 94–98
[2025-11-01] MEDS: morphine 4 mg/mL SDV 1 mL 2 MG IVP (00:06)
[2025-11-01] MEDS: cefTRIAXone 2,000 mg SDV 2000 MG IVP (12:55)
[2025-11-01] MEDS: insulin glargine 100 units/1 mL 15 UNIT SUBCUT (21:12)
[2025-11-01] MEDS: HYDROcodone-acetaminophen 5-325 mg Tablet 1 TAB PO (22:45)
--- NOTE | 2025-11-01 23:03 | P.PN_ITS ---
Subjective 2 Subjective: Patient doing well overnight, last cooperated physical therapy yesterday, when he was evaluated. Came to edge of bed. Patient tells me that he has some more movement in his legs, which is reassuring. Can press his toes up against the guardrail of the end of the bed. I had a long conversation with the patient regarding addressing his stroke. It is possible that it was an embolic source from his heart, though anticoagulation cannot be readministered until 10 days at least from administration of the TNK which he received on 10/27/2025 (6 days ago). Patient is stable after reinitiating antiplatelet (ASA 81) 2 days ago. Patient is not on any antihypertensives, and blood pressure is optimal. Patient is tolerating the high intensity statin (atorvastatin 40 mg nightly) Blood sugars are better controlled, long-acting/short acting insulin schedule is being titrated according to POC Accu-Cheks. Urine output approximately 3 L today. Patient is in polyuric phase of kidney recovery. Vitals/I&O/Wt Last Vital Signs Temp 98 F 11/01/25 20:00 Pulse 104 H 11/01/25 20:00 Resp 18 11/01/25 20:00 BP 121/75 11/01/25 20:00 Pulse Ox 98 11/01/25 20:00 O2 Del Method Room Air 11/01/25 15:50 O2 Flow Rate 2 10/25/25 14:15 11/01/25 11/01/25 11/02/25 14:59 22:59 06:59 Intake Total 720 / 720 480 / 1200 Output Total 2600 / 2600 Balance 720 / 720 -2120 / -1400 Weight last 48 hrs Weight 77.564 kg Weight 77.621 kg Physical Exam 2 Narrative: Alert and oriented, talkative, no focal deficits Neck no JVD CV regular tachycardic rhythm Lungs clear to auscultation bilaterally no rales or wheezes Abdomen positive bowel tones soft mild nonspecific tenderness Calves no tenderness cords pretibial edema he has diminished skin turgor and dry scaly skin multiple tattoos Neuro: Subjective findings of focal left visual field loss, dysarthria Urinary Catheter Management: Sethi: Cath Placed During This Visit: yes Reason for Continuing Indwelling Catheter: Assist healing open wound Urinary Catheter Date of Insertion: 10/24/25 Urinary Catheter Time of Insertion: 11:30 Data 10/31/25 03:00 10/31/25 03:00 A&P Assessment and plan 1. Emphysematous cystitis: 2. Stroke: Plan: Complicated UTI with emphysematous cystitis, in the setting of severe sepsis and septic shock. Resolved Emphysematous cystitis, improving Hyperglycemia with uncontrolled type 1 diabetes Hypovolemic hyponatremia Hypokalemia Acute encephalopathy patient confirmed to have had his acute stroke last known normal on 10/27/2025. 48 hours out of event, per protocol, patient received stroke measures, optimize blood pressure, high intensity statin. No hemorrhage seen on the MRI 48 hours later. Continue antiplatelet therapy. Hold off on antithrombotics for at least 10 days. Blood sugars better controlled, continue to titrate insulin. ? Continue on MedSurg floor, continue PT, patient has severe deconditioning ?When safe to consider antithrombotics, will consider cardioembolic workup TRAY likely due to acute tubular necrosis, post shock state, improving with urine output and creatinine downtrending. ? Acute dysarthria, less likely stroke possibly acute metabolic encephalopathy in the setting of prerenal azotemia, now resolved. With urine output approximately 3 L for the past 24 hours, patient is now in the polyuric phase of renal recovery. ?Stroke order set initiated 10/27/[address] 24 hours after TNK shows no hemorrhage. ?Secondary stroke prevention measures for cardiovascular disease. Patient has uncontrolled type 1 diabetes, so he likely has some degree of vascular disease. ? Stable on daily aspirin, high intensity statin, blood pressure within ideal parameters without antihypertensives. ? Patient also has a thrombocytopenia, worse with the sepsis. Continues to improve as sepsis improves with IV antibiotics, daily labs. ?Urine output resolved Shock state resolved ? Continue to tailor antibiotics Klebsiella pneumonia, continue ceftriaxone 2 g IV every 24 hours ?Pressors have been discontinued, patient is now on MedSurg floor DVT prophylaxis with SCDs PDMP PDMP Reviewed: Not Reviewed Attestations 2 Medical Necessity Statement*: Patient is improving, has ICU myopathy, deconditioning, but cognitively, stable, sepsis is resolved. Depending on physical therapy evaluation, patient may be appropriate for SNF. Pursue authorizations. Continue PT/OT, cardiovascular risk factor control, titrating insulin requirement. Will need close follow-up, anticipate discharge in 2-3 midnights, as functional capacity improves well enough for discharge home with home health services. Critical Care Time: Total of 45 minutes was spent with critical care time, with medication management, antibiotic titration, management of vasopressors. Critical Care Time (min): 45 Diagnoses Emphysematous cystitis N30.80 Stroke I63.9
[2025-11-02] VITALS (10 sets, daily range): BP systolic 120–137; BP diastolic 70–80; PULSE 56–103; RESP 16–18; TEMP 36.4–36.8; O2SAT 95–100
[2025-11-02] MEDS: morphine 4 mg/mL SDV 1 mL 2 MG IVP (02:01)
[2025-11-02 05:18] LABS: Hematocrit 28.7 % (37-53); Hemoglobin 9.20 g/dL (11.27-16.99); Mean Corpuscular HGB Conc 32.1 g/dL (30-55); Mean Corpuscular Hemoglobin 27.5 pg (27-33); Mean Corpuscular Volume 85.9 fl (82-101); Nucleated Red Blood Cells % 0 %; Platelet Count 241 10^3/cmm (157-399); Red Blood Count 3.34 10^6/uL (3.85-5.65); White Blood Count 9.68 10^3/uL (3.29-11.43)
[2025-11-02 05:39] LABS: Magnesium 1.8 mg/dL (1.7-2.3)
[2025-11-02 05:42] LABS: Alanine Aminotransferase 20 U/L (0-41); Albumin Level 1.8 g/dL (3.5-5.2); Alkaline Phosphatase 658 U/L (40-130); Anion Gap 14.2 (5-19); Aspartate Amino Transferase 50 U/L (0-40); Blood Urea Nitrogen 38 mg/dL (6-20); Calcium 7.3 mg/dL (8.5-10.5); Carbon Dioxide 26 mmol/L (22-29); Chloride 102 mmol/L (98-107); Globulin 2.9 g/dL (1.3-4.6); Glucose 313 mg/dL (65-115); Osmolality Calculated 307 mOsm/kg (285-295); Potassium 4.2 mmol/L (3.5-5.1); Sodium 138 mmol/L (136-145); Total Protein 4.7 g/dL (6.6-8.7)
--- NOTE | 2025-11-02 11:19 | PC.NURSE ---
property coordinator rounds at 1040- patient resting in bed with eyes closed.
[2025-11-02] MEDS: cefTRIAXone 2,000 mg SDV 2000 MG IVP (12:58)
[2025-11-02] MEDS: insulin glargine 100 units/1 mL 28 UNIT SUBCUT (21:52)
[2025-11-02 23:35] LABS: C.Diff PCR (Lab) NEGATIVE (Negative)
--- NOTE | 2025-11-02 23:45 | P.PN_ITS ---
Subjective 2 Subjective: Patient is a very pleasant 44-year-old male seen and examined at bedside on hospital rounds today. Patient laying in bed stating that his backside and upper bottom are sore, denies new or worsening symptoms. Patient continues to have diarrhea, pending C. difficile analysis. Reviewed earlier provider's documentation agreed with previously documented plan in chart on this date of service with no addendum's or additions. Vitals/I&O/Wt Last Vital Signs Temp 98.1 F 11/03/25 00:00 Pulse 104 H 11/03/25 00:00 Resp 18 11/03/25 00:00 BP 132/74 11/03/25 00:00 Pulse Ox 96 11/03/25 00:00 O2 Del Method Room Air 11/02/25 20:00 O2 Flow Rate 2 10/25/25 14:15 11/02/25 11/02/25 11/03/25 14:59 22:59 06:59 Intake Total 720 / 720 2000 / 2720 Output Total 950 / 950 1000 / 1950 Balance -230 / -230 1000 / 770 Weight last 48 hrs Weight 77.678 kg Weight 77.564 kg Physical Exam 2 Narrative: Alert and oriented, talkative, no focal deficits Neck no JVD CV regular tachycardic rhythm Lungs clear to auscultation bilaterally no rales or wheezes Abdomen positive bowel tones soft mild nonspecific tenderness Calves no tenderness cords pretibial edema he has diminished skin turgor and dry scaly skin multiple tattoos Neuro: Subjective findings of focal left visual field loss, dysarthria Urinary Catheter Management: Sethi: Cath Placed During This Visit: yes Reason for Continuing Indwelling Catheter: Other Urinary Catheter Date of Insertion: 10/24/25 Urinary Catheter Time of Insertion: 11:30 Data 11/02/25 04:42 11/02/25 04:42 A&P Assessment and plan 1. Emphysematous cystitis: 2. Stroke: Plan: Complicated UTI with emphysematous cystitis, in the setting of severe sepsis and septic shock. Resolved Emphysematous cystitis, improving Hyperglycemia with uncontrolled type 1 diabetes Hypovolemic hyponatremia Hypokalemia Acute encephalopathy patient confirmed to have had his acute stroke last known normal on 10/27/2025. 48 hours out of event, per protocol, patient received stroke measures, optimize blood pressure, high intensity statin. No hemorrhage seen on the MRI 48 hours later. Continue antiplatelet therapy. Hold off on antithrombotics for at least 10 days. Blood sugars better controlled, continue to titrate insulin. ? Continue on MedSurg floor, continue PT, patient has severe deconditioning ?When safe to consider antithrombotics, will consider cardioembolic workup TRAY likely due to acute tubular necrosis, post shock state, improving with urine output and creatinine downtrending. ? Acute dysarthria, less likely stroke possibly acute metabolic encephalopathy in the setting of prerenal azotemia, now resolved. With urine output approximately 3 L for the past 24 hours, patient is now in the polyuric phase of renal recovery. ?Stroke order set initiated 10/27/[address] 24 hours after TNK shows no hemorrhage. ?Secondary stroke prevention measures for cardiovascular disease. Patient has uncontrolled type 1 diabetes, so he likely has some degree of vascular disease. ? Stable on daily aspirin, high intensity statin, blood pressure within ideal parameters without antihypertensives. ? Patient also has a thrombocytopenia, worse with the sepsis. Continues to improve as sepsis improves with IV antibiotics, daily labs. ?Urine output resolved Shock state resolved ? Continue to tailor antibiotics Klebsiella pneumonia, continue ceftriaxone 2 g IV every 24 hours ?Pressors have been discontinued, patient is now on MedSurg floor DVT prophylaxis with SCDs PDMP PDMP Reviewed: Not Reviewed Attestations 2 Medical Necessity Statement*: Patient is improving, has ICU myopathy, deconditioning, but cognitively, stable, sepsis is resolved. Depending on physical therapy evaluation, patient may be appropriate for SNF. Pursue authorizations. Continue PT/OT, cardiovascular risk factor control, titrating insulin requirement. Will need close follow-up, anticipate discharge in 2-3 midnights, as functional capacity improves well enough for discharge home with home health services. Critical Care Time: Total of 45 minutes was spent with critical care time, with medication management, antibiotic titration, management of vasopressors. Critical Care Time (min): 45 Coding Level of Care Code 26549 Diagnoses Emphysematous cystitis N30.80 Stroke I63.9
[2025-11-03] VITALS (7 sets, daily range): BP systolic 104–132; BP diastolic 62–75; PULSE 103–109; RESP 16–18; TEMP 36.6–36.8; O2SAT 95–96
[2025-11-03 06:59] LABS: Hematocrit 27.0 % (37-53); Hemoglobin 8.60 g/dL (11.27-16.99); Mean Corpuscular HGB Conc 31.9 g/dL (30-55); Mean Corpuscular Hemoglobin 27.9 pg (27-33); Mean Corpuscular Volume 87.7 fl (82-101); Nucleated Red Blood Cells % 0 %; Platelet Count 282 10^3/cmm (157-399); Red Blood Count 3.08 10^6/uL (3.85-5.65); White Blood Count 11.47 10^3/uL (3.29-11.43)
[2025-11-03 07:20] LABS: Alanine Aminotransferase 96 U/L (0-41); Albumin Level 1.8 g/dL (3.5-5.2); Alkaline Phosphatase 957 U/L (40-130); Anion Gap 14.1 (5-19); Aspartate Amino Transferase 174 U/L (0-40); Blood Urea Nitrogen 28 mg/dL (6-20); Calcium 7.4 mg/dL (8.5-10.5); Carbon Dioxide 24 mmol/L (22-29); Chloride 99 mmol/L (98-107); Globulin 3.2 g/dL (1.3-4.6); Glucose 359 mg/dL (65-115); Magnesium 1.5 mg/dL (1.7-2.3); Osmolality Calculated 296 mOsm/kg (285-295); Potassium 4.1 mmol/L (3.5-5.1); Sodium 133 mmol/L (136-145); Total Protein 5.0 g/dL (6.6-8.7)
--- NOTE | 2025-11-03 09:33 | PC.NURSE ---
client care coordinator rounds at 0855- patient states he is likely going to transfer to rehab today, I gave him another stroke education book and was able to go through it with him, patient verbalized understanding and I answered all questions. Gave him my contact info.
[2025-11-03] MEDS: cefTRIAXone 2,000 mg SDV 2000 MG IVP (11:48)
--- NOTE | 2025-11-03 11:58 | P.DS_ITS ---
Discharge Providers Date of Admission: 10/24/25 14:36 Date of Discharge: November 03, 2025 Attending Provider at Admission: Yo Chu Attending Provider at Discharge: Ileana Arshad NP Primary Care Provider: Glendy Moseley MD Diagnoses at Discharge Discharge Diagnosis 1. Emphysematous cystitis: 2. 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 Reports one day of severe nausea and vomiting with poor oral intake prior to presentation. Endorses a little shortness of breath, denies chest pain and significant abdominal pain. Has chronic lower extremity wounds that he self-manages and reports decreased sensation in the feet. Uses a walker and wheelchair at home due to neuropathy. In the emergency department, he was noted to be hypotensive and febrile with tachycardia and hypoxemia on room air. Laboratory evaluation showed leukocytosis, hyperglycemia, hyponatremia, hypokalemia, elevated creatinine compared to a normal value one year prior, elevated lactate (with partial downtrend on reassessment), low albumin, elevated alkaline phosphatase, elevated C-reactive protein, and urinalysis with pyuria, proteinuria, glucosuria, trace ketones, and cloudy urine; serum ketones reported negative. Respiratory viral panel was negative. Head CT showed no intracranial pathology. CT chest/abdomen/pelvis demonstrated emphysematous cystitis associated with ascending gas-producing left-sided urinary tract infection and probable pyelonephritis; dependent basal lung changes likely atelectasis/aspiration not excluded; mild esophageal wall thickening; possible left colonic underdistention versus wall thickening. Patient and family discussions noted challenges with diabetes self-care and prior wound clinic attendance that he stopped. Code status discussion performed; patient is awake and making his own decisions. Hospital Course Hospital Course Complicated UTI with emphysematous cystitis, in the setting of severe sepsis and septic shock. Resolved Emphysematous cystitis, improving Hyperglycemia with uncontrolled type 1 diabetes Hypovolemic hyponatremia Hypokalemia Acute encephalopathy patient confirmed to have had his acute stroke last known normal on 10/27/2025. 48 hours out of event, per protocol, patient received stroke measures, optimize blood pressure, high intensity statin. No hemorrhage seen on the MRI 48 hours later. Continue antiplatelet therapy. Hold off on antithrombotics for at least 10 days. Blood sugars better controlled, continue to titrate insulin. ? Continue on [facility] floor, continue PT, patient has severe deconditioning ?When safe to consider antithrombotics, will consider cardioembolic workup TRAY likely due to acute tubular necrosis, post shock state, improving with urine output and creatinine downtrending. ? Acute dysarthria, less likely stroke possibly acute metabolic encephalopathy in the setting of prerenal azotemia, now resolved. With urine output approximately 3 L for the past 24 hours, patient is now in the polyuric phase of renal recovery. ?Stroke order set initiated 10/27/[address] 24 hours after TNK shows no hemorrhage. ?Secondary stroke prevention measures for cardiovascular disease. Patient has uncontrolled type 1 diabetes, so he likely has some degree of vascular disease. ? Stable on daily aspirin, high intensity statin, blood pressure within ideal parameters without antihypertensives. ? Patient also has a thrombocytopenia, worse with the sepsis. Continues to improve as sepsis improves with IV antibiotics, daily labs. ?Urine output resolved Shock state resolved ? Continue to tailor antibiotics Klebsiella pneumonia, continue ceftriaxone 2 g IV every 24 hours ?Pressors have been discontinued, [facility] Discharge: Patient discharge is [facility] to [facility] by [facility]. Continues oral Levaquin x 6 days for total of 14 days treatment for complicated UTI. Advised continued home medications as previously prescribed, continue cardioprotective medications and follow-up outpatient with primary care provider in 1 to 3 days neurology and cardiology at the next available appointment what what you find. Physical Exam Narrative: Alert and oriented, talkative, no focal deficits Neck no JVD CV regular tachycardic rhythm Lungs clear to auscultation bilaterally no rales or wheezes Abdomen positive bowel tones soft mild nonspecific tenderness Calves no tenderness cords pretibial edema he has diminished skin turgor and dry scaly skin, breakdown IV antibiotics packed, multiple tattoos Neuro: Subjective findings of focal left visual field loss, dysarthria Urinary Catheter Management: Sethi: Cath Placed During This Visit: yes Reason for Continuing Indwelling Catheter: Other Urinary Catheter Date of Insertion: 10/24/25 Urinary Catheter Time of Insertion: 11:30 Discharge Data Studies Completed and Pending Completed Studies During Hospitalization Category Date Time Status CT chest abdomen pelvis [[place] [id number] Cat Scan 10/24/25 12:48 Completed ] Stat CT head thrombolytic 79316 Stat Cat Scan 10/27/25 15:[address] head wo con* [id number] Routine Cat Scan 10/28/25 09:[address] head wo con* [id number] Stat Cat Scan 10/24/25 10:40 Completed XR chest 1V portable [id number] Stat Exams 10/24/25 10:39 Completed XR chest 1V portable [id number] Stat Exams 10/24/25 20:23 Completed MR head wo con* [id number] Urgent MRI 10/30/25 08:00 Completed US echo complete [CV. echo complete* [id number]] Routine Ultrasound 10/25/25 07:01 Completed Pending at discharge Category Date Time Status CBC Auto Diff [Complete Blood Count w/Auto] AM LABS Lab 11/04/25 04:00 Ordered Comprehensive Metabolic Panel AM LABS Lab 11/04/25 04:00 Ordered Magnesium AM LABS Lab 11/04/25 04:00 Ordered Radiology Impressions Chest/Abdomen/Pelvis CT 10/24/25 12:48 IMPRESSION: 1. Dependent linear stranding, groundglass at the lung bases, likely due to atelectasis. Aspiration cannot be excluded. 2. Mild esophageal wall thickening, suggestive of nonspecific esophagitis. 3. Additional findings, as above. IMPRESSION: 1. Emphysematous cystitis with associated ascending gas producing left-sided urinary tract infection and probable pyelonephritis. 2. Left colonic underdistention versus wall thickening. Nonspecific colitis can not be excluded. 3. Additional findings, as above. Chest X-Ray 10/24/25 20:23 IMPRESSION: Right internal jugular catheter in the right atrium no pneumothorax Vague linear opacities lower lobe may reflect atelectasis correlate and follow-up as indicated Head CT 10/28/25 09:00 IMPRESSION: 1. Ill-defined hypoattenuation in the left temporoparietal lobe with associated sulcal effacement, consistent with evolving infarction. No CT evidence of acute intracranial hemorrhage. 2. Additional findings, as above. Head MRI 10/30/25 08:00 IMPRESSION: 1. Restricted diffusion compatible with acute ischemia involving a large portion of the LEFT temporal lobe extending to the temporoparietal junction described above. 2. Moderate associated edema. No midline shift or hydrocephalus. 3. Tiny punctate focus of hemosiderin along the anterior portion of the infarct. Otherwise no evidence of hemorrhage. 4. No other acute findings. Laboratory Results WBC 11.47 10^3/uL (3.29-11.43) H 11/03/25 05:21 RBC 3.08 10^6/uL (3.85-5.65) L 11/03/25 05:21 Hgb 8.60 g/dL (11.27-16.99) L 11/03/25 05:21 Hct 27.0 % (37-53) L 11/03/25 05:21 MCV 87.7 fl (82-101) 11/03/25 05:21 MCH 27.9 pg (27-33) 11/03/25 05:21 MCHC 31.9 g/dL (30-55) 11/03/25 05:21 RDW 14.5 % (12.1-15.1) 11/03/25 05:21 Plt Count 282 10^3/cmm (157-399) 11/03/25 05:21 MPV 11.1 fL (7.4-10.4) H 11/03/25 05:21 Neut % (Auto) 71.5 % 11/03/25 05:21 Lymph % (Auto) 18.5 % 11/03/25 05:21 [place] % (Auto) 8.1 % 11/03/25 05:21 Eos % (Auto) 1.2 % 11/03/25 05:21 Baso % (Auto) 0.2 % 11/03/25 05:21 Neut # (Auto) 8.20 10^3/uL (1.8-7.7) H 11/03/25 05:21 Lymph # (Auto) 2.1 10^3/uL (0.8-4.8) 11/03/25 05:21 [place] # (Auto) 0.9 10^3/uL (0.2-0.9) 11/03/25 05:21 Eos # (Auto) 0.1 10^3/uL (0.0-0.8) 11/03/25 05:21 Baso # (Auto) 0.0 10^3/uL (0.0-0.1) 11/03/25 05:21 Nucleated RBC % (auto) 0 % 11/03/25 05:21 Nucleated RBCs # 0.0 /100WBC 11/03/25 05:21 PT 12.50 SECONDS (12.1-14.9) 10/27/25 15:36 INR 0.87 (0.8-1.2) 10/27/25 15:36 APTT 24.6 SECONDS (23.9-36.7) 10/27/25 15:36 Specimen Type Arterial 10/24/25 10:33 Sample Site Radial, left 10/24/25 10:33 ABG pH 7.41 (7.35-7.45) 10/24/25 10:33 ABG pCO2 32.1 mmHg (35-45) L 10/24/25 10:33 ABG pO2 165.0 mmHg (80.0-100.0) H 10/24/25 10:33 ABG HCO3 20.5 mmol/L (22-26) L 10/24/25 10:33 ABG O2 Saturation > 99.1 10/24/25 10:33 ABG Base Excess -3.4 mmol/L (-2.0-2.0) L 10/24/25 10:33 Adriel Test Pos 10/24/25 10:33 A-a O2 Gradient Not Reportable 10/24/25 10:33 Hematocrit 35.1 % (42-52) L 10/24/25 10:33 Hgb O2 Saturation 98.7 % (95-100) 10/24/25 10:33 Carboxyhemoglobin 0.4 %THgb (0.4-20.1) 10/24/25 10:33 Methemoglobin 0.3 % (0.4-1.5) L 10/24/25 10:33 Total Hemoglobin 11.5 g/dL (14-18) L 10/24/25 10:33 Sodium 123.0 mmol/L (131-143) L 10/24/25 10:33 Potassium 3.4 mmol/L (3.5-5.0) L 10/24/25 10:33 Glucose 353.0 mg/dL (70-115) H 10/24/25 10:33 Ionized Calcium 1.0 mmol/L (1.1-1.4) L 10/24/25 10:33 O2 Delivery Device Nrb 10/24/25 10:33 O2 Liters/Min 10.0 % 10/24/25 10:33 Certified Dietary Manager ID Waci 10/24/25 10:33 Sodium 133 mmol/L (136-145) L 11/03/25 05:21 Potassium 4.1 mmol/L (3.5-5.1) 11/03/25 05:21 Chloride 99 mmol/L (98-107) 11/03/25 05:21 Carbon Dioxide 24 mmol/L (22-29) 11/03/25 05:21 Anion Gap 14.1 (5-19) 11/03/25 05:21 BUN 28 mg/dL (6-20) H 11/03/25 05:21 Creatinine 0.8 mg/dL (0.7-1.2) 11/03/25 05:21 GFR Calculation 105.0 mL/min (90-130) 11/03/25 05:21 Glucose 359 mg/dL (65-115) H 11/03/25 05:21 POC Glucose 223 mg/dL (70-110) H 11/03/25 10:35 Estimat Average Glucose 361 10/24/25 10:56 Hemoglobin A1c 14.2 % (4.0-6.0) H 10/24/25 10:56 Calculated Osmolality 296 mOsm/kg (285-295) H 11/03/25 05:21 Lactic Acid 6.8 mmol/L (0.5-2.2) H* 10/24/25 10:56 Lactic Acid (Sepsis) 4.8 mmol/L (0.5-2.2) H* 10/24/25 13:36 Lactate 3.5 mmol/L (0.5-2.2) H 10/25/25 08:23 Calcium 7.4 mg/dL (8.5-10.5) L 11/03/25 05:21 Ionized Calcium Mark 0.9 mmol/L (1.1-1.4) L 10/25/25 02:03 Phosphorus 4.3 mg/dL (2.5-4.5) 11/02/25 04:42 Magnesium 1.5 mg/dL (1.7-2.3) L 11/03/25 05:21 Total Bilirubin 0.3 mg/dL (0.15-1.2) 11/03/25 05:21 AST 174 U/L (0-40) H 11/03/25 05:21 ALT 96 U/L (0-41) H 11/03/25 05:21 Alkaline Phosphatase 957 U/L (40-130) H 11/03/25 05:21 Ammonia 37 umol/L (16-60) 10/28/25 09:06 Creatine Kinase 115 U/L (39-308) 10/26/25 03:17 C-Reactive Protein 273.6 mg/L (0.0-4.9) H 10/24/25 10:56 Total Protein 5.0 g/dL (6.6-8.7) L 11/03/25 05:21 Albumin 1.8 g/dL (3.5-5.2) L 11/03/25 05:21 Globulin 3.2 g/dL (1.3-4.6) 11/03/25 05:21 Triglycerides 232 mg/dL (0-150) H 10/28/25 03:54 Cholesterol 126 mg/dL (0-200) 10/28/25 03:54 LDL Cholesterol, Calc 68 mg/dL (50-129) 10/28/25 03:54 HDL Cholesterol 12 mg/dL (60-100) L 10/28/25 03:54 LDL/HDL Ratio 5.67 RATIO (0.00-3.22) H 10/28/25 03:54 Cholesterol/HDL Ratio 10.50 mg/dL (1.0-5.00) H 10/28/25 03:54 Lipase 7 U/L (13-60) L 10/24/25 10:56 Procalcitonin > 100.00 ng/mL (0-0.5) H 10/24/25 10:56 TSH 2.71 uIU/mL (0.27-4.20) 10/24/25 20:53 Random Cortisol 34.96 ug/dL (2.47-19.5) H 10/24/25 20:53 Urine Color Yellow (Yellow) 10/24/25 11:53 Urine Appearance Cloudy (CLEAR) A 10/24/25 11:53 Urine pH 5.0 (5-7) 10/24/25 11:53 Ur Specific [place] 1.020 (1.005-1.030) 10/24/25 11:53 Urine Protein 3+ (Negative) A 10/24/25 11:53 Urine Glucose (UA) 3+ (Normal) H 10/24/25 11:53 Urine Ketones Trace (Negative) 10/24/25 11:53 Urine Blood 3+ (Negative) A 10/24/25 11:53 Urine Nitrate Negative (Negative) 10/24/25 11:53 Urine Bilirubin Negative (Negative) 10/24/25 11:53 Urine Urobilinogen 1.0 mg/dL (Negative) 10/24/25 11:53 Ur Leukocyte Esterase 1+ (Negative) A 10/24/25 11:53 Urine RBC 6-10 /hpf (0-2) 10/24/25 11:53 Urine WBC 21-50 /hpf (0-5) H 10/24/25 11:53 Ur Squamous Epith Cells 0-5 /hpf (0-5) 10/24/25 11:53 Amorphous Sediment Not Reportable 10/24/25 11:53 Urine Bacteria None seen /hpf (NONE) 10/24/25 11:53 Hyaline Casts 12.81 /lpf 10/24/25 11:53 Urine Osmolality 320 mOsm/kg (50-1200) 10/24/25 05:18 Ur Random Sodium 25 mmol/L 10/24/25 11:53 Serum Ketones Negative (Negative) 10/24/25 10:56 C. difficile (PCR) Negative (Negative) 11/02/25 22:25 Influenza A (PCR) Negative (Negative) 10/24/25 11:16 Influenza Type B (PCR) Negative (Negative) 10/24/25 11:16 RSV (PCR) Negative (Negative) 10/24/25 11:16 SARS-CoV-2 (PCR) Negative (Negative) 10/24/25 11:16 Blood Type O Positive 10/28/25 06:17 Rho(D) Type Rh positive 10/28/25 06:17 Vitals Last Vital Signs Temp 97.8 F 11/03/25 11:23 Pulse 107 H 11/03/25 11:23 Resp 16 11/03/25 11:23 BP 104/62 11/03/25 11:23 Pulse Ox 96 11/03/25 11:23 O2 Del Method Room Air 11/03/25 11:23 O2 Flow Rate 2 10/25/25 14:15 Discharge Plan Discharge Patient Disposition: Xfer SNF Condition: Stable Prescriptions: New atorvastatin 40 mg Tablet 40 mg PO BEDTIME 90 Days Qty: 90 0RF insulin glargine [Lantus U-100 Insulin] 100 unit/mL Solution 28 unit SUBCUT BEDTIME 90 Days Qty: 10 0RF aspirin 81 mg Tablet,Chewable 81 mg PO DAILY 90 Days Qty: 90 0RF insulin lispro [Humalog U-100 Insulin] 100 unit/mL Solution 9 unit SUBCUT TIDAC 90 Days Qty: 10 0RF Rx Instructions: 9 units SQ TIDAC pregabalin 75 mg Capsule 75 mg PO BID 30 Days Qty: 60 0RF levofloxacin 500 mg tablet 500 mg PO DAILY 6 Days Qty: 6 0RF insulin lispro [Humalog U-100 Insulin] 100 unit/mL Solution 1 sliding scale dose SUBCUT TIDAC 30 Days Qty: 10 0RF Rx Instructions: 141-180 mg/dl 2 unit/SQ 181-220 mg/dl 4 units/SQ 221-260 mg/dl 6 units/SQ 261-300 mg/dl 8 units/SQ 301-350 mg/dl 10 units/SQ 351-400 mg/dl 12 units/SQ greater than 400 mg/dl 14 units/SQ Discharge Order = DC NOW: Discharge Order (Routine); Ordered 11/03/25 Ordered By: Ileana Arshad Referrals: [facility] [Outside] Jewell Kathleen MD [Physician, Neurology] - 11/18/25 1:15 pm Glendy Moseley MD [Primary Care Provider, Internal Medicine] Discharge Diet: Cardiac and Diabetic Discharge Activity: Resume usual activity Patient Instructions: Pregabalin (By mouth), Altered Mental Status (ED), Opioid Safety, Stroke Stoplight, Patient Portal & Susan Instructions Discharge Attestations Time Spent in Discharge Care*: greater than 30 min Quality Metrics Clinical Quality Measures [ No reported AMI, CVA or VTE this stay] Coding Level of Care Code 47156 Diagnoses Emphysematous cystitis N30.80 Stroke I63.9
== END 2025-11-03 15:25 | disposition intermediate care facility (04) | DRG 871 ==
LOC: ER 11:11 → ICU 14:47 → MEDSURG 10-30 14:52
PROVIDERS: Family Medicine; Internal Medicine; Admitting Provider Internal Medicine; Emergency Provider Emergency Medicine; PCP Internal Medicine; Visit Provider Registered Nurse
DX: A41.9 Sepsis, unspecified organism (principal); G93.41 Metabolic encephalopathy; R65.21 Severe sepsis with septic shock; I63.9 Cerebral infarction, unspecified; N17.9 Acute kidney failure, unspecified; E87.1 Hypo-osmolality and hyponatremia; E87.20 Acidosis, unspecified; N30.80 Other cystitis without hematuria; E11.65 Type 2 diabetes mellitus with hyperglycemia; E87.6 Hypokalemia; E11.42 Type 2 diabetes mellitus with diabetic polyneuropathy; E83.42 Hypomagnesemia; G89.29 Other chronic pain; M54.9 Dorsalgia, unspecified; Z90.49 Acquired absence of other specified parts of digestive tract; F17.210 Nicotine dependence, cigarettes, uncomplicated; S81.802A Unspecified open wound, left lower leg, initial encounter; S81.801A Unspecified open wound, right lower leg, initial encounter; X58.XXXA Exposure to other specified factors, initial encounter; R47.1 Dysarthria and anarthria; D69.6 Thrombocytopenia, unspecified; B96.1 Klebsiella pneumoniae [K. pneumoniae] as the cause of diseases classified elsewhere
CPT/HCPCS: 36415; 36416; 36430; 36592; 36600; 51702; 70450; 70551; 71045; 71250; 74176; 80048; 80051; 80053; 80061; 81001; 82009; 82140; 82330; 82533; 82550; 82805; 82962; 83036; 83605; 83690; 83735; 83935; 84100; 84145; 84300; 84443; 85025; 85610; 85730; 86140; 86900; 87040; 87077; 87086; 87186; 87493; 87637; 92507; 92523; 92526; 93005; 93306; 96365; 96366; 96367; 96372; 96375; 97110; 97162; 97167; 97530; 97535; 99291; 99292; C1751; J0131; J0612; J0696; J0744; J1650; J1720; J1815; J1938; J2020; J2185; J2270; J2405; J2470; J2598; J3101; J3475; J3480; J7030; J7070; J7120; J9999; P9035